=== PATIENT | male | born 1955 | race Two or more races ===

== ENCOUNTER → 2024-03-03 | Outpatient (CLI) | payer MEDICAID ==
[2024-03-03 08:37] LABS: Urine Bacteria None Seen /hpf (None Seen)
[2024-03-03 08:54] LABS: Basophils # (auto) 0.1 10 ^3/uL (0-0.2); Basophils % (auto) 0.7 % (0.0-2.0); Eosinophils # (auto) 0.1 10 ^3/uL (0-0.8); Eosinophils % (auto) 1.2 % (0.0-7.0); Lymphocytes # (auto) 1.8 10 ^3/uL (0.4-5.4); Lymphocytes % (auto) 22.3 % (10.0-50.0); Mean Corpuscular Hemoglobin 30.6 pg (28.0-32.0); Mean Corpuscular Hgb Conc. 33.9 g/dL (32.0-36.0); Mean Corpuscular Volume 90.3 fL (80.0-100.0); Monocytes # (auto) 0.8 10 ^3/uL (0-1.3); Monocytes % (auto) 10.3 % (0.0-12.0); Neutrophils # (auto) 5.1 10 ^3/uL (1.6-8.6); Neutrophils % (auto) 65.5 % (37.0-80.0); Nucleated Red Blood Cells % 0.1 %; Red Blood Cells 5.53 10^6/uL (4.5-5.90); Red Cell Distribution Width 13.8 % (11.8-14.3); White Blood Cell 7.8 10^3/uL (4.4-10.8)
[2024-03-03 08:59] LABS: Urine Blood Negative /uL (Negative); Urine Clarity Clear (Clear); Urine Color Yellow (Yellow); Urine Mucus FEW (None Seen); Urine Protein, UAD TRACE (Negative); Urine Specific Gravity 1.026 (1.001-1.035); Urine Urobilinogen 2 mg/dL (Negative); Urine WBC 2 /hpf (0 - 3)
[2024-03-03 09:14] LABS: Alanine Aminotransferase 17 U/L (7-40); Albumin 4.5 g/dL (3.2-4.8); Alkaline Phosphatase 63 U/L (46-116); Anion Gap 7 (5-15); Aspartate Aminotransferase 21 U/L (13-40); BUN/Creatinine Ratio 16.1 (10.0-20.0); Blood Urea Nitrogen 18 mg/dL (9-23); Calcium 10.1 mg/dL (8.5-10.1); Carbon Dioxide 28 mmol/L (20-30); Chloride 108 mmol/L (98-107); Glucose 102 mg/dL (74-106); LDL Cholesterol 76 mg/dL (< 100); Potassium 4.1 mmol/L (3.5-5.1); Sodium 143 mmol/L (136-145); Triglycerides 47 mg/dL (< 150)
[2024-03-03 09:15] LABS: Bilirubin, Total 0.7 mg/dL (0.2-1.0); Cholesterol 133 mg/dL (< 200); HDL Cholesterol 46 mg/dL (40-59); Total Protein 7.4 g/dL (5.7-8.2)
== END | disposition home or self-care (01) ==
LOC: LAB 08:25
PROVIDERS: ATTEND Nurse Practitioner
DX: I10 Essential (primary) hypertension (principal); E78.5 Hyperlipidemia, unspecified; R73.9 Hyperglycemia, unspecified
CPT/HCPCS: 36415; 80053; 80061; 81001; 83036; 84443; 85025

== ENCOUNTER → 2024-12-06 | Outpatient (CLI) | payer MEDICAID ==
[2024-12-06 08:49] LABS: Basophils # (auto) 0.1 10 ^3/uL (0-0.2); Basophils % (auto) 0.9 % (0.0-2.0); Eosinophils # (auto) 0.1 10 ^3/uL (0-0.8); Eosinophils % (auto) 1.8 % (0.0-7.0); Hematocrit 48.5 % (41.0-53.0); Hemoglobin 16.1 g/dL (13.5-17.5); Lymphocytes # (auto) 1.5 10 ^3/uL (0.4-5.4); Mean Corpuscular Hemoglobin 29.8 pg (28.0-32.0); Mean Corpuscular Hgb Conc. 33.1 g/dL (32.0-36.0); Mean Corpuscular Volume 90.2 fL (80.0-100.0); Monocytes # (auto) 0.6 10 ^3/uL (0-1.3); Monocytes % (auto) 9.6 % (0.0-12.0); Neutrophils # (auto) 4.3 10 ^3/uL (1.6-8.6); Neutrophils % (auto) 64.7 % (37.0-80.0); Nucleated Red Blood Cells % 0.1 %; Platelet Count (auto) 250 10^3/uL (140-450); Red Blood Cells 5.38 10^6/uL (4.5-5.90); Red Cell Distribution Width 13.5 % (11.8-14.3); White Blood Cell 6.6 10^3/uL (4.4-10.8)
[2024-12-06 08:58] LABS: Urine Bacteria None Seen /hpf (None Seen)
[2024-12-06 09:11] LABS: Urine Blood TRACE /uL (Negative); Urine Clarity Clear (Clear); Urine Color Yellow (Yellow); Urine Mucus FEW (None Seen); Urine Protein, UAD TRACE (Negative); Urine Specific Gravity 1.025 (1.001-1.035); Urine Squamous Epithelial Cell FEW /hpf (<5); Urine Urobilinogen Normal (Negative); Urine WBC 4 /HPF (0-3)
[2024-12-06 13:07] LABS: Triglycerides 58 mg/dL (< 150)
[2024-12-06 13:08] LABS: Cholesterol 134 mg/dL (< 200); HDL Cholesterol 48 mg/dL (40-59); LDL Cholesterol 76 mg/dL (< 100)
[2024-12-07 08:06] LABS: PSA Free 0.68 ng/mL; Prostate Specific Antigen 4.9 ng/mL (0.0-4.0)
== END | disposition home or self-care (01) ==
LOC: LAB 08:22
PROVIDERS: ATTEND Nurse Practitioner
DX: I10 Essential (primary) hypertension (principal); E78.5 Hyperlipidemia, unspecified; R73.9 Hyperglycemia, unspecified
CPT/HCPCS: 36415; 80061; 81001; 83036; 84153; 84154; 84443; 85025

== ENCOUNTER 2024-12-20 03:35 | Emergency (ER) | payer MEDICAID ==
[~2024-12-20] VITALS: Ht 190.5 cm; Wt 85.0 kg
--- NOTE | 2024-12-20 04:26 | ED.PDOC ---
History of Present Illness HPI Comments 69-year-old male complains dull achy bilateral lower quadrant abdominal pain for the last 3 days with bloating and nausea. Chief Complaint: Abdominal Pain Time Seen by MD: 03:46 Allergies: Coded Allergies: NO KNOWN ALLERGIES (Unverified , 12/20/24) Home Meds Active Scripts Hydrocodone-Acetaminophen (Hydrocodone Bitartrate/AC 5-325 mg) 1 Tab Tab, 1 TAB PO Q6HP PRN for 7 Days, #28 TAB Prov:IAN RAMIREZ MD 12/20/24 Metronidazole (Flagyl) 500 Mg Tab, 500 MG PO BID for 10 Days, #20 TAB Prov:IAN RAMIREZ MD 12/20/24 Ciprofloxacin Hydrochloride (Ciprofloxacin HCl) 250 Mg Tab, 250 MG GT BID for 10 Days, #20 TAB Prov:IAN RAMIREZ MD 12/20/24 Information Source: Patient Mode of Arrival: Ambulatory Severity: Moderate Timing: Days Past Medical History PAST MEDICAL HISTORY: HTN Gastrointestinal: reports: abdominal pain, nausea Physical Exam General Appearance: Moderate Distress HEENT: Normal ENT Inspection, Pharynx Normal, TMs Normal Neck: Full Range of Motion, Non-Tender, Normal, Normal Inspection Respiratory: Chest Non-Tender, Lungs Clear, No Accessory Muscle Use, No Respiratory Distress, Normal Breath Sounds Cardiovascular: No Edema, No JVD, No Murmur, No Gallop, Normal Peripheral Pulses, Regular Rate/Rhythm Breast Exam: Deferred Gastrointestinal: LLQ, Tenderness Genitalia: Deferred Pelvic: Deferred Rectal: Deferred Extremities: No calf tenderness, Normal capillary refill, Normal inspection, Normal range of motion, Non-tender, No pedal edema Musculoskeletal : Apperance: Normal Neurologic: Alert, 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 Was a procedure done?: No Differential Dx Considerations may include: Differential diagnosis includes but is not limited to: appendicitis, diverticulitis, colitis, urinary tract infection, ureteral colic / stone, bowel obstruction, and others X-Ray, Labs, Meds, VS Vital Signs Date Time Temp Pulse Resp B/P (MAP) Pulse Ox O2 Delivery O2 Flow Rate FiO2 12/20/24 06:50 81 18 157/94 12/20/24 05:41 87 20 157/93 12/20/24 05:28 87 20 157/93 (114) 98 12/20/24 05:28 87 20 98 Room Air* 0 21 12/20/24 03:48 98.2 92 20 127/80 (96) 96 Lab Test 12/20/24 03:55 12/20/24 03:51 Range/Units Urine Color Light-orange Yellow Urine Clarity Clear Clear Urine pH 6.0 5.0-9.0 Urine Specific [place] 1.032 1.001-1.035 Urine Protein 2+ H Negative Urine Ketones 1+ H Negative Urine Blood 1+ H Negative /uL Urine Nitrite Negative Negative Urine Bilirubin Negative Negative Urine Urobilinogen Normal Negative mg/dL Urine Leukocyte Esterase Negative Negative /uL Urine RBC 4 0 - 3 /hpf Urine Microscopic WBC 2 0-3 /HPF Urine Squamous Epithelial Cells None seen <5 /hpf Urine Amorphous Crystals Few None Seen /hpf Urine Bacteria Few H None Seen /hpf Urine Mucus Few None Seen Urine Glucose 1+ H Normal mg/dL White Blood Count 14.3 H 4.4-10.8 10^3/uL Red Blood Count 5.37 4.5-5.90 10^6/uL Hemoglobin 16.1 13.5-17.5 g/dL Hematocrit 48.1 41.0-53.0 % Mean Corpuscular Volume 89.5 80.0-100.0 fL Mean Corpuscular Hemoglobin 29.9 28.0-32.0 pg Mean Corpuscular Hemoglobin Concent 33.4 32.0-36.0 g/dL Red Cell Distribution Width 13.5 11.8-14.3 % Platelet Count 228 140-450 10^3/uL Mean Platelet Volume 9.1 6.9-10.8 fL Neutrophils (%) (Auto) 79.2 37.0-80.0 % Lymphocytes (%) (Auto) 7.7 L 10.0-50.0 % Monocytes (%) (Auto) 12.5 H 0.0-12.0 % Eosinophils (%) (Auto) 0.0 0.0-7.0 % Basophils (%) (Auto) 0.6 0.0-2.0 % Neutrophils # (Auto) 11.3 H 1.6-8.6 10 ^3/uL Lymphocytes # (Auto) 1.1 0.4-5.4 10 ^3/uL Monocytes # (Auto) 1.8 H 0-1.3 10 ^3/uL Eosinophils # (Auto) 0 0-0.8 10 ^3/uL Basophils # (Auto) 0.1 0-0.2 10 ^3/uL Nucleated Red Blood Cells 0.1 % Sodium Level 138 136-145 mmol/L Potassium Level 3.7 3.5-5.1 mmol/L Chloride Level 107 98-107 mmol/L Carbon Dioxide Level 20 20-31 mmol/L Anion Gap 11 5-15 Blood Urea Nitrogen 23 9-23 mg/dL Creatinine 0.96 0.700-1.30 mg/dL Glomerular Filtration Rate Calc 86 >90 mL/min BUN/Creatinine Ratio 24.0 H 10.0-20.0 Serum Glucose 143 H 74-106 mg/dL Calcium Level 10.1 8.7-10.4 mg/dL Total Bilirubin 1.2 H 0.2-1.0 mg/dL Aspartate Amino Transferase (AST) 54 H 13-40 U/L Alanine Aminotransferase (ALT) 98 H 7-40 U/L Alkaline Phosphatase 72 46-116 U/L Total Protein 7.4 5.7-8.2 g/dL Albumin 4.6 3.2-4.8 g/dL Lipase 37 12-53 U/L Current Medications Medications (Trade) Dose Ordered Sig/Radames Route Start Time Stop Time Status Last Admin Sodium Chloride 1,000 ml @ 1,000 mls/hr Q1H ONCE IVB 12/20/24 04:00 12/20/24 04:59 DC 12/20/24 05:41 Morphine Sulfate 4 mg ONCE ONCE IV 12/20/24 04:45 12/20/24 04:46 DC 12/20/24 05:41 Ondansetron HCl (Zofran) 4 mg ONCE ONCE IV 12/20/24 04:45 12/20/24 04:46 DC 12/20/24 05:40 Time of 1ST Reevaluation: 04:25 Reevaluation 1ST: Unchanged Patient Education/Counseling: Diagnosis, Treatment Family Education/Counseling: No Family Present Departure 1 Departure Time of Disposition: 04:25 Impression: Primary Impression: LLQ abdominal pain Additional Impression: Diverticulitis Disposition: 01 HOME / SELF CARE / HOMELESS Condition: Stable e-Prescriptions Hydrocodone-Acetaminophen (Hydrocodone Bitartrate/AC 5-325 mg) 1 Tab Tab 1 TAB PO Q6HP PRN for 7 Days, #28 TAB Prov: IAN RAMIREZ MD 12/20/24 Metronidazole (Flagyl) 500 Mg Tab 500 MG PO BID for 10 Days, #20 TAB Prov: IAN RAMIREZ MD 12/20/24 Ciprofloxacin Hydrochloride (Ciprofloxacin HCl) 250 Mg Tab 250 MG GT BID for 10 Days, #20 TAB Prov: IAN RAMIREZ MD 12/20/24 Discharged With: Self Critical Care Note Critical Care Time?: No Stability Stability form required: No IAN RAMIREZ MD Dec 20, 2024 04:26
[2024-12-20 04:32] LABS: Urine Amorphous Crystal FEW /hpf (None Seen); Urine Bacteria FEW /hpf (None Seen); Urine Blood 1+ /uL (Negative); Urine Clarity Clear (Clear); Urine Color Light-Orange (Yellow); Urine Mucus FEW (None Seen); Urine Protein, UAD 2+ (Negative); Urine Specific Gravity 1.032 (1.001-1.035); Urine Squamous Epithelial Cell None Seen /hpf (<5); Urine Urobilinogen Normal (Negative); Urine WBC 2 /HPF (0-3)
[2024-12-20 04:35] LABS: Basophils # (auto) 0.1 10 ^3/uL (0-0.2); Basophils % (auto) 0.6 % (0.0-2.0); Eosinophils # (auto) 0 10 ^3/uL (0-0.8); Hematocrit 48.1 % (41.0-53.0); Hemoglobin 16.1 g/dL (13.5-17.5); Lymphocytes # (auto) 1.1 10 ^3/uL (0.4-5.4); Lymphocytes % (auto) 7.7 % (10.0-50.0); Mean Corpuscular Hemoglobin 29.9 pg (28.0-32.0); Mean Corpuscular Hgb Conc. 33.4 g/dL (32.0-36.0); Mean Corpuscular Volume 89.5 fL (80.0-100.0); Monocytes # (auto) 1.8 10 ^3/uL (0-1.3); Monocytes % (auto) 12.5 % (0.0-12.0); Neutrophils # (auto) 11.3 10 ^3/uL (1.6-8.6); Neutrophils % (auto) 79.2 % (37.0-80.0); Nucleated Red Blood Cells % 0.1 %; Platelet Count (auto) 228 10^3/uL (140-450); Red Blood Cells 5.37 10^6/uL (4.5-5.90); Red Cell Distribution Width 13.5 % (11.8-14.3); White Blood Cell 14.3 10^3/uL (4.4-10.8)
[2024-12-20 04:39] LABS: Albumin 4.6 g/dL (3.2-4.8); Alkaline Phosphatase 72 U/L (46-116); Anion Gap 11 (5-15); Calcium 10.1 mg/dL (8.7-10.4); Chloride 107 mmol/L (98-107); Lipase 37 U/L (12-53); Potassium 3.7 mmol/L (3.5-5.1); Sodium 138 mmol/L (136-145); Total Protein 7.4 g/dL (5.7-8.2)
[2024-12-20 04:56] LABS: Alanine Aminotransferase 98 U/L (7-40); Aspartate Aminotransferase 54 U/L (13-40); Bilirubin, Total 1.2 mg/dL (0.2-1.0); Blood Urea Nitrogen 23 mg/dL (9-23); Carbon Dioxide 20 mmol/L (20-31); Glucose 143 mg/dL (74-106)
[2024-12-20 05:28] VITALS: PULSE 87; RESP 20; O2SAT 98
[2024-12-20] MEDS: IOHEXOL 300 MG/ML 100ML BOTTLE IJ ONE (05:35)
[2024-12-20] MEDS: ONDANSETRON HCL 4 MG/2 ML VIAL IV ONE (05:40)
[2024-12-20] MEDS: MORPHINE SULFATE 4 MG/ML SYR/VIAL IV ONE (05:41)
[2024-12-20] MEDS: SODIUM CHLORIDE 0.9% 1,000 ML IVB ONE (05:41)
--- NOTE | 2024-12-20 06:01 | DVH ---
EXAM: CT Abdomen and Pelvis With Intravenous Contrast CLINICAL INDICATION: LLQ pain TECHNIQUE: Axial computed tomography images of the abdomen and pelvis with intravenous contrast. is CT exam was performed using one or more of the following dose reduction techniques: automated exp osure control, adjustment of the mA and/or kV according to patient size, and/or use of iterative cee nstruction technique. CONTRAST: RADIATION DOSE: CTDIvol = 12.09 mGy, DLP = 687.41 mGy-cm COMPARISON: None FINDINGS: LUNG BASES: Unremarkable. No mass. No consolidation. MEDIASTINUM: Small esophageal hiatal hernia. ABDOMEN: LIVER: Hepatomegaly with fatty infiltration. GALLBLADDER AND BILE DUCTS: Unremarkable. No calcified stones. No ductal dilation. PANCREAS: Unremarkable. No mass. No ductal dilation. SPLEEN: Unremarkable. No splenomegaly. ADRENALS: Unremarkable. No mass. KIDNEYS AND URETERS: 5 mm nonobstructing calculus left renal pelvis. Bilateral renal cysts. STOMACH AND BOWEL: Scattered diverticula in the colon. There is mucosal thickening in the sigmoid colon and descending colon with surrounding inflammation consistent with acute diverticulitis. No ab scess. No obstruction. PELVIS: APPENDIX: No findings to suggest acute appendicitis. BLADDER: Unremarkable. No mass. REPRODUCTIVE: Unremarkable as visualized. ABDOMEN and PELVIS: INTRAPERITONEAL SPACE: Unremarkable. No free air. No significant fluid collection. BONES/JOINTS: No acute fracture. No dislocation. Multilevel endplate degenerative changes and disc disease, predominantly in the lower lumbar spine. SOFT TISSUES: Bilateral inguinal hernias.. VASCULATURE: Scattered calcified atherosclerotic disease of aorta. No abdominal aortic aneurysm. LYMPH NODES: Unremarkable. No enlarged lymph nodes. OTHER FINDINGS: . None. IMPRESSION: 1. Scattered diverticula in the colon. There is mild mucosal thickening in the sigmoid colon and de scending colon with surrounding inflammation consistent with acute mild diverticulitis. No abscess. 2. Small esophageal hiatal hernia. 3. Hepatomegaly with fatty infiltration. 4. 5 mm nonobstructing calculus left renal pelvis. Small hiatal Large fatty liver Bilateral renal cysts. Aortic disease 5 mm nonobstructing calculus left renal pelvis. Impression. Diverticulitis sigmoid colon and descending colon Bilateral inguinal hernias.
[2024-12-20] MEDS ORDERED: CIPR250T26 GT (06:05)
[2024-12-20] MEDS ORDERED: METR-344 PO (06:05)
[2024-12-20] MEDS ORDERED: HYDR-4902 PO (06:14)
[2024-12-20 06:50] VITALS: BP 157/94; PULSE 81; RESP 18
== END 2024-12-20 07:03 | disposition home or self-care (01) ==
LOC: ER 03:35
DX: K57.32 Diverticulitis of large intestine without perforation or abscess without bleeding (principal); I10 Essential (primary) hypertension; Z79.899 Other long term (current) drug therapy
CPT/HCPCS: 36415; 74177; 80053; 81001; 83690; 85025; 96361; 96374; 96375; 99285; J2270; J2405; J7030; Q9967

== ENCOUNTER 2025-01-24 14:07 | Inpatient (IN) | payer MEDICAID ==
[~2025-01-24] VITALS: Ht 190.5 cm; Wt 82.2 kg
[~2025-01-24 14:07] MED LIST: CIPR250T26 GT; HYDR-4902 PO; METR-344 PO
[2025-01-24 14:34] LABS: Basophils # (auto) 0.1 10 ^3/uL (0-0.2); Basophils % (auto) 0.5 % (0.0-2.0); Eosinophils # (auto) 0 10 ^3/uL (0-0.8); Eosinophils % (auto) 0.1 % (0.0-7.0); Hematocrit 41.2 % (41.0-53.0); Hemoglobin 14.6 g/dL (13.5-17.5); Lymphocytes # (auto) 1.2 10 ^3/uL (0.4-5.4); Lymphocytes % (auto) 8.8 % (10.0-50.0); Mean Corpuscular Hemoglobin 31.4 pg (28.0-32.0); Mean Corpuscular Hgb Conc. 35.5 g/dL (32.0-36.0); Mean Corpuscular Volume 88.5 fL (80.0-100.0); Monocytes # (auto) 1.4 10 ^3/uL (0-1.3); Neutrophils # (auto) 10.9 10 ^3/uL (1.6-8.6); Neutrophils % (auto) 80.6 % (37.0-80.0); Nucleated Red Blood Cells % 0.1 %; Platelet Count (auto) 353 10^3/uL (140-450); Red Blood Cells 4.66 10^6/uL (4.5-5.90); Red Cell Distribution Width 13.6 % (11.8-14.3); White Blood Cell 13.6 10^3/uL (4.4-10.8)
[2025-01-24 14:54] LABS: Alanine Aminotransferase 11 U/L (7-40); Albumin 4.7 g/dL (3.2-4.8); Alkaline Phosphatase 60 U/L (46-116); Anion Gap 9 (5-15); BUN/Creatinine Ratio 19.6 (10.0-20.0); Bilirubin, Total 0.7 mg/dL (0.2-1.0); Blood Urea Nitrogen 19 mg/dL (9-23); Calcium 10.1 mg/dL (8.7-10.4); Carbon Dioxide 25 mmol/L (20-31); Chloride 103 mmol/L (98-107); Glucose 105 mg/dL (74-106); Potassium 3.7 mmol/L (3.5-5.1); Sodium 137 mmol/L (136-145)
[2025-01-24 14:55] LABS: Aspartate Aminotransferase 11 U/L (13-40)
--- NOTE | 2025-01-24 15:05 | ED.PDOC ---
General HPI Comments HPI: 69 y/o M, with PMHX of HTN presents to the ED for CC of urinary retention. Patient states, that he has been experiencing urinary retention with associated symptoms of bilateral flank pain, back pain, and suprapubic abdominal pain x3days. Patient relays, that he has had scant urine production with associated sensations of a full bladder. Patient denies hematuria, foul order urine, penile discharge, or testicular swelling. No other symptoms or modifying factors present at this time. VITALS: Temp: 97.2 BP:145/85 HR:92 RR:20 SPO2:96% Past medical history:HTN Past surgical history: DENIES ANY NOREEN: HPI: Poor Historian. REVIEW OF SYSTEMS: CONSTITUTIONAL: Denies acute: fever, diaphoresis, chills, HEAD: Denies acute: headache, photophobia Eyes: Denies acute: Double vision, vision loss, eye pain, eye discharge. EARS: Denies acute: tinnitus, hearing loss, ear discharge, ear pain, THROAT: Denies acute: sore throat, swelling, difficulty swallowing , pain with swallowing, change in voice. NECK: Denies acute: neck pain, neck swelling, stiff neck. HEART: Denies acute : chest pain, palpitations, LUNGS: Denies acute: SOB, wheezing, cough, hemoptysis ABDOMEN: Denies acute: , Nausea, Vomiting, diarrhea, melena , hematemesis, hematochezia SKIN: Denies acute: rash, redness, lesions, itchiness. EXTREMITIES: Denies acute: calf pain, numbness, tingling, weakness, denies pain in extremity. Denies acute: Low back pain. Neuro: Denies acute: focal neurological deficit, motor or sensory focal neurological deficit, tremors, seizure like activity, confusion, dizziness, change in mental status, loss of bowel or bladder function, cauda equina like symptoms. : Denies acute: dysuria, hematuria, flank pain, increase in urinary frequency. PSYCH: Denies acute: hallucination, suicidal ideation, homicidal ideation. PHYSICAL EXAM: General: ---[id number]-----acute distress, awake and alert. Head: normocephalic, atraumatic. Neck: supple, trachea is midline, no swelling. Throat: Normal phonation. Eyes:, no erythema, no purulent discharge, no proptosis, no icterus. Heart: regular rate, regular rhythm, no significant murmur appreciated. Lungs: no apparent respiratory distress, Able to speak in full sentences. No wheezing, no rhonchi, no crackles. No stridors Clear to auscultation bilaterally. Abdomen: Generalized lower tender to palpation, non distended, soft, no guarding, no rebound, + bowel sounds. Neuro: Awake, Alert, oriented to name, self, situation, follows commands GCS=15. Speech is normal. Skin: no petechia, no purpura, no cyanosis, non-pale, not jaundice. Lower extremities: --no - Pitting edema no deformity, no focal swelling, no calf TTP. Makes eye contact. moves all four extremities. Face: no apparent facial droop. Ambulating in the ED independently. ED COURSE: Chief Complaint: Urinary Time Seen by MD: 14:50 Reviewed notes: Nurses Notes, Medications, Allergies Allergies: Coded Allergies: NO KNOWN ALLERGIES (Unverified , 12/20/24) Home Meds Active Scripts Hydrocodone-Acetaminophen (Hydrocodone Bitartrate/AC 5-325 mg) 1 Tab Tab, 1 TAB PO Q6HP PRN for 7 Days, #28 TAB Prov:IAN RAMIREZ MD 12/20/24 Metronidazole (Flagyl) 500 Mg Tab, 500 MG PO BID for 10 Days, #20 TAB Prov:IAN RAMIREZ MD 12/20/24 Ciprofloxacin Hydrochloride (Ciprofloxacin HCl) 250 Mg Tab, 250 MG GT BID for 10 Days, #20 TAB Prov:IAN RAMIREZ MD 12/20/24 Information Source: Patient Mode of Arrival: Ambulatory Severity: Moderate Inability to void: Moderate Timing: Days Duration: Since onset Prehospital treatment: None Onset: Spontaneous Symptoms: Inability to void History of: None Location: Suprapubic, Abdomen, (R) Flank, (L)Flank Penile discharge: None Modifying factors: None associated signs and symptoms: Inability to Void Was a procedure done? Was a procedure done?: No Differential Diagnosis Kidney stone (Female): N/A Urinary Problem (Male): Bladder Outlet, Bladder Obstruction, Epididymitis, Prostatitis, Plelonephritis, Post op Complications, Renal Failure, Urethritis, Urinary Retention, Urolithiasis, UTI, Other (DDX include but not limited to diverticulitis, colitis, gastroenteritis, acute abdomen, SBO, enteritis, constipation, volvulus, appendicitis, Gallbladder disease, choledocolithiasis, ascending cholangitis, pancreatitis, intraAbdominal mass/neoplasm, hepatitis, UTI, pylonephritis, kidney stone, aneurysm, dissection, Inflammatory bowel disease, gastroparesis, ischemic bowel.) X-Ray, Labs, Meds, VS Vital Signs Date Time Temp Pulse Resp B/P (MAP) Pulse Ox O2 Delivery O2 Flow Rate FiO2 01/24/25 16:38 136/94 01/24/25 15:49 89 22 95 Room Air* 0 21 01/24/25 15:48 98.4 89 22 135/84 (101) 95 98.4 01/24/25 14:09 97.2 92 20 145/85 (105) 96 97.2 Lab Test 01/24/25 15:05 01/24/25 14:30 01/24/25 14:20 Range/Units Urine Color Yellow Yellow Urine Clarity Turbid H Clear Urine pH 6.0 5.0-9.0 Urine Specific [place] 1.031 1.001-1.035 Urine Protein 1+ H Negative Urine Ketones 3+ H Negative Urine Blood 3+ H Negative /uL Urine Nitrite Negative Negative Urine Bilirubin Negative Negative Urine Urobilinogen 2 H Negative mg/dL Urine Leukocyte Esterase Trace Negative /uL Urine RBC 850 0 - 3 /hpf Urine Microscopic WBC 16 H 0-3 /HPF Urine Squamous Epithelial Cells Few <5 /hpf Urine Bacteria None seen None Seen /hpf Urine Mucus Few None Seen Urine Glucose Normal Normal mg/dL Lactic Acid Level 1.7 0.4-2.0 mmol/L White Blood Count 13.6 H 4.4-10.8 10^3/uL Red Blood Count 4.66 4.5-5.90 10^6/uL Hemoglobin 14.6 13.5-17.5 g/dL Hematocrit 41.2 41.0-53.0 % Mean Corpuscular Volume 88.5 80.0-100.0 fL Mean Corpuscular Hemoglobin 31.4 28.0-32.0 pg Mean Corpuscular Hemoglobin Concent 35.5 32.0-36.0 g/dL Red Cell Distribution Width 13.6 11.8-14.3 % Platelet Count 353 140-450 10^3/uL Mean Platelet Volume 7.6 6.9-10.8 fL Neutrophils (%) (Auto) 80.6 H 37.0-80.0 % Lymphocytes (%) (Auto) 8.8 L 10.0-50.0 % Monocytes (%) (Auto) 10.0 0.0-12.0 % Eosinophils (%) (Auto) 0.1 0.0-7.0 % Basophils (%) (Auto) 0.5 0.0-2.0 % Neutrophils # (Auto) 10.9 H 1.6-8.6 10 ^3/uL Lymphocytes # (Auto) 1.2 0.4-5.4 10 ^3/uL Monocytes # (Auto) 1.4 H 0-1.3 10 ^3/uL Eosinophils # (Auto) 0 0-0.8 10 ^3/uL Basophils # (Auto) 0.1 0-0.2 10 ^3/uL Nucleated Red Blood Cells 0.1 % Sodium Level 137 136-145 mmol/L Potassium Level 3.7 3.5-5.1 mmol/L Chloride Level 103 98-107 mmol/L Carbon Dioxide Level 25 20-31 mmol/L Anion Gap 9 5-15 Blood Urea Nitrogen 19 9-23 mg/dL Creatinine 0.97 0.700-1.30 mg/dL Glomerular Filtration Rate Calc 85 >90 mL/min BUN/Creatinine Ratio 19.6 10.0-20.0 Serum Glucose 105 74-106 mg/dL Calcium Level 10.1 8.7-10.4 mg/dL Total Bilirubin 0.7 0.2-1.0 mg/dL Aspartate Amino Transferase (AST) 11 L 13-40 U/L Alanine Aminotransferase (ALT) 11 7-40 U/L Alkaline Phosphatase 60 46-116 U/L Total Protein 8.0 5.7-8.2 g/dL Albumin 4.7 3.2-4.8 g/dL Current Medications Medications (Trade) Dose Ordered Sig/Radames Route Start Time Stop Time Status Last Admin Ceftriaxone Sodium 50 ml @ 100 mls/hr ONCE ONCE IV 01/24/25 16:00 01/24/25 16:29 DC 01/24/25 16:43 Fentanyl Citrate 100 mcg ONCE ONCE IV 01/24/25 16:15 01/24/25 16:16 DC 01/24/25 16:38 Ciprofloxacin 200 ml @ 200 mls/hr ONCE ONCE IV 01/24/25 17:00 01/24/25 17:59 DC 01/24/25 17:[address] [address] Ph: [phone] DIAGNOSTIC IMAGING Diagnostic Imaging Report : [id number] Signed PATIENT: VENECIA SORTO ACCT: [id number] UNIT: [id number] : 1955 LOC: ER ROOM / BED: / AGE / SEX: 69 / M ADM STATUS: REG ER SERVICE 1440 ORDERING PHYSICIAN: ANNA CROW DO PROCEDURE(s): ABPL - CT AB PEL WO CON-NO ORAL OR IV REASON: urinary symptoms ORDER NUMBER(s): [id number], ACCESSION NUMBER(s): [id number] Procedure: CT CT AB PEL WO CON-NO ORAL OR IV 01/24/2025 03:07 PM Indication: urinary symptoms Comparison Study: None Technique: Axial images were obtained and reformatted in coronal and sagittal planes. All CT scans at this medical facility are performed using dose modulation techniques as appropriate to a performed exam including the following: Automated exposure control was utilized; adjustment of the MA and/or KV according to patient size; and use of iterative reconstruction technique. CT Dose: CTDI volume is 8.05 mGy. Dose-length product is 460.13 mGy*cm FINDINGS: Lower Chest: Unremarkable. Hepatobiliary: Unremarkable. Spleen: Unremarkable. Pancreas: Unremarkable. Adrenal Glands: Unremarkable. tract: The kidneys are normal in size bilaterally without hydronephrosis or nephrolithiasis. Bilateral renal cysts are seen measuring up to 3.5 cm. Several subcentimeter nonobstructing bilateral renal calculi noted. The urinary bladder is unremarkable. GI tract: A small sliding hiatal hernia noted. No evidence of small bowel obstruction. Moderate fecal retention. Descending and sigmoid colon diverticulosis with moderate mesenteric inflammatory changes adjacent to the proximal sigmoid colon with no single inflamed diverticulum identified. There is interval development of an inflammatory mesenteric mass in the left lower quadrant measuring 6.3 cm in craniocaudal 3 cm in transverse The appendix is normal. Lymphatics: No mesenteric, retroperitoneal or periportal lymphadenopathy. Vasculature: The abdominal aorta is normal in caliber. Pelvic Organs: Unremarkable Bones/soft tissues: No acute abnormality. Other: None. IMPRESSION: 1. Interval development of a 6.3 x 3 cm inflammatory mesenteric mass in the left lower quadrant that is of indeterminate etiology. Evaluation is very limited without IV contrast. The left gonadal vein is thickened and dense which may reflect thrombosis. Further evaluation CT scan with IV contrast is recommended. 2. Descending and sigmoid colon diverticulosis with moderate mesenteric inflammatory changes adjacent to the proximal sigmoid colon with no single inflamed diverticulum identified. The findings may reflect residual diverticulitis. 3. No hydronephrosis or hydroureter. Several subcentimeter nonobstructing bilateral renal calculi are seen. Benign-appearing bilateral renal cysts noted. 4. Hepatomegaly and hepatic steatosis. 5. Suggestion of cholelithiasis with no evidence of cholecystitis. ATED BY: KYLAH CHAPMAN MD DICTATED DATE/TIME: 01/24/25 155 SIGNED BY: KYLAH CHAPMAN MD SIGNED DATE/TIME: 01/24/25 155 CC: Time of 1ST Reevaluation: 15:20 Reevaluation 1ST: Unchanged Patient Education/Counseling: Diagnosis, Treatment Family Education/Counseling: Other Comments Patient presented with the above HPI.--lower abdominal pain and urinary s ymptoms----workup was initiated. patient was found with the above mentioned diagnosis. the following medications were ordered: please refer to order lists of meds and tests obtained by myself Dr. Crow. Patient ED course and VS have been stabilized. Patient has been reassessed in the ED and remained in a stable condition. Pertinent incidental findings were discussed with the patient and/or family. Patient/family voices understanding and is agreeable with plan. Patient has been observed in the ED adequate length of time to insure improvement/stability. Escalation of care considered: Consideration of escalation to observation or admission Patient was ADMITTED to the medicine team for further evaluation and treatment of their presentation. All the reports of any imaging studies that were ordered by myself were reviewed by myself. Departure 1 Departure Time of Disposition: 16:46 Impression: Primary Impression: Diverticulitis Additional Impressions: UTI (urinary tract infection) Pelvic mass Abnormal finding on CT scan Leukocytosis Disposition: ADMITTED INPATIENT Admit to: Tele Condition: Guarded Additional Instructions: [address] [address] Ph: [phone] DIAGNOSTIC IMAGING Diagnostic Imaging Report : [id number] Signed PATIENT: VENECIA SORTO ACCT: [id number] UNIT: [id number] : 1955 LOC: ER ROOM / BED: / AGE / SEX: 69 / M ADM STATUS: REG ER SERVICE 1440 ORDERING PHYSICIAN: ANNA CROW DO PROCEDURE(s): ABPL - CT AB PEL WO CON-NO ORAL OR IV REASON: urinary symptoms ORDER NUMBER(s): [id number], ACCESSION NUMBER(s): [id number] Procedure: CT CT AB PEL WO CON-NO ORAL OR IV 01/24/2025 03:07 PM Indication: urinary symptoms Comparison Study: None Technique: Axial images were obtained and reformatted in coronal and sagittal planes. All CT scans at this medical facility are performed using dose modulation techniques as appropriate to a performed exam including the following: Automated exposure control was utilized; adjustment of the MA and/or KV according to patient size; and use of iterative reconstruction technique. CT Dose: CTDI volume is 8.05 mGy. Dose-length product is 460.13 mGy*cm FINDINGS: Lower Chest: Unremarkable. Hepatobiliary: Unremarkable. Spleen: Unremarkable. Pancreas: Unremarkable. Adrenal Glands: Unremarkable. tract: The kidneys are normal in size bilaterally without hydronephrosis or n ephrolithiasis. Bilateral renal cysts are seen measuring up to 3.5 cm. Several subcentimeter nonobstructing bilateral renal calculi noted. The urinary bladder is unremarkable. GI tract: A small sliding hiatal hernia noted. No evidence of small bowel obs truction. Moderate fecal retention. Descending and sigmoid colon diverticulosis with moderate mesenteric inflammatory changes adjacent to the proximal sigmoid colon with no single inflamed diverticulum identified. There is interval development of an inflammatory mesenteric mass in the left lower quadrant measuring 6.3 cm in craniocaudal 3 cm in transverse The appendix is normal. Lymphatics: No mesenteric, retroperitoneal or periportal lymphadenopathy. Vasculature: The abdominal aorta is normal in caliber. Pelvic Organs: Unremarkable Bones/soft tissues: No acute abnormality. Other: None. IMPRESSION: 1. Interval development of a 6.3 x 3 cm inflammatory mesenteric mass in the left lower quadrant that is of indeterminate etiology. Evaluation is very limited without IV contrast. The left gonadal vein is thickened and dense which may reflect thrombosis. Further evaluation CT scan with IV contrast is recommended. 2. Descending and sigmoid colon diverticulosis with moderate mesenteric inflammatory changes adjacent to the proximal sigmoid colon with no single inflamed diverticulum identified. The findings may reflect residual diverticulitis. 3. No hydronephrosis or hydroureter. Several subcentimeter nonobstructing bilateral renal calculi are seen. Benign-appearing bilateral renal cysts noted. 4. Hepatomegaly and hepatic steatosis. 5. Suggestion of cholelithiasis with no evidence of cholecystitis. ATED BY: KYLAH CHAPMAN MD DICTATED DATE/TIME: 01/24/25 155 SIGNED BY: KYLAH CHAPMAN MD SIGNED DATE/TIME: 01/24/25 155 CC: Discharged With: Self Critical Care Note Critical Care Time?: No Heart Score Heart Score: Heart Score Response (Comments) Value History N/A 0 EKG N/A 0 Age N/A 0 Risk Factors N/A 0 Troponin N/A 0 Total 0 I personally scribed for ANNA CROW DO ([email or web address]) on 01/24/25 at 15:05. Electronically submitted by Padmini Guevara ([email or web address]). I personally scribed for ANNA CROW DO ([email or web address]) on 01/24/25 at 16:37. Electronically submitted by Padmini Guevara ([email or web address]). ANNA CROW DO Jan 24, 2025 15:05
[2025-01-24 15:07] LABS: Urine Bacteria None Seen /hpf (None Seen)
[2025-01-24 15:11] LABS: Urine Blood 3+ /uL (Negative); Urine Clarity Turbid (Clear); Urine Color Yellow (Yellow); Urine Mucus FEW (None Seen); Urine Protein, UAD 1+ (Negative); Urine Specific Gravity 1.031 (1.001-1.035); Urine Squamous Epithelial Cell FEW /hpf (<5); Urine Urobilinogen 2 mg/dL (Negative); Urine WBC 16 /HPF (0-3)
[2025-01-24 15:49] VITALS: PULSE 89; RESP 22; O2SAT 95
--- NOTE | 2025-01-24 15:55 | DVH ---
Procedure: CT CT AB PEL WO CON-NO ORAL OR IV 01/24/2025 03:07 PM Indication: urinary symptoms Comparison Study: None Technique: Axial images were obtained and reformatted in coronal and sagittal planes. All CT scans at this medical facility are performed using dose modulation techniques as appropriate to a performed e xam including the following: Automated exposure control was utilized; adjustment of the MA and/or KV according to patient size; and use of iterative reconstruction technique. CT Dose: CTDI volume is 8.0 5 mGy. Dose-length product is 460.13 mGy*cm FINDINGS: Lower Chest: Unremarkable. Hepatobiliary: Unremarkable. Spleen: Unremarkable. Pancreas: Unremarkable. Adrenal Glands: Unremarkable. tract: The kidneys are normal in size bilaterally without hydronephrosis or nephrolithiasis. Bilat eral renal cysts are seen measuring up to 3.5 cm. Several subcentimeter nonobstructing bilateral sharonda al calculi noted. The urinary bladder is unremarkable. GI tract: A small sliding hiatal hernia noted. No evidence of small bowel obstruction. Moderate fecal retention. Descending and sigmoid colon diverticulosis with moderate mesenteric inflammatory change s adjacent to the proximal sigmoid colon with no single inflamed diverticulum identified. There is in terval development of an inflammatory mesenteric mass in the left lower quadrant measuring 6.3 cm in craniocaudal 3 cm in transverse The appendix is normal. Lymphatics: No mesenteric, retroperitoneal or periportal lymphadenopathy. Vasculature: The abdominal aorta is normal in caliber. Pelvic Organs: Unremarkable Bones/soft tissues: No acute abnormality. Other: None. IMPRESSION: 1. Interval development of a 6.3 x 3 cm inflammatory mesenteric mass in the left lower quadrant that is of indeterminate etiology. Evaluation is very limited without IV contrast. The left gonadal vein i s thickened and dense which may reflect thrombosis. Further evaluation CT scan with IV contrast is r ecommended. 2. Descending and sigmoid colon diverticulosis with moderate mesenteric inflammatory changes adjacent to the proximal sigmoid colon with no single inflamed diverticulum identified. The findings may refl ect residual diverticulitis. 3. No hydronephrosis or hydroureter. Several subcentimeter nonobstructing bilateral renal calculi are seen. Benign-appearing bilateral renal cysts noted. 4. Hepatomegaly and hepatic steatosis. 5. Suggestion of cholelithiasis with no evidence of cholecystitis.
[2025-01-24] MEDS: fentaNYL CITRATE 100 MCG/2 ML VL IV ONE (16:38)
[2025-01-24] MEDS: cefTRIAXone 1GM/50ML D5W 50 ML IV ONE (16:43)
[2025-01-24] MEDS: metroNIDAZOLE 500MG/100ML 100 ML IV ONE (17:00)
[2025-01-24] MEDS: CIPROFLOXACIN 400MG/200ML 200 ML IV ONE (17:46)
[2025-01-24] MEDS: SODIUM CHLORIDE 0.9% 1,000 ML IV ONE (22:06)
[2025-01-24] MEDS: HYDROcodone-ACET 5/325MG TAB PO ONE (22:57)
[2025-01-24] MEDS ORDERED: ACETAMINOPHEN 325 MG TAB PO PRN (23:00)
[2025-01-24] MEDS ORDERED: ONDANSETRON HCL 4 MG/2 ML VIAL IV PRN (23:00)
--- NOTE | 2025-01-24 23:06 | DVHHPRES ---
History of Present Illness Resident Creating Document: KATHIE JIN RESDISIMA History of Present Illness This is a 69-year-old male with past medical history of hypertension came to the hospital due to abdominal pain. Per patient, 6 weeks back he was treated for orchitis, and was feeling good for 2 weeks, but later he developed abdominal pain which progressively worsened. Pain is localized at lower abdomen, radiating to the back, constant, pressure-like in nature and 10/10 in intensity. He also reports dribbling, urgency, frequency, constipation and sleep disturb ance due to pain. He denies fever, chest pain, shortness of breath, or any recent sick contact. PMHx: Hypertension PSHx: Shoulder surgery due to a traumatic injury Family history: Noncontributory Social history: Denies smoking or any other drug use Home medication: Lisinopril 20 mg Allergic history: No known allergy Review of Systems Review of Systems General: Reports sleep disturbance due to abdominal pain HEENT: No headaches, visiual changes, hearing loss, tinnitus, nasal congestion and discharge, and sore throat. Cardiovascular: Denies chest pain, palpitations, dyspnea on exertion, orthopnea, or claudication. Respiratory: No cough, and wheezing. Gastrointestinal: Reports lower abdominal pain Genitourinary: Reports dribbling, urgency and frequency Endocrine: No heat or cold intolerance, polydipsia, polyuria, and polyphagia. Neurological: No dizziness, extremity weakness and numbness, tremors, gait disturbance, seizures, and memory impairment. Psychiatric: Denies depression, anxiety,or insomnia. Musculoskeletal: Denies neck pain, stiffness and swelling, back pain, muscle weakness, joint pain, stiffness, swelling, or limited range of motion. Skin: No rashes, itching, skin lesion, changes in hair, nail, skin texture and breast. Hematologic/Lymphatic: Denies easy bruising, bleeding tendencies, or lymph node enlargement. Allergies: Coded Allergies: NO KNOWN ALLERGIES (Unverified , 12/20/24) Exam Vital Signs Vital Signs Date Time Temp Pulse Resp B/P (MAP) Pulse Ox O2 Delivery O2 Flow Rate FiO2 01/24/25 16:38 136/94 01/24/25 15:49 89 22 95 Room Air* 0 21 01/24/25 15:48 98.4 98.4 Exam General Appearance: Alert, Oriented X3, Cooperative, No acute distress HEENT: Atraumatic, PERRLA, EOMI, Mucous membrane moist/pink Respiratory: Clear to auscultation, Normal air movement Cardiovascular: Regular rate, Normal S1, Normal S2, No murmurs, no chest wall tenderness Abdominal: Lower abdominal tenderness Extremities: No clubbing, No cyanosis, No edema, Normal pulses, No tenderness/swelling Skin: No rashes, No breakdown, No significant lesion Neuro: Normal gait, Normal speech, Strength at 5/5 X4 ext, Normal tone, Sensation intact, Cranial nerves 3-12 NL, Reflexes 2+ Psych/Mental Status: Mental status NL, Mood NL Labs/Xrays Labs Test 01/24/25 15:05 01/24/25 14:30 01/24/25 14:20 Range/Units Urine Color Yellow Yellow Urine Clarity Turbid H Clear Urine pH 6.0 5.0-9.0 Urine Specific [place] 1.031 1.001-1.035 Urine Protein 1+ H Negative Urine Ketones 3+ H Negative Urine Blood 3+ H Negative /uL Urine Nitrite Negative Negative Urine Bilirubin Negative Negative Urine Urobilinogen 2 H Negative mg/dL Urine Leukocyte Esterase Trace Negative /uL Urine RBC 850 0 - 3 /hpf Urine Microscopic WBC 16 H 0-3 /HPF Urine Squamous Epithelial Cells Few <5 /hpf Urine Bacteria None seen None Seen /hpf Urine Mucus Few None Seen Urine Glucose Normal Normal mg/dL Lactic Acid Level 1.7 0.4-2.0 mmol/L White Blood Count 13.6 H 4.4-10.8 10^3/uL Red Blood Count 4.66 4.5-5.90 10^6/uL Hemoglobin 14.6 13.5-17.5 g/dL Hematocrit 41.2 41.0-53.0 % Mean Corpuscular Volume 88.5 80.0-100.0 fL Mean Corpuscular Hemoglobin 31.4 28.0-32.0 pg Mean Corpuscular Hemoglobin Concent 35.5 32.0-36.0 g/dL Red Cell Distribution Width 13.6 11.8-14.3 % Platelet Count 353 140-450 10^3/uL Mean Platelet Volume 7.6 6.9-10.8 fL Neutrophils (%) (Auto) 80.6 H 37.0-80.0 % Lymphocytes (%) (Auto) 8.8 L 10.0-50.0 % Monocytes (%) (Auto) 10.0 0.0-12.0 % Eosinophils (%) (Auto) 0.1 0.0-7.0 % Basophils (%) (Auto) 0.5 0.0-2.0 % Neutrophils # (Auto) 10.9 H 1.6-8.6 10 ^3/uL Lymphocytes # (Auto) 1.2 0.4-5.4 10 ^3/uL Monocytes # (Auto) 1.4 H 0-1.3 10 ^3/uL Eosinophils # (Auto) 0 0-0.8 10 ^3/uL Basophils # (Auto) 0.1 0-0.2 10 ^3/uL Nucleated Red Blood Cells 0.1 % Sodium Level 137 136-145 mmol/L Potassium Level 3.7 3.5-5.1 mmol/L Chloride Level 103 98-107 mmol/L Carbon Dioxide Level 25 20-31 mmol/L Anion Gap 9 5-15 Blood Urea Nitrogen 19 9-23 mg/dL Creatinine 0.97 0.700-1.30 mg/dL Glomerular Filtration Rate Calc 85 >90 mL/min BUN/Creatinine Ratio 19.6 10.0-20.0 Serum Glucose 105 74-106 mg/dL Calcium Level 10.1 8.7-10.4 mg/dL Total Bilirubin 0.7 0.2-1.0 mg/dL Aspartate Amino Transferase (AST) 11 L 13-40 U/L Alanine Aminotransferase (ALT) 11 7-40 U/L Alkaline Phosphatase 60 46-116 U/L Total Protein 8.0 5.7-8.2 g/dL Albumin 4.7 3.2-4.8 g/dL Assessment/Plan Assessment/Plan Complicated UTI Diverticulosis UA shows UTI picture CT scan shows inflammatory or reactive lymph nodes along the left periaortic chain anterior to the left psoas muscle. There is also extensive diverticulosis UA urine culture Empiric antibiotic, Rocephin IV fluid Pain control Hypertension Continue lisinopril Hepatomegaly and hepatic steatosis Cholelithiasis CT scan finding DIET: Cardiac diet DVT PROPHYLAXIS: Lovenox GI PROPHYLAXIS:: Protonix CODE STATUS: Goal of care discussed for more than 18 minutes, full code DISPOSITION: Med/surge Patient's status and plan discussed with the patient. Case discussed with Dr. Garrett. Plan discussed with: Patient, Other (RN) My Orders Orders - JORGERIYAJORGEARACELIS RESDIENT Procedure Category Date Status Time Admit ADMIT 01/24/25 Verified 22:55 Code Status CODE 01/24/25 Verified 22:55 Vital Signs KRYSTLE 01/24/25 Verified 22:55 Review Orders With [facility] 01/24/25 Verified Adm. 22:55 Consistent DIET 01/25/25 Verified Carb(Ccho)Diabetes Breakfast Acetaminophen Tablet PHA 01/24/25 Verified (Tylenol Tablet) 23:00 Notify Md Of Changes [facility] 01/24/25 Verified From Base 22:55 Advance Directive KRYSTLE 01/24/25 Verified 22:55 Lipid Panel LAB 01/24/25 Verified 22:55 Patient Condition ORDERS 01/24/25 Verified 22:55 Allergies KRYSTLE 01/24/25 Verified 22:55 Ondansetron Hcl PHA 01/24/25 Verified (Zofran) 23:00 Drug Screen LAB 01/24/25 Verified 22:55 Lovenox 40mg PHA 01/25/25 Verified 10:00 Stat Ekg For Chest [facility] 01/24/25 Verified Pain 22:55 Notify Md Of Changes [facility] 01/24/25 Verified From Base 22:55 Ketorolac Injection PHA 01/24/25 Verified (Toradol Injection) 23:00 Ketorolac Injection PHA 01/24/25 Verified (Toradol Injection) 23:00 Pantoprazole PHA 01/24/25 Verified (Protonix) 23:00 Pantoprazole PHA 01/25/25 Verified (Protonix) 10:00 Lisinopril Tablet PHA 01/25/25 Verified (Zestril Tablet) 10:00 Lisinopril Tablet PHA 01/24/25 Verified (Zestril Tablet) 23:00 Ceftriaxone Ivpb PHA 01/25/25 Verified Rocephin 09:00 Ceftriaxone Ivpb PHA 01/24/25 Verified Rocephin 23:00 Tamsulosin PHA 01/24/25 Verified Hydrochloride (Flomax) 23:00 Tamsulosin PHA 01/25/25 Verified Hydrochloride (Flomax) 18:00 Complete Blood Count LAB 01/25/25 Verified 04:00 Basic Metabolic Panel LAB 01/25/25 Verified 04:00 PTPTT LAB 01/25/25 Verified 04:00 Ct Ab Pel With Iv Con CT 01/24/25 Verified Only 22:55 Bladder Scan ED NURSING 01/24/25 Verified Date of Service: Jan 24, 2025 Billing Provider: TORIE GARRETT MD Common Visit Codes: 01855-[id number] INP/OBS CARE (HIGH) Secondary Visit Codes: 23609-[id number] CARE PLAN 30 MINUTES KATHIE JIN RESDIENT Jan 24, 2025 23:06 TORIE GARRETT MD Jan 30, 2025 12:15
[2025-01-24] MEDS ORDERED: IOHEXOL 300 MG/ML 100ML BOTTLE IJ ONE (23:11)
[2025-01-24 23:30] VITALS: BP 150/84; PULSE 87; RESP 19; TEMP 98.1; O2SAT 98
[2025-01-24 23:33] LABS: Triglycerides 46 mg/dL (< 150)
[2025-01-24 23:34] LABS: LDL Cholesterol 68 mg/dL (< 100)
[2025-01-24 23:35] LABS: Cholesterol 119 mg/dL (< 200); HDL Cholesterol 41 mg/dL (40-59)
[2025-01-24 23:35] LABS: Amphetamine Screen, Urine Neg (NEGATIVE); Barbiturate Scree,Urine Neg (NEGATIVE); Benzodiazephine Screen, Urine Neg (NEGATIVE); Cannabinoid Screen, Urine Pos (NEGATIVE); Cocaine Screen, Urine Neg (NEGATIVE); Opiate Scree,Urine Pos (NEGATIVE); Phencyclidine Screen, Urine Neg (NEGATIVE)
--- NOTE | 2025-01-24 23:57 | DVH ---
Exam: CT CT AB PEL WITH IV CON ONLY History: A 6.3 x 3 cm inflammatory mesenteric mass in LLQ Comparison Study: CT CT AB PEL WITH IV CON ONLY on DOS: 12/20/24 Contrast: Type of contrast: 100 mL of Omnipaque 300 Contrast wasted: 0 TECHNIQUE: Multidetector CT of abdomen and pelvis with IV contrast. Radiation Dose Information: CT Dose: CTDI volume is 1278 mGy. Dose-length product is 777.27 mGy*cm FINDINGS: Lung bases demonstrate very early interstitial changes. Heart size is normal there is an hiatal hernia. There are simple cysts involving both kidneys. there is also calcifications associated with 2 of the cysts in the left kidney. There is no evidence hydron ephrosis or hydroureter. Gallbladder is engorged fluid. There is a large stool burden patient has mu ltiple diverticuli in the sigmoid appear to be inflamed lymph nodes anterior to the left psoas muscle I do not think they are related to the diverticuli. patient has calcifications in the enlarged prost ate. Bladder is unremarkable.. IMPRESSION: 1. There appears to be inflammatory or reactive lymph nodes along the left periaortic chain anterior to the left psoas muscle. There is also extensive diverticulosis
[2025-01-25] MEDS: KETOROLAC TROMETH 30 MG/ML 1ML VIAL IV ONE (00:03)
[2025-01-25] MEDS: TAMSULOSIN HYDROCHLORIDE 0.4 MG CAP PO ONE ×2 (00:04→18:17)
[2025-01-25] MEDS: PANTOPRAZOLE 40 MG/10 ML VIAL INJ IV ONE (00:04)
[2025-01-25] MEDS: cefTRIAXone 1GM/50ML D5W 50 ML IV ONE (00:05)
[2025-01-25] MEDS: LISINOPRIL 20 MG TAB PO ONE (00:05)
[2025-01-25] MEDS ORDERED: LISI20TA56 PO ×2 (00:19)
[2025-01-25 02:34] VITALS: PULSE 67; RESP 18; O2SAT 97
[2025-01-25] MEDS: metroNIDAZOLE 500MG/100ML 100 ML IV ONE (03:13)
[2025-01-25 05:00] VITALS: BP 128/79; PULSE 73; RESP 18; TEMP 98.4; O2SAT 97
[2025-01-25 06:54] LABS: Chloride 107 mmol/L (98-107); Potassium 4.2 mmol/L (3.5-5.1); Sodium 139 mmol/L (136-145)
[2025-01-25 06:55] LABS: Anion Gap 7 (5-15); Calcium 9.3 mg/dL (8.7-10.4); Carbon Dioxide 25 mmol/L (20-31)
[2025-01-25 06:59] LABS: INR 1.14 (0.9-1.15); Partial Thromboplastin Time 31.5 SEC (24.5-34.5); Prothrombin Time 11.9 sec (9.3-11.8)
[2025-01-25 07:00] LABS: BUN/Creatinine Ratio 24.2 (10.0-20.0); Glucose 97 mg/dL (74-106)
[2025-01-25 07:01] LABS: Basophils # (auto) 0.1 10 ^3/uL (0-0.2); Basophils % (auto) 0.6 % (0.0-2.0); Eosinophils # (auto) 0 10 ^3/uL (0-0.8); Eosinophils % (auto) 0.4 % (0.0-7.0); Hematocrit 35.2 % (41.0-53.0); Hemoglobin 12.2 g/dL (13.5-17.5); Lymphocytes # (auto) 1.3 10 ^3/uL (0.4-5.4); Lymphocytes % (auto) 11.4 % (10.0-50.0); Mean Corpuscular Hemoglobin 30.7 pg (28.0-32.0); Mean Corpuscular Hgb Conc. 34.6 g/dL (32.0-36.0); Mean Corpuscular Volume 88.9 fL (80.0-100.0); Monocytes # (auto) 1.4 10 ^3/uL (0-1.3); Neutrophils # (auto) 8.3 10 ^3/uL (1.6-8.6); Neutrophils % (auto) 74.6 % (37.0-80.0); Nucleated Red Blood Cells % 0.1 %; Platelet Count (auto) 272 10^3/uL (140-450); Red Blood Cells 3.96 10^6/uL (4.5-5.90); Red Cell Distribution Width 13.6 % (11.8-14.3); White Blood Cell 11.1 10^3/uL (4.4-10.8)
[2025-01-25 07:05] LABS: Blood Urea Nitrogen 24 mg/dL (9-23)
[2025-01-25] MEDS: cefTRIAXone 1GM/50ML D5W 50 ML IV SCH (10:08)
[2025-01-25] MEDS: LISINOPRIL 20 MG TAB PO SCH (10:11)
[2025-01-25] MEDS: ENOXAPARIN SOD 40 MG/0.4 ML SYRINGE SC SCH (10:11)
[2025-01-25] MEDS: PANTOPRAZOLE 40 MG/10 ML VIAL INJ IV SCH (10:21)
[2025-01-25] MEDS: KETOROLAC TROMETH 30 MG/ML 1ML VIAL IV PRN (10:23)
[2025-01-25 11:15] LABS: Hepatitis B Surface Antigen Negative (Negative)
[2025-01-25 11:17] LABS: Hepatitis C Antibody Positive (Negative)
[2025-01-25] MEDS: metroNIDAZOLE 500MG/100ML 100 ML IV SCH (11:40)
[2025-01-25] MEDS: POLYETHYLENE GLYCOL 17 GM PWDR PO ONE (12:56)
[2025-01-25] MEDS: SENNA 8.6 MG TAB PO ONE (12:56)
[2025-01-25 13:00] VITALS: BP 137/75; PULSE 77; RESP 18; TEMP 98.2; O2SAT 97
[2025-01-25 17:00] VITALS: BP 132/78; PULSE 76; RESP 18; TEMP 98.3; O2SAT 96
[2025-01-25] MEDS ORDERED: TAMSULOSIN HYDROCHLORIDE 0.4 MG CAP PO SCH ×2 (18:00)
--- NOTE | 2025-01-25 18:03 | DVHPNRES ---
Progress Note Date Seen: Jan 25, 2025 Resident Creating Document: ERIKA INGRAMDREW RESIDENT Medical Necessity Reason Pt with a Central, PICC or Fol: No Subjective Review of Systems Patient is a 69-year-old male with a past medical history of hypertension presented to the ER with a chief complaint of abdominal pain for the past 1 week. Patient reported that his illness started around 7-8 weeks ago when he had lower abdominal pain following which she presented to the hospital where he was reportedly diagnosed with diverticulitis and sent home on oral antibiotics following which he had relief for about 10 days and again started to have lower abdominal pain. Patient describes the pain to be in the groin, suprapubic area which radiates along the right and the left lower quadrants, pain is intense at times and other times he feels better. Patient also reports not passing stools since the last 4 days and since his in his started about 7-8 weeks ago he has been having symptoms of urinary frequency, hesitancy, dribbling but denies burning micturition. Patient denied fever, chills, diarrhea, nausea or vomiting. Past medical history: Hypertension Past surgical history: Shoulder surgery Family history: Noncontributory Social history: denies smoking, alcohol, any other drug use Home medication: lisinopril Review of systems Patient seen and examined at the bedside. Reports [id number] left lower quadrant pain which radiates along the suprapubic region to the right lower quadrant. Patient did not have a bowel movement since last 4 days Denies fever, chills, headache, back pain. Objective vital signs Vital Sign Date Time Temp Pulse Resp B/P (MAP) Pulse Ox O2 Delivery O2 Flow Rate FiO2 01/25/25 17:00 98.3 76 18 132/78 (96) 96 98.3 01/25/25 07:45 Room Air* 0 21 Total Intake and Output 01/24/25 01/24/25 01/25/25 15:00 23:00 07:00 Intake Total 300 ml 150 ml Balance 300 ml 150 ml medications Current Medications Medications Dose Ordered Sig/Radames Route Start Time Stop Time Status Last Admin Dose Admin Acetaminophen 650 mg Q6HP PRN PO 01/24/25 23:00 Ondansetron HCl 4 mg Q4HP PRN IV 01/24/25 23:00 Enoxaparin Sodium 40 mg DAILY SC 01/25/25 10:00 01/25/25 10:11 40 MG Ketorolac Tromethamine 15 mg Q6HPRN PRN IV 01/24/25 23:00 01/29/25 22:59 01/25/25 17:25 15 MG Pantoprazole Sodium 40 mg DAILY IV 01/25/25 10:00 01/25/25 10:21 40 MG Lisinopril 20 mg DAILY PO 01/25/25 10:00 01/25/25 10:11 20 MG Ceftriaxone Sodium 50 ml @ 100 mls/hr DAILY@09 IV 01/25/25 09:00 01/25/25 10:08 100 MLS/HR Metronidazole 100 ml @ 100 mls/hr Q8H IV 01/25/25 11:00 01/25/25 17:25 100 MLS/HR Tamsulosin HCl 0.8 mg QPM PO 01/26/25 18:00 Examination Constitutional: Patient was alert and oriented to time, place and person and does not appear to be in any acute distress Gen - no pallor, no icterus, no cyanosis, no clubbing, no LAD, no edema . Skin - Patients skin is warm and dry.. HEENT - normocephalic, atraumatic, moist mucous membranes. Neck - full ROM, no LAD, no JVD Pulmonary - B/L equal breath sounds, no added sounds, no crackles , no wheezing cardiovascular - normal S1,S2 heard. no murmurs heard. GI - soft abdomen with tenderness to palpation in the lower abdominal quadrants. no hepatospleenomegaly. Bowel sounds Normoactive Neurological - Bilateral upper extremity strength 5/5, bilateral lower extremity strength 5/5, no facial droop, normal speech, no tremor, no sensory deficiets. Digital rectal examination: Firm swelling felt in the anterior wall of the rectum laboratory and microbiology Laboratory Tests 01/25/25 06:24 Test 01/25/25 06:24 Range/Units Serum Glucose 97 74-106 mg/dL Problem List/Assessment/Plan Problem List/Assessment/Plan Assessment Acute intractable abdominal pain Possible Diverticulitis Constipation Prostatomegaly likely BPH Hepatic steatosis Polysubstance use Hepatitis-C antibody positive CT abdomen pelvis without contrast IMPRESSION: 1. Interval development of a 6.3 x 3 cm inflammatory mesenteric mass in the left lower quadrant that is of indeterminate etiology. Evaluation is very limited without IV contrast. The left gonadal vein is thickened and dense which may reflect thrombosis. Further evaluation CT scan with IV contrast is recommended. 2. Descending and sigmoid colon diverticulosis with moderate mesenteric inflammatory changes adjacent to the proximal sigmoid colon with no single inflamed diverticulum identified. The findings may reflect residual diverticulitis. 3. No hydronephrosis or hydroureter. Several subcentimeter nonobstructing bilateral renal calculi are seen. Benign-appearing bilateral renal cysts noted. 4. Hepatomegaly and hepatic steatosis. 5. Suggestion of cholelithiasis with no evidence of cholecystitis. CT abdomen pelvis with IV contrast IMPRESSION: There appears to be inflammatory or reactive lymph nodes along the left periaortic chain anterior to the left psoas muscle. There is also extensive diverticulosis Plan - patient likely had abdominal pain due to constipation for which laxatives were given - postvoid residual volume in the bladder showed less than 300 mL, held off on the Rm's, patient on Flomax 0.8 mg - empiric antibiotics with IV ceftriaxone and metronidazole - urology outpatient follow up for prostatomegaly advised to patient - hepatitis-C antibody likely chronic with no acute hepatitis, to be followed up in the outpatient clinic - full liquid diet Goals of care discussed with the patient for over 25 minutes. Full code Plan discussed with Dr. Vanessa Plan discussed with: Patient My Orders My Orders Orders - STEPHANY INGRAM Procedure Category Date Status Time Tamsulosin PHA 01/26/25 In Process Hydrochloride (Flomax) 18:00 Bladder Scan ORDERS 01/25/25 Transmitted 12:43 STEPHANY INGRAM RESIDENT Jan 25, 2025 18:03
[2025-01-25 20:54] VITALS: BP 122/77; PULSE 69; RESP 16; TEMP 98.1; O2SAT 95
[2025-01-26] VITALS (7 sets, daily range): BP systolic 120–144; BP diastolic 76–87; PULSE 63–139; RESP 15–80; TEMP 36.8; O2SAT 92–98
[2025-01-26] MEDS: LORazepam 2MG/ML-1ML VIAL IM ONE (15:30)
[2025-01-26] MEDS: TAMSULOSIN HYDROCHLORIDE 0.4 MG CAP PO SCH (15:58)
[2025-01-26] MEDS: CYCLOBENZAPRINE HCL 10 MG TAB PO ONE (15:58)
[2025-01-26] MEDS ORDERED: TAMS-35 PO ×2 (17:42)
[2025-01-26] MEDS ORDERED: METH-1181 PO ×2 (17:42)
[2025-01-26] MEDS ORDERED: POLY335015 PO ×2 (17:42)
[2025-01-26] MEDS ORDERED: IBU600T PO ×2 (17:42)
[2025-01-26] MEDS ORDERED: TAMSULOSIN HYDROCHLORIDE 0.4 MG CAP PO SCH (18:00)
== END 2025-01-26 19:06 | disposition home or self-care (01) | DRG 392 ==
LOC: ER 14:07 → OVERFLOW 22:55 → CENTRAL 01-25 02:14
PROVIDERS: ADMIT Student in an Organized Health Care Education/Training Program; ATTEND Student in an Organized Health Care Education/Training Program
DX: K57.32 Diverticulitis of large intestine without perforation or abscess without bleeding (principal); N39.0 Urinary tract infection, site not specified; R65.10 Systemic inflammatory response syndrome (SIRS) of non-infectious origin without acute organ dysfunction; I10 Essential (primary) hypertension; K76.0 Fatty (change of) liver, not elsewhere classified; N40.0 Benign prostatic hyperplasia without lower urinary tract symptoms; B19.20 Unspecified viral hepatitis C without hepatic coma; K80.20 Calculus of gallbladder without cholecystitis without obstruction; R16.0 Hepatomegaly, not elsewhere classified; Z79.899 Other long term (current) drug therapy
CPT/HCPCS: 36415; 74176; 74177; 80048; 80053; 80061; 80307; 81001; 83605; 85025; 85610; 85730; 86803; 87340; 96365; G0378; J1885; J2470; J3490

== ENCOUNTER → 2025-01-30 | Outpatient (CLI) | payer MEDICAID ==
[~2025-01-30] MED LIST changes: +IBU600T PO; +LISI20TA56 PO; +METH-1181 PO; +POLY335015 PO; +TAMS-35 PO
[2025-01-30 12:35] LABS: Basophils # (auto) 0.1 10 ^3/uL (0-0.2); Basophils % (auto) 0.6 % (0.0-2.0); Eosinophils # (auto) 0 10 ^3/uL (0-0.8); Eosinophils % (auto) 0.4 % (0.0-7.0); Hematocrit 40.6 % (41.0-53.0); Hemoglobin 14.2 g/dL (13.5-17.5); Lymphocytes # (auto) 1.2 10 ^3/uL (0.4-5.4); Mean Corpuscular Hemoglobin 30.8 pg (28.0-32.0); Mean Corpuscular Hgb Conc. 34.9 g/dL (32.0-36.0); Mean Corpuscular Volume 88.4 fL (80.0-100.0); Monocytes % (auto) 9.9 % (0.0-12.0); Neutrophils # (auto) 7.6 10 ^3/uL (1.6-8.6); Neutrophils % (auto) 77.1 % (37.0-80.0); Nucleated Red Blood Cells % 0.2 %; Platelet Count (auto) 407 10^3/uL (140-450); Red Cell Distribution Width 13.5 % (11.8-14.3); White Blood Cell 9.8 10^3/uL (4.4-10.8)
[2025-01-30 13:40] LABS: Erythrocyte Sedimentation Rate 71 mm/hr (0-20)
== END | disposition home or self-care (01) ==
LOC: LAB 12:21
PROVIDERS: ATTEND Internal Medicine
DX: R19.01 Right upper quadrant abdominal swelling, mass and lump (principal)
CPT/HCPCS: 36415; 82378; 85025; 85652; 86141

== ENCOUNTER → 2025-05-22 | Day surgery (SDC) | payer MEDICAID ==
[2025-05-18 11:58] LABS: Hematocrit 43.3 % (41.0-53.0); Hemoglobin 14.6 g/dL (13.5-17.5); Mean Corpuscular Hemoglobin 29.3 pg (28.0-32.0); Mean Corpuscular Volume 86.6 fL (80.0-100.0); Nucleated Red Blood Cells % 0.1 %
[2025-05-18 12:14] LABS: INR 1.02 (0.9-1.15); Partial Thromboplastin Time 27.8 SEC (24.5-34.5); Prothrombin Time 10.8 sec (9.3-11.8)
[2025-05-18 12:17] LABS: Alanine Aminotransferase 10 U/L (7-40); Albumin 4.2 g/dL (3.2-4.8); Alkaline Phosphatase 59 U/L (46-116); Anion Gap 7 (5-15); BUN/Creatinine Ratio 18.5 (10.0-20.0); Bilirubin, Total 0.4 mg/dL (0.2-1.0); Blood Urea Nitrogen 22 mg/dL (9-23); Calcium 10.0 mg/dL (8.7-10.4); Carbon Dioxide 30 mmol/L (20-31); Chloride 106 mmol/L (98-107); Glucose 99 mg/dL (74-106); Potassium 3.9 mmol/L (3.5-5.1); Sodium 143 mmol/L (136-145); Total Protein 7.1 g/dL (5.7-8.2)
[2025-05-18 12:22] LABS: Urine Protein, UAD Negative (Negative)
[~2025-05-22] VITALS: Ht 190.5 cm; Wt 88.5 kg
[~2025-05-22] MED LIST changes: +ACETAMINOPHEN IV 1000 MG/100ML (10MG/ML) IV ONE; -CIPR250T26 GT; +GLYCOPYRROLATE 0.2 MG/ML 1ML VIAL ONE; -HYDR-4902 PO; +HYDROmorphone HCL 2 MG/ML VL/or syr IV PRN; +HYDROmorphone HCL 2 MG/ML VL/or syr ONE; +KETOROLAC TROMETH 30 MG/ML 1ML VIAL ONE; +LIDOCAINE 2% (LOCAL ANESTH.) PF 5ml SDV ONE; -METH-1181 PO; -METR-344 PO; +MIDAZOLAM HCL 2MG/2ML 2ml VIAL (1mg/ml) ONE; +OMEG1400 PO; +ONDANSETRON HCL 4 MG/2 ML VIAL IV ONE; +ONDANSETRON HCL 4 MG/2 ML VIAL ONE; -POLY335015 PO; +PROPOFOL 10 MG/ML 20 ML IV ONE; +ROCURONIUM 10MG/ML 10ML VIAL IV ONE; +SUGAMMADEX 200mg/2ml Vial (100MG/ML) IV ONE; -TAMS-35 PO; +fentaNYL CITRATE 100 MCG/2 ML VL ONE
[2025-05-22] MEDS: CIPROFLOXACIN 400MG/200ML 200 ML IV ONE (11:30)
[2025-05-22 12:09] VITALS: TEMP 97.5; O2SAT 100
--- NOTE | 2025-05-22 12:10 | DVHNC2 ---
Procedure - OPERATIVE REPORT Pre-op. Diagnosis: BPH with Obstruction Post-op. 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 Treatment options were discussed including ongoing therapy with pharmaceutical such as alpha blocking agents (Flomax/UroXatral/Rapaflow), or Prostate shrinking agents (proscar/Avodart); In-office prostate therapies (TUMT/Indigo Laser/TUNA); or Outpatient procedures such as Green light laser photovaporization/Enucleation/TURP) as well urolift. Corresponding advantages and disadvantages were also discussed. Questions were addressed. Details of Procedure: Patient was brought to the operating room. After administration of anesthesia, he was placed in the lithotomy position. The area of genitalia was prepped and draped in standard surgical and sterile fashion. The 20 F access sheath was introduced into the bladder under direct vision. Bladder was emptied and the Urolift device was introduced. Four implants were permanently placed at the 10 a& 2 O'clock positions near the bladder neck and apical tissue to lift the kissing lateral lobes out of the way and to create a channel in the prostatic urethra and the urethral bladder neck opening. The implants were delivered through a needle that comes out of the Urolift delivery device and into the prostate. Incidental small papillary tumor lesion, small, was noted on right side of jacinto ne medial to right ureteral orifice. 21F rigid cystoscope was utilized to inspect the bladder. Biopsy of the lesion in question was taken and area fulgurated for hemostasis. Patient tolerated the procedure well. Specimens: None Complications: None None Findings: DISPOSITION: Await for the pathology report. Notes: Incidental bladder lesion removed and fulgurated. Diagnosis: Visit Code: Procedure Codes: 52058 CYSTO FULG LASER MINOR LES. 57578 CYSTOURETHRO W/IMPLANT. 21168 CYSTOURETHRO W/ADDL IMPLANT. Units: 3.00. ALINA RYDER MD May 22, 2025 12:10
--- NOTE | 2025-05-22 12:15 | DVHDS2 ---
New Physician D'charge PN Admitting Diagnosis Admitting Diagnosis BPH Discharge Diagnosis BPH Incidental bladder lesion Operations or Procedures Urolift Cystoscopy with biopsy and fulguration Reason(s) For Hospitalization Surgery Treatment Plan Discharge Condition of Discharge Good Disposition Home Discharge Instructions Diet: Regular Activity: Light activity Activity comment: as tolerated Medications: given Follow Up Care Follow Up/Referral: 2 weeks follow up Discharge Statement: "Patient was advised to return to the ER or call 911 if any headaches, dizziness, shortness of breath, chest pain, abdominal pain, bleeding, fevers, or worsening of medical condition. Patient was counseled about treatment plan, medications, possible side effects, patientverbalized understanding. All questions were answered to the best of my ability. This discharge took greater then 30 minutes in planning, reviewing documentation, counseling the patient, and discussing with other team members." ALINA RYDER MD May 22, 2025 12:15
[2025-05-22 13:10] VITALS: BP 155/88; PULSE 68; RESP 13; O2SAT 96
== END | disposition home or self-care (01) ==
LOC: SUR 06:53
PROVIDERS: ATTEND Urology
DX: N40.1 Benign prostatic hyperplasia with lower urinary tract symptoms (principal); N13.8 Other obstructive and reflux uropathy; N30.30 Trigonitis without hematuria; I10 Essential (primary) hypertension; N32.89 Other specified disorders of bladder; Z98.890 Other specified postprocedural states; Z79.899 Other long term (current) drug therapy
CPT/HCPCS: 36415; 52204; 80053; 81001; 85025; 85610; 85730; 87086; 88305; 88342; C1769; C9740; J0744; J1100; J1171; J1885; J2003; J2250; J2405; J2704; J3010; J7030; L8699

== ENCOUNTER 2025-08-14 11:22 | Outpatient (CLI) | payer MEDICAID ==
[~2025-08-14 11:22] MED LIST changes: -ACETAMINOPHEN IV 1000 MG/100ML (10MG/ML) IV ONE; -GLYCOPYRROLATE 0.2 MG/ML 1ML VIAL ONE; -HYDROmorphone HCL 2 MG/ML VL/or syr IV PRN; -HYDROmorphone HCL 2 MG/ML VL/or syr ONE; -KETOROLAC TROMETH 30 MG/ML 1ML VIAL ONE; -LIDOCAINE 2% (LOCAL ANESTH.) PF 5ml SDV ONE; -MIDAZOLAM HCL 2MG/2ML 2ml VIAL (1mg/ml) ONE; -ONDANSETRON HCL 4 MG/2 ML VIAL IV ONE; -ONDANSETRON HCL 4 MG/2 ML VIAL ONE; -PROPOFOL 10 MG/ML 20 ML IV ONE; -ROCURONIUM 10MG/ML 10ML VIAL IV ONE; -SUGAMMADEX 200mg/2ml Vial (100MG/ML) IV ONE; -fentaNYL CITRATE 100 MCG/2 ML VL ONE
[2025-08-14 12:04] LABS: Hematocrit 42.4 % (41.0-53.0); Hemoglobin 14.3 g/dL (13.5-17.5); Mean Corpuscular Hemoglobin 29.6 pg (28.0-32.0); Mean Corpuscular Volume 87.8 fL (80.0-100.0); Nucleated Red Blood Cells % 0.0 %
[2025-08-14 12:17] LABS: INR 1.04 (0.9-1.15); Prothrombin Time 11.0 sec (9.3-11.8)
[2025-08-14 12:39] LABS: Albumin 4.4 g/dL (3.2-4.8); Alkaline Phosphatase 55 U/L (46-116); Anion Gap 10 (5-15); BUN/Creatinine Ratio 19.3 (10.0-20.0); Bilirubin, Total 0.4 mg/dL (0.2-1.0); Blood Urea Nitrogen 22 mg/dL (9-23); Calcium 9.0 mg/dL (8.7-10.4); Carbon Dioxide 28 mmol/L (20-31); Chloride 106 mmol/L (98-107); Glucose 91 mg/dL (74-106); Potassium 4.5 mmol/L (3.5-5.1); Sodium 144 mmol/L (136-145); Total Protein 7.6 g/dL (5.7-8.2)
[2025-08-14 12:49] LABS: Alanine Aminotransferase < 9 U/L (7-40)
== END 2025-08-14 17:00 | disposition home or self-care (01) ==
LOC: LAB 11:22
PROVIDERS: ATTEND Internal Medicine Gastroenterology
DX: K59.02 Outlet dysfunction constipation (principal); B18.2 Chronic viral hepatitis C
CPT/HCPCS: 36415; 80053; 82105; 84443; 85025; 85610; 87902

== ENCOUNTER 2025-08-24 06:53 | Inpatient (IN) | payer MEDICAID ==
[~2025-08-24] VITALS: Ht 190.5 cm; Wt 83.0 kg
[2025-08-24] VITALS (12 sets, daily range): BP systolic 99–145; BP diastolic 55–88; PULSE 72–95; RESP 18–24; TEMP 98.1–100.7; O2SAT 92–98
[~2025-08-24 06:53] MED LIST changes: -LIDOCAINE 2%HCL (LOCAL ANESTH.) INJ 20ML MDV ONE
[2025-08-24 07:48] LABS: Hematocrit 40.8 % (41.0-53.0); Hemoglobin 14.2 g/dL (13.5-17.5); Mean Corpuscular Hemoglobin 29.5 pg (28.0-32.0); Mean Corpuscular Volume 84.9 fL (80.0-100.0)
[2025-08-24] MEDS: SODIUM CHLORIDE 0.9% 1,000 ML IV ONE (07:52)
[2025-08-24 08:00] LABS: Chloride 105 mmol/L (98-107); Potassium 4.0 mmol/L (3.5-5.1); Sodium 139 mmol/L (136-145)
[2025-08-24 08:01] LABS: Anion Gap 13 (5-15); Calcium 9.4 mg/dL (8.7-10.4); Carbon Dioxide 21 mmol/L (20-31)
[2025-08-24 08:03] LABS: INR 1.22 (0.9-1.15); Prothrombin Time 12.7 sec (9.3-11.8)
[2025-08-24 08:06] LABS: BUN/Creatinine Ratio 18.4 (10.0-20.0)
[2025-08-24 08:07] LABS: Smudge Cells 1 /100 WBC; Total Cells Counted 100.0 (100)
[2025-08-24 08:08] LABS: Blood Urea Nitrogen 25 mg/dL (9-23); Glucose 156 mg/dL (74-106)
[2025-08-24] MEDS: ONDANSETRON HCL 4 MG/2 ML VIAL IV ONE (08:27)
[2025-08-24] MEDS: HYDROmorphone HCL 2 MG/ML VL/or syr IV ONE (08:28)
[2025-08-24 09:15] LABS: Lactic Acid w/Reflex 2.3 mmol/L (0.4-2.0)
[2025-08-24] MEDS ORDERED: MORPHINE SULFATE INJ 2 MG/ml SYRG IV PRN (11:15)
[2025-08-24] MEDS ORDERED: NITROGLYCERIN 0.4 MG SL TAB SL PRN (11:15)
[2025-08-24] MEDS ORDERED: ONDANSETRON HCL 4 MG/2 ML VIAL IV PRN (11:15)
[2025-08-24] MEDS ORDERED: DOCUSATE SOD 100 MG CAP PO PRN (11:15)
--- NOTE | 2025-08-24 11:40 | ED.PDOC ---
General HPI Comments A 69 YEAR OLD MALE PRESENTS TO THE ED WITH COMPLAINT OF HEMATURIA AND SUPRAPUBIC PAIN. PATIENT STATES HE HAS A HISTORY OF KIDNEY STONES AND WAS RECENTLY DIAGNOSED WITH A 12 MM RENAL STONE AND WAS SCHEDULED TO HAVE SURGERY TODAY TO REMOVE IT, BUT STATES IT WAS CANCELED ONCE AGAIN. PATIENT REPORTS HE IS CURRENTLY EXPERIENCING HEMATURIA, SUPRAPUBIC PAIN, AND LOWER BACK PAIN FOR THE PAST 2.5 WEEKS. THE PAIN LEVEL IS 10/10 AT THIS TIME. PATIENT DENIES FEVER, CHILLS, SHORTNESS OF BREATH, CHEST PAIN, ABDOMINAL PAIN, NAUSEA, VOMITING, HEADACHE, OR OTHER COMPLAINTS. NO OTHER SYMPTOMS OR MODIFYING FACTORS AT THIS TIME. PATIENT IS ALERT, ORIENTED X 4, AND HAS STEADY GAIT. Chief Complaint: Urinary Time Seen by MD: 07:16 Reviewed notes: Nurses Notes, Medications, Allergies Allergies: Coded Allergies: NO KNOWN ALLERGIES (Unverified , 12/20/24) Home Meds Reported Medications Methocarbamol (Methocarbamol) 500 Mg Tab, PO, TAB 08/20/25 Lisinopril (Lisinopril) 20 Mg Tab, 20 MG PO DAILY for 30 Days, MG 01/25/25 Information Source: Friend Mode of Arrival: Ambulatory Severity: Moderate Inability to void: None Timing: Weeks Duration: Since onset, Days Prehospital treatment: None Onset: Spontaneous Symptoms: Hematuria, Other (LOWER BACK PAIN, SUPRAPUBIC PAIN) History of: Kidney stone Location: Suprapubic, Abdomen, (L)Flank Penile discharge: None Modifying factors: None associated signs and symptoms: Abdominal Pain, Hematuria Past Medical History PAST MEDICAL HISTORY: HTN, Kidney Stones Past Medical History (Other): HEPATITIS Surgical History: Denies all surgeries Family History Family History: Reviewed,noncontributory to illness Social History Smoker: Non-Smoker Alcohol: Denies ETOH Use Drugs: Denies Drug Use Lives In: Home Constitutional: reports: fatigue, weakness; denies: chills, diaphoresis, fever, malaise, sweats, others EENTM: denies: blurred vision, double vision, ear bleeding, ear discharge, ear drainage, ear pain, ear ringing, eye pain, eye redness, hearing loss, mouth pain, mouth swelling, nasal discharge, nose bleeding, nose congestion, nose pain, photophobia, tearing, throat pain, throat swelling, voice changes, others Respiratory: denies: cough, hemoptysis, orthopnea, SOB at rest, shortness of breath, SOB with excertion, stridor, wheezing, others Cardiovascular: denies: chest pain, dizzy spells, diaphoresis, Dyspnea on exertion, edema, irregular heart beat, left arm pain, lightheadedness, palpitations, PND, syncope, others Gastrointestinal: reports: abdominal pain; denies: abdomen distended, blood streaked bowels, constipated, diarrhea, dysphagia, difficulty swallowing, hematemesis, melena, nausea, poor appetite, poor fluid intake, rectal bleeding, rectal pain, vomiting, others Genitourinary: reports: flank pain, hematuria, pain (SUPRAPUBIC PAIN); denies: burning, dysuria, frequency, incontinence, penile discharge, penile sore, testicle pain, testicle swelling, urgency, others Neurological: denies: dizziness, fainting, headache, left sided numbness, left sided weakness, numbness, paresthesia, pre-existing deficit, right sided numbness, right sided weakness, seizure, speech problems, tingling, tremors, weakness, others Musculoskeletal: reports: back pain; denies: gout, joint pain, joint swelling, muscle pain, muscle stiffness, neck pain, others Integumetry: denies: bruises, change in color, change in hair/nails, dryness, laceration, lesions, lumps, rash, wounds, others Allergic/Immunocompromised: denies: Difficulty Healing, Frequent Infections, Hives, Itching, others Hematologic/Lymphatic: denies: anemia, blood clots, easy bleeding, easy bruising, swollen glands, others Endocrine: denies: excessive hunger, excessive sweating, excessive thirst, excessive urination, flushing, intolerance to cold, intolerance to heat, unexplained weight gain, unexplained weight loss, others Psychiatric: denies: anxiety, bipolar disorder, depression, hopeless, panic disorder, schizophrenia, sleepless, suicidal, others All Other Systems: Reviewed and Negative Physical Exam General Appearance: Moderate Distress, Normal HEENT: Normal ENT Inspection, PERRL/EOMI, Pharynx Normal, TMs Normal Neck: Full Range of Motion, Non-Tender, Normal, Normal Inspection Respiratory: Chest Non-Tender, Lungs Clear, No Accessory Muscle Use, No Respiratory Distress, Normal Breath Sounds Cardiovascular: No Edema, No JVD, No Murmur, No Gallop, Normal Peripheral Pulses, Regular Rate/Rhythm Breast Exam: Deferred Gastrointestinal: LLQ, No Organomegaly, No Pulsatile Mass, Normal Bowel Sounds, Soft, Tenderness (LEFT LOWER ABD WITH GUARDING, NO REBOUND TENDERNESS. ) Genitalia: Deferred Pelvic: Normal External Exam Rectal: Deferred Extremities: No calf tenderness, Normal capillary refill, Normal inspection, Normal range of motion, Non-tender, No pedal edema Musculoskeletal : Location: Left Extremity Location: Back Apperance: Tenderness: Moderate (LEFT LOWER BACK WITH CVA TENDERNESS. ) Neurologic: Alert, wallpaper scraper II-XII nml as Tested, No Motor Deficits, Normal Affect, Normal Mood, No Sensory Deficits Cerebellar Function: Normal Reflexes: Normal Skin: Dry, Normal Color, Warm Peripheral Pulses: 2+ carotid (R), 2+ carotid (L) Lymphatic: No Adenopathy Was a procedure done? Was a procedure done?: No Differential Diagnosis Kidney stone (Female): Bowel obstruction, N/A Kidney stone (Male): DJD, Pyelonephritis, Renal failure, Strain, Urolithiasis, Urinary tract infection Penile/Scrotal: Urolithiasis, N/A Urinary Problem (Male): N/A Urinary Problem (Female): N/A X-Ray, Labs, Meds, VS Vital Signs Date Time Temp Pulse Resp B/P (MAP) Pulse Ox O2 Delivery O2 Flow Rate FiO2 08/24/25 10:00 97.8 84 21 118/71 (87) 98 97.8 08/24/25 08:58 81 22 118/71 08/24/25 08:33 90 19 98 Room Air* 0 21 08/24/25 08:33 87 18 128/80 (96) 99 08/24/25 08:28 83 21 121/71 08/24/25 06:55 98.9 107 18 111/76 95 98.9 Lab Test 08/24/25 08:14 08/24/25 07:27 Range/Units Lactic Acid Level 2.3 *H 0.4-2.0 mmol/L White Blood Count 26.2 #H 4.4-10.8 10^3/uL Red Blood Count 4.80 4.5-5.90 10^6/uL Hemoglobin 14.2 13.5-17.5 g/dL Hematocrit 40.8 L 41.0-53.0 % Mean Corpuscular Volume 84.9 80.0-100.0 fL Mean Corpuscular Hemoglobin 29.5 28.0-32.0 pg Mean Corpuscular Hemoglobin Concent 34.8 32.0-36.0 g/dL Red Cell Distribution Width 13.7 11.8-14.3 % Platelet Count 386 140-450 10^3/uL Mean Platelet Volume 7.8 6.9-10.8 fL Neutrophils (%) (Auto) 37.0-80.0 % Lymphocytes (%) (Auto) 10.0-50.0 % Monocytes (%) (Auto) 0.0-12.0 % Basophils (%) (Auto) 0.0-2.0 % Neutrophils # (Auto) 1.6-8.6 10 ^3/uL Lymphocytes # (Auto) 0.4-5.4 10 ^3/uL Monocytes # (Auto) 0-1.3 10 ^3/uL Differential Total Cells Counted 100.0 100 Neutrophils % (Manual) 87 H 37.0-80.0 Band Neutrophils % (Manual) 1 Lymphocytes % (Manual) 2 L 10.0-50.0 Monocytes % (Manual) 10 0-12 Eosinophils % (Manual) 0 0-7 Basophils % (Manual) 0 0.0-2.0 Metamyelocytes % (manual) 0 Myelocytes % (Manual) 0 Promyelocytes % (Manual) 0 Blast Cells % (Manual) 0 Reactive Lymphocytes 0 Smudge Cells 1 /100 WBC Platelet Estimate Adequate Prothrombin Time 12.7 H 9.3-11.8 sec Prothrombin Time INR 1.22 H 0.9-1.15 Sodium Level 139 136-145 mmol/L Potassium Level 4.0 3.5-5.1 mmol/L Chloride Level 105 98-107 mmol/L Carbon Dioxide Level 21 20-31 mmol/L Anion Gap 13 5-15 Blood Urea Nitrogen 25 H 9-23 mg/dL Creatinine 1.36 H 0.700-1.30 mg/dL Glomerular Filtration Rate Calc 56 >90 mL/min BUN/Creatinine Ratio 18.4 10.0-20.0 Serum Glucose 156 H 74-106 mg/dL Calcium Level 9.4 8.7-10.4 mg/dL Current Medications Medications (Trade) Dose Ordered Sig/Radames Route Start Time Stop Time Status Last Admin Sodium Chloride 1,000 ml @ 1,000 mls/hr Q1H ONCE IV 08/24/25 07:30 08/24/25 08:29 DC 08/24/25 07:52 Ondansetron HCl (Zofran) 4 mg ONCE ONCE IV 08/24/25 08:00 08/24/25 08:01 DC 08/24/25 08:27 Hydromorphone HCl (Dilaudid Injection) 0.5 mg ONCE ONCE IV 08/24/25 08:00 08/24/25 08:01 DC 08/24/25 08:28 Ceftriaxone Sodium 50 ml @ 100 mls/hr ONCE ONCE IV 08/24/25 08:30 08/24/25 08:59 DC 08/24/25 09:22 Levofloxacin/ Dextrose 100 ml @ 100 mls/hr ONCE ONCE IV 08/24/25 08:45 08/24/25 09:44 DC 08/24/25 09:22 Metronidazole 100 ml @ 100 mls/hr ONCE ONCE IV 08/24/25 10:00 08/24/25 10:59 DC 08/24/25 10:44 ADDENDUM # 1 Critical result: Left obstructive uropathy and colovesical fistula. Findings discussed with Dr. Dhaliwal on 08/24/2025 at 12:[address] Addison, with acknowledged receipt and understanding of the findings. ORIGINAL REPORT Exam: CT CT AB PEL WO CON-NO ORAL OR IV History: Left flank pain. Comparison Study: Images from a prior CT scan of the abdomen pelvis dated 01/24/2025 are available for comparison. Technique: Multidetector spiral CT of the abdomen and pelvis was performed from lung bases to pubic symphysis. Imaging was performed without intravenous contrast. Coronal and sagittal multiplanar reformats were obtained from the axial data set by the technologist. Radiation Dose : 1. Abdomen/Pelvis: CTDIvol 12.65 mGy, DLP 668.8 mGy*cm. Findings: Evaluation of vasculature and solid organs is limited due to lack of intravenous contrast use. Lung Bases: Lung bases are clear. Visualized portions of the heart and pericardium are unremarkable. Liver: The liver is normal in size. No focal lesions. Diffusely hypoattenuating liver parenchyma consistent with hepatic steatosis. Gallbladder and Biliary Tree: The gallbladder is unremarkable. No intrahepatic or extrahepatic biliary ductal dilatation. Spleen: The spleen is enlarged measuring 13.6 cm. Pancreas: The pancreas is grossly unremarkable. Adrenal Glands: Unremarkable. Kidneys: There is moderate left hydroureteronephrosis due to a 7 mm obstructive proximal left ureteral calculus. Additional bilateral nonobstructive renal calculi measuring up to 3 mm in the right kidney and 5 mm in the left kidney. There are bilateral renal cysts. GI tract: There is a small hiatal hernia. No evidence of small bowel wall thickening or abnormal dilatation to suggest bowel obstruction. There is colonic diverticulosis. There is mucosal thickening in the sigmoid colon with fat stranding. The thickened sigmoid colon is inseparable from the urinary bladder wall and there appears to be stool in the thickened urinary bladder mucosa. Normal caliber appendix. Peritoneum/mesentery/retroperitoneum. No evidence of free intraperitoneal air. No ascites. No evidence of suspicious lymphadenopathy. Abdominal Wall: Unremarkable. Vasculature: The visualized abdominal aorta is normal in size and caliber. Evaluation of abdominal and pelvic vessels is limited due to lack of intravenous contrast. Urinary Bladder: Urinary bladder wall thickening and extensive fat stranding is noted. There is gas in the urinary bladder and possible stool, highly suspicious for colovesicular fistula. Pelvic Organs: Post procedural changes in the prostate. Prostate enlarged measuring 5.0 cm. Musculoskeletal: No aggressive focal bony lesions, acute fractures or dislocation. IMPRESSION: 1. Moderate left hydroureteronephrosis due to a 7 mm obstructive proximal left ureteral calculus. 2. Additional bilateral nonobstructive renal calculi measuring up to 3 mm in the right kidney and 5 mm in the left kidney. 3. Sigmoid colon diverticulitis with high suspicion for colovesical fistula and cystitis. CT with rectal contrast may be obtained for confirmation. 4. Prostatomegaly. 5. Splenomegaly. ATED BY: TIMBO ADDISON MD DICTATED DATE/TIME: 08/24/25940 SIGNED BY: TIMBO ADDISON MD SIGNED DATE/TIME: 08/24/25940 CC: Exam: CT CT AB PEL WO CON-NO ORAL OR IV History: Left flank pain. Comparison Study: Images from a prior CT scan of the abdomen pelvis dated 01/24/2025 are available for comparison. Technique: Multidetector spiral CT of the abdomen and pelvis was performed from lung bases to pubic symphysis. Imaging was performed without intravenous contrast. Coronal and sagittal multiplanar reformats were obtained from the axial data set by the technologist. Radiation Dose : 1. Abdomen/Pelvis: CTDIvol 12.65 mGy, DLP 668.8 mGy*cm. Findings: Evaluation of vasculature and solid organs is limited due to lack of intravenous contrast use. Lung Bases: Lung bases are clear. Visualized portions of the heart and pericardium are unremarkable. Liver: The liver is normal in size. No focal lesions. Diffusely hypoattenuating liver parenchyma consistent with hepatic steatosis. Gallbladder and Biliary Tree: The gallbladder is unremarkable. No intrahepatic or extrahepatic biliary ductal dilatation. Spleen: The spleen is enlarged measuring 13.6 cm. Pancreas: The pancreas is grossly unremarkable. Adrenal Glands: Unremarkable. Kidneys: There is moderate left hydroureteronephrosis due to a 7 mm obstructive proximal left ureteral calculus. Additional bilateral nonobstructive renal calcu li measuring up to 3 mm in the right kidney and 5 mm in the left kidney. There are bilateral renal cysts. GI tract: There is a small hiatal hernia. No evidence of small bowel wall thickening or abnormal dilatation to suggest bowel obstruction. There is colonic diverticulosis. There is mucosal thickening in the sigmoid colon with fat stranding. The thickened sigmoid colon is inseparable from the urinary bladder wall and there appears to be stool in the thickened urinary bladder mucosa. Normal caliber appendix. Peritoneum/mesentery/retroperitoneum. No evidence of free intraperitoneal air. No ascites. No evidence of suspicious lymphadenopathy. Abdominal Wall: Unremarkable. Vasculature: The visualized abdominal aorta is normal in size and caliber. Evaluation of abdominal and pelvic vessels is limited due to lack of intravenous contrast. Urinary Bladder: Urinary bladder wall thickening and extensive fat stranding is noted. There is gas in the urinary bladder and possible stool, highly suspicious for colovesicular fistula. Pelvic Organs: Post procedural changes in the prostate. Prostate enlarged measuring 5.0 cm. Musculoskeletal: No aggressive focal bony lesions, acute fractures or dislocation. IMPRESSION: 1. Moderate left hydroureteronephrosis due to a 7 mm obstructive proximal left ureteral calculus. 2. Additional bilateral nonobstructive renal calculi measuring up to 3 mm in the right kidney and 5 mm in the left kidney. 3. Sigmoid colon diverticulitis with high suspicion for colovesical fistula and cystitis. CT with rectal contrast may be obtained for confirmation. 4. Prostatomegaly. 5. Splenomegaly. ATED BY: TIMBO ADDISON MD DICTATED DATE/TIME: 08/24/25937 SIGNED BY: TIMBO ADDISON MD SIGNED DATE/TIME: 08/24/25937 CC: X-Ray, Labs, Meds, VS Comment EXTERNAL MEDICAL RECORDS REVIEWED: [NONE] INDEPENDENT HISTORIANS: [NONE] SOCIAL DETERMINANTS OF HEALTH: [NONE] LABS ORDERED: CBC, BMP, UA, PT INR, TYPE AND SCREEN, LACTIC ACID W/REFLEX, BLOOD CULTURE REVIEWED AND INTERPRETED RESULTS: WBC 26.2, BUN 25, CREA2 1.36, LA 2.3 IMAGING ORDERED: NONE TREATMENTS ORDERED: NS 1L IV, ZOFRAN 4 MG IV, DILAUDID 0.5 MG IV, LEVAQUIN 500 MG IV, ROCEPHIN 1 G IV, FLAGYL 500 MGIVP PROCEDURES PERFORMED: NONE CRITICAL CARE TIME: NONE UPON MY PHYSICAL EXAMINATION, THE PATIENT WAS ILL IN APPEARANCE, PALE, AND HAD CVA TENDERNESS NOTED UPON PALPATION. DUE TO THE PATIENT'S ELEVATED WHITE BLOOD COUNT, HISTORY OF A 12 MM RENAL STONE, AND PERSISTENT PAIN DESPITE TREATMENT, I HAVE DETERMINED THE PATIENT NEEDS TO BE ADMITTED FOR FURTHER TREATMENT AND UROLOGY CONSULT. THE ON-CALL HOSPITALIST WILL BE CONTACTED FOR ADMISSION IN HIS PATIENT AND THE ON-CALL UROLOGIST WE WILL BE CONTACTED FOR CONSULT. 0840: I HAVE SPOKEN TO THE PATIENT'S UROLOGIST, DR. RYDER AND HE HAS SAID HE AGREES THAT THE PATIENT SHOULD BE ADMITTED FOR FURTHER TREATMENT AND HE WILL CONSULT ON THE PATIENT'S CASE. 0945: I HAVE CONSULTED DR. DHALIWAL REGARDING THIS PATIENT'S CASE AND CT SCAN RESULTS AND HE HAS SAID THAT I DO NOT NEED TO CALL THE ON-CALL GENERAL SURGEON, BUT TO PUT A SURGICAL CONSULT IN. 1030: I HAVE DISCUSSED THE PATIENT'S CASE WITH ON-CALL GENERAL SURGEON, DR. CHUNG AND HE HAS AGREED TO CONSULT ON THIS PATIENT'S CASE. 1144: PATIENT WAS SENT TO OR FOR SURGERY. Images Reviewed?: Images reviewed and evaluated by me Time of 1ST Reevaluation: 09:00 Reevaluation 1ST: Unchanged Patient Education/Counseling: Diagnosis, Treatment Family Education/Counseling: Diagnosis, Treatment SEPSIS Sepsis Screen Date sepsis recognized/suspect: Aug 24, 2025 Time Sepsis recognized/suspect: 0700 Recent Procedure: No On Antibiotic Therapy: No Respiratory Rate >20: No Heart Rate >90: No Temp<36 C (96.8 F) or >38.3 C: No SBP <90 or MAP <65 mmHG: No New Acute Mental Status Change: No Is the patient on CPAP, BIPAP,: No Physician Orders Urinalysis (08/24/25 07:18) Heplock Iv (08/24/25 ) Blood Culture (08/24/25 07:58) * Urology Consult (08/24/25 08:21) * Surgical Consult (08/24/25 ) Vital Signs Date Time Temp Pulse Resp B/P (MAP) Pulse Ox O2 Delivery O2 Flow Rate FiO2 08/24/25 10:00 97.8 84 21 118/71 (87) 98 97.8 08/24/25 08:58 81 22 118/71 08/24/25 08:33 90 19 98 Room Air* 0 21 08/24/25 08:33 87 18 128/80 (96) 99 08/24/25 08:28 83 21 121/71 08/24/25 06:55 98.9 107 18 111/76 95 98.9 Laboratory Tests Test 08/24/25 07:27 08/24/25 08:14 White Blood Count 26.2 10^3/uL (4.4-10.8) #H Lactic Acid Level 2.3 mmol/L (0.4-2.0) *H Medications Medications Dose Ordered Sig/Radames Route Start Time Stop Time Status Last Admin Dose Admin Ceftriaxone Sodium 50 ml @ 100 mls/hr ONCE ONCE IV 08/24/25 08:30 08/24/25 08:59 DC 08/24/25 09:22 Hydromorphone HCl 0.5 mg ONCE ONCE IV 08/24/25 08:00 08/24/25 08:01 DC 08/24/25 08:28 Levofloxacin/ Dextrose 100 ml @ 100 mls/hr ONCE ONCE IV 08/24/25 08:45 08/24/25 09:44 DC 08/24/25 09:22 Metronidazole 100 ml @ 100 mls/hr ONCE ONCE IV 08/24/25 10:00 08/24/25 10:59 DC 08/24/25 10:44 Ondansetron HCl 4 mg ONCE ONCE IV 08/24/25 08:00 08/24/25 08:01 DC 08/24/25 08:27 Sodium Chloride 1,000 ml @ 1,000 mls/hr Q1H ONCE IV 08/24/25 07:30 08/24/25 08:29 DC 08/24/25 07:52 Departure 1 Departure Time of Disposition: 09:00 Impression: Primary Impression: Acute diverticulitis Additional Impressions: Colovesical fistula Hydronephrosis concurrent with and due to calculi of kidney and ureter Disposition: ADMITTED INPATIENT Condition: Serious Critical Care Note Critical Care Time?: Yes (45 min-critical care time only) Critical care comment: CRITICAL CARE WAS TIME SPENT PERSONALLY BY ME ON THE FOLLOWING ACTIVITIES: OBTAINING HISTORY OF THE PATIENT. DEVELOPMENT OF TREATMENT PLAN WITH PATIENT. EVALUATION OF PATIENT'S RESPONSE TO TREATMENT. EXAMINATION OF THE PATIENT X 3. INTERPRETATION OF CARDIAC OUTPUT MEASUREMENTS. ORDERING INTERVENTIONS. ORDERING AND REVIEW OF LABORATORY AND RADIOLOGY STUDIES. RE-EVALUATION OF PATIENT'S CONDITIONS 3 TIMES. REVIEW OF OLD CHARTS. DOCUMENTATION OF THE PATIENT HAD A HIGH PROBABILITY OF IMMINENT, LIFE- THREATENING DETERIORATION. CRITICAL CARE TIME EXCLUDES TIME SPENT PERFORMING BILLABLE PROCEDURES. Stability Stability form required: Yes Unstable for transfer: Requires medication, ED Physician Assesment, Possible rapid decline I personally scribed for EDITA YUSUF ([email or web address]) on 08/24/25 at 07:36. Electronically submitted by Devin Godfrey ([email or web address]). I personally scribed for EDITA YUSUF ([email or web address]) on 08/24/25 at 07:59. Electronically submitted by Devin Godfrey ([facility] [employer] I personally scribed for EDITA YUSUF ([email or web address]) on 08/24/25 at 08:18. Electronically submitted by Devin Godfrey ([facility] I personally scribed for EDITA YUSUF ([email or web address]) on 08/24/25 at 08:51. Electronically submitted by Devin Godfrey ([email or web address]). I personally scribed for EDITA YUSUF ([email or web address]) on 08/24/25 at 09:52. Electronically submitted by Devin Godfrey ([email or web address]). I personally scribed for EDITA YUSUF ([email or web address]) on 08/24/25 at 10:35. Electronically submitted by Devin Godfrey ([email or web address]). I personally scribed for EDITA YUSUF ([email or web address]) on 08/24/25 at 14:39. Electronically submitted by Devin Godfrey ([email or web address]). EDITA YUSUF Aug 24, 2025 07:36
--- NOTE | 2025-08-24 11:42 | DVH ---
EXAM: XY CHEST PORTABLE HISTORY: Pre-Op COMPARISON: None TECHNIQUE: Portable upright AP view of the chest was performed. FINDINGS: No pneumothorax or pulmonary edema. There is mild left lung base scarring or atelectasis. The heart i s not enlarged. IMPRESSION: Mild left basilar scarring or atelectasis. The lungs are otherwise clear.
--- NOTE | 2025-08-24 11:45 | DVHHP2 ---
History of Present Illness Reason for Visit: Urinary difficulty History of Present Illness Sloan Ibarra is a 69-year-old male with past medical history of kidney stones, hypertension, and hepatitis, who came to the hospital due to left flank pain, brown urine, frequent urination, and painful urination. Patient states he has a history of kidney stones, that he has been passing them at home, but the pain became too much so he came to the hospital. He states his urine has become brown, he can see sediment or stone in the toilet when he urinates, he has the urge to urinate but only a little comes out. Cardiovascular: HTN Hepatobiliary: Hep A/B/C (C) Renal/: Other (kidney stones) Past Surgical History: Other (Clavicle) Smoke: No ALCOHOL: none Drugs: None Lives: with Family Domestic Violence: Neg Review of Systems Constitutional: No: Fever, Chills, Sweats, Weakness, Malaise, Other Eyes: No: Pain, Vision change, Conjunctivae inflammation, Eyelid inflammation, Other, Redness ENT: No: Ear pain, Ear discharge, Nose pain, Nose discharge, Nose congestion, Mouth pain, Mouth swelling, Throat pain, Throat swelling, Other Respiratory: No: Cough, Dry, Shortness of breath, SOB with excertion, Wheezing, Hemoptysis, Pleuritic Pain, Sputum, Wheezing, Other Cardiovascular: No: Chest Pain, Palpitations, Orthopnea, Paroxysmal Noc. Dyspnea, Edema, Lt Headedness, Other Gastrointestinal: No: Nausea, Vomiting, Abdominal Pain, Diarrhea, Constipation, Melena, Hematochezia, Other Genitourinary: Dysuria, Frequency; No Incontinence; Hematuria; No Retention, No Other Musculoskeletal: back pain (left flank); No: other, neck pain, shoulder pain, arm pain, hand pain, leg pain, foot pain Skin: No: Rash, Lesions, Jaundice, Bruising, Other Neurological: No: Weakness, Numbness, Incoordination, Change in speech, Confusion, Seizures, Other Allergies: Coded Allergies: NO KNOWN ALLERGIES (Unverified , 12/20/24) Exam Vital Signs Vital Signs Date Time Temp Pulse Resp B/P (MAP) Pulse Ox O2 Delivery O2 Flow Rate FiO2 08/24/25 08:58 81 22 118/71 08/24/25 08:33 98 Room Air* 0 21 08/24/25 06:55 98.9 98.9 General Appearance: Alert, Oriented X3, Cooperative, mild distress HEENT: Atraumatic, PERRLA Respiratory: Clear to auscultation, Normal air movement Cardiovascular: Regular rate, Normal S1, Normal S2, No murmurs Abdominal: Normal bowel sounds, Soft, No hepatospenomegaly, Other (abdominal tendernes) Extremities: No clubbing, No cyanosis, No edema, Normal pulses Skin: No rashes, No breakdown, No significant lesion Neuro: Normal gait, Normal speech, Strength at 5/5 X4 ext Psych/Mental Status: Mental status NL, Mood NL Labs/Xrays Labs Test 08/24/25 08:14 08/24/25 07:27 Range/Units Lactic Acid Level 2.3 *H 0.4-2.0 mmol/L White Blood Count 26.2 #H 4.4-10.8 10^3/uL Red Blood Count 4.80 4.5-5.90 10^6/uL Hemoglobin 14.2 13.5-17.5 g/dL Hematocrit 40.8 L 41.0-53.0 % Mean Corpuscular Volume 84.9 80.0-100.0 fL Mean Corpuscular Hemoglobin 29.5 28.0-32.0 pg Mean Corpuscular Hemoglobin Concent 34.8 32.0-36.0 g/dL Red Cell Distribution Width 13.7 11.8-14.3 % Platelet Count 386 140-450 10^3/uL Mean Platelet Volume 7.8 6.9-10.8 fL Neutrophils (%) (Auto) 37.0-80.0 % Lymphocytes (%) (Auto) 10.0-50.0 % Monocytes (%) (Auto) 0.0-12.0 % Basophils (%) (Auto) 0.0-2.0 % Neutrophils # (Auto) 1.6-8.6 10 ^3/uL Lymphocytes # (Auto) 0.4-5.4 10 ^3/uL Monocytes # (Auto) 0-1.3 10 ^3/uL Differential Total Cells Counted 100.0 100 Neutrophils % (Manual) 87 H 37.0-80.0 Band Neutrophils % (Manual) 1 Lymphocytes % (Manual) 2 L 10.0-50.0 Monocytes % (Manual) 10 0-12 Eosinophils % (Manual) 0 0-7 Basophils % (Manual) 0 0.0-2.0 Metamyelocytes % (manual) 0 Myelocytes % (Manual) 0 Promyelocytes % (Manual) 0 Blast Cells % (Manual) 0 Reactive Lymphocytes 0 Smudge Cells 1 /100 WBC Platelet Estimate Adequate Prothrombin Time 12.7 H 9.3-11.8 sec Prothrombin Time INR 1.22 H 0.9-1.15 Sodium Level 139 136-145 mmol/L Potassium Level 4.0 3.5-5.1 mmol/L Chloride Level 105 98-107 mmol/L Carbon Dioxide Level 21 20-31 mmol/L Anion Gap 13 5-15 Blood Urea Nitrogen 25 H 9-23 mg/dL Creatinine 1.36 H 0.700-1.30 mg/dL Glomerular Filtration Rate Calc 56 >90 mL/min BUN/Creatinine Ratio 18.4 10.0-20.0 Serum Glucose 156 H 74-106 mg/dL Calcium Level 9.4 8.7-10.4 mg/dL ADDENDUM # 1 Critical result: Left obstructive uropathy and colovesical fistula. Findings discussed with Dr. Patterson on 08/24/2025 at 12:[address] Allison, with acknowledged receipt and understanding of the findings. ORIGINAL REPORT Exam: CT CT AB PEL WO CON-NO ORAL OR IV History: Left flank pain. Comparison Study: Images from a prior CT scan of the abdomen pelvis dated 01/24/2025 are available for comparison. Findings: Evaluation of vasculature and solid organs is limited due to lack of intravenous contrast use. Lung Bases: Lung bases are clear. Visualized portions of the heart and pericardi um are unremarkable. Liver: The liver is normal in size. No focal lesions. Diffusely hypoattenuating liver parenchyma consistent with hepatic steatosis. Gallbladder and Biliary Tree: The gallbladder is unremarkable. No intrahepatic or extrahepatic biliary ductal dilatation. Spleen: The spleen is enlarged measuring 13.6 cm. Pancreas: The pancreas is grossly unremarkable. Adrenal Glands: Unremarkable. Kidneys: There is moderate left hydroureteronephrosis due to a 7 mm obstructive proximal left ureteral calculus. Additional bilateral nonobstructive renal calculi measuring up to 3 mm in the right kidney and 5 mm in the left kidney. There are bilateral renal cysts. GI tract: There is a small hiatal hernia. No evidence of small bowel wall thickening or abnormal dilatation to suggest bowel obstruction. There is colonic diverticulosis. There is mucosal thickening in the sigmoid colon with fat stranding. The thickened sigmoid colon is inseparable from the urinary bladder wall and there appears to be stool in the thickened urinary bladder mucosa. Normal caliber appendix. Peritoneum/mesentery/retroperitoneum. No evidence of free intraperitoneal air. No ascites. No evidence of suspicious lymphadenopathy. Abdominal Wall: Unremarkable. Vasculature: The visualized abdominal aorta is normal in size and caliber. Evaluation of abdominal and pelvic vessels is limited due to lack of intravenous contrast. Urinary Bladder: Urinary bladder wall thickening and extensive fat stranding is noted. There is gas in the urinary bladder and possible stool, highly suspicious for colovesicular fistula. Pelvic Organs: Post procedural changes in the prostate. Prostate enlarged measuring 5.0 cm. Musculoskeletal: No aggressive focal bony lesions, acute fractures or dislocation. IMPRESSION: 1. Moderate left hydroureteronephrosis due to a 7 mm obstructive proximal left ureteral calculus. 2. Additional bilateral nonobstructive renal calculi measuring up to 3 mm in the right kidney and 5 mm in the left kidney. 3. Sigmoid colon diverticulitis with high suspicion for colovesical fistula and cystitis. CT with rectal contrast may be obtained for confirmation. 4. Prostatomegaly. 5. Splenomegaly. SEPSIS Sepsis Screen Date sepsis recognized/suspect: Aug 24, 2025 Time Sepsis recognized/suspect: 07 Recent Procedure: No On Antibiotic Therapy: No Respiratory Rate >20: No Heart Rate >90: No Temp<36 C (96.8 F) or >38.3 C: No SBP <90 or MAP <65 mmHG: No New Acute Mental Status Change: No Is the patient on CPAP, BIPAP,: No Physician Orders Urinalysis (08/24/25 07:18) Heplock Iv (08/24/25 ) Blood Culture (08/24/25 07:58) * Urology Consult (08/24/25 08:21) * Surgical Consult (08/24/25 ) Admit (08/24/25 11:01) Code Status (08/24/25 11:01) 0.9% Ns 1000 Ml (08/24/25 11:15) Hydrocodone-Acet 5/325mg Tab ([place] (08/24/25 11:15) Ondansetron Hcl (Zofran) (08/24/25 11:15) Docusate Sodium Capsule (Colace Capsule) (08/24/25 11:15) Complete Blood Count (08/25/25 04:00) Comprehensive Metabolic Panel (08/25/25 04:00) Npo (Nothing By Mouth) Diet (08/24/25 Lunch) Condition: Serious (08/24/25 11:01) Acetaminophen Tablet (Tylenol Tablet) (08/24/25 11:15) Nitroglycerin Sublingual (Ntrostat Subli (08/24/25 11:15) Morphine Sulfate Injection (08/24/25 11:15) Stat Ekg For Chest Pain (08/24/25 11:01) Notify Md Of Changes From Base (08/24/25 11:01) Sales Development Coordinator For 24 Hours (08/24/25 11:01) Emergency Dysrhythmia Protocol (08/24/25 11:01) Rhythm Strips Once Every Shift (08/24/25 11:01) Oxygen By Nasal Cannula (08/24/25 11:01) Metronidazole Ivpb Flagyl (08/24/25 14:00) Ceftriaxone Ivpb Rocephin (08/25/25 09:00) NS (08/24/25 11:15) NS (08/24/25 11:15) Vital Signs Date Time Temp Pulse Resp B/P (MAP) Pulse Ox O2 Delivery O2 Flow Rate FiO2 08/24/25 08:58 81 22 118/71 08/24/25 08:33 90 19 98 Room Air* 0 21 08/24/25 08:33 87 18 128/80 (96) 99 08/24/25 08:28 83 21 121/71 08/24/25 06:55 98.9 107 18 111/76 95 98.9 Laboratory Tests Test 08/24/25 07:27 08/24/25 08:14 White Blood Count 26.2 10^3/uL (4.4-10.8) #H Lactic Acid Level 2.3 mmol/L (0.4-2.0) *H Medications Medications Dose Ordered Sig/Radames Route Start Time Stop Time Status Last Admin Dose Admin Ceftriaxone Sodium 50 ml @ 100 mls/hr ONCE ONCE IV 08/24/25 08:30 08/24/25 08:59 DC 08/24/25 09:22 100 MLS/HR Hydromorphone HCl 0.5 mg ONCE ONCE IV 08/24/25 08:00 08/24/25 08:01 DC 08/24/25 08:28 0.5 MG Levofloxacin/ Dextrose 100 ml @ 100 mls/hr ONCE ONCE IV 08/24/25 08:45 08/24/25 09:44 DC 08/24/25 09:22 100 MLS/HR Metronidazole 100 ml @ 100 mls/hr ONCE ONCE IV 08/24/25 10:00 08/24/25 10:59 DC 08/24/25 10:44 100 MLS/HR Ondansetron HCl 4 mg ONCE ONCE IV 08/24/25 08:00 08/24/25 08:01 DC 08/24/25 08:27 4 MG Sodium Chloride 1,000 ml @ 1,000 mls/hr Q1H ONCE IV 08/24/25 07:30 08/24/25 08:29 DC 08/24/25 07:52 1,000 MLS/HR Assessment/Plan Assessment/Plan Assessment: Colovesical fistula, Acute kidney injury, Hydronephrosis, Obstructing kidney stone, Splenomegaly, Diverticulitis, Prostatomegaly, Hypertension, Plan: Admit to Tele, Surgical consult, Urology consult, Radiology consult, NPO, IV hydration, IV antibiotics, Chest X-ray, PT/PTT, Home medications held due to NPO, Plan discussed with: Patient My Orders Orders - TERESA CONKLIN Procedure Category Date Status Time Admit ADMIT 08/24/25 Transmitted 11:01 Code Status CODE 08/24/25 Transmitted 11:01 0.9% Ns 1000 Ml PHA 08/24/25 Transmitted 11:15 Hydrocodone-Acet PHA 08/24/25 Transmitted 5/325mg Tab ([place] 11:15 Ondansetron Hcl PHA 08/24/25 Transmitted (Zofran) 11:15 Docusate Sodium PHA 08/24/25 Transmitted Capsule (Colace 11:15 Complete Blood Count LAB 08/25/25 Verified 04:00 Comprehensive LAB 08/25/25 Verified Metabolic Panel 04:00 Npo (Nothing By DIET 08/24/25 Transmitted Mouth) Diet Lunch Condition: Serious [place] 08/24/25 Transmitted 11:01 Acetaminophen Tablet [facility] 08/24/25 Transmitted (Tylenol Tablet) 11:15 Nitroglycerin [facility] 08/24/25 Transmitted Sublingual (Ntrostat 11:15 Morphine Sulfate PHA 08/24/25 Transmitted Injection 11:15 Stat Ekg For Chest [facility] 08/24/25 Transmitted Pain 11:01 Notify Md Of Changes [facility] 08/24/25 Transmitted From Base 11:01 Sales Development Coordinator For [facility] 08/24/25 Transmitted 24 Hours 11:01 Emergency Dysrhythmia [facility] 08/24/25 Transmitted Protocol 11:01 Rhythm Strips Once [facility] 08/24/25 Transmitted Every Shift 11:01 Oxygen By Nasal RT 08/24/25 Transmitted Cannula 11:01 Metronidazole Ivpb PHA 08/24/25 Transmitted Flagyl 14:00 Ceftriaxone Ivpb PHA 08/25/25 Transmitted Rocephin 09:00 NS PHA 08/24/25 Transmitted 11:15 NS PHA 08/24/25 Transmitted 11:15 Date of Service: Aug 24, 2025 Billing Provider: TERESA CONKLIN Common Visit Codes: [id number] INP/OBS CARE (HIGH) TERESA CONKLIN Aug 24, 2025 11:23
[2025-08-24] MEDS: MIDAZOLAM HCL 2MG/2ML 2ml VIAL (1mg/ml) ONE (11:56)
[2025-08-24] MEDS: fentaNYL CITRATE 100 MCG/2 ML VL ONE (11:56)
[2025-08-24] MEDS: LIDOCAINE 2%HCL (LOCAL ANESTH.) INJ 20ML MDV ONE (11:57)
--- NOTE | 2025-08-24 15:06 | DVH ---
XY PERCUTANEOUS NEPHROSTOMY, US US GUIDANCE FOR NEEDLE PLACEME, HISTORY: Left nephrostomy tube placement for septic stone with obstruction. PROCEDURE: Informed consent was obtained. The patient was placed on the fluoroscopic table in a prone position and IV sedation administered. The left flank was prepped with chlorhexidine which was allow ed to dry and draped in the usual sterile fashion. Time out was performed. and the soft tissues infil trated with 1% lidocaine local anesthetic. Utilizing ultrasound guidance, a 21 gauge Accu Stick needl e was advanced from a posterolateral approach into an lower pole calyx, and a small amount of contras t was injected under fluoroscopy to confirm positioning. Over a mandril wire, exchange was made to a non-vascular access set, through which was advanced an 0.035 wire. Following serial dilation, an 8.5 tanzanian multipurpose nephrostomy catheter was placed with tip pigtailed within the renal pelvis. Posit ion was confirmed with antegrade nephrostogram. The catheter was secured in place and connected to gr avity drainage. A sterile dressing was applied. No immediate complication was identified. DAP 9 mGy FLUOROSCOPY TIME: 2.0 minutes. CONTRAST USED: 10 mL. SEDATION: Dr. Penny Kitchen was personally responsible for the administration of moderate sedation during the procedure performed, including the use of an independent trained observer who had no other duties during the procedure. The drugs utilized were IV fentanyl and versed (see nursing log for details). The total time of supervision by the attending physician was approximately 30 minutes. FINDINGS: Moderately dilated left renal collecting system involving the calyces/renal pelvis/ureter t o the level of the mid ureter. New 8.5 tanzanian nephrostomy tube via a posterior lower pole calyc eal access, with loop coiled within the renal pelvis. IMPRESSION: Left hydronephrosis due to obstructive kidney stone, status post placement of 8.5 tanzanian left perc utaneous nephrostomy catheter. PLAN: Routine catheter care.
--- NOTE | 2025-08-24 15:06 | DVH ---
XY PERCUTANEOUS NEPHROSTOMY, US US GUIDANCE FOR NEEDLE PLACEME, HISTORY: Left nephrostomy tube placement for septic stone with obstruction. PROCEDURE: Informed consent was obtained. The patient was placed on the fluoroscopic table in a prone position and IV sedation administered. The left flank was prepped with chlorhexidine which was allow ed to dry and draped in the usual sterile fashion. Time out was performed. and the soft tissues infil trated with 1% lidocaine local anesthetic. Utilizing ultrasound guidance, a 21 gauge Accu Stick needl e was advanced from a posterolateral approach into an lower pole calyx, and a small amount of contras t was injected under fluoroscopy to confirm positioning. Over a mandril wire, exchange was made to a non-vascular access set, through which was advanced an 0.035 wire. Following serial dilation, an 8.5 cymro multipurpose nephrostomy catheter was placed with tip pigtailed within the renal pelvis. Posit ion was confirmed with antegrade nephrostogram. The catheter was secured in place and connected to gr avity drainage. A sterile dressing was applied. No immediate complication was identified. DAP 9 mGy FLUOROSCOPY TIME: 2.0 minutes. CONTRAST USED: 10 mL. SEDATION: Dr. Penny Kitchen was personally responsible for the administration of moderate sedation during the procedure performed, including the use of an independent trained observer who had no other duties during the procedure. The drugs utilized were IV fentanyl and versed (see nursing log for details). The total time of supervision by the attending physician was approximately 30 minutes. FINDINGS: Moderately dilated left renal collecting system involving the calyces/renal pelvis/ureter t o the level of the mid ureter. New 8.5 cymro nephrostomy tube via a posterior lower pole calyc eal access, with loop coiled within the renal pelvis. IMPRESSION: Left hydronephrosis due to obstructive kidney stone, status post placement of 8.5 cymro left perc utaneous nephrostomy catheter. PLAN: Routine catheter care.
[2025-08-24 15:17] LABS: Urine Protein, UAD 1+ (Negative)
[2025-08-24 15:29] LABS: Amphetamine Screen, Urine Neg (NEGATIVE); Barbiturate Scree,Urine Neg (NEGATIVE); Benzodiazephine Screen, Urine Neg (NEGATIVE); Cannabinoid Screen, Urine Pos (NEGATIVE); Cocaine Screen, Urine Neg (NEGATIVE); Opiate Scree,Urine Neg (NEGATIVE); Phencyclidine Screen, Urine Neg (NEGATIVE)
[2025-08-24] MEDS ORDERED: TPN PER PHARMACY 0 ML IV SCH (16:15)
[2025-08-24] MEDS: HYDROcodone-ACET 5/325MG TAB PO PRN (16:20)
[2025-08-24] MEDS: SODIUM CHLORIDE 0.9% 1,000 ML IV SCH (18:11)
[2025-08-24] MEDS ORDERED: DEXTROSE (50%) 50ML SYRG IV SCH (22:00)
[2025-08-24] MEDS: AMINO ACID INFUSION IN D10W 1,000 ML IV SCH (22:40)
[2025-08-24 23:13] LABS: Urine Protein, UAD 2+ (Negative)
[2025-08-25] VITALS (7 sets, daily range): BP systolic 104–125; BP diastolic 68–79; PULSE 47–94; RESP 17–20; TEMP 98–100.5; O2SAT 94–100
[2025-08-25] MEDS: ACCU-CHEK COMFORT CURVE STRIP VI SCH
[2025-08-25] MEDS: InsuLIN REG 1unit/0.01ml Soln (100units/ml) SC SCH (00:40)
[2025-08-25] MEDS: KETOROLAC TROMETH 30 MG/ML 1ML VIAL IV ONE (00:45)
[2025-08-25 06:16] LABS: Hematocrit 36.6 % (41.0-53.0); Hemoglobin 12.4 g/dL (13.5-17.5); Mean Corpuscular Hemoglobin 29.7 pg (28.0-32.0); Mean Corpuscular Volume 87.8 fL (80.0-100.0); Nucleated Red Blood Cells % 0.0 %
[2025-08-25 06:35] LABS: Alanine Aminotransferase 26 U/L (7-40); Albumin 3.5 g/dL (3.2-4.8); Alkaline Phosphatase 61 U/L (46-116); Anion Gap 8 (5-15); BUN/Creatinine Ratio 28.4 (10.0-20.0); Bilirubin, Total 0.5 mg/dL (0.2-1.0); Blood Urea Nitrogen 31 mg/dL (9-23); Calcium 9.1 mg/dL (8.7-10.4); Carbon Dioxide 25 mmol/L (20-31); Chloride 110 mmol/L (98-107); Glucose 104 mg/dL (74-106); Magnesium 2.1 mg/dL (1.6-2.6); Potassium 4.8 mmol/L (3.5-5.1); Sodium 143 mmol/L (136-145); Total Protein 6.4 g/dL (5.7-8.2)
--- NOTE | 2025-08-25 14:18 | DVHPN2 ---
Progress Note Date Seen: Aug 25, 2025 Has the PT tested + for MRSA If YES, has PT been informed?: No (Getting PICC line for TPN) Medical Necessity Reason Pt with a Central, PICC or Fol: Yes The following are medically ne: PICC Line Subjective Patient reports: No new complaints (Patient states he overall feeling not well due to pain. Currently NPO and planning diet through TPN pink) Review of Systems: HEENT:Normal, CVS:Normal, RESPIRATORY:Normal, GI:Normal, :Normal, MSK:Normal, NEURO:Normal Objective vital signs Vital Sign Date Time Temp Pulse Resp B/P (MAP) Pulse Ox O2 Delivery O2 Flow Rate FiO2 08/25/25 13:00 98.3 77 20 109/68 (82) 100 98.3 08/25/25 08:00 Room Air* 0 21 Total Intake and Output 08/24/25 08/24/25 08/25/25 15:00 23:00 07:00 Intake Total 100 ml 500 ml Output Total 150 ml 275 ml Balance -50 ml 225 ml medications Current Medications Medications Dose Ordered Sig/Radames Route Start Time Stop Time Status Last Admin Dose Admin Sodium Chloride 1,000 ml @ 100 mls/hr Q10H IV 08/24/25 11:15 08/25/25 07:54 100 MLS/HR Acetaminophen/ Hydrocodone Bitart 1 tab Q4HP PRN PO 08/24/25 11:15 08/24/25 16:20 1 TAB Ondansetron HCl 4 mg Q4HP PRN IV 08/24/25 11:15 Docusate Sodium 100 mg BIDPRN PRN PO 08/24/25 11:15 Acetaminophen 650 mg Q6HP PRN PO 08/24/25 11:15 Nitroglycerin 0.4 mg Q5MINP PRN SL 08/24/25 11:15 Morphine Sulfate 2 mg Q30M PRN IV 08/24/25 11:15 Metronidazole 100 ml @ 100 mls/hr Q8HR IV 08/24/25 18:00 08/25/25 05:32 100 MLS/HR Ceftriaxone Sodium 50 ml @ 100 mls/hr DAILY@09 IV 08/25/25 09:00 08/25/25 09:37 100 MLS/HR Amino Acids 0 ml @ 0 mls/hr PER PHARMACY IV 08/24/25 16:15 Amino Acids/ Electrolytes/ Dextrose 1,000 ml @ 41 mls/hr DAILY@2200 IV 08/24/25 22:00 08/24/25 22:40 41 MLS/HR Diagnostic Test (Pha) 1 strip Q6HR 08/25/25 00:00 08/25/25 11:42 1 STRIP Insulin Human Regular FOLLOW SLIDING SCALE Q6HR SC 08/25/25 00:00 08/25/25 00:40 2 UNITS Dextrose 50 ml UD IV 08/24/25 22:00 Fat Emulsion Intravenous 50 ml/ Sodium Phosphate 20 meq/Magnesium Sulfate 8 meq/ Multivitamins 10 ml/Chromium/ Copper/Manganese/ Zinc 1 ml/Amino Acids/Dextrose/ Purified Water 1,468 ml @ 61 mls/hr Q24H4M IV 08/25/25 22:00 08/26/25 21:59 Examination Generally 69 years old male, well nourished well developed. Mild distress HEENT-atraumatic normocephalic Heart-regular rate and rhythm lungs clear to auscultate bilaterally Abdomen soft nontender nondistended Musculoskeletal-no edema cyanosis Neuro-AO x3, no focal deficits laboratory and microbiology Laboratory Tests 08/25/25 05:40 Test 08/25/25 05:40 Range/Units Serum Glucose 104 74-106 mg/dL Microbiology Date/Time Source Procedure Growth Status 08/24/25 09:03 Voided Urine Urine Culture - Preliminary Resulted 08/24/25 08:21 Blood Blood Culture - Preliminary NO GROWTH AFTER 24 HOURS OF INCUBATION. Resulted Labs and/or images reviewed: Labs reviewed by me Problem List/Assessment/Plan Problem List/Assessment/Plan Colovesical fistula, Acute kidney injury, Hydronephrosis, Obstructing kidney stone, Splenomegaly, Diverticulitis, Prostatomegaly, Hypertension, UTI Plan: Admit to Tele, Surgery appreciated. Maintain evaluate for cardiovascular-fistula IR placed nephrostomy tube. Draining well Urology, appreciated NPO, IV hydration, IV ceftriaxone Flagyl for broad-spectrum antibiotics TPN for diet PICC line for TPN Trend WBC Plan discussed with: Patient Dietary Evaluation Review Comments: 1) Increase TPN rate to meet at least 75% estimated daily needs 2) Advance to cardiac diet when medically feasible 3) Follow-up with urology and gastroenterology 4) Continue to monitor I&O, labs, and skin integrity Expected Outcomes/Goals: 1) nutrition support to meet at least 75% estimated daily needs 2) labs to improve 3) diet to advance 4) f/u in 3-5 days Date of Service: Aug 25, 2025 Billing Provider: GUSTAVO RYDER MD Common Visit Codes: [id number] SAME DATE (HIGH) GUSTAVO RYDER MD Aug 25, 2025 14:18
[2025-08-25 14:40] LABS: Triglycerides 42 mg/dL (< 150)
[2025-08-25] MEDS: ACETAMINOPHEN 325 MG TAB PO PRN (16:06)
[2025-08-25] MEDS: SODIUM PHOSPHATES 20 MEQ in SODIUM CHL 0.9% 100 ML IV ONE (16:07)
[2025-08-25] MEDS: PPN PER PHARMACY IV NR (22:00)
[2025-08-26] VITALS (8 sets, daily range): BP systolic 121–146; BP diastolic 67–92; PULSE 50–76; RESP 16–19; TEMP 97.1–99; O2SAT 95–99
[2025-08-26 06:03] LABS: Hematocrit 34.5 % (41.0-53.0); Hemoglobin 11.9 g/dL (13.5-17.5); Mean Corpuscular Hemoglobin 29.7 pg (28.0-32.0); Mean Corpuscular Volume 86.4 fL (80.0-100.0); Nucleated Red Blood Cells % 0.0 %
[2025-08-26 06:12] LABS: Alanine Aminotransferase 19 U/L (7-40); Albumin 3.2 g/dL (3.2-4.8); Alkaline Phosphatase 61 U/L (46-116); Anion Gap 11 (5-15); BUN/Creatinine Ratio 26.4 (10.0-20.0); Blood Urea Nitrogen 23 mg/dL (9-23); Carbon Dioxide 20 mmol/L (20-31); Potassium 3.9 mmol/L (3.5-5.1); Sodium 142 mmol/L (136-145); Total Protein 6.0 g/dL (5.7-8.2)
[2025-08-26 06:14] LABS: Calcium 8.1 mg/dL (8.7-10.4); Chloride 111 mmol/L (98-107); Glucose 111 mg/dL (74-106)
[2025-08-26 06:35] LABS: Bilirubin, Total 0.3 mg/dL (0.2-1.0)
[2025-08-26] MEDS: LIDOCAINE 1% (LOCAL ANESTH.) PF 5ml SDV ID ONE (09:30)
[2025-08-26] MEDS: SODIUM CHLOR 0.9% PF (SALINE LOCK) 10ML VIAL/SYR IV SCH (11:03)
[2025-08-26 13:33] LABS: Magnesium 2.1 mg/dL (1.6-2.6)
--- NOTE | 2025-08-26 13:37 | DVHPN2 ---
Progress Note Date Seen: Aug 26, 2025 Has the PT tested + for MRSA If YES, has PT been informed?: No (Getting PICC line for TPN) Medical Necessity Reason Pt with a Central, PICC or Fol: Yes The following are medically ne: PICC Line Objective vital signs Vital Sign Date Time Temp Pulse Resp B/P (MAP) Pulse Ox O2 Delivery O2 Flow Rate FiO2 08/26/25 12:39 99.0 53 18 121/67 (85) 99 99.0 08/26/25 08:00 Room Air* 0 21 Total Intake and Output 08/25/25 08/25/25 08/26/25 15:00 23:00 07:00 Intake Total 1150 ml 1100 ml 550 ml Output Total 375 ml 1150 ml Balance 1150 ml 725 ml -600 ml medications Current Medications Medications Dose Ordered Sig/Radames Route Start Time Stop Time Status Last Admin Dose Admin Sodium Chloride 1,000 ml @ 100 mls/hr Q10H IV 08/24/25 11:15 08/26/25 11:46 100 MLS/HR Acetaminophen/ Hydrocodone Bitart 1 tab Q4HP PRN PO 08/24/25 11:15 08/24/25 16:20 1 TAB Ondansetron HCl 4 mg Q4HP PRN IV 08/24/25 11:15 Docusate Sodium 100 mg BIDPRN PRN PO 08/24/25 11:15 Acetaminophen 650 mg Q6HP PRN PO 08/24/25 11:15 08/25/25 16:06 650 MG Nitroglycerin 0.4 mg Q5MINP PRN SL 08/24/25 11:15 Morphine Sulfate 2 mg Q30M PRN IV 08/24/25 11:15 Metronidazole 100 ml @ 100 mls/hr Q8HR IV 08/24/25 18:00 08/26/25 05:56 100 MLS/HR Ceftriaxone Sodium 50 ml @ 100 mls/hr DAILY@09 IV 08/25/25 09:00 08/26/25 09:25 100 MLS/HR Amino Acids 0 ml @ 0 mls/hr PER PHARMACY IV 08/24/25 16:15 Diagnostic Test (Pha) 1 strip Q6HR 08/25/25 00:00 08/26/25 11:45 1 STRIP Insulin Human Regular FOLLOW SLIDING SCALE Q6HR SC 08/25/25 00:00 08/25/25 00:40 2 UNITS Dextrose 50 ml UD IV 08/24/25 22:00 Fat Emulsion Intravenous 50 ml/ Sodium Phosphate 20 meq/Magnesium Sulfate 8 meq/ Multivitamins 10 ml/Chromium/ Copper/Manganese/ Zinc 1 ml/Amino Acids/Dextrose/ Purified Water 1,468 ml @ 61 mls/hr Q24H4M IV 08/25/25 22:00 08/26/25 21:59 08/25/25 22:00 61 MLS/HR Sodium Chloride 10 ml QSHIFT@ IV 08/26/25 10:00 08/26/25 11:03 10 ML laboratory and microbiology Laboratory Tests 08/26/25 04:48 Test 08/26/25 04:48 Range/Units Serum Glucose 111 H 74-106 mg/dL Problem List/Assessment/Plan Problem List/Assessment/Plan 08/26/25PATIENT HAS A SUGGESTION OF COLOVESICAL FISTULA ON IMAGING,HAS BEEN PQASSING WHAT APPEARS TO BE STOOL IN HIS URINE, AWAITING CYSTOGRAM, EXPLAINED TO PATIENT IN GREAT DETAIL' Plan discussed with: Patient Dietary Evaluation Review Comments: 1) Increase TPN rate to meet at least 75% estimated daily needs 2) Advance to cardiac diet when medically feasible 3) Follow-up with urology and gastroenterology 4) Continue to monitor I&O, labs, and skin integrity Expected Outcomes/Goals: 1) nutrition support to meet at least 75% estimated daily needs 2) labs to improve 3) diet to advance 4) f/u in 3-5 days TRISTON BARNES MD Aug 26, 2025 13:37
--- NOTE | 2025-08-26 13:41 | DVHPN2 ---
Progress Note Date Seen: Aug 26, 2025 Has the PT tested + for MRSA If YES, has PT been informed?: No (Getting PICC line for TPN) Medical Necessity Reason Pt with a Central, PICC or Fol: Yes The following are medically ne: PICC Line Subjective Patient reports: Feels better (Patient says after recent DVT and patient is feeling better and stronger. Patient remain NPO pending surgery evaluation) Changes from previous H/P or p: No Changes Objective vital signs Vital Sign Date Time Temp Pulse Resp B/P (MAP) Pulse Ox O2 Delivery O2 Flow Rate FiO2 08/26/25 12:39 99.0 53 18 121/67 (85) 99 99.0 08/26/25 08:00 Room Air* 0 21 Total Intake and Output 08/25/25 08/25/25 08/26/25 15:00 23:00 07:00 Intake Total 1150 ml 1100 ml 550 ml Output Total 375 ml 1150 ml Balance 1150 ml 725 ml -600 ml medications Current Medications Medications Dose Ordered Sig/Radames Route Start Time Stop Time Status Last Admin Dose Admin Sodium Chloride 1,000 ml @ 100 mls/hr Q10H IV 08/24/25 11:15 08/26/25 11:46 100 MLS/HR Acetaminophen/ Hydrocodone Bitart 1 tab Q4HP PRN PO 08/24/25 11:15 08/24/25 16:20 1 TAB Ondansetron HCl 4 mg Q4HP PRN IV 08/24/25 11:15 Docusate Sodium 100 mg BIDPRN PRN PO 08/24/25 11:15 Acetaminophen 650 mg Q6HP PRN PO 08/24/25 11:15 08/25/25 16:06 650 MG Nitroglycerin 0.4 mg Q5MINP PRN SL 08/24/25 11:15 Morphine Sulfate 2 mg Q30M PRN IV 08/24/25 11:15 Metronidazole 100 ml @ 100 mls/hr Q8HR IV 08/24/25 18:00 08/26/25 05:56 100 MLS/HR Ceftriaxone Sodium 50 ml @ 100 mls/hr DAILY@09 IV 08/25/25 09:00 08/26/25 09:25 100 MLS/HR Amino Acids 0 ml @ 0 mls/hr PER PHARMACY IV 08/24/25 16:15 Diagnostic Test (Pha) 1 strip Q6HR 08/25/25 00:00 08/26/25 11:45 1 STRIP Insulin Human Regular FOLLOW SLIDING SCALE Q6HR SC 08/25/25 00:00 08/25/25 00:40 2 UNITS Dextrose 50 ml UD IV 08/24/25 22:00 Fat Emulsion Intravenous 50 ml/ Sodium Phosphate 20 meq/Magnesium Sulfate 8 meq/ Multivitamins 10 ml/Chromium/ Copper/Manganese/ Zinc 1 ml/Amino Acids/Dextrose/ Purified Water 1,468 ml @ 61 mls/hr Q24H4M IV 08/25/25 22:00 08/26/25 21:59 08/25/25 22:00 61 MLS/HR Sodium Chloride 10 ml QSHIFT@10,22 IV 08/26/25 10:00 08/26/25 11:03 10 ML Examination Generally-69 years old male, well nourished well developed. No apparent distress HEENT-atraumatic normocephalic Heart-regular rate and rhythm lungs clear to auscultate Abdomen Soft, mild suprapubic tender, nondistended Muscular-no edema cyanosis. Positive PICC line Neuro-AO x3, no focal deficits laboratory and microbiology Laboratory Tests 08/26/25 04:48 Test 08/26/25 04:48 Range/Units Serum Glucose 111 H 74-106 mg/dL Microbiology Date/Time Source Procedure Growth Status 08/24/25 09:03 Voided Urine Urine Culture - Final Pseudomonas aeruginosa Staphylococcus lugdunensis Enterococcus faecalis Complete 08/24/25 08:21 Blood Blood Culture - Preliminary NO GROWTH AFTER 48 HOURS OF INCUBATION. Resulted Problem List/Assessment/Plan Problem List/Assessment/Plan Colovesical fistula, Acute kidney injury, Hydronephrosis, Obstructing kidney stone, Splenomegaly, Diverticulitis, Prostatomegaly, Hypertension, UTI due to Pseudomonas, staph lugdunesis,enterococcus faecalis Plan: Admit to Tele, Pending surgery recommendation regarding the vascular fistula line urology pending IR placed nephrostomy tube. Draining well urine Remain NPO IV hydration, Urine culture grew Enterococcus faecalis, Pseudomonas, Staph lugdunesis, enterococcus faecalis Discontinue ceftriaxone Flagyl. Start vanc and Zosyn for broad-spectrum antibiotics TPN for diet Trend WBC Plan discussed with: Patient My Orders My Orders Orders - GUSTAVO RYDER MD Procedure Category Date Status Time Comprehensive LAB 08/27/25 Verified Metabolic Panel 05:00 Comprehensive LAB 08/28/25 Verified Metabolic Panel 05:00 Comprehensive LAB 08/29/25 Verified Metabolic Panel 05:00 Comprehensive LAB 08/30/25 Verified Metabolic Panel 05:00 Complete Blood Count LAB 08/27/25 Verified 05:00 Complete Blood Count LAB 08/28/25 Verified 05:00 Complete Blood Count LAB 08/29/25 Verified 05:00 Complete Blood Count LAB 08/30/25 Verified 05:00 Dietary Evaluation Review Comments: 1) Increase TPN rate to meet at least 75% estimated daily needs 2) Advance to cardiac diet when medically feasible 3) Follow-up with urology and gastroenterology 4) Continue to monitor I&O, labs, and skin integrity Expected Outcomes/Goals: 1) nutrition support to meet at least 75% estimated daily needs 2) labs to improve 3) diet to advance 4) f/u in 3-5 days Date of Service: Aug 26, 2025 Billing Provider: GUSTAVO RYDER MD Common Visit Codes: [id number] SAME DATE (HIGH) GUSTAVO RYDER MD Aug 26, 2025 13:41
[2025-08-26] MEDS ORDERED: VANCOMYCIN PER PHARMACY 0 MG IV SCH (13:45)
[2025-08-26] MEDS: PIPERACILLIN-TAZOB 3.375GM 100 ML IV SCH (15:13)
[2025-08-26] MEDS: VANCOMYCIN 1.5GM/250ML 250 ML IV ONE (15:13)
[2025-08-26] MEDS: TPN PER PHARMACY IV NR (21:56)
[2025-08-27] VITALS (8 sets, daily range): BP systolic 134–158; BP diastolic 73–98; PULSE 53–66; RESP 16–20; TEMP 97.7–98.5; O2SAT 96–99
[2025-08-27] MEDS: VANCOMYCIN 1.25GM/250ML 250 ML IV SCH (04:10)
[2025-08-27 06:38] LABS: Hematocrit 34.3 % (41.0-53.0); Hemoglobin 11.9 g/dL (13.5-17.5); Mean Corpuscular Hemoglobin 30.3 pg (28.0-32.0); Mean Corpuscular Volume 87.1 fL (80.0-100.0); Nucleated Red Blood Cells % 0.1 %
[2025-08-27 06:59] LABS: Alanine Aminotransferase 15 U/L (7-40); Alkaline Phosphatase 56 U/L (46-116); Anion Gap 8 (5-15); BUN/Creatinine Ratio 22.8 (10.0-20.0); Blood Urea Nitrogen 18 mg/dL (9-23); Carbon Dioxide 23 mmol/L (20-31); Magnesium 1.9 mg/dL (1.6-2.6); Sodium 140 mmol/L (136-145); Total Protein 5.9 g/dL (5.7-8.2)
[2025-08-27 07:00] LABS: Albumin 3.1 g/dL (3.2-4.8); Bilirubin, Total 0.3 mg/dL (0.2-1.0); Calcium 8.0 mg/dL (8.7-10.4); Chloride 109 mmol/L (98-107); Glucose 112 mg/dL (74-106); Potassium 3.5 mmol/L (3.5-5.1)
--- NOTE | 2025-08-27 10:47 | DVHPN2 ---
Reviewed: Care Plan, H&P, Labs, Medications, Previous Orders, Radiology Changes from previous H/P or p: No Changes Eyes: No Pain, No Vision change, No Conjunctivae inflammation, No Eyelid inflammation, No Other, No Redness ENT: No Ear pain, No Ear discharge, No Nose pain, No Nose discharge, No Nose congestion, No Mouth pain, No Mouth swelling, No Throat pain, No Throat swelling, No Other Cardiovascular: No Chest Pain, No Palpitations, No Orthopnea, No Paroxysmal Noc. Dyspnea, No Edema, No Lt Headedness, No Other Respiratory: No Cough, No Dry, No Shortness of breath, No SOB with excertion, No Wheezing, No Hemoptysis, No Pleuritic Pain, No Sputum, No Other Gastrointestinal: No Nausea, No Vomiting, No Abdominal Pain, No Diarrhea, No Constipation, No Melena, No Hematochezia, No Other Genitourinary: Dysuria, Frequency; No Incontinence; Hematuria; No Retention, No Other Musculoskeletal: No other, No neck pain, No shoulder pain, No arm pain; back pain (left flank); No hand pain, No leg pain, No foot pain Skin: No Rash, No Lesions, No Jaundice, No Bruising, No Other Objective Vitals Vital Signs Date Time Temp Pulse Resp B/P (MAP) Pulse Ox O2 Delivery O2 Flow Rate FiO2 08/27/25 09:03 98.0 60 20 145/89 (107) 98 98.0 08/26/25 20:00 Room Air* 0 21 Intake/Output Intake and Output 08/27/25 07:00 Intake Total 2225 ml Output Total 1825 ml Balance 400 ml Intake Oral 0 ml IV Total 2225 ml Output Urine Total 1825 ml # Bowel Movements 1 Medications Current Medications Medications Dose Ordered Sig/Radames Route Start Time Stop Time Status Last Admin Dose Admin Sodium Chloride 1,000 ml @ 100 mls/hr Q10H IV 08/24/25 11:15 08/26/25 11:46 100 MLS/HR Acetaminophen/ Hydrocodone Bitart 1 tab Q4HP PRN PO 08/24/25 11:15 08/26/25 15:59 1 TAB Ondansetron HCl 4 mg Q4HP PRN IV 08/24/25 11:15 Docusate Sodium 100 mg BIDPRN PRN PO 08/24/25 11:15 Acetaminophen 650 mg Q6HP PRN PO 08/24/25 11:15 08/25/25 16:06 650 MG Nitroglycerin 0.4 mg Q5MINP PRN SL 08/24/25 11:15 Morphine Sulfate 2 mg Q30M PRN IV 08/24/25 11:15 Amino Acids 0 ml @ 0 mls/hr PER PHARMACY IV 08/24/25 16:15 Diagnostic Test (Pha) 1 strip Q6HR 08/25/25 00:00 08/27/25 06:15 1 STRIP Insulin Human Regular FOLLOW SLIDING SCALE Q6HR SC 08/25/25 00:00 08/27/25 06:15 2 UNITS Dextrose 50 ml UD IV 08/24/25 22:00 Sodium Chloride 10 ml QSHIFT@10,22 IV 08/26/25 10:00 08/26/25 21:57 10 ML Vancomycin HCl 0 ml @ 0 mls/hr PER PHARMACY IV 08/26/25 13:45 Cancel Fat Emulsion Intravenous 100 ml/Potassium Phosphate 30.8 meq/Calcium Gluconate 2.325 meq/Magnesium Sulfate 10 meq/ Multivitamins 10 ml/Chromium/ Copper/Manganese/ Zinc 1 ml/Amino Acids/Dextrose 1,125.5 ml @ 46 mls/hr [id number] IV 08/26/25 22:00 08/27/25 21:59 08/26/25 21:56 46 MLS/HR Fat Emulsion Intravenous 100 ml/Sodium Phosphate 20 meq/ Potassium Phosphate 44 meq/ Magnesium Sulfate 12 meq/ Multivitamins 10 ml/Chromium/ Copper/Manganese/ Zinc 1 ml/Amino Acids/Dextrose 1,329 ml @ 56 mls/hr [id number] IV 08/27/25 22:00 08/28/25 21:59 Laboratory Results Laboratory Tests 08/27/25 06:09 Chemistry Test 08/27/25 06:09 Albumin 3.1 g/dL (3.2-4.8) L Calcium Level 8.0 mg/dL (8.7-10.4) L Magnesium Level 1.9 mg/dL (1.6-2.6) Phosphorus Level 2.6 mg/dL (2.4-5.1) Total Protein 5.9 g/dL (5.7-8.2) LFT Test 08/27/25 06:09 Alanine Aminotransferase (ALT) 15 U/L (7-40) Alkaline Phosphatase 56 U/L (46-116) Aspartate Amino Transferase (AST) 13 U/L (13-40) Total Bilirubin 0.3 mg/dL (0.2-1.0) Urinalysis Test 08/24/25 21:20 Urine Color Dark-orange (Yellow) Urine Clarity Ex.turbid (Clear) Urine pH 6.5 (5.0-9.0) Urine Specific [place] 1.029 (1.001-1.035) Urine Protein 2+ (Negative) H Urine Ketones Trace (Negative) Urine Blood 3+ /uL (Negative) H Urine Nitrite Negative (Negative) Urine Bilirubin 1+ (Negative) Urine Urobilinogen 4 mg/dL (Negative) H Urine Leukocyte Esterase 3+ /uL (Negative) Urine RBC 68 /hpf (0 - 3) Urine Microscopic WBC 149 /HPF (0-3) H Urine Squamous Epithelial Cells None seen /hpf (<5) Urine Bacteria Many /hpf (None Seen) H Urine Mucus Many (None Seen) Urine Glucose Normal mg/dL (Normal) Microbiology Microbiology Date/Time Source Procedure Growth Status 08/24/25 09:03 Voided Urine Urine Culture - Final Pseudomonas aeruginosa Staphylococcus lugdunensis Enterococcus faecalis Complete 08/24/25 08:21 Blood Blood Culture - Preliminary NO GROWTH AFTER 72 HOURS OF INCUBATION. Resulted Labs and/or images reviewed: Labs reviewed by me, Image(s) reviewed by me Assessment/Plan Assessment/Plan Sepsis secondary to urinary tract infection Colovesical fistula surgical consult by Dr. Patterson appreciated Acute kidney injury, Left hydronephrosis status post nephrostomy tube placement by radiologist, urology consult by Dr. Hanna appreciate Obstructing kidney stone, History of uro lift procedure by Urology Dr. Hanna two months back Splenomegaly, Diverticulitis, Prostatomegaly, Hypertension, UTI due to Pseudomonas, staph lugdunesis,enterococcus faecalis: DC previous antibiotics, start Levaquin and Zyvox IV Time spent 70 minutes Advanced care planning time 20 minutes DAVID Hoyt at bedside Plan discussed with: Patient My Orders Orders - MRAYAM SANCHEZ MD Procedure Category Date Status Time Levofloxacin Levaquin PHA 08/28/25 Verified 10:00 Levofloxacin Levaquin PHA 08/27/25 Verified 10:45 Linzeolid 600 Mg Ivpb PHA 08/27/25 Verified 11:00 Date of Service: Aug 27, 2025 Billing Provider: MARYAM SANCHEZ MD Common Visit Codes: [id number] CARE 30-74 MIN MARYAM SANCHEZ MD Aug 27, 2025 10:47
[2025-08-27] MEDS: OMNIPAQUE 12mg/ml 500ml ORAL SOLUTION PO ONE ×2 (11:03→13:55)
[2025-08-27] MEDS: LIDOCAINE 2% JELLY 11ml (GLYDO) UR ONE (11:45)
--- NOTE | 2025-08-27 14:08 | DVH ---
XY CYSTOGRAM HISTORY: R/O Colovesical fistula COMPARISON: XY PERCUTANEOUS NEPHROSTOMY on DOS: 08/24/25, CT CT AB PEL WO CON-NO ORAL OR IV on DOS: 1 , CT CT AB PEL WO CON-NO ORAL OR IV on DOS: 04/11/25 PROCEDURE: Unable to opacify the bladder with contrast material through the [place] due to resistance a s the contrast was not able to flow through the catheter. FINDINGS: IMPRESSION: Technically unsuccessful cystogram due to resistance in the appiah catheter with contrast not able to reach the bladder. Recommend CT urogram for further evaluation.
--- NOTE | 2025-08-27 14:36 | DVH ---
Exam: US US GUIDED VASCULAR ACCESS Date: 08/26/2025 07:52 AM Clinical History: PICC Comparison: US US GUIDANCE FOR NEEDLE PLACEME on DOS: 08/24/25, US ABDOMEN LIMITED on DOS: 08/21/25, US BILAT LOWER DVT on DOS: 03/16/24 Findings: Targeted sonographic evaluation of basilic vein was obtained utilizing grayscale and color Doppler im aging. IMPRESSION: Sonographic assistance for central line placement. Please refer to procedural report for detailed fin dings.
[2025-08-27] MEDS: IOHEXOL 300 MG/ML 100ML BOTTLE IJ ONE (14:48)
[2025-08-27] MEDS: LINEZOLID 600MG/300ML 300 ML IV SCH (15:20)
--- NOTE | 2025-08-27 16:43 | DVH ---
CLINICAL HISTORY: UROGRAM TECHNIQUE: CT of the abdomen and pelvis was performed without and with intravenous contrast. Precontr ast, portal venous phase, and delayed urogram images obtained. 100 mL Omnipaque 350 injected intraven ously. This exam was performed according to our departmental dose optimization program. Up-to-date CT equipment and radiation dose reduction techniques are utilized as appropriate. CTDIVol: 16.05 mGy DLP: 2454.02 mGy-cm WID: COMPARISON: CT CT AB PEL WO CON-NO ORAL OR IV on DOS: 08/24/25 FINDINGS: Lower Thorax: Normal-sized heart with trace pericardial fluid. There is a small hiatal hernia. Trace bilateral pleural effusions, greater on the left. Linear bibasilar scarring or atelectasis. Liver and Biliary system: Normal-sized liver. There is a well-defined hypodensity in segment 6 of th e liver likely a cyst. Major portal veins are patent. Mild dilatation of the gallbladder measuring 4. 4 cm transverse. No definite gallbladder wall thickening. No biliary ductal dilatation. Very mild nod ular contour of the liver. Small portosystemic collateral vessels in the abdomen. Spleen: Splenomegaly. Adrenal Glands and Kidneys: Normal adrenal glands. There are well-defined hypodensities in both kidne ys likely cysts. There is mild layering calcification in a cystic lesion in the interpolar right kid ty which could reflect a milk of calcium cyst. There is a percutaneous left nephrostomy tube in plac e. There is improvement to the Persistent mild left hydroureteronephrosis leading up to a 5.9 mm calc ulus in the lower left ureter on series 2, image 54. Pancreas and Retroperitoneum: Unremarkable pancreas. Mildly prominent retroperitoneal lymph nodes. Aorta and Major Vessels: Aortoiliac vessels are patent and normal caliber with [id number] mixed atherosclerotic plaque. Bowel, Mesentery and Peritoneal space: Normal appendix. Normal caliber small and large bowel. There i s trace ascites. No mesenteric lymphadenopathy, free intraperitoneal air, or well-formed fluid collec tion. There is a segment of mild wall thickening of the mid sigmoid colon with a colovesical fistula from the inferior aspect of the mid sigmoid colon to the left bladder dome best demonstrated on serie s 601 image 43. There is moderate predominantly sigmoid diverticulosis. Pelvis: Circumferential bladder wall thickening containing a Rm catheter and locules of gas. There is perivesical stranding. There is no pelvic lymphadenopathy. Dystrophic calcifications in the prost ate gland. Abdominal wall and Osseous Structures: Multilevel lower thoracic and lumbar spondylosis. Moderate di sc space narrowing at L5-S1. Grade 1 retrolisthesis at L5-S1. no destructive osseous lesion. IMPRESSION: 1. Circumferential wall thickening of the mid sigmoid colon with a colovesical fistula from the infer ior aspect of the mid sigmoid colon to the superior left bladder wall. This is likely complication of prior diverticulitis. 2. Moderate sigmoid diverticulosis. 3. Circumferential bladder wall thickening and perivesical stranding which could reflect cystitis. C orrelate with urinalysis and urine culture. 4. Placement of a left percutaneous nephrostomy tube with improvement in mild left hydroureteronephro sis leading up to an obstructing 5.9 mm calculus in the lower left ureter. 5. Small hiatal hernia. 6. Mild nodular contour of the liver which could be fibrosis or cirrhosis. There are small portosyste ju collateral vessels in the abdomen as well as mild splenomegaly which could be stigmata of portal hypertension. Correlate with liver function tests and clinical history.
[2025-08-27] MEDS: PANTOPRAZOLE 40 MG/10 ML VIAL INJ IV ONE (18:16)
--- NOTE | 2025-08-27 18:53 | DVHINCON2 ---
Date of service: Aug 27, 2025 Referring Physician Hospitalist Reason for Consultation colovesical fistula ureteral stone left PCN in situ History of Present Illness History Source: Patient, RN Notes, MD Notes, Old Records Exam Limitations: No limitations HPI 69-year-old male with past medical history of kidney stones, hypertension, and hepatitis, who came to the hospital due to left flank pain, brown urine, frequent urination, and painful urination. Patient states he has a history of kidney stones, that he has been passing them at home, but the pain became too much so he came to the hospital. He states his urine has become brown, he can see sediment or stone in the toilet when he urinates, he has the urge to urinate but only a little comes out. Had Urolift a 05/14/25. Cardiovascular: HTN Hepatobiliary: Hep A/B/C (C) Renal/: Other (kidney stones) Past Surgical History: Other (Clavicle) Smoke: No ALCOHOL: none Drugs: None Lives: with Family Domestic Violence: Neg Home Meds Reported Medications Methocarbamol (Methocarbamol) 500 Mg Tab, PO, TAB 08/20/25 Lisinopril (Lisinopril) 20 Mg Tab, 20 MG PO DAILY for 30 Days, MG 01/25/25 Past Medical History Renal/: UTI, Benign prostatic enlarg. Patient Family History: FH: heart attack G8 MOTHER, Onset:72 (passed at 72 ) Review of Systems Gastrointestinal: Abdominal Pain Genitourinary: Frequency, Pain H&P Exam Vital Signs Vital Signs Date Time Temp Pulse Resp B/P (MAP) Pulse Ox O2 Delivery O2 Flow Rate FiO2 08/27/25 17:00 98.5 66 20 157/98 (117) 97 98.5 08/27/25 08:00 Room Air* 0 21 General Appeara: Well developed, Well nourished, Normal Appearance, Mild distress Rectal Exam: Deferred Male Genital Exam: Normal genitalia Neuro/Mental St: Alert, Oriented Appearance: Appropriate appearance, Appropriate insight Eye contact/ Speech: Cooperative, Good eye contact, Normal speech Skin Exam: Normal inspection, Normal color, Warm/dry Labs/Xrays [address] [address] Ph: [phone] DIAGNOSTIC IMAGING Diagnostic Imaging Report : [id number] Signed PATIENT: VENECIA SORTO ACCT: [id number] UNIT: [id number] : 1955 LOC: TELE-CENTR ROOM / BED: [facility]T / B AGE / SEX: 69 / M ADM STATUS: ADM IN SERVICE 1343 ORDERING PHYSICIAN: MAX HERNANDEZ MD PROCEDURE(s): ABPLIV - CT AB PEL WITH IV CON ONLY REASON: UROGRAM ORDER NUMBER(s): [id number], ACCESSION NUMBER(s): [id number] CLINICAL HISTORY: UROGRAM TECHNIQUE: CT of the abdomen and pelvis was performed without and with intravenous contrast. Precontrast, portal venous phase, and delayed urogram images obtained. 100 mL Omnipaque 350 injected intravenously. This exam was performed according to our departmental dose optimization program. Up-to-date CT equipment and radiation dose reduction techniques are utilized as appropriate. CTDIVol: 16.05 mGy DLP: 2454.02 mGy-cm WID: COMPARISON: CT CT AB PEL WO CON-NO ORAL OR IV on DOS: 08/24/25 FINDINGS: Lower Thorax: Normal-sized heart with trace pericardial fluid. There is a small hiatal hernia. Trace bilateral pleural effusions, greater on the left. Linear bibasilar scarring or atelectasis. Liver and Biliary system: Normal-sized liver. There is a well-defined hypodensity in segment 6 of the liver likely a cyst. Major portal veins are patent. Mild dilatation of the gallbladder measuring 4.4 cm transverse. No definite gallbladder wall thickening. No biliary ductal dilatation. Very mild nodular contour of the liver. Small portosystemic collateral vessels in the abdomen. Spleen: Splenomegaly. Adrenal Glands and Kidneys: Normal adrenal glands. There are well-defined hypodensities in both kidneys likely cysts. There is mild layering calcification in a cystic lesion in the interpolar right kidney which could reflect a milk of calcium cyst. There is a percutaneous left nephrostomy tube in place. There is improvement to the Persistent mild left hydroureteronephrosis leading up to a 5.9 mm calculus in the lower left ureter on series 2, image 54. Pancreas and Retroperitoneum: Unremarkable pancreas. Mildly prominent retroperitoneal lymph nodes. Aorta and Major Vessels: Aortoiliac vessels are patent and normal caliber with [id number] mixed atherosclerotic plaque. Bowel, Mesentery and Peritoneal space: Normal appendix. Normal caliber small and large bowel. There is trace ascites. No mesenteric lymphadenopathy, free intraperitoneal air, or well-formed fluid collection. There is a segment of mild wall thickening of the mid sigmoid colon with a colovesical fistula from the inferior aspect of the mid sigmoid colon to the left bladder dome best demonstrated on series 601 image 43. There is moderate predominantly sigmoid diverticulosis. Pelvis: Circumferential bladder wall thickening containing a Appiah catheter and locules of gas. There is perivesical stranding. There is no pelvic lymphadenopathy. Dystrophic calcifications in the prostate gland. Abdominal wall and Osseous Structures: Multilevel lower thoracic and lumbar spondylosis. Moderate disc space narrowing at L5-S1. Grade 1 retrolisthesis at L5-S1. no destructive osseous lesion. IMPRESSION: 1. Circumferential wall thickening of the mid sigmoid colon with a colovesical fistula from the inferior aspect of the mid sigmoid colon to the superior left bladder wall. This is likely complication of prior diverticulitis. 2. Moderate sigmoid diverticulosis. 3. Circumferential bladder wall thickening and perivesical stranding which could reflect cystitis. Correlate with urinalysis and urine culture. 4. Placement of a left percutaneous nephrostomy tube with improvement in mild left hydroureteronephrosis leading up to an obstructing 5.9 mm calculus in the lower left ureter. 5. Small hiatal hernia. 6. Mild nodular contour of the liver which could be fibrosis or cirrhosis. There are small portosystemic collateral vessels in the abdomen as well as mild splenomegaly which could be stigmata of portal hypertension. Correlate with liver function tests and clinical history. ATED BY: GLENNA LOWE MD DICTATED DATE/TIME: 08/27/25 1640 SIGNED BY: GLENNA LOWE MD SIGNED DATE/TIME: 08/27/25 1640 CC: Labs Test 08/27/25 17:42 08/27/25 06:09 08/25/25 05:40 08/24/25 21:20 Range/Units POC Glucose 163 H 70-106 mg/dl White Blood Count 9.5 4.4-10.8 10^3/uL Red Blood Count 3.93 L 4.5-5.90 10^6/uL Hemoglobin 11.9 L 13.5-17.5 g/dL Hematocrit 34.3 L 41.0-53.0 % Mean Corpuscular Volume 87.1 80.0-100.0 fL Mean Corpuscular Hemoglobin 30.3 28.0-32.0 pg Mean Corpuscular Hemoglobin Concent 34.8 32.0-36.0 g/dL Red Cell Distribution Width 13.8 11.8-14.3 % Platelet Count 282 140-450 10^3/uL Mean Platelet Volume 7.7 6.9-10.8 fL Neutrophils (%) (Auto) 76.3 37.0-80.0 % Lymphocytes (%) (Auto) 11.5 10.0-50.0 % Monocytes (%) (Auto) 10.0 0.0-12.0 % Eosinophils (%) (Auto) 1.7 0.0-7.0 % Basophils (%) (Auto) 0.5 0.0-2.0 % Neutrophils # (Auto) 7.3 1.6-8.6 10 ^3/uL Lymphocytes # (Auto) 1.1 0.4-5.4 10 ^3/uL Monocytes # (Auto) 1.0 0-1.3 10 ^3/uL Eosinophils # (Auto) 0.2 0-0.8 10 ^3/uL Basophils # (Auto) 0 0-0.2 10 ^3/uL Nucleated Red Blood Cells 0.1 % Sodium Level 140 136-145 mmol/L Potassium Level 3.5 3.5-5.1 mmol/L Chloride Level 109 H 98-107 mmol/L Carbon Dioxide Level 23 20-31 mmol/L Anion Gap 8 5-15 Blood Urea Nitrogen 18 9-23 mg/dL Creatinine 0.79 0.700-1.30 mg/dL Glomerular Filtration Rate Calc 96 >90 mL/min BUN/Creatinine Ratio 22.8 H 10.0-20.0 Serum Glucose 112 H 74-106 mg/dL Calcium Level 8.0 L 8.7-10.4 mg/dL Phosphorus Level 2.6 2.4-5.1 mg/dL Magnesium Level 1.9 1.6-2.6 mg/dL Total Bilirubin 0.3 0.2-1.0 mg/dL Aspartate Amino Transferase (AST) 13 13-40 U/L Alanine Aminotransferase (ALT) 15 7-40 U/L Alkaline Phosphatase 56 46-116 U/L Total Protein 5.9 5.7-8.2 g/dL Albumin 3.1 L 3.2-4.8 g/dL Triglycerides Level 42 < 150 mg/dL Urine Color Dark-orange Yellow Urine Clarity Ex.turbid Clear Urine pH 6.5 5.0-9.0 Urine Specific [place] 1.029 1.001-1.035 Urine Protein 2+ H Negative Urine Ketones Trace Negative Urine Blood 3+ H Negative /uL Urine Nitrite Negative Negative Urine Bilirubin 1+ Negative Urine Urobilinogen 4 H Negative mg/dL Urine Leukocyte Esterase 3+ Negative /uL Urine RBC 68 0 - 3 /hpf Urine Microscopic WBC 149 H 0-3 /HPF Urine Squamous Epithelial Cells None seen <5 /hpf Urine Bacteria Many H None Seen /hpf Urine Mucus Many None Seen Urine Glucose Normal Normal mg/dL Test 08/24/25 11:03 08/24/25 09:03 08/24/25 07:27 Range/Units Lactic Acid Level 1.4 0.4-2.0 mmol/L Urine Opiates Screen Neg NEGATIVE Urine Fentanyl Screen Neg NEGATIVE Urine Barbiturates Screen Neg NEGATIVE Urine Phencyclidine Screen Neg NEGATIVE Urine Amphetamines Screen Neg NEGATIVE Urine Benzodiazepines Screen Neg NEGATIVE Urine Cocaine Screen Neg NEGATIVE Urine Cannabinoids Screen Pos NEGATIVE Differential Total Cells Counted 100.0 100 Neutrophils % (Manual) 87 H 37.0-80.0 Band Neutrophils % (Manual) 1 Lymphocytes % (Manual) 2 L 10.0-50.0 Monocytes % (Manual) 10 0-12 Eosinophils % (Manual) 0 0-7 Basophils % (Manual) 0 0.0-2.0 Metamyelocytes % (manual) 0 Myelocytes % (Manual) 0 Promyelocytes % (Manual) 0 Blast Cells % (Manual) 0 Reactive Lymphocytes 0 Smudge Cells 1 /100 WBC Platelet Estimate Adequate Prothrombin Time 12.7 H 9.3-11.8 sec Prothrombin Time INR 1.22 H 0.9-1.15 Microbiology Date/Time Source Procedure Growth Status 08/24/25 09:03 Voided Urine Urine Culture - Final Pseudomonas aeruginosa Staphylococcus lugdunensis Enterococcus faecalis Complete 08/24/25 08:21 Blood Blood Culture - Preliminary NO GROWTH AFTER 72 HOURS OF INCUBATION. 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
[2025-08-27] MEDS: TPN PER PHARMACY IV NR (21:50)
[2025-08-28] VITALS (10 sets, daily range): BP systolic 145–168; BP diastolic 85–99; PULSE 52–70; RESP 17–18; TEMP 97.6–98.4; O2SAT 96–98
[2025-08-28 07:32] LABS: Hematocrit 34.9 % (41.0-53.0); Hemoglobin 12.1 g/dL (13.5-17.5); Mean Corpuscular Hemoglobin 29.9 pg (28.0-32.0); Mean Corpuscular Volume 86.0 fL (80.0-100.0); Nucleated Red Blood Cells % 0.0 %
[2025-08-28 07:44] LABS: Alanine Aminotransferase 13 U/L (7-40); Alkaline Phosphatase 52 U/L (46-116); Anion Gap 10 (5-15); BUN/Creatinine Ratio 19.7 (10.0-20.0); Blood Urea Nitrogen 14 mg/dL (9-23); Carbon Dioxide 23 mmol/L (20-31); Magnesium 2.0 mg/dL (1.6-2.6); Sodium 140 mmol/L (136-145); Total Protein 5.8 g/dL (5.7-8.2)
[2025-08-28 07:45] LABS: Albumin 3.1 g/dL (3.2-4.8); Bilirubin, Total 0.3 mg/dL (0.2-1.0); Calcium 7.9 mg/dL (8.7-10.4); Chloride 107 mmol/L (98-107); Glucose 119 mg/dL (74-106); Potassium 3.4 mmol/L (3.5-5.1)
--- NOTE | 2025-08-28 08:49 | DVHPN2 ---
Reviewed: Care Plan, H&P, Labs, Medications, Previous Orders, Radiology Changes from previous H/P or p: No Changes Eyes: No Pain, No Vision change, No Conjunctivae inflammation, No Eyelid inflammation, No Other, No Redness ENT: No Ear pain, No Ear discharge, No Nose pain, No Nose discharge, No Nose congestion, No Mouth pain, No Mouth swelling, No Throat pain, No Throat swelling, No Other Cardiovascular: No Chest Pain, No Palpitations, No Orthopnea, No Paroxysmal Noc. Dyspnea, No Edema, No Lt Headedness, No Other Respiratory: No Cough, No Dry, No Shortness of breath, No SOB with excertion, No Wheezing, No Hemoptysis, No Pleuritic Pain, No Sputum, No Other Gastrointestinal: No Nausea, No Vomiting, No Abdominal Pain, No Diarrhea, No Constipation, No Melena, No Hematochezia, No Other Genitourinary: Dysuria, Frequency; No Incontinence; Hematuria; No Retention, No Other Musculoskeletal: No other, No neck pain, No shoulder pain, No arm pain; back pain (left flank); No hand pain, No leg pain, No foot pain Skin: No Rash, No Lesions, No Jaundice, No Bruising, No Other Objective Vitals Vital Signs Date Time Temp Pulse Resp B/P (MAP) Pulse Ox O2 Delivery O2 Flow Rate FiO2 08/28/25 07:40 58 Room Air* 0 21 08/28/25 05:00 98.2 17 146/85 (105) 97 98.2 Intake/Output Intake and Output 08/28/25 07:00 Intake Total 800 ml Output Total 1750 ml Balance -950 ml Intake Oral 0 ml IV Total 800 ml Output Urine Total 1750 ml Medications Current Medications Medications Dose Ordered Sig/Radames Route Start Time Stop Time Status Last Admin Dose Admin Sodium Chloride 1,000 ml @ 100 mls/hr Q10H IV 08/24/25 11:15 08/28/25 06:17 100 MLS/HR Acetaminophen/ Hydrocodone Bitart 1 tab Q4HP PRN PO 08/24/25 11:15 08/27/25 21:30 1 TAB Ondansetron HCl 4 mg Q4HP PRN IV 08/24/25 11:15 Docusate Sodium 100 mg BIDPRN PRN PO 08/24/25 11:15 Acetaminophen 650 mg Q6HP PRN PO 08/24/25 11:15 08/25/25 16:06 650 MG Nitroglycerin 0.4 mg Q5MINP PRN SL 08/24/25 11:15 Morphine Sulfate 2 mg Q30M PRN IV 08/24/25 11:15 Amino Acids 0 ml @ 0 mls/hr PER PHARMACY IV 08/24/25 16:15 Diagnostic Test (Pha) 1 strip Q6HR 08/25/25 00:00 08/28/25 06:05 1 STRIP Insulin Human Regular FOLLOW SLIDING SCALE Q6HR SC 08/25/25 00:00 08/27/25 23:25 2 UNITS Dextrose 50 ml UD IV 08/24/25 22:00 Sodium Chloride 10 ml QSHIFT@10,22 IV 08/26/25 10:00 08/27/25 21:29 10 ML Vancomycin HCl 0 ml @ 0 mls/hr PER PHARMACY IV 08/26/25 13:45 Cancel Fat Emulsion Intravenous 100 ml/Sodium Phosphate 20 meq/ Potassium Phosphate 44 meq/ Magnesium Sulfate 12 meq/ Multivitamins 10 ml/Chromium/ Copper/Manganese/ Zinc 1 ml/Amino Acids/Dextrose 1,329 ml @ 56 mls/hr [id number] IV 08/27/25 22:00 08/28/25 21:59 08/27/25 21:50 56 MLS/HR Levofloxacin/ Dextrose 100 ml @ 100 mls/hr DAILY IV 08/28/25 10:00 Linezolid 300 ml @ 150 mls/hr Q12HR IV 08/27/25 11:00 08/27/25 21:29 150 MLS/HR Pantoprazole Sodium 40 mg DAILY IV 08/28/25 10:00 Laboratory Results Laboratory Tests 08/28/25 04:14 Chemistry Test 08/28/25 04:14 Albumin 3.1 g/dL (3.2-4.8) L Calcium Level 7.9 mg/dL (8.7-10.4) L Magnesium Level 2.0 mg/dL (1.6-2.6) Phosphorus Level 3.1 mg/dL (2.4-5.1) Total Protein 5.8 g/dL (5.7-8.2) LFT Test 08/28/25 04:14 Alanine Aminotransferase (ALT) 13 U/L (7-40) Alkaline Phosphatase 52 U/L (46-116) Aspartate Amino Transferase (AST) 12 U/L (13-40) L Total Bilirubin 0.3 mg/dL (0.2-1.0) Urinalysis Test 08/24/25 21:20 Urine Color Dark-orange (Yellow) Urine Clarity Ex.turbid (Clear) Urine pH 6.5 (5.0-9.0) Urine Specific [place] 1.029 (1.001-1.035) Urine Protein 2+ (Negative) H Urine Ketones Trace (Negative) Urine Blood 3+ /uL (Negative) H Urine Nitrite Negative (Negative) Urine Bilirubin 1+ (Negative) Urine Urobilinogen 4 mg/dL (Negative) H Urine Leukocyte Esterase 3+ /uL (Negative) Urine RBC 68 /hpf (0 - 3) Urine Microscopic WBC 149 /HPF (0-3) H Urine Squamous Epithelial Cells None seen /hpf (<5) Urine Bacteria Many /hpf (None Seen) H Urine Mucus Many (None Seen) Urine Glucose Normal mg/dL (Normal) Microbiology Microbiology Date/Time Source Procedure Growth Status 08/24/25 09:03 Voided Urine Urine Culture - Final Pseudomonas aeruginosa Staphylococcus lugdunensis Enterococcus faecalis Complete 08/24/25 08:21 Blood Blood Culture - Preliminary NO GROWTH AFTER 72 HOURS OF INCUBATION. Resulted Labs and/or images reviewed: Labs reviewed by me, Image(s) reviewed by me Assessment/Plan Assessment/Plan Sepsis secondary to urinary tract infection Colovesical fistula surgical consult by Dr. Patterson appreciated Acute kidney injury, Left hydronephrosis status post nephrostomy tube placement by radiologist, urology consult by Dr. Hanna appreciated, planning for ESWL after stabilization Obstructing kidney stone, History of uro lift procedure by Urology Dr. Hanna two months back Splenomegaly, Acute diverticulitis: Continue Levaquin add Flagyl: GI consult Dr Kasia lauren Prostatomegaly, Hypertension, UTI due to Pseudomonas, staph lugdunesis,enterococcus faecalis: DC previous antibiotics, start Levaquin and Zyvox IV Time spent 70 minutes Advanced care planning time 20 minutes RN at bedside Plan discussed with: Patient My Orders Orders - MARYAM SANCHEZ MD Procedure Category Date Status Time Levofloxacin 500mg PHA 08/28/25 In Process (Levaquin 500mg/ 100m 10:00 Linezolid 600mg/300ml PHA 08/27/25 In Process (Zyvox) 11:00 Date of Service: Aug 28, 2025 Billing Provider: MARYAM SANCHEZ MD Common Visit Codes: [id number] CARE 30-74 MIN MARYAM SANCHEZ MD Aug 28, 2025 08:49
[2025-08-28] MEDS: PANTOPRAZOLE 40 MG/10 ML VIAL INJ IV SCH (09:00)
[2025-08-28] MEDS: POTASSIUM CHL 20MEQ/100ML 100 ML IV SCH (10:10)
[2025-08-28] MEDS: GOLYTELY 4L KIT PO ONE (10:45)
[2025-08-28] MEDS: SODIUM CHLORIDE 0.9% 1,000 ML IV ONE ×2 (10:58)
[2025-08-28] MEDS: LISINOPRIL 20 MG TAB PO ONE (13:53)
--- NOTE | 2025-08-28 16:27 | DVHCONRES ---
Date Seen: Aug 28, 2025 Resident Creating Document: JHAJJ,SARPUNEET RESIDENT Referring Physician Dr. Christian Reason for Consultation Acute diverticulitis History of Present Illness Patient is a 69-year-old male with medical history of kidney stones, hypertension, hepatitis-C presented to the hospital with a chief complaint of left flank pain with a brown urine, increased frequency of urination. Patient states he has a history of kidney stones, that he has been passing them at home, but the pain became too much so he came to the hospital. He states his urine has become brown, he can see sediment or stone in the toilet when he urinates, he has the urge to urinate but only a little comes out. Patient underwent left nephrostomy tube placement. With the patient was having brownish sediment in the urine CT abdomen pelvis with IV contrast was done which showed circumferential wall thickening of the mid sigmoid colon with a colovesical fistula from the inferior aspect of the mid sigmoid colon to the superior left bladder wall. Surgery were consulted and the patient is scheduled for surgery later this week. GI were consulted for acute diverticulitis Past Medical History As per HPI Past Surgical History Denies Family History: FH: heart attack G8 MOTHER, Onset:72 (passed at 72 ) Family History Non contributory Allergies: Coded Allergies: NO KNOWN ALLERGIES (Unverified , 12/20/24) Home Meds Reported Medications Methocarbamol (Methocarbamol) 500 Mg Tab, PO, TAB 08/20/25 Lisinopril (Lisinopril) 20 Mg Tab, 20 MG PO DAILY for 30 Days, MG 01/25/25 Current Medications Current Medications Medications (Trade) Dose Ordered Sig/Radames Route PRN Reason Start Time Stop Time Status Last Admin Fat Emulsion Intravenous 100 ml/Sodium Phosphate 20 meq/ Potassium Phosphate 44 meq/ Magnesium Sulfate 12 meq/ Multivitamins 10 ml/Chromium/ Copper/Manganese/ Zinc 1 ml/Amino Acids/Dextrose 1,329 ml @ 56 mls/hr [id number] IV 08/27/25 22:00 08/28/25 21:59 08/27/25 21:50 Levofloxacin/ Dextrose 100 ml @ 100 mls/hr DAILY IV 08/28/25 10:00 08/28/25 09:00 Pantoprazole Sodium (Protonix) 40 mg DAILY IV 08/28/25 10:00 08/28/25 09:00 Metronidazole 100 ml @ 100 mls/hr Q8HR IV 08/28/25 14:00 08/28/25 12:13 Potassium Chloride 100 ml @ 50 mls/hr Q2H IV 08/28/25 09:00 08/28/25 12:59 DC 08/28/25 12:12 Fat Emulsion Intravenous 200 ml/Sodium Phosphate 20 meq/ Potassium Chloride 20 meq/ Potassium Phosphate 22 meq/ Calcium Gluconate 2.325 meq/ Magnesium Sulfate 10 meq/ Multivitamins 10 ml/Chromium/ Copper/Manganese/ Zinc 1 ml/Amino Acids/Dextrose 1,588.5 ml @ 67 mls/hr [id number] IV 08/28/25 22:00 08/29/25 21:59 Lisinopril (Zestril Tablet) 20 mg DAILY PO 08/29/25 10:00 Review of Systems Seen and examined at the bedside Reports of mild abdominal pain in the lower abdomen Reported to have bowel movement 1 yesterday No blood seen in the Rm's catheter or in the nephrostomy tube Small brown sediment seen in the Rm's bag H&H stable Vital Signs Vital Signs Date Time Temp Pulse Resp B/P (MAP) Pulse Ox O2 Delivery O2 Flow Rate FiO2 08/28/25 13:53 168/99 08/28/25 09:00 98.4 68 18 97 98.4 08/28/25 07:40 Room Air* 0 21 Physical Exam Gen - no pallor, no scleral icterus Skin - Patients skin is warm and dry. HEENT - normocephalic, atraumatic, dry mucous membranes. Neck - supple, no lymphadenopathy Pulmonary - B/L clear breath sounds cardiovascular - regular S1,S2 heard GI - soft abdomen with minimal tenderness to palpation in the lower abdomen. Bowel sounds normoactive. Neurological - Patient is alert and oriented x4 and is following commands, no motor or sensory weakness Labs/Diagnostic Data Labs Test 08/28/25 11:39 08/28/25 04:14 08/25/25 05:40 08/24/25 21:20 Range/Units POC Glucose 128 H 70-106 mg/dl White Blood Count 8.9 4.4-10.8 10^3/uL Red Blood Count 4.06 L 4.5-5.90 10^6/uL Hemoglobin 12.1 L 13.5-17.5 g/dL Hematocrit 34.9 L 41.0-53.0 % Mean Corpuscular Volume 86.0 80.0-100.0 fL Mean Corpuscular Hemoglobin 29.9 28.0-32.0 pg Mean Corpuscular Hemoglobin Concent 34.8 32.0-36.0 g/dL Red Cell Distribution Width 13.6 11.8-14.3 % Platelet Count 299 140-450 10^3/uL Mean Platelet Volume 7.8 6.9-10.8 fL Neutrophils (%) (Auto) 79.6 37.0-80.0 % Lymphocytes (%) (Auto) 9.1 L 10.0-50.0 % Monocytes (%) (Auto) 9.5 0.0-12.0 % Eosinophils (%) (Auto) 1.5 0.0-7.0 % Basophils (%) (Auto) 0.3 0.0-2.0 % Neutrophils # (Auto) 7.1 1.6-8.6 10 ^3/uL Lymphocytes # (Auto) 0.8 0.4-5.4 10 ^3/uL Monocytes # (Auto) 0.9 0-1.3 10 ^3/uL Eosinophils # (Auto) 0.1 0-0.8 10 ^3/uL Basophils # (Auto) 0 0-0.2 10 ^3/uL Nucleated Red Blood Cells 0.0 % Sodium Level 140 136-145 mmol/L Potassium Level 3.4 L 3.5-5.1 mmol/L Chloride Level 107 98-107 mmol/L Carbon Dioxide Level 23 20-31 mmol/L Anion Gap 10 5-15 Blood Urea Nitrogen 14 9-23 mg/dL Creatinine 0.71 0.700-1.30 mg/dL Glomerular Filtration Rate Calc 99 >90 mL/min BUN/Creatinine Ratio 19.7 10.0-20.0 Serum Glucose 119 H 74-106 mg/dL Calcium Level 7.9 L 8.7-10.4 mg/dL Phosphorus Level 3.1 2.4-5.1 mg/dL Magnesium Level 2.0 1.6-2.6 mg/dL Total Bilirubin 0.3 0.2-1.0 mg/dL Aspartate Amino Transferase (AST) 12 L 13-40 U/L Alanine Aminotransferase (ALT) 13 7-40 U/L Alkaline Phosphatase 52 46-116 U/L Total Protein 5.8 5.7-8.2 g/dL Albumin 3.1 L 3.2-4.8 g/dL Triglycerides Level 42 < 150 mg/dL Urine Color Dark-orange Yellow Urine Clarity Ex.turbid Clear Urine pH 6.5 5.0-9.0 Urine Specific [place] 1.029 1.001-1.035 Urine Protein 2+ H Negative Urine Ketones Trace Negative Urine Blood 3+ H Negative /uL Urine Nitrite Negative Negative Urine Bilirubin 1+ Negative Urine Urobilinogen 4 H Negative mg/dL Urine Leukocyte Esterase 3+ Negative /uL Urine RBC 68 0 - 3 /hpf Urine Microscopic WBC 149 H 0-3 /HPF Urine Squamous Epithelial Cells None seen <5 /hpf Urine Bacteria Many H None Seen /hpf Urine Mucus Many None Seen Urine Glucose Normal Normal mg/dL Test 08/24/25 11:03 08/24/25 09:03 08/24/25 07:27 Range/Units Lactic Acid Level 1.4 0.4-2.0 mmol/L Urine Opiates Screen Neg NEGATIVE Urine Fentanyl Screen Neg NEGATIVE Urine Barbiturates Screen Neg NEGATIVE Urine Phencyclidine Screen Neg NEGATIVE Urine Amphetamines Screen Neg NEGATIVE Urine Benzodiazepines Screen Neg NEGATIVE Urine Cocaine Screen Neg NEGATIVE Urine Cannabinoids Screen Pos NEGATIVE Differential Total Cells Counted 100.0 100 Neutrophils % (Manual) 87 H 37.0-80.0 Band Neutrophils % (Manual) 1 Lymphocytes % (Manual) 2 L 10.0-50.0 Monocytes % (Manual) 10 0-12 Eosinophils % (Manual) 0 0-7 Basophils % (Manual) 0 0.0-2.0 Metamyelocytes % (manual) 0 Myelocytes % (Manual) 0 Promyelocytes % (Manual) 0 Blast Cells % (Manual) 0 Reactive Lymphocytes 0 Smudge Cells 1 /100 WBC Platelet Estimate Adequate Prothrombin Time 12.7 H 9.3-11.8 sec Prothrombin Time INR 1.22 H 0.9-1.15 Microbiology Date/Time Source Procedure Growth Status 08/24/25 09:03 Voided Urine Urine Culture - Final Pseudomonas aeruginosa Staphylococcus lugdunensis Enterococcus faecalis Complete 08/24/25 08:21 Blood Blood Culture - Preliminary NO GROWTH AFTER 72 HOURS OF INCUBATION. Resulted Assessment Colovesicular fistula Sigmoid diverticulosis UTI with Pseudomonas, Staph lugdunensis and Enterococcus faecalis Left hydronephrosis due to obstructive stone status post PCN Plan - surgical consult appreciated and we will follow recommendations - IV antibiotics - clear liquid diet and on TPN as of now - PUD prophylaxis with Protonix Plan discussed with Dr. 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
[2025-08-28] MEDS: TPN PER PHARMACY IV NR (21:07)
[2025-08-29] VITALS (8 sets, daily range): BP systolic 142–163; BP diastolic 92–110; PULSE 50–94; RESP 14–18; TEMP 96.9–97.9; O2SAT 93–98
[2025-08-29 06:28] LABS: Hematocrit 37.2 % (41.0-53.0); Hemoglobin 13.2 g/dL (13.5-17.5); Mean Corpuscular Hemoglobin 30.1 pg (28.0-32.0); Mean Corpuscular Volume 85.1 fL (80.0-100.0); Nucleated Red Blood Cells % 0.0 %
[2025-08-29 06:43] LABS: Alanine Aminotransferase 11 U/L (7-40); Albumin 3.3 g/dL (3.2-4.8); Alkaline Phosphatase 52 U/L (46-116); Anion Gap 9 (5-15); BUN/Creatinine Ratio 13.9 (10.0-20.0); Blood Urea Nitrogen 11 mg/dL (9-23); Carbon Dioxide 22 mmol/L (20-31); Glucose 104 mg/dL (74-106); Magnesium 2.1 mg/dL (1.6-2.6); Potassium 3.8 mmol/L (3.5-5.1); Sodium 141 mmol/L (136-145); Total Protein 6.3 g/dL (5.7-8.2)
[2025-08-29 06:49] LABS: Bilirubin, Total 0.3 mg/dL (0.2-1.0); Calcium 8.5 mg/dL (8.7-10.4); Chloride 110 mmol/L (98-107)
--- NOTE | 2025-08-29 09:46 | DVHPN2 ---
Reviewed: Care Plan, H&P, Labs, Medications, Previous Orders, Radiology Changes from previous H/P or p: No Changes Eyes: No Pain, No Vision change, No Conjunctivae inflammation, No Eyelid inflammation, No Other, No Redness ENT: No Ear pain, No Ear discharge, No Nose pain, No Nose discharge, No Nose congestion, No Mouth pain, No Mouth swelling, No Throat pain, No Throat swelling, No Other Cardiovascular: No Chest Pain, No Palpitations, No Orthopnea, No Paroxysmal Noc. Dyspnea, No Edema, No Lt Headedness, No Other Respiratory: No Cough, No Dry, No Shortness of breath, No SOB with excertion, No Wheezing, No Hemoptysis, No Pleuritic Pain, No Sputum, No Other Gastrointestinal: No Nausea, No Vomiting, No Abdominal Pain, No Diarrhea, No Constipation, No Melena, No Hematochezia, No Other Genitourinary: Dysuria, Frequency; No Incontinence; Hematuria; No Retention, No Other Musculoskeletal: No other, No neck pain, No shoulder pain, No arm pain; back pain (left flank); No hand pain, No leg pain, No foot pain Skin: No Rash, No Lesions, No Jaundice, No Bruising, No Other Objective Vitals Vital Signs Date Time Temp Pulse Resp B/P (MAP) Pulse Ox O2 Delivery O2 Flow Rate FiO2 08/29/25 08:55 96.9 60 14 163/97 (119) 97 96.9 08/28/25 19:54 Room Air* 0 21 Intake/Output Intake and Output 08/29/25 07:00 Intake Total 1850 ml Output Total 1850 ml Balance 0 ml Intake Oral 450 ml IV Total 1400 ml Output Urine Total 1850 ml # Bowel Movements 1 Medications Current Medications Medications Dose Ordered Sig/Radames Route Start Time Stop Time Status Last Admin Dose Admin Sodium Chloride 1,000 ml @ 100 mls/hr Q10H IV 08/24/25 11:15 08/29/25 02:40 100 MLS/HR Acetaminophen/ Hydrocodone Bitart 1 tab Q4HP PRN PO 08/24/25 11:15 08/29/25 09:37 1 TAB Ondansetron HCl 4 mg Q4HP PRN IV 08/24/25 11:15 Docusate Sodium 100 mg BIDPRN PRN PO 08/24/25 11:15 Acetaminophen 650 mg Q6HP PRN PO 08/24/25 11:15 08/25/25 16:06 650 MG Nitroglycerin 0.4 mg Q5MINP PRN SL 08/24/25 11:15 Morphine Sulfate 2 mg Q30M PRN IV 08/24/25 11:15 Amino Acids 0 ml @ 0 mls/hr PER PHARMACY IV 08/24/25 16:15 Diagnostic Test (Pha) 1 strip Q6HR 08/25/25 00:00 08/29/25 05:51 1 STRIP Insulin Human Regular FOLLOW SLIDING SCALE Q6HR SC 08/25/25 00:00 08/27/25 23:25 2 UNITS Dextrose 50 ml UD IV 08/24/25 22:00 Sodium Chloride 10 ml QSHIFT@10,22 IV 08/26/25 10:00 08/28/25 21:07 10 ML Vancomycin HCl 0 ml @ 0 mls/hr PER PHARMACY IV 08/26/25 13:45 Cancel Levofloxacin/ Dextrose 100 ml @ 100 mls/hr DAILY IV 08/28/25 10:00 08/28/25 09:00 100 MLS/HR Linezolid 300 ml @ 150 mls/hr Q12HR IV 08/27/25 11:00 08/28/25 21:07 150 MLS/HR Pantoprazole Sodium 40 mg DAILY IV 08/28/25 10:00 08/28/25 09:00 40 MG Metronidazole 100 ml @ 100 mls/hr Q8HR IV 08/28/25 14:00 08/29/25 05:51 100 MLS/HR Fat Emulsion Intravenous 200 ml/Sodium Phosphate 20 meq/ Potassium Chloride 20 meq/ Potassium Phosphate 22 meq/ Calcium Gluconate 2.325 meq/ Magnesium Sulfate 10 meq/ Multivitamins 10 ml/Chromium/ Copper/Manganese/ Zinc 1 ml/Amino Acids/Dextrose 1,588.5 ml @ 67 mls/hr [id number] IV 08/28/25 22:00 08/29/25 21:59 08/28/25 21:07 67 MLS/HR Lisinopril 20 mg DAILY PO 08/29/25 10:00 Fat Emulsion Intravenous 250 ml/Potassium Acetate 20 meq/ Potassium Phosphate 22 meq/ Magnesium Sulfate 4 meq/ Multivitamins 10 ml/Chromium/ Copper/Manganese/ Zinc 1 ml/Amino Acids/Dextrose 1,727 ml @ 72 mls/hr Q24H IV 08/29/25 22:00 08/30/25 21:59 Laboratory Results Laboratory Tests 08/29/25 06:01 Chemistry Test 08/29/25 06:01 Albumin 3.3 g/dL (3.2-4.8) Calcium Level 8.5 mg/dL (8.7-10.4) L Magnesium Level 2.1 mg/dL (1.6-2.6) Phosphorus Level 3.0 mg/dL (2.4-5.1) Total Protein 6.3 g/dL (5.7-8.2) LFT Test 08/29/25 06:01 Alanine Aminotransferase (ALT) 11 U/L (7-40) Alkaline Phosphatase 52 U/L (46-116) Aspartate Amino Transferase (AST) 14 U/L (13-40) Total Bilirubin 0.3 mg/dL (0.2-1.0) Urinalysis Test 08/24/25 21:20 Urine Color Dark-orange (Yellow) Urine Clarity Ex.turbid (Clear) Urine pH 6.5 (5.0-9.0) Urine Specific [place] 1.029 (1.001-1.035) Urine Protein 2+ (Negative) H Urine Ketones Trace (Negative) Urine Blood 3+ /uL (Negative) H Urine Nitrite Negative (Negative) Urine Bilirubin 1+ (Negative) Urine Urobilinogen 4 mg/dL (Negative) H Urine Leukocyte Esterase 3+ /uL (Negative) Urine RBC 68 /hpf (0 - 3) Urine Microscopic WBC 149 /HPF (0-3) H Urine Squamous Epithelial Cells None seen /hpf (<5) Urine Bacteria Many /hpf (None Seen) H Urine Mucus Many (None Seen) Urine Glucose Normal mg/dL (Normal) Microbiology Microbiology Date/Time Source Procedure Growth Status 08/24/25 09:03 Voided Urine Urine Culture - Final Pseudomonas aeruginosa Staphylococcus lugdunensis Enterococcus faecalis Complete 08/24/25 08:21 Blood Blood Culture - Final NO GROWTH AFTER 5 DAYS OF INCUBATION. Complete Labs and/or images reviewed: Labs reviewed by me, Image(s) reviewed by me Assessment/Plan Assessment/Plan Sepsis secondary to urinary tract infection Colovesical fistula surgical consult by Dr. Patterson appreciated, planning for surgery on 09/01/2025Wednesday Acute kidney injury, Left hydronephrosis status post nephrostomy tube placement by radiologist, urology consult by Dr. Hanna appreciated, planning for ESWL after stabilization Obstructing kidney stone, History of uro lift procedure by Urology Dr. Hanna two months back Splenomegaly, Acute diverticulitis: Continue Levaquin add Flagyl: GI consult Dr Kasia lauren appreciated Nutrition TPN Prostatomegaly, Hypertension, UTI due to Pseudomonas, staph lugdunesis,enterococcus faecalis: Continue Levaquin and Zyvox IV Time spent 60 minutes Advanced care planning time 20 minutes RN at bedside Plan discussed with: Patient My Orders Orders - MARYAM SANCHEZ MD Procedure Category Date Status Time Lisinopril Tablet PHA 08/29/25 In Process (Zestril Tablet) 10:00 Date of Service: Aug 29, 2025 Billing Provider: MARYAM SANCHEZ MD Common Visit Codes: [id number] CARE 30-74 MIN MARYAM SANCHEZ MD Aug 29, 2025 09:46
[2025-08-29] MEDS: LISINOPRIL 20 MG TAB PO SCH (10:58)
--- NOTE | 2025-08-29 12:08 | DVHINCON2 ---
Date of service: Aug 29, 2025 Family History: FH: heart attack G8 MOTHER, Onset:72 (passed at 72 ) Allergies: Coded Allergies: NO KNOWN ALLERGIES (Unverified , 12/20/24) Home Meds Reported Medications Methocarbamol (Methocarbamol) 500 Mg Tab, PO, TAB 08/20/25 Lisinopril (Lisinopril) 20 Mg Tab, 20 MG PO DAILY for 30 Days, MG 01/25/25 Current Medications Current Medications Medications (Trade) Dose Ordered Sig/Radames Route PRN Reason Start Time Stop Time Status Last Admin Metronidazole 100 ml @ 100 mls/hr Q8HR IV 08/28/25 14:00 08/29/25 05:51 Fat Emulsion Intravenous 200 ml/Sodium Phosphate 20 meq/ Potassium Chloride 20 meq/ Potassium Phosphate 22 meq/ Calcium Gluconate 2.325 meq/ Magnesium Sulfate 10 meq/ Multivitamins 10 ml/Chromium/ Copper/Manganese/ Zinc 1 ml/Amino Acids/Dextrose 1,588.5 ml @ 67 mls/hr [id number] IV 08/28/25 22:00 08/29/25 21:59 08/28/25 21:07 Lisinopril (Zestril Tablet) 20 mg DAILY PO 08/29/25 10:00 08/29/25 10:58 Fat Emulsion Intravenous 250 ml/Potassium Acetate 20 meq/ Potassium Phosphate 22 meq/ Magnesium Sulfate 4 meq/ Multivitamins 10 ml/Chromium/ Copper/Manganese/ Zinc 1 ml/Amino Acids/Dextrose 1,727 ml @ 72 mls/hr Q24H IV 08/29/25 22:00 08/30/25 21:59 Vital Signs Vital Signs Date Time Temp Pulse Resp B/P (MAP) Pulse Ox O2 Delivery O2 Flow Rate FiO2 08/29/25 10:58 163/97 08/29/25 08:55 96.9 60 14 97 96.9 08/28/25 19:54 Room Air* 0 21 Labs/Diagnostic Data Labs Test 08/29/25 11:37 08/29/25 06:01 08/25/25 05:40 08/24/25 21:20 Range/Units POC Glucose 121 H 70-106 mg/dl White Blood Count 10.9 H 4.4-10.8 10^3/uL Red Blood Count 4.37 L 4.5-5.90 10^6/uL Hemoglobin 13.2 L 13.5-17.5 g/dL Hematocrit 37.2 L 41.0-53.0 % Mean Corpuscular Volume 85.1 80.0-100.0 fL Mean Corpuscular Hemoglobin 30.1 28.0-32.0 pg Mean Corpuscular Hemoglobin Concent 35.4 32.0-36.0 g/dL Red Cell Distribution Width 13.3 11.8-14.3 % Platelet Count 349 140-450 10^3/uL Mean Platelet Volume 7.1 6.9-10.8 fL Neutrophils (%) (Auto) 80.1 H 37.0-80.0 % Lymphocytes (%) (Auto) 9.1 L 10.0-50.0 % Monocytes (%) (Auto) 8.9 0.0-12.0 % Eosinophils (%) (Auto) 1.3 0.0-7.0 % Basophils (%) (Auto) 0.6 0.0-2.0 % Neutrophils # (Auto) 8.8 H 1.6-8.6 10 ^3/uL Lymphocytes # (Auto) 1.0 0.4-5.4 10 ^3/uL Monocytes # (Auto) 1.0 0-1.3 10 ^3/uL Eosinophils # (Auto) 0.1 0-0.8 10 ^3/uL Basophils # (Auto) 0.1 0-0.2 10 ^3/uL Nucleated Red Blood Cells 0.0 % Sodium Level 141 136-145 mmol/L Potassium Level 3.8 3.5-5.1 mmol/L Chloride Level 110 H 98-107 mmol/L Carbon Dioxide Level 22 20-31 mmol/L Anion Gap 9 5-15 Blood Urea Nitrogen 11 9-23 mg/dL Creatinine 0.79 0.700-1.30 mg/dL Glomerular Filtration Rate Calc 96 >90 mL/min BUN/Creatinine Ratio 13.9 10.0-20.0 Serum Glucose 104 74-106 mg/dL Calcium Level 8.5 L 8.7-10.4 mg/dL Phosphorus Level 3.0 2.4-5.1 mg/dL Magnesium Level 2.1 1.6-2.6 mg/dL Total Bilirubin 0.3 0.2-1.0 mg/dL Aspartate Amino Transferase (AST) 14 13-40 U/L Alanine Aminotransferase (ALT) 11 7-40 U/L Alkaline Phosphatase 52 46-116 U/L Total Protein 6.3 5.7-8.2 g/dL Albumin 3.3 3.2-4.8 g/dL Triglycerides Level 42 < 150 mg/dL Urine Color Dark-orange Yellow Urine Clarity Ex.turbid Clear Urine pH 6.5 5.0-9.0 Urine Specific [place] 1.029 1.001-1.035 Urine Protein 2+ H Negative Urine Ketones Trace Negative Urine Blood 3+ H Negative /uL Urine Nitrite Negative Negative Urine Bilirubin 1+ Negative Urine Urobilinogen 4 H Negative mg/dL Urine Leukocyte Esterase 3+ Negative /uL Urine RBC 68 0 - 3 /hpf Urine Microscopic WBC 149 H 0-3 /HPF Urine Squamous Epithelial Cells None seen <5 /hpf Urine Bacteria Many H None Seen /hpf Urine Mucus Many None Seen Urine Glucose Normal Normal mg/dL Test 08/24/25 11:03 08/24/25 09:03 08/24/25 07:27 Range/Units Lactic Acid Level 1.4 0.4-2.0 mmol/L Urine Opiates Screen Neg NEGATIVE Urine Fentanyl Screen Neg NEGATIVE Urine Barbiturates Screen Neg NEGATIVE Urine Phencyclidine Screen Neg NEGATIVE Urine Amphetamines Screen Neg NEGATIVE Urine Benzodiazepines Screen Neg NEGATIVE Urine Cocaine Screen Neg NEGATIVE Urine Cannabinoids Screen Pos NEGATIVE Differential Total Cells Counted 100.0 100 Neutrophils % (Manual) 87 H 37.0-80.0 Band Neutrophils % (Manual) 1 Lymphocytes % (Manual) 2 L 10.0-50.0 Monocytes % (Manual) 10 0-12 Eosinophils % (Manual) 0 0-7 Basophils % (Manual) 0 0.0-2.0 Metamyelocytes % (manual) 0 Myelocytes % (Manual) 0 Promyelocytes % (Manual) 0 Blast Cells % (Manual) 0 Reactive Lymphocytes 0 Smudge Cells 1 /100 WBC Platelet Estimate Adequate Prothrombin Time 12.7 H 9.3-11.8 sec Prothrombin Time INR 1.22 H 0.9-1.15 Microbiology Date/Time Source Procedure Growth Status 08/24/25 09:03 Voided Urine Urine Culture - Final Pseudomonas aeruginosa Staphylococcus lugdunensis Enterococcus faecalis Complete 08/24/25 08:21 Blood Blood Culture - Final NO GROWTH AFTER 5 DAYS OF INCUBATION. Complete Assessment 69 year old male with what appears to be a post diverticulitis colovesical fistula, patient undergoing bowel prep in preparation of operation to resect segment of diverticulosis containing sigmoid colon and resection/re;pair of colovesical fistula. operation risks and complications explained in detail.operation scheduled for 01 of September AM. Plan discussed with: Patient TRISTON BARNES MD Aug 29, 2025 12:08
--- NOTE | 2025-08-29 14:58 | DVHPN2 ---
Progress Note Date Seen: Aug 29, 2025 Resident Creating Document: STEPHANY INGRAM RESIDENT Has the PT tested + for MRSA If YES, has PT been informed?: No (Getting PICC line for TPN) Medical Necessity Reason Pt with a Central, PICC or Fol: Yes The following are medically ne: PICC Line Subjective Review of Systems No abdominal pain, nausea vomiting Tolerating clear liquid diet well On GoLYTELY Planned for surgery on Wednesday Objective vital signs Vital Sign Date Time Temp Pulse Resp B/P (MAP) Pulse Ox O2 Delivery O2 Flow Rate FiO2 08/29/25 12:35 97.7 59 15 157/96 (116) 96 97.7 08/28/25 19:54 Room Air* 0 21 Total Intake and Output 08/28/25 08/28/25 08/29/25 15:00 23:00 07:00 Intake Total 600 ml 350 ml 900 ml Output Total 950 ml 900 ml Balance 600 ml -600 ml 0 ml medications Current Medications Medications Dose Ordered Sig/Radames Route Start Time Stop Time Status Last Admin Dose Admin Sodium Chloride 1,000 ml @ 100 mls/hr Q10H IV 08/24/25 11:15 08/29/25 11:18 100 MLS/HR Acetaminophen/ Hydrocodone Bitart 1 tab Q4HP PRN PO 08/24/25 11:15 08/29/25 14:17 1 TAB Ondansetron HCl 4 mg Q4HP PRN IV 08/24/25 11:15 Docusate Sodium 100 mg BIDPRN PRN PO 08/24/25 11:15 Acetaminophen 650 mg Q6HP PRN PO 08/24/25 11:15 08/25/25 16:06 650 MG Nitroglycerin 0.4 mg Q5MINP PRN SL 08/24/25 11:15 Morphine Sulfate 2 mg Q30M PRN IV 08/24/25 11:15 Amino Acids 0 ml @ 0 mls/hr PER PHARMACY IV 08/24/25 16:15 Diagnostic Test (Pha) 1 strip Q6HR 08/25/25 00:00 08/29/25 11:38 1 STRIP Insulin Human Regular FOLLOW SLIDING SCALE Q6HR SC 08/25/25 00:00 08/27/25 23:25 2 UNITS Dextrose 50 ml UD IV 08/24/25 22:00 Sodium Chloride 10 ml QSHIFT@10,22 IV 11/2/25 10:00 08/29/25 10:00 10 ML Vancomycin HCl 0 ml @ 0 mls/hr PER PHARMACY IV 08/26/25 13:45 Cancel Levofloxacin/ Dextrose 100 ml @ 100 mls/hr DAILY IV 08/28/25 10:00 08/29/25 11:06 100 MLS/HR Linezolid 300 ml @ 150 mls/hr Q12HR IV 08/27/25 11:00 08/29/25 11:11 150 MLS/HR Pantoprazole Sodium 40 mg DAILY IV 08/28/25 10:00 08/29/25 10:59 40 MG Metronidazole 100 ml @ 100 mls/hr Q8HR IV 08/28/25 14:00 08/29/25 14:20 100 MLS/HR Fat Emulsion Intravenous 200 ml/Sodium Phosphate 20 meq/ Potassium Chloride 20 meq/ Potassium Phosphate 22 meq/ Calcium Gluconate 2.325 meq/ Magnesium Sulfate 10 meq/ Multivitamins 10 ml/Chromium/ Copper/Manganese/ Zinc 1 ml/Amino Acids/Dextrose 1,588.5 ml @ 67 mls/hr [id number] IV 08/28/25 22:00 08/29/25 21:59 08/28/25 21:07 67 MLS/HR Lisinopril 20 mg DAILY PO 08/29/25 10:00 08/29/25 10:58 20 MG Fat Emulsion Intravenous 250 ml/Potassium Acetate 20 meq/ Potassium Phosphate 22 meq/ Magnesium Sulfate 4 meq/ Multivitamins 10 ml/Chromium/ Copper/Manganese/ Zinc 1 ml/Amino Acids/Dextrose 1,727 ml @ 72 mls/hr Q24H IV 08/29/25 22:00 08/30/25 21:59 Examination Gen - no pallor, no scleral icterus Skin - Patients skin is warm and dry. HEENT - normocephalic, atraumatic, dry mucous membranes. Neck - supple, no lymphadenopathy Pulmonary - B/L clear breath sounds cardiovascular - regular S1,S2 heard GI - soft abdomen no tenderness. Bowel sounds normoactive. Neurological - Patient is alert and oriented x4 and is following commands, no motor or sensory weakness laboratory and microbiology Laboratory Tests 08/29/25 06:01 Test 08/29/25 06:01 Range/Units Serum Glucose 104 74-106 mg/dL Microbiology Date/Time Source Procedure Growth Status 08/24/25 09:03 Voided Urine Urine Culture - Final Pseudomonas aeruginosa Staphylococcus lugdunensis Enterococcus faecalis Complete 08/24/25 08:21 Blood Blood Culture - Final NO GROWTH AFTER 5 DAYS OF INCUBATION. Complete Problem List/Assessment/Plan Problem List/Assessment/Plan Colovesicular fistula Sigmoid diverticulosis UTI with Pseudomonas, Staph lugdunensis and Enterococcus faecalis Left hydronephrosis due to obstructive stone status post PCN Plan - surgical consult appreciated and patient is scheduled for surgery on Wednesday - IV antibiotics - clear liquid diet and on TPN as of now - PUD prophylaxis with Protonix Plan discussed with Dr. Crabtree Plan discussed with: Patient, Other (RN [place]) Dietary Evaluation Review Comments: 1) Increase TPN rate to meet at least 75% estimated daily needs 2) Advance to cardiac diet when medically feasible 3) Follow-up with urology and gastroenterology 4) Continue to monitor I&O, labs, and skin integrity Expected Outcomes/Goals: 1) nutrition support to meet at least 75% estimated daily needs 2) labs to improve 3) diet to advance 4) f/u in 3-5 days STEPHANY INGRAM RESIDENT Aug 29, 2025 14:58
[2025-08-29] MEDS: TPN PER PHARMACY IV NR (21:44)
[2025-08-30] VITALS (8 sets, daily range): BP systolic 131–156; BP diastolic 84–95; PULSE 60–79; RESP 17–18; TEMP 97.8–99; O2SAT 96–98
[2025-08-30 05:56] LABS: Hematocrit 38.3 % (41.0-53.0); Hemoglobin 13.1 g/dL (13.5-17.5); Mean Corpuscular Hemoglobin 29.2 pg (28.0-32.0); Mean Corpuscular Volume 85.7 fL (80.0-100.0); Nucleated Red Blood Cells % 0.0 %
[2025-08-30 06:24] LABS: Alanine Aminotransferase 11 U/L (7-40); Alkaline Phosphatase 53 U/L (46-116); Anion Gap 11 (5-15); BUN/Creatinine Ratio 15.2 (10.0-20.0); Blood Urea Nitrogen 12 mg/dL (9-23); Carbon Dioxide 22 mmol/L (20-31); Glucose 94 mg/dL (74-106); Potassium 3.5 mmol/L (3.5-5.1); Sodium 141 mmol/L (136-145); Total Protein 6.4 g/dL (5.7-8.2)
[2025-08-30 06:25] LABS: Albumin 3.3 g/dL (3.2-4.8); Magnesium 2.0 mg/dL (1.6-2.6)
[2025-08-30 06:26] LABS: Bilirubin, Total 0.4 mg/dL (0.2-1.0)
[2025-08-30 06:28] LABS: Calcium 8.5 mg/dL (8.7-10.4); Chloride 108 mmol/L (98-107)
--- NOTE | 2025-08-30 08:43 | DVHPN2 ---
Reviewed: Care Plan, H&P, Labs, Medications, Previous Orders, Radiology Changes from previous H/P or p: No Changes Eyes: No Pain, No Vision change, No Conjunctivae inflammation, No Eyelid inflammation, No Other, No Redness ENT: No Ear pain, No Ear discharge, No Nose pain, No Nose discharge, No Nose congestion, No Mouth pain, No Mouth swelling, No Throat pain, No Throat swelling, No Other Cardiovascular: No Chest Pain, No Palpitations, No Orthopnea, No Paroxysmal Noc. Dyspnea, No Edema, No Lt Headedness, No Other Respiratory: No Cough, No Dry, No Shortness of breath, No SOB with excertion, No Wheezing, No Hemoptysis, No Pleuritic Pain, No Sputum, No Other Gastrointestinal: No Nausea, No Vomiting, No Abdominal Pain, No Diarrhea, No Constipation, No Melena, No Hematochezia, No Other Genitourinary: Dysuria, Frequency; No Incontinence; Hematuria; No Retention, No Other Musculoskeletal: No other, No neck pain, No shoulder pain, No arm pain; back pain (left flank); No hand pain, No leg pain, No foot pain Skin: No Rash, No Lesions, No Jaundice, No Bruising, No Other Objective Vitals Vital Signs Date Time Temp Pulse Resp B/P (MAP) Pulse Ox O2 Delivery O2 Flow Rate FiO2 08/30/25 05:00 97.9 68 18 140/92 (108) 97 97.9 08/29/25 20:00 Room Air* 0 21 Intake/Output Intake and Output 08/30/25 07:00 Intake Total 3420 ml Output Total 1800 ml Balance 1620 ml Intake Oral 150 ml IV Total 3270 ml Output Urine Total 1800 ml # Bowel Movements 3 Medications Current Medications Medications Dose Ordered Sig/Radames Route Start Time Stop Time Status Last Admin Dose Admin Sodium Chloride 1,000 ml @ 100 mls/hr Q10H IV 08/24/25 11:15 08/29/25 21:34 100 MLS/HR Acetaminophen/ Hydrocodone Bitart 1 tab Q4HP PRN PO 08/24/25 11:15 08/29/25 22:37 1 TAB Ondansetron HCl 4 mg Q4HP PRN IV 08/24/25 11:15 Docusate Sodium 100 mg BIDPRN PRN PO 08/24/25 11:15 Acetaminophen 650 mg Q6HP PRN PO 08/24/25 11:15 08/25/25 16:06 650 MG Nitroglycerin 0.4 mg Q5MINP PRN SL 08/24/25 11:15 Morphine Sulfate 2 mg Q30M PRN IV 08/24/25 11:15 Amino Acids 0 ml @ 0 mls/hr PER PHARMACY IV 08/24/25 16:15 Diagnostic Test (Pha) 1 strip Q6HR 08/25/25 00:00 08/30/25 05:35 1 STRIP Insulin Human Regular FOLLOW SLIDING SCALE Q6HR SC 08/25/25 00:00 08/30/25 00:07 2 UNITS Dextrose 50 ml UD IV 08/24/25 22:00 Sodium Chloride 10 ml QSHIFT@10,22 IV 08/26/25 10:00 08/29/25 21:34 10 ML Vancomycin HCl 0 ml @ 0 mls/hr PER PHARMACY IV 08/26/25 13:45 Cancel Levofloxacin/ Dextrose 100 ml @ 100 mls/hr DAILY IV 08/28/25 10:00 08/29/25 11:06 100 MLS/HR Linezolid 300 ml @ 150 mls/hr Q12HR IV 08/27/25 11:00 08/29/25 21:33 150 MLS/HR Pantoprazole Sodium 40 mg DAILY IV 08/28/25 10:00 08/29/25 10:59 40 MG Metronidazole 100 ml @ 100 mls/hr Q8HR IV 08/28/25 14:00 08/30/25 05:34 100 MLS/HR Lisinopril 20 mg DAILY PO 08/29/25 10:00 08/29/25 10:58 20 MG Fat Emulsion Intravenous 250 ml/Potassium Acetate 20 meq/ Potassium Phosphate 22 meq/ Magnesium Sulfate 4 meq/ Multivitamins 10 ml/Chromium/ Copper/Manganese/ Zinc 1 ml/Amino Acids/Dextrose 1,727 ml @ 72 mls/hr Q24H IV 08/29/25 22:00 08/30/25 21:59 08/29/25 21:44 72 MLS/HR Laboratory Results Laboratory Tests 08/30/25 04:38 Chemistry Test 08/30/25 04:38 Albumin 3.3 g/dL (3.2-4.8) Calcium Level 8.5 mg/dL (8.7-10.4) L Magnesium Level 2.0 mg/dL (1.6-2.6) Phosphorus Level 2.5 mg/dL (2.4-5.1) Total Protein 6.4 g/dL (5.7-8.2) LFT Test 08/30/25 04:38 Alanine Aminotransferase (ALT) 11 U/L (7-40) Alkaline Phosphatase 53 U/L (46-116) Aspartate Amino Transferase (AST) 16 U/L (13-40) Total Bilirubin 0.4 mg/dL (0.2-1.0) Urinalysis Test 08/24/25 21:20 Urine Color Dark-orange (Yellow) Urine Clarity Ex.turbid (Clear) Urine pH 6.5 (5.0-9.0) Urine Specific [place] 1.029 (1.001-1.035) Urine Protein 2+ (Negative) H Urine Ketones Trace (Negative) Urine Blood 3+ /uL (Negative) H Urine Nitrite Negative (Negative) Urine Bilirubin 1+ (Negative) Urine Urobilinogen 4 mg/dL (Negative) H Urine Leukocyte Esterase 3+ /uL (Negative) Urine RBC 68 /hpf (0 - 3) Urine Microscopic WBC 149 /HPF (0-3) H Urine Squamous Epithelial Cells None seen /hpf (<5) Urine Bacteria Many /hpf (None Seen) H Urine Mucus Many (None Seen) Urine Glucose Normal mg/dL (Normal) Microbiology Microbiology Date/Time Source Procedure Growth Status 08/24/25 09:03 Voided Urine Urine Culture - Final Pseudomonas aeruginosa Staphylococcus lugdunensis Enterococcus faecalis Complete 08/24/25 08:21 Blood Blood Culture - Final NO GROWTH AFTER 5 DAYS OF INCUBATION. Complete Labs and/or images reviewed: Labs reviewed by me, Image(s) reviewed by me Assessment/Plan Assessment/Plan Sepsis secondary to urinary tract infection Colovesical fistula surgical consult by Dr. Patterson appreciated, planning for surgery on 09/01/2025Wednesday Acute kidney injury, Left hydronephrosis status post nephrostomy tube placement by radiologist, urology consult by Dr. Hanna appreciated, planning for ESWL after stabilization Obstructing kidney stone, History of uro lift procedure by Urology Dr. Hanna two months back Splenomegaly, Acute diverticulitis: Continue Levaquin add Flagyl: GI consult Dr Kasia lauren appreciated Nutrition TPN Prostatomegaly, Hypertension, UTI due to Pseudomonas, staph lugdunesis,enterococcus faecalis: Continue Levaquin and Zyvox IV Time spent 50 minutes Plan discussed with: Patient, Other (RN) Date of Service: Aug 30, 2025 Billing Provider: MARYAM SANCHEZ MD Common Visit Codes: [id number] INP/OBS CARE(HIGH) MARYAM SANCHEZ MD Aug 30, 2025 08:43
--- NOTE | 2025-08-30 13:19 | DVHPN2 ---
Progress Note Date Seen: Aug 30, 2025 Resident Creating Document: STEPHANY INGRAM RESIDENT Has the PT tested + for MRSA If YES, has PT been informed?: No (Getting PICC line for TPN) Medical Necessity Reason Pt with a Central, PICC or Fol: Yes The following are medically ne: PICC Line Subjective Review of Systems No abdominal pain, nausea vomiting Tolerating clear liquid diet well On GoLYTELY for bowel clearance Planned for surgery on Wednesday Objective vital signs Vital Sign Date Time Temp Pulse Resp B/P (MAP) Pulse Ox O2 Delivery O2 Flow Rate FiO2 08/30/25 09:23 155/86 08/30/25 08:48 98.9 67 17 97 98.9 08/29/25 20:00 Room Air* 0 21 Total Intake and Output 08/29/25 08/29/25 08/30/25 15:00 23:00 07:00 Intake Total 1300 ml 100 ml 2020 ml Output Total 600 ml 200 ml 1000 ml Balance 700 ml -100 ml 1020 ml medications Current Medications Medications Dose Ordered Sig/Radames Route Start Time Stop Time Status Last Admin Dose Admin Sodium Chloride 1,000 ml @ 100 mls/hr Q10H IV 08/24/25 11:15 08/29/25 21:34 100 MLS/HR Acetaminophen/ Hydrocodone Bitart 1 tab Q4HP PRN PO 08/24/25 11:15 08/29/25 22:37 1 TAB Ondansetron HCl 4 mg Q4HP PRN IV 08/24/25 11:15 Docusate Sodium 100 mg BIDPRN PRN PO 08/24/25 11:15 Acetaminophen 650 mg Q6HP PRN PO 08/24/25 11:15 08/25/25 16:06 650 MG Nitroglycerin 0.4 mg Q5MINP PRN SL 08/24/25 11:15 Morphine Sulfate 2 mg Q30M PRN IV 08/24/25 11:15 Amino Acids 0 ml @ 0 mls/hr PER PHARMACY IV 08/24/25 16:15 Diagnostic Test (Pha) 1 strip Q6HR 08/25/25 00:00 08/30/25 05:35 1 STRIP Insulin Human Regular FOLLOW SLIDING SCALE Q6HR SC 08/25/25 00:00 08/30/25 00:07 2 UNITS Dextrose 50 ml UD IV 08/24/25 22:00 Sodium Chloride 10 ml QSHIFT@10,22 IV 08/26/25 10:00 08/30/25 09:23 10 ML Vancomycin HCl 0 ml @ 0 mls/hr PER PHARMACY IV 08/26/25 13:45 Cancel Levofloxacin/ Dextrose 100 ml @ 100 mls/hr DAILY IV 08/28/25 10:00 08/30/25 09:22 100 MLS/HR Linezolid 300 ml @ 150 mls/hr Q12HR IV 08/27/25 11:00 08/30/25 09:21 150 MLS/HR Pantoprazole Sodium 40 mg DAILY IV 08/28/25 10:00 08/30/25 09:22 40 MG Metronidazole 100 ml @ 100 mls/hr Q8HR IV 08/28/25 14:00 08/30/25 05:34 100 MLS/HR Lisinopril 20 mg DAILY PO 08/29/25 10:00 08/30/25 09:23 20 MG Fat Emulsion Intravenous 250 ml/Potassium Acetate 20 meq/ Potassium Phosphate 22 meq/ Magnesium Sulfate 4 meq/ Multivitamins 10 ml/Chromium/ Copper/Manganese/ Zinc 1 ml/Amino Acids/Dextrose 1,727 ml @ 72 mls/hr Q24H IV 08/29/25 22:00 08/30/25 21:59 08/29/25 21:44 72 MLS/HR Fat Emulsion Intravenous 250 ml/Potassium Acetate 30 meq/ Potassium Phosphate 44 meq/ Magnesium Sulfate 6 meq/ Multivitamins 10 ml/Chromium/ Copper/Manganese/ Zinc 1 ml/Amino Acids/Dextrose 1,737.5 ml @ 72 mls/hr Q24H8M IV 08/30/25 22:00 08/31/25 21:59 Examination Gen - no pallor, no scleral icterus Skin - Patients skin is warm and dry. HEENT - normocephalic, atraumatic, dry mucous membranes. Neck - supple, no lymphadenopathy Pulmonary - B/L clear breath sounds cardiovascular - regular S1,S2 heard GI - soft abdomen no tenderness. Bowel sounds normoactive. Neurological - Patient is alert and oriented x4 and is following commands, no motor or sensory weakness laboratory and microbiology Laboratory Tests 08/30/25 04:38 Test 08/30/25 04:38 Range/Units Serum Glucose 94 74-106 mg/dL Microbiology Date/Time Source Procedure Growth Status 08/24/25 09:03 Voided Urine Urine Culture - Final Pseudomonas aeruginosa Staphylococcus lugdunensis Enterococcus faecalis Complete 08/24/25 08:21 Blood Blood Culture - Final NO GROWTH AFTER 5 DAYS OF INCUBATION. Complete Problem List/Assessment/Plan Problem List/Assessment/Plan Colovesicular fistula Sigmoid diverticulosis UTI with Pseudomonas, Staph lugdunensis and Enterococcus faecalis Left hydronephrosis due to obstructive stone status post PCN Plan - surgical consult appreciated and patient is scheduled for surgery on Wednesday - IV antibiotics - clear liquid diet and on TPN as of now - PUD prophylaxis with Protonix Plan discussed with Dr. Crabtree Plan discussed with: Patient Dietary Evaluation Review Comments: 1) Increase TPN rate to meet at least 75% estimated daily needs 2) Advance to cardiac diet when medically feasible 3) Follow-up with urology and gastroenterology 4) Continue to monitor I&O, labs, and skin integrity Expected Outcomes/Goals: 1) nutrition support to meet at least 75% estimated daily needs 2) labs to improve 3) diet to advance 4) f/u in 3-5 days STEPHANY INGRAM RESIDENT Aug 30, 2025 13:19
[2025-08-30] MEDS: TPN PER PHARMACY IV NR (21:23)
[2025-08-31] VITALS (9 sets, daily range): BP systolic 148–165; BP diastolic 50–96; PULSE 67–96; RESP 16–18; TEMP 97.6–98.6; O2SAT 97–98
[2025-08-31 07:11] LABS: Hematocrit 37.2 % (41.0-53.0); Hemoglobin 13.2 g/dL (13.5-17.5); Mean Corpuscular Hemoglobin 29.9 pg (28.0-32.0); Mean Corpuscular Volume 84.4 fL (80.0-100.0); Nucleated Red Blood Cells % 0.2 %
[2025-08-31 07:33] LABS: Alanine Aminotransferase 14 U/L (7-40); Alkaline Phosphatase 56 U/L (46-116)
[2025-08-31 07:34] LABS: Albumin 3.3 g/dL (3.2-4.8); Anion Gap 11 (5-15); BUN/Creatinine Ratio 12.9 (10.0-20.0); Bilirubin, Total 0.4 mg/dL (0.2-1.0); Blood Urea Nitrogen 11 mg/dL (9-23); Carbon Dioxide 22 mmol/L (20-31); Glucose 80 mg/dL (74-106); Magnesium 2.1 mg/dL (1.6-2.6); Potassium 3.6 mmol/L (3.5-5.1); Sodium 141 mmol/L (136-145); Total Protein 6.5 g/dL (5.7-8.2)
[2025-08-31 07:37] LABS: Calcium 8.6 mg/dL (8.7-10.4); Chloride 108 mmol/L (98-107)
--- NOTE | 2025-08-31 08:26 | DVHPN2 ---
Reviewed: Care Plan, H&P, Labs, Medications, Previous Orders, Radiology Changes from previous H/P or p: No Changes Eyes: No Pain, No Vision change, No Conjunctivae inflammation, No Eyelid inflammation, No Other, No Redness ENT: No Ear pain, No Ear discharge, No Nose pain, No Nose discharge, No Nose congestion, No Mouth pain, No Mouth swelling, No Throat pain, No Throat swelling, No Other Cardiovascular: No Chest Pain, No Palpitations, No Orthopnea, No Paroxysmal Noc. Dyspnea, No Edema, No Lt Headedness, No Other Respiratory: No Cough, No Dry, No Shortness of breath, No SOB with excertion, No Wheezing, No Hemoptysis, No Pleuritic Pain, No Sputum, No Other Gastrointestinal: No Nausea, No Vomiting, No Abdominal Pain, No Diarrhea, No Constipation, No Melena, No Hematochezia, No Other Genitourinary: Dysuria, Frequency; No Incontinence; Hematuria; No Retention, No Other Musculoskeletal: No other, No neck pain, No shoulder pain, No arm pain; back pain (left flank); No hand pain, No leg pain, No foot pain Skin: No Rash, No Lesions, No Jaundice, No Bruising, No Other Objective Vitals Vital Signs Date Time Temp Pulse Resp B/P (MAP) Pulse Ox O2 Delivery O2 Flow Rate FiO2 08/31/25 05:00 98.0 69 18 151/94 (113) 98 98.0 08/30/25 20:00 Room Air* 0 21 Intake/Output Intake and Output 08/31/25 07:00 Intake Total 2625 ml Output Total 2775 ml Balance -150 ml Intake Oral 1725 ml IV Total 900 ml Output Urine Total 2325 ml Other 450 ml # Bowel Movements 9 Medications Current Medications Medications Dose Ordered Sig/Radames Route Start Time Stop Time Status Last Admin Dose Admin Sodium Chloride 1,000 ml @ 100 mls/hr Q10H IV 08/24/25 11:15 08/31/25 03:15 100 MLS/HR Acetaminophen/ Hydrocodone Bitart 1 tab Q4HP PRN PO 08/24/25 11:15 08/29/25 22:37 1 TAB Ondansetron HCl 4 mg Q4HP PRN IV 08/24/25 11:15 Docusate Sodium 100 mg BIDPRN PRN PO 08/24/25 11:15 Acetaminophen 650 mg Q6HP PRN PO 08/24/25 11:15 08/25/25 16:06 650 MG Nitroglycerin 0.4 mg Q5MINP PRN SL 08/24/25 11:15 Morphine Sulfate 2 mg Q30M PRN IV 08/24/25 11:15 Amino Acids 0 ml @ 0 mls/hr PER PHARMACY IV 08/24/25 16:15 Diagnostic Test (Pha) 1 strip Q6HR 08/25/25 00:00 08/31/25 06:00 1 STRIP Insulin Human Regular FOLLOW SLIDING SCALE Q6HR SC 08/25/25 00:00 08/30/25 00:07 2 UNITS Dextrose 50 ml UD IV 08/24/25 22:00 Sodium Chloride 10 ml QSHIFT@10,22 IV 08/26/25 10:00 08/30/25 21:26 10 ML Vancomycin HCl 0 ml @ 0 mls/hr PER PHARMACY IV 08/26/25 13:45 Cancel Levofloxacin/ Dextrose 100 ml @ 100 mls/hr DAILY IV 08/28/25 10:00 08/30/25 09:22 100 MLS/HR Linezolid 300 ml @ 150 mls/hr Q12HR IV 08/27/25 11:00 08/30/25 21:29 150 MLS/HR Pantoprazole Sodium 40 mg DAILY IV 08/28/25 10:00 08/30/25 09:22 40 MG Metronidazole 100 ml @ 100 mls/hr Q8HR IV 08/28/25 14:00 08/31/25 06:22 100 MLS/HR Lisinopril 20 mg DAILY PO 08/29/25 10:00 08/30/25 09:23 20 MG Fat Emulsion Intravenous 250 ml/Potassium Acetate 30 meq/ Potassium Phosphate 44 meq/ Magnesium Sulfate 6 meq/ Multivitamins 10 ml/Chromium/ Copper/Manganese/ Zinc 1 ml/Amino Acids/Dextrose 1,737.5 ml @ 72 mls/hr Q24H8M IV 08/30/25 22:00 08/31/25 21:59 08/30/25 21:23 72 MLS/HR Laboratory Results Laboratory Tests 08/31/25 06:18 Chemistry Test 08/31/25 06:18 Albumin 3.3 g/dL (3.2-4.8) Calcium Level 8.6 mg/dL (8.7-10.4) L Magnesium Level 2.1 mg/dL (1.6-2.6) Phosphorus Level 2.8 mg/dL (2.4-5.1) Total Protein 6.5 g/dL (5.7-8.2) LFT Test 08/31/25 06:18 Alanine Aminotransferase (ALT) 14 U/L (7-40) Alkaline Phosphatase 56 U/L (46-116) Aspartate Amino Transferase (AST) 20 U/L (13-40) Total Bilirubin 0.4 mg/dL (0.2-1.0) Urinalysis Test 08/24/25 21:20 Urine Color Dark-orange (Yellow) Urine Clarity Ex.turbid (Clear) Urine pH 6.5 (5.0-9.0) Urine Specific [place] 1.029 (1.001-1.035) Urine Protein 2+ (Negative) H Urine Ketones Trace (Negative) Urine Blood 3+ /uL (Negative) H Urine Nitrite Negative (Negative) Urine Bilirubin 1+ (Negative) Urine Urobilinogen 4 mg/dL (Negative) H Urine Leukocyte Esterase 3+ /uL (Negative) Urine RBC 68 /hpf (0 - 3) Urine Microscopic WBC 149 /HPF (0-3) H Urine Squamous Epithelial Cells None seen /hpf (<5) Urine Bacteria Many /hpf (None Seen) H Urine Mucus Many (None Seen) Urine Glucose Normal mg/dL (Normal) Microbiology Microbiology Date/Time Source Procedure Growth Status 08/24/25 09:03 Voided Urine Urine Culture - Final Pseudomonas aeruginosa Staphylococcus lugdunensis Enterococcus faecalis Complete 08/24/25 08:21 Blood Blood Culture - Final NO GROWTH AFTER 5 DAYS OF INCUBATION. Complete Labs and/or images reviewed: Labs reviewed by me, Image(s) reviewed by me Assessment/Plan Assessment/Plan Sepsis secondary to urinary tract infection Colovesical fistula surgical consult by Dr. Patterson appreciated, planning for surgery on 09/01/2025Wednesday Acute kidney injury, Left hydronephrosis status post nephrostomy tube placement by radiologist, urology consult by Dr. Hanna appreciated, planning for ESWL after stabilization Obstructing kidney stone, History of uro lift procedure by Urology Dr. 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
--- NOTE | 2025-08-31 17:18 | DVHPN2 ---
Progress Note Date Seen: Aug 31, 2025 Resident Creating Document: STEPHANY INGRAM RESIDENT Has the PT tested + for MRSA If YES, has PT been informed?: No (Getting PICC line for TPN) Medical Necessity Reason Pt with a Central, PICC or Fol: Yes The following are medically ne: PICC Line Subjective Review of Systems Patient denies any abdominal pain, nausea or vomiting Tolerating clear liquid diet well Objective vital signs Vital Sign Date Time Temp Pulse Resp B/P (MAP) Pulse Ox O2 Delivery O2 Flow Rate FiO2 08/31/25 13:00 97.8 68 17 155/91 (112) 98 97.8 08/31/25 07:45 Room Air* 0 21 Total Intake and Output 08/30/25 08/30/25 08/31/25 15:00 23:00 07:00 Intake Total 400 ml 1575 ml 650 ml Output Total 675 ml 2100 ml Balance 400 ml 900 ml -1450 ml medications Current Medications Medications Dose Ordered Sig/Radames Route Start Time Stop Time Status Last Admin Dose Admin Sodium Chloride 1,000 ml @ 100 mls/hr Q10H IV 08/24/25 11:15 08/31/25 03:15 100 MLS/HR Acetaminophen/ Hydrocodone Bitart 1 tab Q4HP PRN PO 08/24/25 11:15 08/29/25 22:37 1 TAB Ondansetron HCl 4 mg Q4HP PRN IV 08/24/25 11:15 Docusate Sodium 100 mg BIDPRN PRN PO 08/24/25 11:15 Acetaminophen 650 mg Q6HP PRN PO 08/24/25 11:15 08/25/25 16:06 650 MG Nitroglycerin 0.4 mg Q5MINP PRN SL 08/24/25 11:15 Morphine Sulfate 2 mg Q30M PRN IV 08/24/25 11:15 Amino Acids 0 ml @ 0 mls/hr PER PHARMACY IV 08/24/25 16:15 Diagnostic Test (Pha) 1 strip Q6HR 08/25/25 00:00 08/31/25 12:00 1 STRIP Insulin Human Regular FOLLOW SLIDING SCALE Q6HR SC 08/25/25 00:00 08/30/25 00:07 2 UNITS Dextrose 50 ml UD IV 08/24/25 22:00 Sodium Chloride 10 ml QSHIFT@10,22 IV 08/26/25 10:00 08/31/25 10:05 10 ML Vancomycin HCl 0 ml @ 0 mls/hr PER PHARMACY IV 08/26/25 13:45 Cancel Levofloxacin/ Dextrose 100 ml @ 100 mls/hr DAILY IV 08/28/25 10:00 08/31/25 10:03 100 MLS/HR Linezolid 300 ml @ 150 mls/hr Q12HR IV 08/27/25 11:00 08/31/25 09:52 150 MLS/HR Pantoprazole Sodium 40 mg DAILY IV 08/28/25 10:00 08/31/25 10:05 40 MG Metronidazole 100 ml @ 100 mls/hr Q8HR IV 08/28/25 14:00 08/31/25 14:56 100 MLS/HR Lisinopril 20 mg DAILY PO 08/29/25 10:00 08/31/25 10:05 20 MG Fat Emulsion Intravenous 250 ml/Potassium Acetate 30 meq/ Potassium Phosphate 44 meq/ Magnesium Sulfate 6 meq/ Multivitamins 10 ml/Chromium/ Copper/Manganese/ Zinc 1 ml/Amino Acids/Dextrose 1,737.5 ml @ 72 mls/hr Q24H8M IV 08/30/25 22:00 08/31/25 21:59 08/30/25 21:23 72 MLS/HR Fat Emulsion Intravenous 250 ml/Potassium Acetate 40 meq/ Potassium Phosphate 44 meq/ Magnesium Sulfate 4 meq/ Multivitamins 10 ml/Chromium/ Copper/Manganese/ Zinc 1 ml/Amino Acids/Dextrose 1,742 ml @ 72 mls/hr [id number] IV 08/31/25 22:00 09/01/25 21:59 Examination Gen - no pallor, no scleral icterus Skin - Patients skin is warm and dry. HEENT - normocephalic, atraumatic, dry mucous membranes. Neck - supple, no lymphadenopathy Pulmonary - B/L clear breath sounds cardiovascular - regular S1,S2 heard GI - soft abdomen no tenderness. Bowel sounds normoactive. Neurological - Patient is alert and oriented x4 and is following commands, no motor or sensory weakness laboratory and microbiology Laboratory Tests 08/31/25 06:18 Test 08/31/25 06:18 Range/Units Serum Glucose 80 74-106 mg/dL Microbiology Date/Time Source Procedure Growth Status 08/24/25 09:03 Voided Urine Urine Culture - Final Pseudomonas aeruginosa Staphylococcus lugdunensis Enterococcus faecalis Complete 08/24/25 08:21 Blood Blood Culture - Final NO GROWTH AFTER 5 DAYS OF INCUBATION. Complete Problem List/Assessment/Plan Problem List/Assessment/Plan Colovesicular fistula Sigmoid diverticulosis UTI with Pseudomonas, Staph lugdunensis and Enterococcus faecalis Left hydronephrosis due to obstructive stone status post PCN Plan - surgical consult appreciated and patient is scheduled for surgery on Wednesday - IV antibiotics - clear liquid diet and on TPN as of now - PUD prophylaxis with Protonix Plan discussed with Dr. Crabtree Plan discussed with: Patient Dietary Evaluation Review Comments: 1) Increase TPN rate to meet at least 75% estimated daily needs 2) Advance to cardiac diet when medically feasible 3) Follow-up with urology and gastroenterology 4) Continue to monitor I&O, labs, and skin integrity Expected Outcomes/Goals: 1) nutrition support to meet at least 75% estimated daily needs 2) labs to improve 3) diet to advance 4) f/u in 3-5 days STEPHANY INGRAM RESIDENT Aug 31, 2025 17:18
[2025-08-31] MEDS: TPN PER PHARMACY IV NR (21:19)
[2025-09-01] VITALS (13 sets, daily range): BP systolic 114–150; BP diastolic 61–95; PULSE 62–90; RESP 12–25; TEMP 97.9–98.1; O2SAT 97–99
[2025-09-01 05:51] LABS: Hematocrit 42.4 % (41.0-53.0); Hemoglobin 13.0 g/dL (13.5-17.5); Mean Corpuscular Hemoglobin 35.9 pg (28.0-32.0); Mean Corpuscular Volume 117.6 fL (80.0-100.0)
[2025-09-01 06:46] LABS: Macrocytosis Moderate; Total Cells Counted 100.0 (100)
[2025-09-01 07:07] LABS: INR 1.43 (0.9-1.15); Partial Thromboplastin Time 35.6 SEC (24.5-34.5); Prothrombin Time 14.6 sec (9.3-11.8)
[2025-09-01] MEDS ORDERED: MIDAZOLAM HCL 2MG/2ML 2ml VIAL (1mg/ml) ONE (08:12)
[2025-09-01] MEDS ORDERED: fentaNYL CITRATE 100 MCG/2 ML VL ONE (08:12)
--- NOTE | 2025-09-01 08:19 | DVHPN2 ---
Reviewed: Care Plan, H&P, Labs, Medications, Previous Orders, Radiology Changes from previous H/P or p: No Changes Eyes: No Pain, No Vision change, No Conjunctivae inflammation, No Eyelid inflammation, No Other, No Redness ENT: No Ear pain, No Ear discharge, No Nose pain, No Nose discharge, No Nose congestion, No Mouth pain, No Mouth swelling, No Throat pain, No Throat swelling, No Other Cardiovascular: No Chest Pain, No Palpitations, No Orthopnea, No Paroxysmal Noc. Dyspnea, No Edema, No Lt Headedness, No Other Respiratory: No Cough, No Dry, No Shortness of breath, No SOB with excertion, No Wheezing, No Hemoptysis, No Pleuritic Pain, No Sputum, No Other Gastrointestinal: No Nausea, No Vomiting, No Abdominal Pain, No Diarrhea, No Constipation, No Melena, No Hematochezia, No Other Genitourinary: Dysuria, Frequency; No Incontinence; Hematuria; No Retention, No Other Musculoskeletal: No other, No neck pain, No shoulder pain, No arm pain; back pain (left flank); No hand pain, No leg pain, No foot pain Skin: No Rash, No Lesions, No Jaundice, No Bruising, No Other Objective Vitals Vital Signs Date Time Temp Pulse Resp B/P (MAP) Pulse Ox O2 Delivery O2 Flow Rate FiO2 09/01/25 05:00 98.1 76 18 148/87 (107) 97 98.1 08/31/25 20:00 Room Air* 0 21 Intake/Output Intake and Output 09/01/25 07:00 Intake Total 1000 ml Output Total 3550 ml Balance -2550 ml Intake Oral 0 ml IV Total 1000 ml Output Urine Total 3550 ml # Bowel Movements 5 Medications Current Medications Medications Dose Ordered Sig/Radames Route Start Time Stop Time Status Last Admin Dose Admin Sodium Chloride 1,000 ml @ 100 mls/hr Q10H IV 08/24/25 11:15 08/31/25 03:15 100 MLS/HR Acetaminophen/ Hydrocodone Bitart 1 tab Q4HP PRN PO 08/24/25 11:15 08/31/25 21:11 1 TAB Ondansetron HCl 4 mg Q4HP PRN IV 08/24/25 11:15 Docusate Sodium 100 mg BIDPRN PRN PO 08/24/25 11:15 Acetaminophen 650 mg Q6HP PRN PO 08/24/25 11:15 08/25/25 16:06 650 MG Nitroglycerin 0.4 mg Q5MINP PRN SL 08/24/25 11:15 Morphine Sulfate 2 mg Q30M PRN IV 08/24/25 11:15 Amino Acids 0 ml @ 0 mls/hr PER PHARMACY IV 08/24/25 16:15 Diagnostic Test (Pha) 1 strip Q6HR 08/25/25 00:00 09/01/25 06:09 1 STRIP Insulin Human Regular FOLLOW SLIDING SCALE Q6HR SC 08/25/25 00:00 08/31/25 23:50 2 UNITS Dextrose 50 ml UD IV 08/24/25 22:00 Sodium Chloride 10 ml QSHIFT@10,22 IV 08/26/25 10:00 08/31/25 21:19 10 ML Vancomycin HCl 0 ml @ 0 mls/hr PER PHARMACY IV 08/26/25 13:45 Cancel Levofloxacin/ Dextrose 100 ml @ 100 mls/hr DAILY IV 08/28/25 10:00 08/31/25 10:03 100 MLS/HR Linezolid 300 ml @ 150 mls/hr Q12HR IV 08/27/25 11:00 08/31/25 22:47 150 MLS/HR Pantoprazole Sodium 40 mg DAILY IV 08/28/25 10:00 08/31/25 10:05 40 MG Metronidazole 100 ml @ 100 mls/hr Q8HR IV 08/28/25 14:00 09/01/25 05:05 100 MLS/HR Lisinopril 20 mg DAILY PO 08/29/25 10:00 08/31/25 10:05 20 MG Fat Emulsion Intravenous 250 ml/Potassium Acetate 40 meq/ Potassium Phosphate 44 meq/ Magnesium Sulfate 4 meq/ Multivitamins 10 ml/Chromium/ Copper/Manganese/ Zinc 1 ml/Amino Acids/Dextrose 1,742 ml @ 72 mls/hr [id number] IV 08/31/25 22:00 09/01/25 21:59 08/31/25 21:19 72 MLS/HR Laboratory Results Laboratory Tests 09/01/25 04:37 Chemistry Test 09/01/25 04:37 Albumin Pending Calcium Level Pending Magnesium Level Pending Phosphorus Level Pending Total Protein Pending Coagulation Test 09/01/25 04:37 Prothrombin Time 14.6 sec (9.3-11.8) H Prothrombin Time INR 1.43 (0.9-1.15) H Activated Partial Thromboplast Time 35.6 SEC (24.5-34.5) H Lipid panel Test 09/01/25 04:37 Triglycerides Level Pending LFT Test 09/01/25 04:37 Alanine Aminotransferase (ALT) Pending Alkaline Phosphatase Pending Aspartate Amino Transferase (AST) Pending Total Bilirubin Pending Urinalysis Test 08/24/25 21:20 Urine Color Dark-orange (Yellow) Urine Clarity Ex.turbid (Clear) Urine pH 6.5 (5.0-9.0) Urine Specific [place] 1.029 (1.001-1.035) Urine Protein 2+ (Negative) H Urine Ketones Trace (Negative) Urine Blood 3+ /uL (Negative) H Urine Nitrite Negative (Negative) Urine Bilirubin 1+ (Negative) Urine Urobilinogen 4 mg/dL (Negative) H Urine Leukocyte Esterase 3+ /uL (Negative) Urine RBC 68 /hpf (0 - 3) Urine Microscopic WBC 149 /HPF (0-3) H Urine Squamous Epithelial Cells None seen /hpf (<5) Urine Bacteria Many /hpf (None Seen) H Urine Mucus Many (None Seen) Urine Glucose Normal mg/dL (Normal) Microbiology Microbiology Date/Time Source Procedure Growth Status 08/24/25 09:03 Voided Urine Urine Culture - Final Pseudomonas aeruginosa Staphylococcus lugdunensis Enterococcus faecalis Complete 08/24/25 08:21 Blood Blood Culture - Final NO GROWTH AFTER 5 DAYS OF INCUBATION. Complete Labs and/or images reviewed: Labs reviewed by me, Image(s) reviewed by me Assessment/Plan Assessment/Plan Sepsis secondary to urinary tract infection Colovesical fistula surgical consult by Dr. Patterson appreciated, planning for surgery on 09/01/2025Wednesday Acute kidney injury, Left hydronephrosis status post nephrostomy tube placement by radiologist, urology consult by Dr. Hanna appreciated, planning for ESWL after stabilization Obstructing kidney stone, History of uro lift procedure by Urology Dr. 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
[2025-09-01] MEDS ORDERED: KETAMINE 50mg/ML 1ml syringe ONE (08:45)
[2025-09-01] MEDS: ceFAZolin 2 GM/D5W50ml 50 ML IV ONE (08:50)
[2025-09-01] MEDS: BUPIVACAINE 0.25% INJ 50ML VIAL ONE (09:23)
[2025-09-01] MEDS: LIDOCAINE W/ EPINEPHRINE 1% 20ML VIAL ONE (09:23)
[2025-09-01] MEDS ORDERED: HYDROmorphone HCL 2 MG/ML VL/or syr ONE (09:28)
--- NOTE | 2025-09-01 10:35 | CONS ---
Pharmacy Clinical Information: INCREASE HEPARIN RATE TO 18 ML/HR DUE TO APTT OF 49.3 PER RX PROTOCOL. NEXT APTT ON 09/01 AT 1630. DAVID PHELPS CONFIRMED AND READ BACK CHRYSTAL BOWLING PHARMACIST Sep 01, 2025 10:35
[2025-09-01] MEDS ORDERED: HYDROmorphone HCL 2 MG/ML VL/or syr IV PRN ×2 (11:15)
[2025-09-01] MEDS ORDERED: ONDANSETRON HCL 4 MG/2 ML VIAL IV PRN (11:15)
[2025-09-01] MEDS: POVIDONE IODINE 10 % TOPICAL OINT 30GM TOP ONE (11:37)
[2025-09-01] MEDS: D5W/SOD CHL 0.45%/KCL 20MEQ 1,000 ML IV SCH (11:44)
[2025-09-01] MEDS: HYDROmorphone HCL 2 MG/ML VL/or syr IV PRN (12:04)
[2025-09-01 12:44] LABS: Alanine Aminotransferase 16 U/L (7-40); Albumin 3.2 g/dL (3.2-4.8); Alkaline Phosphatase 56 U/L (46-116); Anion Gap 4 (5-15); BUN/Creatinine Ratio 12.5 (10.0-20.0); Bilirubin, Total 0.4 mg/dL (0.2-1.0); Blood Urea Nitrogen 10 mg/dL (9-23); Calcium 8.3 mg/dL (8.7-10.4); Carbon Dioxide 23 mmol/L (20-31); Chloride 112 mmol/L (98-107); Glucose 124 mg/dL (74-106); Magnesium 1.8 mg/dL (1.6-2.6); Potassium 4.1 mmol/L (3.5-5.1); Sodium 139 mmol/L (136-145); Total Protein 6.5 g/dL (5.7-8.2); Triglycerides 44 mg/dL (< 150)
--- NOTE | 2025-09-01 13:34 | DVHPN2 ---
Progress Note Date Seen: Sep 01, 2025 Resident Creating Document: STEPHANY INGRAM RESIDENT Has the PT tested + for MRSA If YES, has PT been informed?: No (Getting PICC line for TPN) Medical Necessity Reason Pt with a Central, PICC or Fol: Yes The following are medically ne: PICC Line Subjective Review of Systems Patient gone for surgery Objective vital signs Vital Sign Date Time Temp Pulse Resp B/P (MAP) Pulse Ox O2 Delivery O2 Flow Rate FiO2 09/01/25 13:00 73 12 09/01/25 12:50 95/59 09/01/25 12:42 98 09/01/25 12:00 Nasal Cannula 2.5 96 09/01/25 10:57 98.1 98.1 Total Intake and Output 08/31/25 08/31/25 09/01/25 15:00 23:00 07:00 Intake Total 500 ml 200 ml 300 ml Output Total 1675 ml 1875 ml Balance 500 ml -1475 ml -1575 ml medications Current Medications Medications Dose Ordered Sig/Radames Route Start Time Stop Time Status Last Admin Dose Admin Sodium Chloride 1,000 ml @ 100 mls/hr Q10H IV 08/24/25 11:15 08/31/25 03:15 100 MLS/HR Acetaminophen/ Hydrocodone Bitart 1 tab Q4HP PRN PO 08/24/25 11:15 08/31/25 21:11 1 TAB Ondansetron HCl 4 mg Q4HP PRN IV 08/24/25 11:15 Docusate Sodium 100 mg BIDPRN PRN PO 08/24/25 11:15 Acetaminophen 650 mg Q6HP PRN PO 08/24/25 11:15 08/25/25 16:06 650 MG Nitroglycerin 0.4 mg Q5MINP PRN SL 08/24/25 11:15 Morphine Sulfate 2 mg Q30M PRN IV 08/24/25 11:15 Amino Acids 0 ml @ 0 mls/hr PER PHARMACY IV 08/24/25 16:15 Diagnostic Test (Pha) 1 strip Q6HR 08/25/25 00:00 09/01/25 12:15 1 STRIP Insulin Human Regular FOLLOW SLIDING SCALE Q6HR SC 08/25/25 00:00 08/31/25 23:50 2 UNITS Dextrose 50 ml UD IV 08/24/25 22:00 Sodium Chloride 10 ml QSHIFT@10,22 IV 08/26/25 10:00 09/01/25 10:09 10 ML Vancomycin HCl 0 ml @ 0 mls/hr PER PHARMACY IV 08/26/25 13:45 Cancel Levofloxacin/ Dextrose 100 ml @ 100 mls/hr DAILY IV 08/28/25 10:00 09/01/25 11:43 100 MLS/HR Linezolid 300 ml @ 150 mls/hr Q12HR IV 08/27/25 11:00 08/31/25 22:47 150 MLS/HR Pantoprazole Sodium 40 mg DAILY IV 08/28/25 10:00 09/01/25 11:43 40 MG Metronidazole 100 ml @ 100 mls/hr Q8HR IV 08/28/25 14:00 09/01/25 05:05 100 MLS/HR Lisinopril 20 mg DAILY PO 08/29/25 10:00 08/31/25 10:05 20 MG Fat Emulsion Intravenous 250 ml/Potassium Acetate 40 meq/ Potassium Phosphate 44 meq/ Magnesium Sulfate 4 meq/ Multivitamins 10 ml/Chromium/ Copper/Manganese/ Zinc 1 ml/Amino Acids/Dextrose 1,742 ml @ 72 mls/hr [id number] IV 08/31/25 22:00 09/01/25 21:59 08/31/25 21:19 72 MLS/HR Potassium Chloride/Dextrose/ Sod Cl 1,000 ml @ 75 mls/hr [id number] IV 09/01/25 11:00 09/01/25 11:44 75 MLS/HR Ondansetron HCl 4 mg Q4HPRN PRN IV 09/01/25 11:00 Pantoprazole Sodium 40 mg DAILY IV 09/02/25 10:00 Fat Emulsion Intravenous 250 ml/Sodium Phosphate 20 meq/ Potassium Acetate 40 meq/Potassium Phosphate 44 meq/ Magnesium Sulfate 6 meq/ Multivitamins 10 ml/Chromium/ Copper/Manganese/ Zinc 1 ml/Amino Acids/Dextrose/ Purified Water 1,747.5 ml @ 72 mls/hr [id number] IV 09/01/25 22:00 09/02/25 21:59 Examination Gen - no pallor, no scleral icterus Skin - Patients skin is warm and dry. HEENT - normocephalic, atraumatic, dry mucous membranes. Neck - supple, no lymphadenopathy Pulmonary - B/L clear breath sounds cardiovascular - regular S1,S2 heard GI - soft abdomen no tenderness. Bowel sounds normoactive. Neurological - Patient is alert and oriented x4 and is following commands, no motor or sensory weakness laboratory and microbiology Laboratory Tests 09/01/25 11:39 09/01/25 04:37 Test 09/01/25 11:39 Range/Units Serum Glucose 124 H 74-106 mg/dL Microbiology Date/Time Source Procedure Growth Status 08/24/25 09:03 Voided Urine Urine Culture - Final Pseudomonas aeruginosa Staphylococcus lugdunensis Enterococcus faecalis Complete 08/24/25 08:21 Blood Blood Culture - Final NO GROWTH AFTER 5 DAYS OF INCUBATION. Complete Problem List/Assessment/Plan Problem List/Assessment/Plan Colovesicular fistula Sigmoid diverticulosis UTI with Pseudomonas, Staph lugdunensis and Enterococcus faecalis Left hydronephrosis due to obstructive stone status post PCN Plan - scheduled for surgery today - IV antibiotics - post surgery day to be decided with the primary surgeon - PUD prophylaxis with Protonix Plan discussed with Dr. Crabtree Plan discussed with: Other (RN) Dietary Evaluation Review Comments: 1) Increase TPN rate to meet at least 75% estimated daily needs 2) Advance to cardiac diet when medically feasible 3) Follow-up with urology and gastroenterology 4) Continue to monitor I&O, labs, and skin integrity Expected Outcomes/Goals: 1) nutrition support to meet at least 75% estimated daily needs 2) labs to improve 3) diet to advance 4) f/u in 3-5 days STEPHANY INGRAM RESIDENT Sep 01, 2025 13:34
[2025-09-01] MEDS: TPN PER PHARMACY IV NR (22:01)
[2025-09-02] VITALS (22 sets, daily range): BP systolic 121–171; BP diastolic 73–100; PULSE 66–97; RESP 15–30; TEMP 98–100; O2SAT 96–100
[2025-09-02 04:01] LABS: Hematocrit 36.4 % (41.0-53.0); Hemoglobin 12.8 g/dL (13.5-17.5); Mean Corpuscular Hemoglobin 29.8 pg (28.0-32.0); Mean Corpuscular Volume 85.0 fL (80.0-100.0); Nucleated Red Blood Cells % 0.0 %
[2025-09-02 04:18] LABS: Alanine Aminotransferase 15 U/L (7-40); Alkaline Phosphatase 53 U/L (46-116); Anion Gap 8 (5-15); BUN/Creatinine Ratio 17.9 (10.0-20.0); Blood Urea Nitrogen 14 mg/dL (9-23); Carbon Dioxide 24 mmol/L (20-31); Chloride 105 mmol/L (98-107); Magnesium 1.7 mg/dL (1.6-2.6); Potassium 4.0 mmol/L (3.5-5.1); Sodium 137 mmol/L (136-145); Total Protein 6.1 g/dL (5.7-8.2)
[2025-09-02 04:19] LABS: Bilirubin, Total 0.6 mg/dL (0.2-1.0)
[2025-09-02 04:36] LABS: Albumin 3.2 g/dL (3.2-4.8); Calcium 8.7 mg/dL (8.7-10.4); Glucose 124 mg/dL (74-106)
--- NOTE | 2025-09-02 08:41 | DVHOP ---
DATE OF SURGERY: 09/01/2025 PREOPERATIVE DIAGNOSES: * Diverticulosis. * Diverticulitis. * Colovesical fistula. POSTOPERATIVE DIAGNOSES: * Diverticulosis. * Diverticulitis. * Colovesical fistula. SURGEON: Guilherme Patterson MD PLASTERER APPRENTICE: Magdaleno Reilly NP ANESTHESIA: General endotracheal. DESCRIPTION OF PROCEDURE: Under general endotracheal anesthesia with the patient's skin prepped and draped, a midline incision was made in the lower abdomen and extended with electrocautery into the peritoneal cavity. Once the peritoneal cavity was opened, the abdomen was visually and manually explored. It contained much induration and inflammatory changes surrounding the sigmoid colon, descending colon, rectosigmoid segment. The pelvis was essentially obliterated by inflammatory changes and scarring. The bladder was densely adherent to the descending sigmoid colon; however, there was no evidence of any contamination of the peritoneal cavity. The colon was mobilized by incision along the white line of Toldt. The descending colon was mobilized. The pelvis was entered digitally and explored with careful protection and partial visualization of the ureters. The dissection was carried down very cautiously so as not to impinge on the normal course of the ureters. The inflammatory changes were extensive and the ureters were not visualized in the entire length. Following dissection along the sacral promontory and elevation of the rectosigmoid colon, the mesentery was divided between clamps and ligated. The rectosigmoid stump was cross-clamped with a bowel clamp, as was the descending colon and the resected portion of the chronically inflamed scarred rectosigmoid segment were excised over Pop clamps. There was no spillage of intestinal contents into the peritoneal cavity during this part of the operation. Once the specimen was removed from the field and submitted for histopathologic examination, the remaining colon was brought into opposition and a handsewn anastomosis established between the descending colon and the rectum utilizing 3-0 Prolene sutures for the outer layer and 3-0 Monocryl sutures for the inner layer. Following completion of the anastomosis, the pelvis and abdomen were profusely irrigated. The irrigant was aspirated. An opening into the dome of the bladder became evident upon removal of the segment of the colon. The bladder was probed and the opening into the bladder was then closed utilizing 2-0 chromic sutures. A Danish Vásquez drain was inserted into the pelvis and exteriorized through a separate incision, placed to the proximity, but not abutting against the anastomosis and as well close to the repair of the bladder repair. Following assurance of complete hemostasis and report of accurate needle and sponge counts, the abdomen was closed using #1 double-stranded PDS suture for the fascia. The skin and subcutaneous tissue were approximated using Monocryl sutures, Dermabond glue, and Steri-Strips. The drain was secured with a 2-0 nylon suture. The patient remained stable throughout the procedure and left the operating room following accurate needle and sponge count as mentioned above. His brother, Harry, was thoroughly informed at [phone]. Guilherme Patterson MD PF/URSZULA TID: [id number] RECEIPT: [id number]
[2025-09-02] MEDS: MAGNESIUM SULFATE 1GM/100ML 100 ML IV ONE (08:49)
[2025-09-02] MEDS: ONDANSETRON HCL 4 MG/2 ML VIAL IV PRN (09:04)
[2025-09-02] MEDS: PANTOPRAZOLE 40 MG/10 ML VIAL INJ IV SCH (09:05)
--- NOTE | 2025-09-02 11:54 | DVHPN2 ---
Reviewed: Care Plan, H&P, Labs, Medications, Previous Orders, Radiology Changes from previous H/P or p: No Changes General: Per HPI Eyes: No Pain, No Vision change, No Conjunctivae inflammation, No Eyelid inflammation, No Other, No Redness ENT: No Ear pain, No Ear discharge, No Nose pain, No Nose discharge, No Nose congestion, No Mouth pain, No Mouth swelling, No Throat pain, No Throat swelling, No Other Cardiovascular: No Chest Pain, No Palpitations, No Orthopnea, No Paroxysmal Noc. Dyspnea, No Edema, No Lt Headedness, No Other Respiratory: No Cough, No Dry, No Shortness of breath, No SOB with excertion, No Wheezing, No Hemoptysis, No Pleuritic Pain, No Sputum, No Other Gastrointestinal: No Nausea, No Vomiting, No Abdominal Pain, No Diarrhea, No Constipation, No Melena, No Hematochezia, No Other Genitourinary: Dysuria, Frequency; No Incontinence; Hematuria; No Retention, No Other Musculoskeletal: No other, No neck pain, No shoulder pain, No arm pain; back pain (left flank); No hand pain, No leg pain, No foot pain Skin: No Rash, No Lesions, No Jaundice, No Bruising, No Other Objective Vitals Vital Signs Date Time Temp Pulse Resp B/P (MAP) Pulse Ox O2 Delivery O2 Flow Rate FiO2 09/02/25 09:07 121/100 09/02/25 08:00 66 09/02/25 08:00 30 99 Nasal Cannula* 2 28 09/01/25 16:00 97.9 97.9 Intake/Output Intake and Output 09/02/25 07:00 Intake Total 2404 ml Output Total 1465 ml Balance 939 ml Intake Oral 0 ml IV Total 2404 ml Output Urine Total 650 ml Gastric Drainage Total 20 ml Drainage Total 145 ml Other 650 ml Exam GEN: Healthy appearing, well-developed, NAD. HEENT: NC/AT; MMM. NG tube inserted CV: RRR, no m/r/g. LUNGS: CTAB, no w/r/c. ABD: Soft, NT/ND, NBS, no masses or organomegaly. Large surgical incision with jose sutures EXT: skin Warm, well perfused. no rashes. No clubbing, cyanosis, or edema. NEURO: Ambulating with no limitations. No focal deficits. Medications Current Medications Medications Dose Ordered Sig/Radames Route Start Time Stop Time Status Last Admin Dose Admin Sodium Chloride 1,000 ml @ 100 mls/hr Q10H IV 08/24/25 11:15 09/02/25 05:32 100 MLS/HR Docusate Sodium 100 mg BIDPRN PRN PO 08/24/25 11:15 Acetaminophen 650 mg Q6HP PRN PO 08/24/25 11:15 08/25/25 16:06 650 MG Nitroglycerin 0.4 mg Q5MINP PRN SL 08/24/25 11:15 Morphine Sulfate 2 mg Q30M PRN IV 08/24/25 11:15 Amino Acids 0 ml @ 0 mls/hr PER PHARMACY IV 08/24/25 16:15 Diagnostic Test (Pha) 1 strip Q6HR 08/25/25 00:00 09/02/25 05:04 1 STRIP Insulin Human Regular FOLLOW SLIDING SCALE Q6HR SC 08/25/25 00:00 09/02/25 05:05 4 UNITS Dextrose 50 ml UD IV 08/24/25 22:00 Sodium Chloride 10 ml QSHIFT@10,22 IV 08/26/25 10:00 09/02/25 09:06 10 ML Vancomycin HCl 0 ml @ 0 mls/hr PER PHARMACY IV 08/26/25 13:45 Cancel Levofloxacin/ Dextrose 100 ml @ 100 mls/hr DAILY IV 08/28/25 10:00 09/02/25 10:57 100 MLS/HR Linezolid 300 ml @ 150 mls/hr Q12HR IV 08/27/25 11:00 09/01/25 21:49 150 MLS/HR Metronidazole 100 ml @ 100 mls/hr Q8HR IV 08/28/25 14:00 09/02/25 05:04 100 MLS/HR Lisinopril 20 mg DAILY PO 08/29/25 10:00 08/31/25 10:05 20 MG Potassium Chloride/Dextrose/ Sod Cl 1,000 ml @ 75 mls/hr [id number] IV 09/01/25 11:00 09/02/25 01:32 75 MLS/HR Ondansetron HCl 4 mg Q4HPRN PRN IV 09/01/25 11:00 09/02/25 09:04 4 MG Pantoprazole Sodium 40 mg DAILY IV 09/02/25 10:00 Fat Emulsion Intravenous 250 ml/Sodium Phosphate 20 meq/ Potassium Acetate 40 meq/Potassium Phosphate 44 meq/ Magnesium Sulfate 6 meq/ Multivitamins 10 ml/Chromium/ Copper/Manganese/ Zinc 1 ml/Amino Acids/Dextrose/ Purified Water 1,747.5 ml @ 72 mls/hr [id number] IV 09/01/25 22:00 09/02/25 21:59 09/01/25 22:01 72 MLS/HR Hydromorphone HCl 0.25 mg Q3HPRN PRN IV 09/02/25 11:15 Laboratory Results Laboratory Tests 09/02/25 03:17 Chemistry Test 09/02/25 03:17 Albumin 3.2 g/dL (3.2-4.8) Calcium Level 8.7 mg/dL (8.7-10.4) Magnesium Level 1.7 mg/dL (1.6-2.6) Phosphorus Level 3.0 mg/dL (2.4-5.1) Total Protein 6.1 g/dL (5.7-8.2) LFT Test 09/02/25 03:17 Alanine Aminotransferase (ALT) 15 U/L (7-40) Alkaline Phosphatase 53 U/L (46-116) Aspartate Amino Transferase (AST) 19 U/L (13-40) Total Bilirubin 0.6 mg/dL (0.2-1.0) Urinalysis Test 08/24/25 21:20 Urine Color Dark-orange (Yellow) Urine Clarity Ex.turbid (Clear) Urine pH 6.5 (5.0-9.0) Urine Specific [place] 1.029 (1.001-1.035) Urine Protein 2+ (Negative) H Urine Ketones Trace (Negative) Urine Blood 3+ /uL (Negative) H Urine Nitrite Negative (Negative) Urine Bilirubin 1+ (Negative) Urine Urobilinogen 4 mg/dL (Negative) H Urine Leukocyte Esterase 3+ /uL (Negative) Urine RBC 68 /hpf (0 - 3) Urine Microscopic WBC 149 /HPF (0-3) H Urine Squamous Epithelial Cells None seen /hpf (<5) Urine Bacteria Many /hpf (None Seen) H Urine Mucus Many (None Seen) Urine Glucose Normal mg/dL (Normal) Microbiology Microbiology Date/Time Source Procedure Growth Status 08/24/25 09:03 Voided Urine Urine Culture - Final Pseudomonas aeruginosa Staphylococcus lugdunensis Enterococcus faecalis Complete 08/24/25 08:21 Blood Blood Culture - Final NO GROWTH AFTER 5 DAYS OF INCUBATION. Complete Labs and/or images reviewed: Labs reviewed by me, Image(s) reviewed by me Assessment/Plan Assessment/Plan 09/02: Patient here with left kidney stone with hydronephrosis status post ESWL Urology; also have diverticulosis with colovesicular fistula, had surgery yesterday now in ICU upgraded after surgery. White count going up but mild stable we will change antibiotics from Levaquin/Zyvox to cefepime/Zyvox. Continue close monitoring for platelets and neurological mental status. Making good urine, on LIS suctioned for surgery. Surgical scar healing well no exudates. We will continue management as prior surgical recommendations otherwise. Remains NPO on TPN. Fluids changed from D5 half-normal to normal saline only. Patient on low-level oxygen 2 L. no vasopressors. Diagnosis: Sepsis secondary to urinary tract infection Colovesical fistula surgical consult by Dr. Patterson appreciated, Chest post surgery 09/01/2025 Acute kidney injury, Left hydronephrosis status post nephrostomy tube placement by radiologist, Obstructing kidney stone, History of uro lift procedure by Urology Dr. Hanna two months ago Splenomegaly, Acute diverticulitis: Nutrition TPN Prostatomegaly, Hypertension, UTI due to Pseudomonas, staph lugdunesis,enterococcus faecalis: Plan: GI consult Dr Kasia lauren appreciated IV antibiotics cefepime/ S suction were for surgery NPO TPN 2-3L nasal cannula maintain SpO2 more than 90% urology consult by Dr. Hanna appreciated, planning for ESWL after stabilization ICU Full code Plan discussed with: Patient Date of Service: Sep 02, 2025 Billing Provider: ANDRES LE MD Common Visit Codes: 69945-TAVOMHIC CARE 30-74 MIN ANDRES LE MD Sep 02, 2025 11:54
[2025-09-02] MEDS: HYDROmorphone HCL 2 MG/ML VL/or syr IV PRN (11:57)
--- NOTE | 2025-09-02 12:07 | DVHPN2 ---
Progress Note - Dictate Date Seen: Sep 02, 2025 Has the PT tested + for MRSA If YES, has PT been informed?: No (Getting PICC line for TPN) Medical Necessity Reason Pt with a Central, PICC or Fol: Yes The following are medically ne: PICC Line Subjective Patient underwent sigmoid colectomy with primary anastomosis underlying chronic diverticulitis with colovesicular fistula that was resected Patient is extubated on 2 L nasal cannula vital signs Vital Sign Date Time Temp Pulse Resp B/P (MAP) Pulse Ox O2 Delivery O2 Flow Rate FiO2 09/02/25 09:07 121/100 09/02/25 08:00 66 09/02/25 08:00 30 99 Nasal Cannula* 2 28 09/01/25 16:00 97.9 97.9 Total Intake and Output 09/01/25 09/01/25 09/02/25 15:00 23:00 07:00 Intake Total 325 ml 397 ml 1682 ml Output Total 145 ml 350 ml 970 ml Balance 180 ml 47 ml 712 ml medications Current Medications Medications Dose Ordered Sig/Radames Route Start Time Stop Time Status Last Admin Dose Admin Sodium Chloride 1,000 ml @ 100 mls/hr Q10H IV 08/24/25 11:15 09/02/25 05:32 100 MLS/HR Docusate Sodium 100 mg BIDPRN PRN PO 08/24/25 11:15 Acetaminophen 650 mg Q6HP PRN PO 08/24/25 11:15 08/25/25 16:06 650 MG Nitroglycerin 0.4 mg Q5MINP PRN SL 08/24/25 11:15 Morphine Sulfate 2 mg Q30M PRN IV 08/24/25 11:15 Amino Acids 0 ml @ 0 mls/hr PER PHARMACY IV 08/24/25 16:15 Diagnostic Test (Pha) 1 strip Q6HR 08/25/25 00:00 09/02/25 05:04 1 STRIP Insulin Human Regular FOLLOW SLIDING SCALE Q6HR SC 08/25/25 00:00 09/02/25 05:05 4 UNITS Dextrose 50 ml UD IV 08/24/25 22:00 Sodium Chloride 10 ml QSHIFT@10,22 IV 08/26/25 10:00 09/02/25 09:06 10 ML Vancomycin HCl 0 ml @ 0 mls/hr PER PHARMACY IV 08/26/25 13:45 Cancel Levofloxacin/ Dextrose 100 ml @ 100 mls/hr DAILY IV 08/28/25 10:00 09/02/25 10:57 100 MLS/HR Linezolid 300 ml @ 150 mls/hr Q12HR IV 08/27/25 11:00 09/01/25 21:49 150 MLS/HR Metronidazole 100 ml @ 100 mls/hr Q8HR IV 08/28/25 14:00 09/02/25 05:04 100 MLS/HR Lisinopril 20 mg DAILY PO 08/29/25 10:00 08/31/25 10:05 20 MG Potassium Chloride/Dextrose/ Sod Cl 1,000 ml @ 75 mls/hr [id number] IV 09/01/25 11:00 09/02/25 01:32 75 MLS/HR Ondansetron HCl 4 mg Q4HPRN PRN IV 09/01/25 11:00 09/02/25 09:04 4 MG Pantoprazole Sodium 40 mg DAILY IV 09/02/25 10:00 Fat Emulsion Intravenous 250 ml/Sodium Phosphate 20 meq/ Potassium Acetate 40 meq/Potassium Phosphate 44 meq/ Magnesium Sulfate 6 meq/ Multivitamins 10 ml/Chromium/ Copper/Manganese/ Zinc 1 ml/Amino Acids/Dextrose/ Purified Water 1,747.5 ml @ 72 mls/hr [id number] IV 09/01/25 22:00 09/02/25 21:59 09/01/25 22:01 72 MLS/HR Hydromorphone HCl 0.25 mg Q3HPRN PRN IV 09/02/25 11:15 laboratory and microbiology Laboratory Tests 09/02/25 03:17 Test 09/02/25 03:17 Range/Units Serum Glucose 124 H 74-106 mg/dL Problems(with codes): (1) Hydronephrosis concurrent with and due to calculi of kidney and ureter (2) Acute diverticulitis (3) Colovesical fistula (4) UTI (urinary tract infection) (5) Abnormal finding on CT scan Prognosis Plan Keep NPO; NG tube to low intermittent suction IV TPN IV antibiotics Monitor labs Pain control Surgical follow up Nutritional support with IV Clinimix or TPN Dietary Evaluation Review Comments: 1) Increase TPN rate to meet at least 75% estimated daily needs 2) Advance to cardiac diet when medically feasible 3) Follow-up with urology and gastroenterology 4) Continue to monitor I&O, labs, and skin integrity Expected Outcomes/Goals: 1) nutrition support to meet at least 75% estimated daily needs 2) labs to improve 3) diet to advance 4) f/u in 3-5 days Plan discussed with: Other (ICU Nurse) DEBBIE LINDER MD Sep 02, 2025 12:07
--- NOTE | 2025-09-02 12:26 | DVHPN2 ---
Progress Note Date Seen: Sep 02, 2025 Has the PT tested + for MRSA If YES, has PT been informed?: No (Getting PICC line for TPN) Medical Necessity Reason Pt with a Central, PICC or Fol: Yes The following are medically ne: PICC Line Objective vital signs Vital Sign Date Time Temp Pulse Resp B/P (MAP) Pulse Ox O2 Delivery O2 Flow Rate FiO2 09/02/25 11:57 87 26 146/84 09/02/25 08:00 99 Nasal Cannula* 2 28 09/01/25 16:00 97.9 97.9 Total Intake and Output 09/01/25 09/01/25 09/02/25 15:00 23:00 07:00 Intake Total 325 ml 397 ml 1682 ml Output Total 145 ml 350 ml 970 ml Balance 180 ml 47 ml 712 ml medications Current Medications Medications Dose Ordered Sig/Radames Route Start Time Stop Time Status Last Admin Dose Admin Sodium Chloride 1,000 ml @ 100 mls/hr Q10H IV 08/24/25 11:15 09/02/25 05:32 100 MLS/HR Docusate Sodium 100 mg BIDPRN PRN PO 08/24/25 11:15 Acetaminophen 650 mg Q6HP PRN PO 08/24/25 11:15 08/25/25 16:06 650 MG Nitroglycerin 0.4 mg Q5MINP PRN SL 08/24/25 11:15 Morphine Sulfate 2 mg Q30M PRN IV 08/24/25 11:15 Amino Acids 0 ml @ 0 mls/hr PER PHARMACY IV 08/24/25 16:15 Diagnostic Test (Pha) 1 strip Q6HR 08/25/25 00:00 09/02/25 12:05 1 STRIP Insulin Human Regular FOLLOW SLIDING SCALE Q6HR SC 08/25/25 00:00 09/02/25 11:58 2 UNITS Dextrose 50 ml UD IV 08/24/25 22:00 Sodium Chloride 10 ml QSHIFT@10,22 IV 08/26/25 10:00 09/02/25 09:06 10 ML Vancomycin HCl 0 ml @ 0 mls/hr PER PHARMACY IV 08/26/25 13:45 Cancel Levofloxacin/ Dextrose 100 ml @ 100 mls/hr DAILY IV 08/28/25 10:00 09/02/25 10:57 100 MLS/HR Linezolid 300 ml @ 150 mls/hr Q12HR IV 08/27/25 11:00 09/02/25 12:06 150 MLS/HR Metronidazole 100 ml @ 100 mls/hr Q8HR IV 08/28/25 14:00 09/02/25 05:04 100 MLS/HR Lisinopril 20 mg DAILY PO 08/29/25 10:00 08/31/25 10:05 20 MG Potassium Chloride/Dextrose/ Sod Cl 1,000 ml @ 75 mls/hr [id number] IV 09/01/25 11:00 09/02/25 01:32 75 MLS/HR Ondansetron HCl 4 mg Q4HPRN PRN IV 09/01/25 11:00 09/02/25 09:04 4 MG Pantoprazole Sodium 40 mg DAILY IV 09/02/25 10:00 Fat Emulsion Intravenous 250 ml/Sodium Phosphate 20 meq/ Potassium Acetate 40 meq/Potassium Phosphate 44 meq/ Magnesium Sulfate 6 meq/ Multivitamins 10 ml/Chromium/ Copper/Manganese/ Zinc 1 ml/Amino Acids/Dextrose/ Purified Water 1,747.5 ml @ 72 mls/hr [id number] IV 09/01/25 22:00 09/02/25 21:59 09/01/25 22:01 72 MLS/HR Hydromorphone HCl 0.25 mg Q3HPRN PRN IV 09/02/25 11:15 09/02/25 11:57 0.25 MG laboratory and microbiology Laboratory Tests 09/02/25 03:17 Test 09/02/25 03:17 Range/Units Serum Glucose 124 H 74-106 mg/dL Problem List/Assessment/Plan Problem List/Assessment/Plan 08/26/25PATIENT HAS A SUGGESTION OF COLOVESICAL FISTULA ON IMAGING,HAS BEEN PASSING WHAT APPEARS TO BE STOOL IN HIS URINE, AWAITING CYSTOGRAM, EXPLAINED TO PATIENT IN GREAT DETAIL' 09/02/25 doing well wound clean and well approximated, abdomen appropriately tender, JORDAN drainage cleart and small in volume, operative findings explained, keep NPO,NGT, ok to leave ICU. Plan discussed with: Patient Dietary Evaluation Review Comments: 1) Increase TPN rate to meet at least 75% estimated daily needs 2) Advance to cardiac diet when medically feasible 3) Follow-up with urology and gastroenterology 4) Continue to monitor I&O, labs, and skin integrity Expected Outcomes/Goals: 1) nutrition support to meet at least 75% estimated daily needs 2) labs to improve 3) diet to advance 4) f/u in 3-5 days TRISTON BARNES MD Sep 02, 2025 12:26
[2025-09-02] MEDS: SODIUM CHLORIDE 0.9% 1,000 ML IV SCH (14:30)
[2025-09-02] MEDS ORDERED: hydrALAZINE HCL 20 MG/ML VL IV PRN (14:30)
[2025-09-02] MEDS: CEFEPIME 2GM/50ML NS 50 ML IV SCH (22:00)
[2025-09-03] VITALS (30 sets, daily range): BP systolic 118–148; BP diastolic 69–99; PULSE 68–104; RESP 12–25; TEMP 98–99.8; O2SAT 93–99
[2025-09-03 03:36] LABS: Hematocrit 35.5 % (41.0-53.0); Hemoglobin 12.3 g/dL (13.5-17.5); Mean Corpuscular Hemoglobin 29.9 pg (28.0-32.0); Mean Corpuscular Volume 86.2 fL (80.0-100.0); Nucleated Red Blood Cells % 0.1 %
[2025-09-03 03:50] LABS: Alanine Aminotransferase 11 U/L (7-40); Alkaline Phosphatase 47 U/L (46-116); Anion Gap 7 (5-15); BUN/Creatinine Ratio 17.8 (10.0-20.0); Bilirubin, Total 0.4 mg/dL (0.2-1.0); Blood Urea Nitrogen 13 mg/dL (9-23); Carbon Dioxide 27 mmol/L (20-31); Chloride 103 mmol/L (98-107); Magnesium 2.1 mg/dL (1.6-2.6); Potassium 4.1 mmol/L (3.5-5.1); Sodium 137 mmol/L (136-145); Total Protein 6.0 g/dL (5.7-8.2)
[2025-09-03 03:58] LABS: Albumin 3.1 g/dL (3.2-4.8); Calcium 8.4 mg/dL (8.7-10.4); Glucose 143 mg/dL (74-106)
--- NOTE | 2025-09-03 10:55 | DVHPN2 ---
Subjective Date Seen: Sep 03, 2025 Post op day Post op day: 3 Patient reports: Feels better (Patient says after recent DVT and patient is feeling better and stronger. Patient remain NPO pending surgery evaluation) Objective Vitals Vital Sign Date Time Temp Pulse Resp B/P (MAP) Pulse Ox O2 Delivery O2 Flow Rate FiO2 09/03/25 06:30 76 16 128/79 (95) 97 09/03/25 05:43 Nasal Cannula* 2 28 09/03/25 00:00 99.8 99.8 Total Intake and Output 09/02/25 09/02/25 09/03/25 15:00 23:00 07:00 Intake Total 876 ml 1286.5 ml 1268.5 ml Output Total 2655 ml 1815 ml Balance 876 ml -1368.5 ml -546.5 ml Medications Current Medications Medications Dose Ordered Sig/Radames Route Start Time Stop Time Status Last Admin Dose Admin Docusate Sodium 100 mg BIDPRN PRN PO 08/24/25 11:15 Acetaminophen 650 mg Q6HP PRN PO 08/24/25 11:15 08/25/25 16:06 650 MG Nitroglycerin 0.4 mg Q5MINP PRN SL 08/24/25 11:15 Amino Acids 0 ml @ 0 mls/hr PER PHARMACY IV 08/24/25 16:15 Diagnostic Test (Pha) 1 strip Q6HR 08/25/25 00:00 09/03/25 05:25 1 STRIP Insulin Human Regular FOLLOW SLIDING SCALE Q6HR SC 08/25/25 00:00 09/02/25 11:58 2 UNITS Dextrose 50 ml UD IV 08/24/25 22:00 Sodium Chloride 10 ml QSHIFT@10,22 IV 08/26/25 10:00 09/02/25 22:00 10 ML Vancomycin HCl 0 ml @ 0 mls/hr PER PHARMACY IV 08/26/25 13:45 Cancel Linezolid 300 ml @ 150 mls/hr Q12HR IV 08/27/25 11:00 09/02/25 22:00 150 MLS/HR Metronidazole 100 ml @ 100 mls/hr Q8HR IV 08/28/25 14:00 09/03/25 05:31 100 MLS/HR Lisinopril 20 mg DAILY PO 08/29/25 10:00 08/31/25 10:05 20 MG Ondansetron HCl 4 mg Q4HPRN PRN IV 09/01/25 11:00 09/03/25 01:27 4 MG Pantoprazole Sodium 40 mg DAILY IV 09/02/25 10:00 Hydromorphone HCl 0.25 mg Q3HPRN PRN IV 09/02/25 11:15 09/03/25 05:32 0.25 MG Fat Emulsion Intravenous 300 ml/Potassium Acetate 40 meq/ Potassium Phosphate 44 meq/ Magnesium Sulfate 12 meq/ Multivitamins 10 ml/Chromium/ Copper/Manganese/ Zinc 1 ml/Sodium Acetate 20 meq/ Amino Acids/ Dextrose 1,754 ml @ 73 mls/hr Q24H2M IV 09/02/25 22:00 09/03/25 21:59 09/02/25 23:06 73 MLS/HR Hydralazine HCl 10 mg Q6HP PRN IV 09/02/25 14:30 Cefepime HCl 50 ml @ 12.5 mls/hr Q8HR IV 09/02/25 22:00 09/03/25 05:31 12.5 MLS/HR Sodium Chloride 1,000 ml @ 60 mls/hr [id number] IV 09/02/25 14:30 09/02/25 14:30 60 MLS/HR Fat Emulsion Intravenous 300 ml/Sodium Acetate 30 meq/Potassium Acetate 20 meq/ Potassium Phosphate 66 meq/ Magnesium Sulfate 10 meq/ Multivitamins 10 ml/Chromium/ Copper/Manganese/ Zinc 1 ml/Amino Acids/Dextrose 1,803.5 ml @ 75 mls/hr Q24H3M IV 09/03/25 22:00 09/04/25 21:59 Labs and Microbiology Laboratory Tests 09/03/25 03:04 Test 09/03/25 03:04 Range/Units Serum Glucose 143 H 74-106 mg/dL Ass/Plan Labs and/or images reviewed: Labs reviewed by me, Image(s) reviewed by me Problem List 08/26/25PATIENT HAS A SUGGESTION OF COLOVESICAL FISTULA ON IMAGING,HAS BEEN PASSING WHAT APPEARS TO BE STOOL IN HIS URINE, AWAITING CYSTOGRAM, EXPLAINED TO PATIENT IN GREAT DETAIL' 09/02/25 doing well wound clean and well approximated, abdomen appropriately tender, SLADE drainage cleart and small in volume, operative findings explained, keep NPO,NGT, ok to leave ICU. Assessment/Plan - Reports feeling "pretty good" post-operatively. Reports experiencing hiccups, which were also present prior to the procedure. The surgical wound is clean dry and jose are intact . Denies nausea. Reports no bowel activity yet but is able to use the toilet if needed. Reports feeling pretty good when ambulating. Abdomen is soft on examination. Surgical wound appears to be healing well, Slade drain serous fluid Plan: - The nasogastric tube setting was changed to low continuous suction from intermittent. patient to ambulate with physical therapy NPO Prognosis: Excellent Plan discussed with Dr. Patterson Visit Coding Surgery Date of Service if different f: Sep 03, 2025 Billing Provider: TRISTON PATTERSON MD Surgery Visit Codes: [id number] INP/OBS CARE(HIGH) BRITTANEY ENRIQUEZ NP Sep 03, 2025 10:55
--- NOTE | 2025-09-03 14:07 | DVHPN2 ---
Reviewed: Care Plan, H&P, Labs, Medications, Previous Orders, Radiology Changes from previous H/P or p: No Changes General: Per HPI Eyes: No Pain, No Vision change, No Conjunctivae inflammation, No Eyelid inflammation, No Other, No Redness ENT: No Ear pain, No Ear discharge, No Nose pain, No Nose discharge, No Nose congestion, No Mouth pain, No Mouth swelling, No Throat pain, No Throat swelling, No Other Cardiovascular: No Chest Pain, No Palpitations, No Orthopnea, No Paroxysmal Noc. Dyspnea, No Edema, No Lt Headedness, No Other Respiratory: No Cough, No Dry, No Shortness of breath, No SOB with excertion, No Wheezing, No Hemoptysis, No Pleuritic Pain, No Sputum, No Other Gastrointestinal: No Nausea, No Vomiting, No Abdominal Pain, No Diarrhea, No Constipation, No Melena, No Hematochezia, No Other Genitourinary: Dysuria, Frequency; No Incontinence; Hematuria; No Retention, No Other Musculoskeletal: No other, No neck pain, No shoulder pain, No arm pain; back pain (left flank); No hand pain, No leg pain, No foot pain Skin: No Rash, No Lesions, No Jaundice, No Bruising, No Other Objective Vitals Vital Signs Date Time Temp Pulse Resp B/P (MAP) Pulse Ox O2 Delivery O2 Flow Rate FiO2 09/03/25 11:11 82 14 120/99 09/03/25 06:30 97 09/03/25 05:43 Nasal Cannula* 2 28 09/03/25 00:00 99.8 99.8 Intake/Output Intake and Output 09/03/25 07:00 Intake Total 3431.0 ml Output Total 4470 ml Balance -1039.0 ml Intake Oral 0 ml IV Total 3431.0 ml Output Urine Total 2400 ml Gastric Drainage Total 120 ml Other 1950 ml Exam GEN: Healthy appearing, well-developed, NAD. HEENT: NC/AT; MMM. NG tube inserted CV: RRR, no m/r/g. LUNGS: CTAB, no w/r/c. ABD: Soft, NT/ND, NBS, no masses or organomegaly. Large surgical incision with jose sutures EXT: skin Warm, well perfused. no rashes. No clubbing, cyanosis, or edema. NEURO: Ambulating with no limitations. No focal deficits. Medications Current Medications Medications Dose Ordered Sig/Radames Route Start Time Stop Time Status Last Admin Dose Admin Docusate Sodium 100 mg BIDPRN PRN PO 08/24/25 11:15 Acetaminophen 650 mg Q6HP PRN PO 08/24/25 11:15 08/25/25 16:06 650 MG Nitroglycerin 0.4 mg Q5MINP PRN SL 08/24/25 11:15 Amino Acids 0 ml @ 0 mls/hr PER PHARMACY IV 08/24/25 16:15 Diagnostic Test (Pha) 1 strip Q6HR 08/25/25 00:00 09/03/25 11:12 1 STRIP Insulin Human Regular FOLLOW SLIDING SCALE Q6HR SC 08/25/25 00:00 09/02/25 11:58 2 UNITS Dextrose 50 ml UD IV 08/24/25 22:00 Sodium Chloride 10 ml QSHIFT@10,22 IV 08/26/25 10:00 09/03/25 11:12 10 ML Vancomycin HCl 0 ml @ 0 mls/hr PER PHARMACY IV 08/26/25 13:45 Cancel Linezolid 300 ml @ 150 mls/hr Q12HR IV 08/27/25 11:00 09/03/25 11:12 150 MLS/HR Metronidazole 100 ml @ 100 mls/hr Q8HR IV 08/28/25 14:00 09/03/25 05:31 100 MLS/HR Lisinopril 20 mg DAILY PO 08/29/25 10:00 08/31/25 10:05 20 MG Ondansetron HCl 4 mg Q4HPRN PRN IV 09/01/25 11:00 09/03/25 01:27 4 MG Pantoprazole Sodium 40 mg DAILY IV 09/02/25 10:00 09/03/25 11:10 40 MG Hydromorphone HCl 0.25 mg Q3HPRN PRN IV 09/02/25 11:15 09/03/25 11:11 0.25 MG Fat Emulsion Intravenous 300 ml/Potassium Acetate 40 meq/ Potassium Phosphate 44 meq/ Magnesium Sulfate 12 meq/ Multivitamins 10 ml/Chromium/ Copper/Manganese/ Zinc 1 ml/Sodium Acetate 20 meq/ Amino Acids/ Dextrose 1,754 ml @ 73 mls/hr Q24H2M IV 09/02/25 22:00 09/03/25 21:59 09/02/25 23:06 73 MLS/HR Hydralazine HCl 10 mg Q6HP PRN IV 09/02/25 14:30 Cefepime HCl 50 ml @ 12.5 mls/hr Q8HR IV 09/02/25 22:00 09/03/25 05:31 12.5 MLS/HR Sodium Chloride 1,000 ml @ 60 mls/hr [id number] IV 09/02/25 14:30 09/03/25 11:11 60 MLS/HR Fat Emulsion Intravenous 300 ml/Sodium Acetate 30 meq/Potassium Acetate 20 meq/ Potassium Phosphate 66 meq/ Magnesium Sulfate 10 meq/ Multivitamins 10 ml/Chromium/ Copper/Manganese/ Zinc 1 ml/Amino Acids/Dextrose 1,803.5 ml @ 75 mls/hr Q24H3M IV 09/03/25 22:00 09/04/25 21:59 Laboratory Results Laboratory Tests 09/03/25 03:04 Chemistry Test 09/03/25 03:04 Albumin 3.1 g/dL (3.2-4.8) L Calcium Level 8.4 mg/dL (8.7-10.4) L Magnesium Level 2.1 mg/dL (1.6-2.6) Phosphorus Level 2.8 mg/dL (2.4-5.1) Total Protein 6.0 g/dL (5.7-8.2) LFT Test 09/03/25 03:04 Alanine Aminotransferase (ALT) 11 U/L (7-40) Alkaline Phosphatase 47 U/L (46-116) Aspartate Amino Transferase (AST) 15 U/L (13-40) Total Bilirubin 0.4 mg/dL (0.2-1.0) Urinalysis Test 08/24/25 21:20 Urine Color Dark-orange (Yellow) Urine Clarity Ex.turbid (Clear) Urine pH 6.5 (5.0-9.0) Urine Specific Whitman 1.029 (1.001-1.035) Urine Protein 2+ (Negative) H Urine Ketones Trace (Negative) Urine Blood 3+ /uL (Negative) H Urine Nitrite Negative (Negative) Urine Bilirubin 1+ (Negative) Urine Urobilinogen 4 mg/dL (Negative) H Urine Leukocyte Esterase 3+ /uL (Negative) Urine RBC 68 /hpf (0 - 3) Urine Microscopic WBC 149 /HPF (0-3) H Urine Squamous Epithelial Cells None seen /hpf (<5) Urine Bacteria Many /hpf (None Seen) H Urine Mucus Many (None Seen) Urine Glucose Normal mg/dL (Normal) Microbiology Microbiology Date/Time Source Procedure Growth Status 08/24/25 09:03 Voided Urine Urine Culture - Final Pseudomonas aeruginosa Staphylococcus lugdunensis Enterococcus faecalis Complete 08/24/25 08:21 Blood Blood Culture - Final NO GROWTH AFTER 5 DAYS OF INCUBATION. Complete Labs and/or images reviewed: Labs reviewed by me, Image(s) reviewed by me Assessment/Plan Assessment/Plan 09/02: Patient here with left kidney stone with hydronephrosis status post ESWL Urology; also have diverticulosis with colovesicular fistula, had surgery yesterday now in ICU upgraded after surgery. White count going up but mild stable we will change antibiotics from Levaquin/Zyvox to cefepime/Zyvox. Continue close monitoring for platelets and neurological mental status. Making good urine, on LIS suctioned for surgery. Surgical scar healing well no exudates. We will continue management as prior surgical recommendations otherwise. Remains NPO on TPN. Fluids changed from D5 half-normal to normal saline only. Patient on low-level oxygen 2 L. no vasopressors. 09/03: Patient continues to remain off of any vasopressors, blood pressure stable no hypotension. Today is postop day 2 from ex lap. Patient has JORDAN drain with serosanguineous output, and has left nephrostomy straw-colored urine, urine Rm also with good output in straw-colored urine. We will deescalate care to tele as cleared by surgery. Continue broad-spectrum antibiotics. Surgical scar looking clean staple sutures no drainage from stable, abdomen stable nontender nondistended.. Continue present management, NG tube to continuous suction per surgery, okay to continue deescalation care to tele. Diagnosis: Sepsis secondary to urinary tract infection Colovesical fistula surgical consult by Dr. Patterson appreciated, Chest post surgery 09/01/2025 Acute kidney injury, Left hydronephrosis status post nephrostomy tube placement by radiologist, Obstructing kidney stone, History of uro lift procedure by Urology Dr. Hanna two months ago Splenomegaly, Acute diverticulitis: Nutrition TPN Prostatomegaly, Hypertension, UTI due to Pseudomonas, staph lugdunesis,enterococcus faecalis: Plan: GI consult Dr Kasia lauren appreciated IV antibiotics cefepime/ S suction were for surgery NPO TPN 2-3L nasal cannula maintain SpO2 more than 90% urology consult by Dr. Hanna appreciated, planning for ESWL after stabilization ICU Full code Plan discussed with: Patient My Orders Orders - ANDRES LE MD Procedure Category Date Status Time Hydralazine Injection PHA 09/02/25 In Process (Apresoline Inject 14:30 Cefepime 2gm/50ml Ns PHA 09/02/25 In Process (Maxipime 2gm/50ml) 22:00 Sodium Chloride 0.9% PHA 09/02/25 In Process 14:30 Date of Service: Sep 03, 2025 Billing Provider: ANDRES LE MD Common Visit Codes: [id number] CARE 30-74 MIN ANDRES LE MD Sep 03, 2025 14:07
--- NOTE | 2025-09-03 18:42 | DVHPN2 ---
Progress Note Date Seen: Sep 03, 2025 Resident Creating Document: STEPHANY INGRAM RESIDENT Has the PT tested + for MRSA If YES, has PT been informed?: No (Getting PICC line for TPN) Medical Necessity Reason Pt with a Central, PICC or Fol: Yes The following are medically ne: PICC Line Subjective Review of Systems Patient seen and examined at bedside NG to suction about 100 mL during the day shift and about 100 mL overnight No bowel movements reported with the patient reports to be passing flatus Status post explant up with the colocolonic anastomosis Objective vital signs Vital Sign Date Time Temp Pulse Resp B/P (MAP) Pulse Ox O2 Delivery O2 Flow Rate FiO2 09/03/25 17:39 20 95 Nasal Cannula* 2 28 09/03/25 17:39 91 09/03/25 17:00 125/70 (88) 09/03/25 16:00 98.2 98.2 Total Intake and Output 09/02/25 09/02/25 09/03/25 15:00 23:00 07:00 Intake Total 876 ml 1286.5 ml 1268.5 ml Output Total 2655 ml 1815 ml Balance 876 ml -1368.5 ml -546.5 ml medications Current Medications Medications Dose Ordered Sig/Radames Route Start Time Stop Time Status Last Admin Dose Admin Docusate Sodium 100 mg BIDPRN PRN PO 08/24/25 11:15 Acetaminophen 650 mg Q6HP PRN PO 08/24/25 11:15 08/25/25 16:06 650 MG Nitroglycerin 0.4 mg Q5MINP PRN SL 08/24/25 11:15 Amino Acids 0 ml @ 0 mls/hr PER PHARMACY IV 08/24/25 16:15 Diagnostic Test (Pha) 1 strip Q6HR 08/25/25 00:00 09/03/25 18:28 1 STRIP Insulin Human Regular FOLLOW SLIDING SCALE Q6HR SC 08/25/25 00:00 09/02/25 11:58 2 UNITS Dextrose 50 ml UD IV 08/24/25 22:00 Sodium Chloride 10 ml QSHIFT@10,22 IV 08/26/25 10:00 09/03/25 11:12 10 ML Vancomycin HCl 0 ml @ 0 mls/hr PER PHARMACY IV 08/26/25 13:45 Cancel Linezolid 300 ml @ 150 mls/hr Q12HR IV 08/27/25 11:00 09/03/25 11:12 150 MLS/HR Metronidazole 100 ml @ 100 mls/hr Q8HR IV 08/28/25 14:00 09/03/25 05:31 100 MLS/HR Lisinopril 20 mg DAILY PO 08/29/25 10:00 08/31/25 10:05 20 MG Ondansetron HCl 4 mg Q4HPRN PRN IV 09/01/25 11:00 09/03/25 01:27 4 MG Pantoprazole Sodium 40 mg DAILY IV 09/02/25 10:00 09/03/25 11:10 40 MG Hydromorphone HCl 0.25 mg Q3HPRN PRN IV 09/02/25 11:15 09/03/25 15:51 0.25 MG Fat Emulsion Intravenous 300 ml/Potassium Acetate 40 meq/ Potassium Phosphate 44 meq/ Magnesium Sulfate 12 meq/ Multivitamins 10 ml/Chromium/ Copper/Manganese/ Zinc 1 ml/Sodium Acetate 20 meq/ Amino Acids/ Dextrose 1,754 ml @ 73 mls/hr Q24H2M IV 09/02/25 22:00 09/03/25 21:59 09/02/25 23:06 73 MLS/HR Hydralazine HCl 10 mg Q6HP PRN IV 09/02/25 14:30 Cefepime HCl 50 ml @ 12.5 mls/hr Q8HR IV 09/02/25 22:00 09/03/25 05:31 12.5 MLS/HR Sodium Chloride 1,000 ml @ 60 mls/hr [id number] IV 09/02/25 14:30 09/03/25 11:11 60 MLS/HR Fat Emulsion Intravenous 300 ml/Sodium Acetate 30 meq/Potassium Acetate 20 meq/ Potassium Phosphate 66 meq/ Magnesium Sulfate 10 meq/ Multivitamins 10 ml/Chromium/ Copper/Manganese/ Zinc 1 ml/Amino Acids/Dextrose 1,803.5 ml @ 75 mls/hr Q24H3M IV 09/03/25 22:00 09/04/25 21:59 Examination Gen - no pallor, no scleral icterus Skin - Patients skin is warm and dry. HEENT - normocephalic, atraumatic, dry mucous membranes. Neck - supple, no lymphadenopathy Pulmonary - B/L clear breath sounds cardiovascular - regular S1,S2 heard GI - soft abdomen with a adequate tenderness status post surgery. Bowel sounds very hypoactive Neurological - Patient is alert and oriented x4 and is following commands, no motor or sensory weakness laboratory and microbiology Laboratory Tests 09/03/25 03:04 Test 09/03/25 03:04 Range/Units Serum Glucose 143 H 74-106 mg/dL Microbiology Date/Time Source Procedure Growth Status 08/24/25 09:03 Voided Urine Urine Culture - Final Pseudomonas aeruginosa Staphylococcus lugdunensis Enterococcus faecalis Complete 08/24/25 08:21 Blood Blood Culture - Final NO GROWTH AFTER 5 DAYS OF INCUBATION. Complete Problem List/Assessment/Plan Problem List/Assessment/Plan Colovesicular fistula status post exploratory laparotomy Sigmoid diverticulosis UTI with Pseudomonas, Staph lugdunensis and Enterococcus faecalis Left hydronephrosis due to obstructive stone status post PCN Plan - status post surgery POD 2 - IV antibiotics - NPO with the NG to LIS - PUD prophylaxis with Protonix - diet to be advanced as per primary surgeon Plan discussed with Dr. Crabtree Plan discussed with: Patient, Other (DAVID Marino) Dietary Evaluation Review Comments: 1) Increase TPN rate to meet at least 75% estimated daily needs 2) Advance to cardiac diet when medically feasible 3) Follow-up with urology and gastroenterology 4) Continue to monitor I&O, labs, and skin integrity Expected Outcomes/Goals: 1) nutrition support to meet at least 75% estimated daily needs 2) labs to improve 3) diet to advance 4) f/u in 3-5 days STEPHANY INGRAM RESIDENT Sep 03, 2025 18:42
[2025-09-03] MEDS: TPN PER PHARMACY IV NR (21:46)
[2025-09-04] VITALS (12 sets, daily range): BP systolic 116–133; BP diastolic 54–85; PULSE 87–94; RESP 16–18; TEMP 97.3–98.3; O2SAT 95–97
[2025-09-04 05:20] LABS: Hematocrit 35.7 % (41.0-53.0); Hemoglobin 12.4 g/dL (13.5-17.5); Mean Corpuscular Hemoglobin 29.7 pg (28.0-32.0); Mean Corpuscular Volume 85.6 fL (80.0-100.0); Nucleated Red Blood Cells % 0.0 %
[2025-09-04 05:44] LABS: Alanine Aminotransferase 11 U/L (7-40); Albumin 3.2 g/dL (3.2-4.8); Alkaline Phosphatase 55 U/L (46-116); Anion Gap 10 (5-15); BUN/Creatinine Ratio 16.7 (10.0-20.0); Bilirubin, Total 0.4 mg/dL (0.2-1.0); Blood Urea Nitrogen 14 mg/dL (9-23); Carbon Dioxide 28 mmol/L (20-31); Chloride 100 mmol/L (98-107); Magnesium 2.3 mg/dL (1.6-2.6); Potassium 4.1 mmol/L (3.5-5.1); Sodium 138 mmol/L (136-145); Total Protein 6.3 g/dL (5.7-8.2)
[2025-09-04 05:45] LABS: Calcium 8.7 mg/dL (8.7-10.4); Glucose 110 mg/dL (74-106)
--- NOTE | 2025-09-04 11:18 | DVHPN2 ---
Progress Note Date Seen: Sep 04, 2025 Has the PT tested + for MRSA If YES, has PT been informed?: No (Getting PICC line for TPN) Medical Necessity Reason Pt with a Central, PICC or Fol: Yes The following are medically ne: PICC Line Objective vital signs Vital Sign Date Time Temp Pulse Resp B/P (MAP) Pulse Ox O2 Delivery O2 Flow Rate FiO2 09/04/25 09:02 132/54 09/04/25 09:00 97.6 89 17 95 97.6 09/04/25 07:59 Room Air* 0 21 Total Intake and Output 09/03/25 09/03/25 09/04/25 15:00 23:00 07:00 Intake Total 657 ml 1361 ml 150 ml Output Total 2005 ml 2880 ml Balance 657 ml -644 ml -2730 ml medications Current Medications Medications Dose Ordered Sig/Radames Route Start Time Stop Time Status Last Admin Dose Admin Docusate Sodium 100 mg BIDPRN PRN PO 08/24/25 11:15 Acetaminophen 650 mg Q6HP PRN PO 08/24/25 11:15 08/25/25 16:06 650 MG Nitroglycerin 0.4 mg Q5MINP PRN SL 08/24/25 11:15 Amino Acids 0 ml @ 0 mls/hr PER PHARMACY IV 08/24/25 16:15 Diagnostic Test (Pha) 1 strip Q6HR 08/25/25 00:00 09/04/25 05:38 1 STRIP Insulin Human Regular FOLLOW SLIDING SCALE Q6HR SC 08/25/25 00:00 09/03/25 23:57 2 UNITS Dextrose 50 ml UD IV 08/24/25 22:00 Sodium Chloride 10 ml QSHIFT@10,22 IV 08/26/25 10:00 09/04/25 08:57 10 ML Vancomycin HCl 0 ml @ 0 mls/hr PER PHARMACY IV 08/26/25 13:45 Cancel Linezolid 300 ml @ 150 mls/hr Q12HR IV 08/27/25 11:00 09/03/25 22:00 150 MLS/HR Metronidazole 100 ml @ 100 mls/hr Q8HR IV 08/28/25 14:00 09/04/25 05:47 100 MLS/HR Lisinopril 20 mg DAILY PO 08/29/25 10:00 08/31/25 10:05 20 MG Ondansetron HCl 4 mg Q4HPRN PRN IV 09/01/25 11:00 09/03/25 21:05 4 MG Pantoprazole Sodium 40 mg DAILY IV 09/02/25 10:00 09/04/25 08:57 40 MG Hydromorphone HCl 0.25 mg Q3HPRN PRN IV 09/02/25 11:15 09/04/25 03:25 0.25 MG Hydralazine HCl 10 mg Q6HP PRN IV 09/02/25 14:30 Cefepime HCl 50 ml @ 12.5 mls/hr Q8HR IV 09/02/25 22:00 09/04/25 08:17 12.5 MLS/HR Sodium Chloride 1,000 ml @ 60 mls/hr [id number] IV 09/02/25 14:30 09/03/25 23:50 60 MLS/HR Fat Emulsion Intravenous 300 ml/Sodium Acetate 30 meq/Potassium Acetate 20 meq/ Potassium Phosphate 66 meq/ Magnesium Sulfate 10 meq/ Multivitamins 10 ml/Chromium/ Copper/Manganese/ Zinc 1 ml/Amino Acids/Dextrose 1,803.5 ml @ 75 mls/hr Q24H3M IV 09/03/25 22:00 09/04/25 21:59 09/03/25 21:46 75 MLS/HR Fat Emulsion Intravenous 300 ml/Sodium Acetate 30 meq/Potassium Acetate 20 meq/ Potassium Phosphate 44 meq/ Magnesium Sulfate 8 meq/ Multivitamins 10 ml/Chromium/ Copper/Manganese/ Zinc 1 ml/Amino Acids/Dextrose 1,798 ml @ 75 mls/hr [id number] IV 09/04/25 22:00 09/05/25 21:59 laboratory and microbiology Laboratory Tests 09/04/25 04:29 Test 09/04/25 04:29 Range/Units Serum Glucose 110 H 74-106 mg/dL Problem List/Assessment/Plan Problem List/Assessment/Plan 08/26/25PATIENT HAS A SUGGESTION OF COLOVESICAL FISTULA ON IMAGING,HAS BEEN PASSING WHAT APPEARS TO BE STOOL IN HIS URINE, AWAITING CYSTOGRAM, EXPLAINED TO PATIENT IN GREAT DETAIL' 09/02/25 doing well wound clean and well approximated, abdomen appropriately tender, ROB drainage cleart and small in volume, operative findings explained, keep NPO,NGT, ok to leave ICU. 09/04/25 no flatus, no BM, wound clean and well approximated, abdomen soft, non tender and appropriately tender, rob drain serosanguineous. labs ok, ambulate frequently Plan discussed with: Patient Dietary Evaluation Review Comments: 1) Increase TPN rate to meet at least 75% estimated daily needs 2) Advance to cardiac diet when medically feasible 3) Follow-up with urology and gastroenterology 4) Continue to monitor I&O, labs, and skin integrity Expected Outcomes/Goals: 1) nutrition support to meet at least 75% estimated daily needs 2) labs to improve 3) diet to advance 4) f/u in 3-5 days TRISTON BARNES MD Sep 04, 2025 11:18
--- NOTE | 2025-09-04 15:52 | DVHPN2 ---
Reviewed: Care Plan, H&P, Labs, Medications, Previous Orders, Radiology Changes from previous H/P or p: No Changes General: Per HPI Eyes: No Pain, No Vision change, No Conjunctivae inflammation, No Eyelid inflammation, No Other, No Redness ENT: No Ear pain, No Ear discharge, No Nose pain, No Nose discharge, No Nose congestion, No Mouth pain, No Mouth swelling, No Throat pain, No Throat swelling, No Other Cardiovascular: No Chest Pain, No Palpitations, No Orthopnea, No Paroxysmal Noc. Dyspnea, No Edema, No Lt Headedness, No Other Respiratory: No Cough, No Dry, No Shortness of breath, No SOB with excertion, No Wheezing, No Hemoptysis, No Pleuritic Pain, No Sputum, No Other Gastrointestinal: No Nausea, No Vomiting, No Abdominal Pain, No Diarrhea, No Constipation, No Melena, No Hematochezia, No Other Genitourinary: Dysuria, Frequency; No Incontinence; Hematuria; No Retention, No Other Musculoskeletal: No other, No neck pain, No shoulder pain, No arm pain; back pain (left flank); No hand pain, No leg pain, No foot pain Skin: No Rash, No Lesions, No Jaundice, No Bruising, No Other Objective Vitals Vital Signs Date Time Temp Pulse Resp B/P (MAP) Pulse Ox O2 Delivery O2 Flow Rate FiO2 09/04/25 13:51 87 17 124/85 09/04/25 13:00 98.0 97 98.0 09/04/25 07:59 Room Air* 0 21 Intake/Output Intake and Output 09/04/25 07:00 Intake Total 2168 ml Output Total 4885 ml Balance -2717 ml Intake Oral 0 ml IV Total 2168 ml Output Urine Total 2950 ml Gastric Drainage Total 400 ml Drainage Total 860 ml Other 675 ml Exam GEN: Healthy appearing, well-developed, NAD. HEENT: NC/AT; MMM. NG tube inserted CV: RRR, no m/r/g. LUNGS: CTAB, no w/r/c. ABD: Soft, NT/ND, NBS, no masses or organomegaly. Large surgical incision with jose sutures EXT: skin Warm, well perfused. no rashes. No clubbing, cyanosis, or edema. NEURO: Ambulating with no limitations. No focal deficits. Medications Current Medications Medications Dose Ordered Sig/Radames Route Start Time Stop Time Status Last Admin Dose Admin Docusate Sodium 100 mg BIDPRN PRN PO 08/24/25 11:15 Acetaminophen 650 mg Q6HP PRN PO 08/24/25 11:15 08/25/25 16:06 650 MG Nitroglycerin 0.4 mg Q5MINP PRN SL 08/24/25 11:15 Amino Acids 0 ml @ 0 mls/hr PER PHARMACY IV 08/24/25 16:15 Diagnostic Test (Pha) 1 strip Q6HR 08/25/25 00:00 09/04/25 12:03 1 STRIP Insulin Human Regular FOLLOW SLIDING SCALE Q6HR SC 08/25/25 00:00 09/04/25 12:11 2 UNITS Dextrose 50 ml UD IV 08/24/25 22:00 Sodium Chloride 10 ml QSHIFT@10,22 IV 08/26/25 10:00 09/04/25 08:57 10 ML Vancomycin HCl 0 ml @ 0 mls/hr PER PHARMACY IV 08/26/25 13:45 Cancel Linezolid 300 ml @ 150 mls/hr Q12HR IV 08/27/25 11:00 09/04/25 12:04 150 MLS/HR Metronidazole 100 ml @ 100 mls/hr Q8HR IV 08/28/25 14:00 09/04/25 13:56 100 MLS/HR Lisinopril 20 mg DAILY PO 08/29/25 10:00 08/31/25 10:05 20 MG Ondansetron HCl 4 mg Q4HPRN PRN IV 09/01/25 11:00 09/04/25 14:04 4 MG Pantoprazole Sodium 40 mg DAILY IV 09/02/25 10:00 09/04/25 08:57 40 MG Hydromorphone HCl 0.25 mg Q3HPRN PRN IV 09/02/25 11:15 09/04/25 12:04 0.25 MG Hydralazine HCl 10 mg Q6HP PRN IV 09/02/25 14:30 Cefepime HCl 50 ml @ 12.5 mls/hr Q8HR IV 09/02/25 22:00 09/04/25 15:38 12.5 MLS/HR Sodium Chloride 1,000 ml @ 60 mls/hr [id number] IV 09/02/25 14:30 09/03/25 23:50 60 MLS/HR Fat Emulsion Intravenous 300 ml/Sodium Acetate 30 meq/Potassium Acetate 20 meq/ Potassium Phosphate 66 meq/ Magnesium Sulfate 10 meq/ Multivitamins 10 ml/Chromium/ Copper/Manganese/ Zinc 1 ml/Amino Acids/Dextrose 1,803.5 ml @ 75 mls/hr Q24H3M IV 09/03/25 22:00 09/04/25 21:59 09/03/25 21:46 75 MLS/HR Fat Emulsion Intravenous 300 ml/Sodium Acetate 30 meq/Potassium Acetate 20 meq/ Potassium Phosphate 44 meq/ Magnesium Sulfate 8 meq/ Multivitamins 10 ml/Chromium/ Copper/Manganese/ Zinc 1 ml/Amino Acids/Dextrose 1,798 ml @ 75 mls/hr [id number] IV 09/04/25 22:00 09/05/25 21:59 Laboratory Results Laboratory Tests 09/04/25 04:29 Chemistry Test 09/04/25 04:29 Albumin 3.2 g/dL (3.2-4.8) Calcium Level 8.7 mg/dL (8.7-10.4) Magnesium Level 2.3 mg/dL (1.6-2.6) Phosphorus Level 3.7 mg/dL (2.4-5.1) Total Protein 6.3 g/dL (5.7-8.2) LFT Test 09/04/25 04:29 Alanine Aminotransferase (ALT) 11 U/L (7-40) Alkaline Phosphatase 55 U/L (46-116) Aspartate Amino Transferase (AST) 19 U/L (13-40) Total Bilirubin 0.4 mg/dL (0.2-1.0) Urinalysis Test 08/24/25 21:20 Urine Color Dark-orange (Yellow) Urine Clarity Ex.turbid (Clear) Urine pH 6.5 (5.0-9.0) Urine Specific [place] 1.029 (1.001-1.035) Urine Protein 2+ (Negative) H Urine Ketones Trace (Negative) Urine Blood 3+ /uL (Negative) H Urine Nitrite Negative (Negative) Urine Bilirubin 1+ (Negative) Urine Urobilinogen 4 mg/dL (Negative) H Urine Leukocyte Esterase 3+ /uL (Negative) Urine RBC 68 /hpf (0 - 3) Urine Microscopic WBC 149 /HPF (0-3) H Urine Squamous Epithelial Cells None seen /hpf (<5) Urine Bacteria Many /hpf (None Seen) H Urine Mucus Many (None Seen) Urine Glucose Normal mg/dL (Normal) Microbiology Microbiology Date/Time Source Procedure Growth Status 08/24/25 09:03 Voided Urine Urine Culture - Final Pseudomonas aeruginosa Staphylococcus lugdunensis Enterococcus faecalis Complete 08/24/25 08:21 Blood Blood Culture - Final NO GROWTH AFTER 5 DAYS OF INCUBATION. Complete Labs and/or images reviewed: Labs reviewed by me, Image(s) reviewed by me Assessment/Plan Assessment/Plan Sloan Ibarra is a 69-year-old male with past medical history of kidney stones, hypertension, and hepatitis, who came to the hospital due to left flank pain, brown urine, frequent urination, and painful urination. Patient states he has a history of kidney stones, that he has been passing them at home, but the pain became too much so he came to the hospital. He states his urine has become brown, he can see sediment or stone in the toilet when he urinates, he has the urge to urinate but only a little comes out. 09/02: Patient here with left kidney stone with hydronephrosis status post ESWL Urology; also have diverticulosis with colovesicular fistula, had surgery yesterday now in ICU upgraded after surgery. White count going up but mild stable we will change antibiotics from Levaquin/Zyvox to cefepime/Zyvox. Continue close monitoring for platelets and neurological mental status. Making good urine, on LIS suctioned for surgery. Surgical scar healing well no exudates. We will continue management as prior surgical recommendations otherwise. Remains NPO on TPN. Fluids changed from D5 half-normal to normal saline only. Patient on low-level oxygen 2 L. no vasopressors. 09/03: Patient continues to remain off of any vasopressors, blood pressure stable no hypotension. Today is postop day 2 from ex lap. Patient has JORDAN drain with serosanguineous output, and has left nephrostomy straw-colored urine, urine Rm also with good output in straw-colored urine. We will deescalate care to tele as cleared by surgery. Continue broad-spectrum antibiotics. Surgical scar looking clean staple sutures no drainage from stable, abdomen stable nontender nondistended.. Continue present management, NG tube to continuous suction per surgery, okay to continue deescalation care to tele. 09/04: Patient continues to improve surgery following. On tele now. We will continue present management. Continue IV antibiotics. NG tube in diet management per surgical recommendations Diagnosis: Sepsis secondary to urinary tract infection Colovesical fistula surgical consult by Dr. Patterson appreciated, Chest post surgery 09/01/2025 Acute kidney injury, Left hydronephrosis status post nephrostomy tube placement by radiologist, Obstructing kidney stone, History of uro lift procedure by Urology Dr. Hanna two months ago Splenomegaly, Acute diverticulitis: Nutrition TPN Prostatomegaly, Hypertension, UTI due to Pseudomonas, staph lugdunesis,enterococcus faecalis: Plan: GI consult Dr Kasia lauren appreciated IV antibiotics cefepime/ S suction were for surgery NPO TPN 2-3L nasal cannula maintain SpO2 more than 90% urology consult by Dr. Hanna appreciated, planning for ESWL after stabilization tele Full code Plan discussed with: Patient Date of Service: Sep 04, 2025 Billing Provider: ANDRES LE MD Common Visit Codes: [id number] INP/OBS CARE(HIGH) ANDRES LE MD Sep 04, 2025 15:51
--- NOTE | 2025-09-04 17:21 | DVHPN2 ---
Progress Note Date Seen: Sep 04, 2025 Resident Creating Document: STEPHANY INGRAM RESIDENT Has the PT tested + for MRSA If YES, has PT been informed?: No (Getting PICC line for TPN) Medical Necessity Reason Pt with a Central, PICC or Fol: Yes The following are medically ne: PICC Line Subjective Review of Systems Patient seen and examined with the bedside Continues to be NG to LIS with greenish bile On TPN Denies abdominal pain Objective vital signs Vital Sign Date Time Temp Pulse Resp B/P (MAP) Pulse Ox O2 Delivery O2 Flow Rate FiO2 09/04/25 13:51 87 17 124/85 09/04/25 13:00 98.0 97 98.0 09/04/25 07:59 Room Air* 0 21 Total Intake and Output 09/03/25 09/03/25 09/04/25 15:00 23:00 07:00 Intake Total 657 ml 1361 ml 150 ml Output Total 2005 ml 2880 ml Balance 657 ml -644 ml -2730 ml medications Current Medications Medications Dose Ordered Sig/Radames Route Start Time Stop Time Status Last Admin Dose Admin Docusate Sodium 100 mg BIDPRN PRN PO 08/24/25 11:15 Acetaminophen 650 mg Q6HP PRN PO 08/24/25 11:15 08/25/25 16:06 650 MG Nitroglycerin 0.4 mg Q5MINP PRN SL 08/24/25 11:15 Amino Acids 0 ml @ 0 mls/hr PER PHARMACY IV 08/24/25 16:15 Diagnostic Test (Pha) 1 strip Q6HR 08/25/25 00:00 09/04/25 17:13 1 STRIP Insulin Human Regular FOLLOW SLIDING SCALE Q6HR SC 08/25/25 00:00 09/04/25 12:11 2 UNITS Dextrose 50 ml UD IV 08/24/25 22:00 Sodium Chloride 10 ml QSHIFT@10,22 IV 08/26/25 10:00 09/04/25 08:57 10 ML Vancomycin HCl 0 ml @ 0 mls/hr PER PHARMACY IV 08/26/25 13:45 Cancel Linezolid 300 ml @ 150 mls/hr Q12HR IV 08/27/25 11:00 09/04/25 12:04 150 MLS/HR Metronidazole 100 ml @ 100 mls/hr Q8HR IV 08/28/25 14:00 09/04/25 13:56 100 MLS/HR Lisinopril 20 mg DAILY PO 08/29/25 10:00 08/31/25 10:05 20 MG Pantoprazole Sodium 40 mg DAILY IV 09/02/25 10:00 09/04/25 08:57 40 MG Hydromorphone HCl 0.25 mg Q3HPRN PRN IV 09/02/25 11:15 09/04/25 12:04 0.25 MG Hydralazine HCl 10 mg Q6HP PRN IV 09/02/25 14:30 Cefepime HCl 50 ml @ 12.5 mls/hr Q8HR IV 09/02/25 22:00 09/04/25 15:38 12.5 MLS/HR Sodium Chloride 1,000 ml @ 60 mls/hr [id number] IV 09/02/25 14:30 09/03/25 23:50 60 MLS/HR Fat Emulsion Intravenous 300 ml/Sodium Acetate 30 meq/Potassium Acetate 20 meq/ Potassium Phosphate 66 meq/ Magnesium Sulfate 10 meq/ Multivitamins 10 ml/Chromium/ Copper/Manganese/ Zinc 1 ml/Amino Acids/Dextrose 1,803.5 ml @ 75 mls/hr Q24H3M IV 09/03/25 22:00 09/04/25 21:59 09/03/25 21:46 75 MLS/HR Fat Emulsion Intravenous 300 ml/Sodium Acetate 30 meq/Potassium Acetate 20 meq/ Potassium Phosphate 44 meq/ Magnesium Sulfate 8 meq/ Multivitamins 10 ml/Chromium/ Copper/Manganese/ Zinc 1 ml/Amino Acids/Dextrose 1,798 ml @ 75 mls/hr [id number] IV 09/04/25 22:00 09/05/25 21:59 Prochlorperazine Edisylate 10 mg TIDPRN PRN IV 09/04/25 16:30 Examination Gen - no pallor, no scleral icterus Skin - Patients skin is warm and dry. HEENT - normocephalic, atraumatic, dry mucous membranes. Neck - supple, no lymphadenopathy Pulmonary - B/L clear breath sounds cardiovascular - regular S1,S2 heard GI - soft abdomen with a adequate tenderness status post surgery. Bowel sounds very hypoactive Neurological - Patient is alert and oriented x4 and is following commands, no motor or sensory weakness laboratory and microbiology Laboratory Tests 09/04/25 04:29 Test 09/04/25 04:29 Range/Units Serum Glucose 110 H 74-106 mg/dL Microbiology Date/Time Source Procedure Growth Status 08/24/25 09:03 Voided Urine Urine Culture - Final Pseudomonas aeruginosa Staphylococcus lugdunensis Enterococcus faecalis Complete 08/24/25 08:21 Blood Blood Culture - Final NO GROWTH AFTER 5 DAYS OF INCUBATION. Complete Problem List/Assessment/Plan Problem List/Assessment/Plan Colovesicular fistula status post exploratory laparotomy Sigmoid diverticulosis UTI with Pseudomonas, Staph lugdunensis and Enterococcus faecalis Left hydronephrosis due to obstructive stone status post PCN Plan - status post surgery POD 2 - IV antibiotics - NPO with the NG to LIS - PUD prophylaxis with Protonix - diet to be advanced as per primary surgeon Plan discussed with Dr. Crabtree Plan discussed with: Patient Dietary Evaluation Review Comments: 1) Increase TPN rate to meet at least 75% estimated daily needs 2) Advance to cardiac diet when medically feasible 3) Follow-up with urology and gastroenterology 4) Continue to monitor I&O, labs, and skin integrity Expected Outcomes/Goals: 1) nutrition support to meet at least 75% estimated daily needs 2) labs to improve 3) diet to advance 4) f/u in 3-5 days STEPHANY INGRAM RESIDENT Sep 04, 2025 17:21
[2025-09-04] MEDS: PROCHLORPERAZINE EDISYLATE 5 MG/ML 2ML VIAL IV PRN (18:54)
[2025-09-04] MEDS: TPN PER PHARMACY IV NR (22:00)
[2025-09-05] VITALS (8 sets, daily range): BP systolic 106–143; BP diastolic 67–93; PULSE 93–102; RESP 17–19; TEMP 97.3–98.7; O2SAT 95–97
[2025-09-05 04:59] LABS: Hematocrit 37.0 % (41.0-53.0); Hemoglobin 12.8 g/dL (13.5-17.5); Mean Corpuscular Hemoglobin 29.8 pg (28.0-32.0); Mean Corpuscular Volume 86.5 fL (80.0-100.0); Nucleated Red Blood Cells % 0.0 %
[2025-09-05 05:07] LABS: Alanine Aminotransferase 18 U/L (7-40); Albumin 3.4 g/dL (3.2-4.8); Alkaline Phosphatase 66 U/L (46-116); Anion Gap 10 (5-15); BUN/Creatinine Ratio 19.8 (10.0-20.0); Bilirubin, Total 0.8 mg/dL (0.2-1.0); Blood Urea Nitrogen 16 mg/dL (9-23); Calcium 9.0 mg/dL (8.7-10.4); Carbon Dioxide 28 mmol/L (20-31); Chloride 100 mmol/L (98-107); Glucose 93 mg/dL (74-106); Magnesium 2.1 mg/dL (1.6-2.6); Potassium 4.4 mmol/L (3.5-5.1); Sodium 138 mmol/L (136-145); Total Protein 6.5 g/dL (5.7-8.2)
--- NOTE | 2025-09-05 09:53 | DVHPN2 ---
Reviewed: Care Plan, H&P, Labs, Medications, Previous Orders, Radiology Changes from previous H/P or p: No Changes General: Per HPI Eyes: No Pain, No Vision change, No Conjunctivae inflammation, No Eyelid inflammation, No Other, No Redness ENT: No Ear pain, No Ear discharge, No Nose pain, No Nose discharge, No Nose congestion, No Mouth pain, No Mouth swelling, No Throat pain, No Throat swelling, No Other Cardiovascular: No Chest Pain, No Palpitations, No Orthopnea, No Paroxysmal Noc. Dyspnea, No Edema, No Lt Headedness, No Other Respiratory: No Cough, No Dry, No Shortness of breath, No SOB with excertion, No Wheezing, No Hemoptysis, No Pleuritic Pain, No Sputum, No Other Gastrointestinal: No Nausea, No Vomiting, No Abdominal Pain, No Diarrhea, No Constipation, No Melena, No Hematochezia, No Other Genitourinary: Dysuria, Frequency; No Incontinence; Hematuria; No Retention, No Other Musculoskeletal: No other, No neck pain, No shoulder pain, No arm pain; back pain (left flank); No hand pain, No leg pain, No foot pain Skin: No Rash, No Lesions, No Jaundice, No Bruising, No Other Objective Vitals Vital Signs Date Time Temp Pulse Resp B/P (MAP) Pulse Ox O2 Delivery O2 Flow Rate FiO2 09/05/25 05:59 97 18 130/93 09/05/25 05:00 97.8 95 97.8 09/04/25 20:00 Room Air* 0 21 Intake/Output Intake and Output 09/05/25 07:00 Intake Total 2840 ml Output Total 2080 ml Balance 760 ml Intake Oral 0 ml IV Total 840 ml Other 2000 ml Output Urine Total 1460 ml Gastric Drainage Total 440 ml Drainage Total 180 ml # Bowel Movements 2 Exam GEN: Healthy appearing, well-developed, NAD. HEENT: NC/AT; MMM. NG tube inserted CV: RRR, no m/r/g. LUNGS: CTAB, no w/r/c. ABD: Soft, NT/ND, NBS, no masses or organomegaly. Large surgical incision with jose sutures EXT: skin Warm, well perfused. no rashes. No clubbing, cyanosis, or edema. NEURO: Ambulating with no limitations. No focal deficits. Medications Current Medications Medications Dose Ordered Sig/Radames Route Start Time Stop Time Status Last Admin Dose Admin Docusate Sodium 100 mg BIDPRN PRN PO 08/24/25 11:15 Acetaminophen 650 mg Q6HP PRN PO 08/24/25 11:15 08/25/25 16:06 650 MG Nitroglycerin 0.4 mg Q5MINP PRN SL 08/24/25 11:15 Amino Acids 0 ml @ 0 mls/hr PER PHARMACY IV 08/24/25 16:15 Diagnostic Test (Pha) 1 strip Q6HR 08/25/25 00:00 09/05/25 05:21 1 STRIP Insulin Human Regular FOLLOW SLIDING SCALE Q6HR SC 08/25/25 00:00 09/04/25 12:11 2 UNITS Dextrose 50 ml UD IV 08/24/25 22:00 Sodium Chloride 10 ml QSHIFT@10,22 IV 08/26/25 10:00 09/05/25 09:17 10 ML Vancomycin HCl 0 ml @ 0 mls/hr PER PHARMACY IV 08/26/25 13:45 Cancel Linezolid 300 ml @ 150 mls/hr Q12HR IV 08/27/25 11:00 09/04/25 21:20 150 MLS/HR Metronidazole 100 ml @ 100 mls/hr Q8HR IV 08/28/25 14:00 09/05/25 05:28 100 MLS/HR Lisinopril 20 mg DAILY PO 08/29/25 10:00 08/31/25 10:05 20 MG Pantoprazole Sodium 40 mg DAILY IV 09/02/25 10:00 09/05/25 09:14 40 MG Hydromorphone HCl 0.25 mg Q3HPRN PRN IV 09/02/25 11:15 09/05/25 05:29 0.25 MG Hydralazine HCl 10 mg Q6HP PRN IV 09/02/25 14:30 Cefepime HCl 50 ml @ 12.5 mls/hr Q8HR IV 09/02/25 22:00 09/05/25 06:00 12.5 MLS/HR Sodium Chloride 1,000 ml @ 60 mls/hr [id number] IV 09/02/25 14:30 09/03/25 23:50 60 MLS/HR Fat Emulsion Intravenous 300 ml/Sodium Acetate 30 meq/Potassium Acetate 20 meq/ Potassium Phosphate 44 meq/ Magnesium Sulfate 8 meq/ Multivitamins 10 ml/Chromium/ Copper/Manganese/ Zinc 1 ml/Amino Acids/Dextrose 1,798 ml @ 75 mls/hr [id number] IV 09/04/25 22:00 09/05/25 21:59 09/05/25 09:36 75 MLS/HR Prochlorperazine Edisylate 10 mg TIDPRN PRN IV 09/04/25 16:30 09/05/25 00:41 10 MG Fat Emulsion Intravenous 300 ml/Sodium Chloride 20 meq/ Sodium Acetate 30 meq/Potassium Acetate 10 meq/ Potassium Phosphate 22 meq/ Magnesium Sulfate 8 meq/ Multivitamins 10 ml/Chromium/ Copper/Manganese/ Zinc 1 ml/Amino Acids/Dextrose 1,793 ml @ 75 mls/hr [id number] IV 09/05/25 22:00 09/06/25 21:59 Laboratory Results Laboratory Tests 09/05/25 04:25 Chemistry Test 09/05/25 04:25 Albumin 3.4 g/dL (3.2-4.8) Calcium Level 9.0 mg/dL (8.7-10.4) Magnesium Level 2.1 mg/dL (1.6-2.6) Phosphorus Level 3.7 mg/dL (2.4-5.1) Total Protein 6.5 g/dL (5.7-8.2) LFT Test 09/05/25 04:25 Alanine Aminotransferase (ALT) 18 U/L (7-40) Alkaline Phosphatase 66 U/L (46-116) Aspartate Amino Transferase (AST) 27 U/L (13-40) Total Bilirubin 0.8 mg/dL (0.2-1.0) Urinalysis Test 08/24/25 21:20 Urine Color Dark-orange (Yellow) Urine Clarity Ex.turbid (Clear) Urine pH 6.5 (5.0-9.0) Urine Specific [place] 1.029 (1.001-1.035) Urine Protein 2+ (Negative) H Urine Ketones Trace (Negative) Urine Blood 3+ /uL (Negative) H Urine Nitrite Negative (Negative) Urine Bilirubin 1+ (Negative) Urine Urobilinogen 4 mg/dL (Negative) H Urine Leukocyte Esterase 3+ /uL (Negative) Urine RBC 68 /hpf (0 - 3) Urine Microscopic WBC 149 /HPF (0-3) H Urine Squamous Epithelial Cells None seen /hpf (<5) Urine Bacteria Many /hpf (None Seen) H Urine Mucus Many (None Seen) Urine Glucose Normal mg/dL (Normal) Microbiology Microbiology Date/Time Source Procedure Growth Status 08/24/25 09:03 Voided Urine Urine Culture - Final Pseudomonas aeruginosa Staphylococcus lugdunensis Enterococcus faecalis Complete 08/24/25 08:21 Blood Blood Culture - Final NO GROWTH AFTER 5 DAYS OF INCUBATION. Complete Labs and/or images reviewed: Labs reviewed by me, Image(s) reviewed by me Assessment/Plan Assessment/Plan Sloan Ibarra is a 69-year-old male with past medical history of kidney stones, hypertension, and hepatitis, who came to the hospital due to left flank pain, brown urine, frequent urination, and painful urination. Patient states he has a history of kidney stones, that he has been passing them at home, but the pain became too much so he came to the hospital. He states his urine has become brown, he can see sediment or stone in the toilet when he urinates, he has the urge to urinate but only a little comes out. 09/02: Patient here with left kidney stone with hydronephrosis status post ESWL Urology; also have diverticulosis with colovesicular fistula, had surgery yesterday now in ICU upgraded after surgery. White count going up but mild stable we will change antibiotics from Levaquin/Zyvox to cefepime/Zyvox. Continue close monitoring for platelets and neurological mental status. Making good urine, on LIS suctioned for surgery. Surgical scar healing well no exudates. We will continue management as prior surgical recommendations otherwise. Remains NPO on TPN. Fluids changed from D5 half-normal to normal saline only. Patient on low-level oxygen 2 L. no vasopressors. 09/03: Patient continues to remain off of any vasopressors, blood pressure stable no hypotension. Today is postop day 2 from ex lap. Patient has JORDAN drain with serosanguineous output, and has left nephrostomy straw-colored urine, urine Rm also with good output in straw-colored urine. We will deescalate care to tele as cleared by surgery. Continue broad-spectrum antibiotics. Surgical scar looking clean staple sutures no drainage from stable, abdomen stable nontender nondistended.. Continue present management, NG tube to continuous suction per surgery, okay to continue deescalation care to tele. 09/04: Patient continues to improve surgery following. On tele now. We will continue present management. Continue IV antibiotics. NG tube in diet management per surgical recommendations 09/05: has BS now. feeling good. hungry. has 2 BM this am. ng tube with minimal output. Surgery made aware, diet per surgery. Diagnosis: Sepsis secondary to urinary tract infection Colovesical fistula surgical consult by Dr. Patterson appreciated, Chest post surgery 09/01/2025 Acute kidney injury, Left hydronephrosis status post nephrostomy tube placement by radiologist, Obstructing kidney stone, History of uro lift procedure by Urology Dr. Hanna two months ago Splenomegaly, Acute diverticulitis: Nutrition TPN Prostatomegaly, Hypertension, UTI due to Pseudomonas, staph lugdunesis,enterococcus faecalis: Plan: GI consult Dr Kasia lauren appreciated IV antibiotics cefepime/ S suction were for surgery NPO TPN 2-3L nasal cannula maintain SpO2 more than 90% urology consult by Dr. Hanna appreciated, planning for ESWL after stabilization tele Full code Plan discussed with: Patient My Orders Orders - ANDRES LE MD Procedure Category Date Status Time Prochlorperazine Inj PHA 09/04/25 In Process (Compazine Inj) 16:30 Transfer Orders XFER 09/05/25 Transmitted 04:00 Date of Service: Sep 05, 2025 Billing Provider: ANDRES LE MD Common Visit Codes: [id number] INP/OBS CARE(HIGH) ANDRES LE MD Sep 05, 2025 09:53
--- NOTE | 2025-09-05 10:28 | DVHPN2 ---
Progress Note Date Seen: Sep 05, 2025 Has the PT tested + for MRSA If YES, has PT been informed?: No (Getting PICC line for TPN) Medical Necessity Reason Pt with a Central, PICC or Fol: Yes The following are medically ne: PICC Line Objective vital signs Vital Sign Date Time Temp Pulse Resp B/P (MAP) Pulse Ox O2 Delivery O2 Flow Rate FiO2 09/05/25 08:05 Room Air* 0 21 09/05/25 05:59 97 18 130/93 09/05/25 05:00 97.8 95 97.8 Total Intake and Output 09/04/25 09/04/25 09/05/25 15:00 23:00 07:00 Intake Total 440 ml 2400 ml Output Total 180 ml 710 ml 1190 ml Balance -180 ml -270 ml 1210 ml medications Current Medications Medications Dose Ordered Sig/Radames Route Start Time Stop Time Status Last Admin Dose Admin Docusate Sodium 100 mg BIDPRN PRN PO 08/24/25 11:15 Acetaminophen 650 mg Q6HP PRN PO 08/24/25 11:15 08/25/25 16:06 650 MG Nitroglycerin 0.4 mg Q5MINP PRN SL 08/24/25 11:15 Amino Acids 0 ml @ 0 mls/hr PER PHARMACY IV 08/24/25 16:15 Diagnostic Test (Pha) 1 strip Q6HR 08/25/25 00:00 09/05/25 05:21 1 STRIP Insulin Human Regular FOLLOW SLIDING SCALE Q6HR SC 08/25/25 00:00 09/04/25 12:11 2 UNITS Dextrose 50 ml UD IV 08/24/25 22:00 Sodium Chloride 10 ml QSHIFT@10,22 IV 08/26/25 10:00 09/05/25 09:17 10 ML Vancomycin HCl 0 ml @ 0 mls/hr PER PHARMACY IV 08/26/25 13:45 Cancel Linezolid 300 ml @ 150 mls/hr Q12HR IV 08/27/25 11:00 09/04/25 21:20 150 MLS/HR Metronidazole 100 ml @ 100 mls/hr Q8HR IV 08/28/25 14:00 09/05/25 05:28 100 MLS/HR Lisinopril 20 mg DAILY PO 08/29/25 10:00 08/31/25 10:05 20 MG Pantoprazole Sodium 40 mg DAILY IV 09/02/25 10:00 09/05/25 09:14 40 MG Hydromorphone HCl 0.25 mg Q3HPRN PRN IV 09/02/25 11:15 09/05/25 05:29 0.25 MG Hydralazine HCl 10 mg Q6HP PRN IV 09/02/25 14:30 Cefepime HCl 50 ml @ 12.5 mls/hr Q8HR IV 09/02/25 22:00 09/05/25 06:00 12.5 MLS/HR Sodium Chloride 1,000 ml @ 60 mls/hr [id number] IV 09/02/25 14:30 09/03/25 23:50 60 MLS/HR Fat Emulsion Intravenous 300 ml/Sodium Acetate 30 meq/Potassium Acetate 20 meq/ Potassium Phosphate 44 meq/ Magnesium Sulfate 8 meq/ Multivitamins 10 ml/Chromium/ Copper/Manganese/ Zinc 1 ml/Amino Acids/Dextrose 1,798 ml @ 75 mls/hr [id number] IV 09/04/25 22:00 09/05/25 21:59 09/05/25 09:36 75 MLS/HR Prochlorperazine Edisylate 10 mg TIDPRN PRN IV 09/04/25 16:30 09/05/25 00:41 10 MG Fat Emulsion Intravenous 300 ml/Sodium Chloride 20 meq/ Sodium Acetate 30 meq/Potassium Acetate 10 meq/ Potassium Phosphate 22 meq/ Magnesium Sulfate 8 meq/ Multivitamins 10 ml/Chromium/ Copper/Manganese/ Zinc 1 ml/Amino Acids/Dextrose 1,793 ml @ 75 mls/hr [id number] IV 09/05/25 22:00 09/06/25 21:59 laboratory and microbiology Laboratory Tests 09/05/25 04:25 Test 09/05/25 04:25 Range/Units Serum Glucose 93 74-106 mg/dL Problem List/Assessment/Plan Problem List/Assessment/Plan 08/26/25PATIENT HAS A SUGGESTION OF COLOVESICAL FISTULA ON IMAGING,HAS BEEN PASSING WHAT APPEARS TO BE STOOL IN HIS URINE, AWAITING CYSTOGRAM, EXPLAINED TO PATIENT IN GREAT DETAIL' 09/02/25 doing well wound clean and well approximated, abdomen appropriately tender, ROB drainage cleart and small in volume, operative findings explained, keep NPO,NGT, ok to leave ICU. 09/04/25 no flatus, no BM, wound clean and well approximated, abdomen soft, non tender and appropriately tender, rob drain serosanguineous. labs ok, ambulate frequently 09/05/25 TWO VERY SMALL BOWEL MOVEMENTS BUT NOT PASSING FLATUS, LEAVE NGT IN PLACE AND KEEP NPO TILL FLATUS, ABDOMEN SOFT NON DISTENDED APPROPRIATELY TENDER, DRAINAGE SEROUS (ROB DRAIN), MUST AMBULATE Q 4 HOURS Plan discussed with: Patient Dietary Evaluation Review Comments: 1) Increase TPN rate to meet at least 75% estimated daily needs 2) Advance to cardiac diet when medically feasible 3) Follow-up with urology and gastroenterology 4) Continue to monitor I&O, labs, and skin integrity Expected Outcomes/Goals: 1) nutrition support to meet at least 75% estimated daily needs 2) labs to improve 3) diet to advance 4) f/u in 3-5 days TRISTON BARNES MD Sep 05, 2025 10:28
--- NOTE | 2025-09-05 17:01 | DVHPN2 ---
Progress Note Date Seen: Sep 05, 2025 Resident Creating Document: STEPHANY INGRAM RESIDENT Has the PT tested + for MRSA If YES, has PT been informed?: No (Getting PICC line for TPN) Medical Necessity Reason Pt with a Central, PICC or Fol: Yes The following are medically ne: PICC Line Subjective Review of Systems Patient seen and examined with the bedside 2 small bowel movements reported yesterday No flatus past Continues to have NG to LIS Objective vital signs Vital Sign Date Time Temp Pulse Resp B/P (MAP) Pulse Ox O2 Delivery O2 Flow Rate FiO2 09/05/25 14:34 101 16 134/82 09/05/25 13:00 98.0 96 98.0 09/05/25 08:05 Room Air* 0 21 Total Intake and Output 09/04/25 09/04/25 09/05/25 15:00 23:00 07:00 Intake Total 440 ml 2400 ml Output Total 180 ml 710 ml 1190 ml Balance -180 ml -270 ml 1210 ml medications Current Medications Medications Dose Ordered Sig/Radames Route Start Time Stop Time Status Last Admin Dose Admin Docusate Sodium 100 mg BIDPRN PRN PO 08/24/25 11:15 Acetaminophen 650 mg Q6HP PRN PO 08/24/25 11:15 08/25/25 16:06 650 MG Nitroglycerin 0.4 mg Q5MINP PRN SL 08/24/25 11:15 Amino Acids 0 ml @ 0 mls/hr PER PHARMACY IV 08/24/25 16:15 Diagnostic Test (Pha) 1 strip Q6HR 08/25/25 00:00 09/05/25 11:08 1 STRIP Insulin Human Regular FOLLOW SLIDING SCALE Q6HR SC 08/25/25 00:00 09/05/25 12:34 2 UNITS Dextrose 50 ml UD IV 08/24/25 22:00 Sodium Chloride 10 ml QSHIFT@10,22 IV 08/26/25 10:00 09/05/25 09:17 10 ML Vancomycin HCl 0 ml @ 0 mls/hr PER PHARMACY IV 08/26/25 13:45 Cancel Linezolid 300 ml @ 150 mls/hr Q12HR IV 08/27/25 11:00 09/05/25 11:08 150 MLS/HR Metronidazole 100 ml @ 100 mls/hr Q8HR IV 08/28/25 14:00 09/05/25 14:22 100 MLS/HR Lisinopril 20 mg DAILY PO 08/29/25 10:00 08/31/25 10:05 20 MG Pantoprazole Sodium 40 mg DAILY IV 09/02/25 10:00 09/05/25 09:14 40 MG Hydromorphone HCl 0.25 mg Q3HPRN PRN IV 09/02/25 11:15 09/05/25 14:34 0.25 MG Hydralazine HCl 10 mg Q6HP PRN IV 09/02/25 14:30 Cefepime HCl 50 ml @ 12.5 mls/hr Q8HR IV 09/02/25 22:00 09/05/25 15:23 12.5 MLS/HR Sodium Chloride 1,000 ml @ 60 mls/hr [id number] IV 09/02/25 14:30 09/03/25 23:50 60 MLS/HR Fat Emulsion Intravenous 300 ml/Sodium Acetate 30 meq/Potassium Acetate 20 meq/ Potassium Phosphate 44 meq/ Magnesium Sulfate 8 meq/ Multivitamins 10 ml/Chromium/ Copper/Manganese/ Zinc 1 ml/Amino Acids/Dextrose 1,798 ml @ 75 mls/hr [id number] IV 09/04/25 22:00 09/05/25 21:59 09/05/25 09:36 75 MLS/HR Prochlorperazine Edisylate 10 mg TIDPRN PRN IV 09/04/25 16:30 09/05/25 00:41 10 MG Fat Emulsion Intravenous 300 ml/Sodium Chloride 20 meq/ Sodium Acetate 30 meq/Potassium Acetate 10 meq/ Potassium Phosphate 22 meq/ Magnesium Sulfate 8 meq/ Multivitamins 10 ml/Chromium/ Copper/Manganese/ Zinc 1 ml/Amino Acids/Dextrose 1,793 ml @ 75 mls/hr [id number] IV 09/05/25 22:00 09/06/25 21:59 Examination Gen - no pallor, no scleral icterus Skin - Patients skin is warm and dry. HEENT - normocephalic, atraumatic, dry mucous membranes. Neck - supple, no lymphadenopathy Pulmonary - B/L clear breath sounds cardiovascular - regular S1,S2 heard GI - soft abdomen with a adequate tenderness status post surgery. Bowel sounds very hypoactive Neurological - Patient is alert and oriented x4 and is following commands, no motor or sensory weakness laboratory and microbiology Laboratory Tests 09/05/25 04:25 Test 09/05/25 04:25 Range/Units Serum Glucose 93 74-106 mg/dL Microbiology Date/Time Source Procedure Growth Status 08/24/25 09:03 Voided Urine Urine Culture - Final Pseudomonas aeruginosa Staphylococcus lugdunensis Enterococcus faecalis Complete 08/24/25 08:21 Blood Blood Culture - Final NO GROWTH AFTER 5 DAYS OF INCUBATION. Complete Problem List/Assessment/Plan Problem List/Assessment/Plan Colovesicular fistula status post exploratory laparotomy Sigmoid diverticulosis UTI with Pseudomonas, Staph lugdunensis and Enterococcus faecalis Left hydronephrosis due to obstructive stone status post PCN Plan - status post surgery POD 4 - IV antibiotics - NPO with the NG to LIS - PUD prophylaxis with Protonix - diet to be advanced as per primary surgeon Plan discussed with Dr. Crabtree Plan discussed with: Patient, Other (DAVID Meeks) Dietary Evaluation Review Comments: 1) Increase TPN rate to meet at least 75% estimated daily needs 2) Advance to cardiac diet when medically feasible 3) Follow-up with urology and gastroenterology 4) Continue to monitor I&O, labs, and skin integrity Expected Outcomes/Goals: 1) nutrition support to meet at least 75% estimated daily needs 2) labs to improve 3) diet to advance 4) f/u in 3-5 days STEPHANY INGRAM RESIDENT Sep 05, 2025 17:01
[2025-09-05] MEDS ORDERED: TPN PER PHARMACY IV NR (22:00)
[2025-09-05] MEDS: AMINO ACID INFUSION IN D10W 1,000 ML IV NR (23:14)
[2025-09-06] VITALS (7 sets, daily range): BP systolic 126–140; BP diastolic 80–95; PULSE 89–96; RESP 16–18; TEMP 97.1–98.8; O2SAT 95–97
[2025-09-06] MEDS: CEFEPIME 2GM/50ML NS 50 ML IV SCH (01:22)
[2025-09-06 06:30] LABS: Hematocrit 36.5 % (41.0-53.0); Hemoglobin 12.5 g/dL (13.5-17.5); Mean Corpuscular Hemoglobin 29.7 pg (28.0-32.0); Mean Corpuscular Volume 86.9 fL (80.0-100.0); Nucleated Red Blood Cells % 0.0 %
[2025-09-06 06:59] LABS: Alanine Aminotransferase 23 U/L (7-40); Alkaline Phosphatase 67 U/L (46-116); Anion Gap 11 (5-15); BUN/Creatinine Ratio 23.8 (10.0-20.0); Blood Urea Nitrogen 19 mg/dL (9-23); Calcium 9.0 mg/dL (8.7-10.4); Carbon Dioxide 26 mmol/L (20-31); Chloride 100 mmol/L (98-107); Glucose 97 mg/dL (74-106); Magnesium 2.2 mg/dL (1.6-2.6); Potassium 4.3 mmol/L (3.5-5.1); Sodium 137 mmol/L (136-145); Total Protein 6.5 g/dL (5.7-8.2)
[2025-09-06 07:00] LABS: Albumin 3.4 g/dL (3.2-4.8)
[2025-09-06 07:01] LABS: Bilirubin, Total 0.7 mg/dL (0.2-1.0)
--- NOTE | 2025-09-06 10:10 | DVHPN2 ---
Reviewed: Care Plan, H&P, Labs, Medications, Previous Orders, Radiology Changes from previous H/P or p: No Changes General: Per HPI Eyes: No Pain, No Vision change, No Conjunctivae inflammation, No Eyelid inflammation, No Other, No Redness ENT: No Ear pain, No Ear discharge, No Nose pain, No Nose discharge, No Nose congestion, No Mouth pain, No Mouth swelling, No Throat pain, No Throat swelling, No Other Cardiovascular: No Chest Pain, No Palpitations, No Orthopnea, No Paroxysmal Noc. Dyspnea, No Edema, No Lt Headedness, No Other Respiratory: No Cough, No Dry, No Shortness of breath, No SOB with excertion, No Wheezing, No Hemoptysis, No Pleuritic Pain, No Sputum, No Other Gastrointestinal: No Nausea, No Vomiting, No Abdominal Pain, No Diarrhea, No Constipation, No Melena, No Hematochezia, No Other Genitourinary: Dysuria, Frequency; No Incontinence; Hematuria; No Retention, No Other Musculoskeletal: No other, No neck pain, No shoulder pain, No arm pain; back pain (left flank); No hand pain, No leg pain, No foot pain Skin: No Rash, No Lesions, No Jaundice, No Bruising, No Other Objective Vitals Vital Signs Date Time Temp Pulse Resp B/P (MAP) Pulse Ox O2 Delivery O2 Flow Rate FiO2 09/06/25 09:36 128/87 09/06/25 06:33 87 16 09/06/25 05:00 98.6 97 98.6 09/05/25 20:00 Room Air* 0 21 Intake/Output Intake and Output 09/06/25 07:00 Intake Total 1650 ml Output Total 1513 ml Balance 137 ml Intake Oral 0 ml IV Total 1650 ml Output Urine Total 1005 ml Gastric Drainage Total 50 ml Drainage Total 108 ml Other 350 ml Exam GEN: Healthy appearing, well-developed, NAD. HEENT: NC/AT; MMM. NG tube inserted CV: RRR, no m/r/g. LUNGS: CTAB, no w/r/c. ABD: Soft, NT/ND, NBS, no masses or organomegaly. Large surgical incision with jose sutures EXT: skin Warm, well perfused. no rashes. No clubbing, cyanosis, or edema. NEURO: Ambulating with no limitations. No focal deficits. Medications Current Medications Medications Dose Ordered Sig/Radames Route Start Time Stop Time Status Last Admin Dose Admin Docusate Sodium 100 mg BIDPRN PRN PO 08/24/25 11:15 Acetaminophen 650 mg Q6HP PRN PO 08/24/25 11:15 08/25/25 16:06 650 MG Nitroglycerin 0.4 mg Q5MINP PRN SL 08/24/25 11:15 Amino Acids 0 ml @ 0 mls/hr PER PHARMACY IV 08/24/25 16:15 Diagnostic Test (Pha) 1 strip Q6HR 08/25/25 00:00 09/06/25 06:00 1 STRIP Insulin Human Regular FOLLOW SLIDING SCALE Q6HR SC 08/25/25 00:00 09/05/25 12:34 2 UNITS Dextrose 50 ml UD IV 08/24/25 22:00 Sodium Chloride 10 ml QSHIFT@10,22 IV 08/26/25 10:00 09/05/25 21:04 10 ML Vancomycin HCl 0 ml @ 0 mls/hr PER PHARMACY IV 08/26/25 13:45 Cancel Linezolid 300 ml @ 150 mls/hr Q12HR IV 08/27/25 11:00 09/05/25 23:09 150 MLS/HR Metronidazole 100 ml @ 100 mls/hr Q8HR IV 08/28/25 14:00 09/06/25 05:46 100 MLS/HR Lisinopril 20 mg DAILY PO 08/29/25 10:00 08/31/25 10:05 20 MG Pantoprazole Sodium 40 mg DAILY IV 09/02/25 10:00 09/06/25 09:27 40 MG Hydromorphone HCl 0.25 mg Q3HPRN PRN IV 09/02/25 11:15 09/06/25 06:03 0.25 MG Hydralazine HCl 10 mg Q6HP PRN IV 09/02/25 14:30 Sodium Chloride 1,000 ml @ 60 mls/hr [id number] IV 09/02/25 14:30 09/03/25 23:50 60 MLS/HR Prochlorperazine Edisylate 10 mg TIDPRN PRN IV 09/04/25 16:30 09/05/25 00:41 10 MG Cefepime HCl 50 ml @ 12.5 mls/hr Q8H IV 09/06/25 00:00 09/06/25 07:53 12.5 MLS/HR Amino Acids/ Electrolytes/ Dextrose 1,000 ml @ 41 mls/hr ONCE IV 09/05/25 22:45 09/06/25 21:59 09/05/25 23:14 41 MLS/HR Fat Emulsion Intravenous 300 ml/Sodium Chloride 20 meq/ Sodium Acetate 30 meq/Sodium Phosphate 22 meq/ Potassium Chloride 10 meq/ Multivitamins 10 ml/Chromium/ Copper/Manganese/ Zinc 1 ml/Amino Acids/Dextrose/ Purified Water 1,891.5 ml @ 80 mls/hr [id number] IV 09/06/25 22:00 09/07/25 21:59 Laboratory Results Laboratory Tests 09/06/25 05:28 Chemistry Test 09/06/25 05:28 Albumin 3.4 g/dL (3.2-4.8) Calcium Level 9.0 mg/dL (8.7-10.4) Magnesium Level 2.2 mg/dL (1.6-2.6) Phosphorus Level 3.0 mg/dL (2.4-5.1) Total Protein 6.5 g/dL (5.7-8.2) LFT Test 09/06/25 05:28 Alanine Aminotransferase (ALT) 23 U/L (7-40) Alkaline Phosphatase 67 U/L (46-116) Aspartate Amino Transferase (AST) 28 U/L (13-40) Total Bilirubin 0.7 mg/dL (0.2-1.0) Urinalysis Test 08/24/25 21:20 Urine Color Dark-orange (Yellow) Urine Clarity Ex.turbid (Clear) Urine pH 6.5 (5.0-9.0) Urine Specific [place] 1.029 (1.001-1.035) Urine Protein 2+ (Negative) H Urine Ketones Trace (Negative) Urine Blood 3+ /uL (Negative) H Urine Nitrite Negative (Negative) Urine Bilirubin 1+ (Negative) Urine Urobilinogen 4 mg/dL (Negative) H Urine Leukocyte Esterase 3+ /uL (Negative) Urine RBC 68 /hpf (0 - 3) Urine Microscopic WBC 149 /HPF (0-3) H Urine Squamous Epithelial Cells None seen /hpf (<5) Urine Bacteria Many /hpf (None Seen) H Urine Mucus Many (None Seen) Urine Glucose Normal mg/dL (Normal) Microbiology Microbiology Date/Time Source Procedure Growth Status 08/24/25 09:03 Voided Urine Urine Culture - Final Pseudomonas aeruginosa Staphylococcus lugdunensis Enterococcus faecalis Complete 08/24/25 08:21 Blood Blood Culture - Final NO GROWTH AFTER 5 DAYS OF INCUBATION. Complete Labs and/or images reviewed: Labs reviewed by me, Image(s) reviewed by me Assessment/Plan Assessment/Plan Sloan Ibarra is a 69-year-old male with past medical history of kidney stones, hypertension, and hepatitis, who came to the hospital due to left flank pain, brown urine, frequent urination, and painful urination. Patient states he has a history of kidney stones, that he has been passing them at home, but the pain became too much so he came to the hospital. He states his urine has become brown, he can see sediment or stone in the toilet when he urinates, he has the urge to urinate but only a little comes out. 09/02: Patient here with left kidney stone with hydronephrosis status post ESWL Urology; also have diverticulosis with colovesicular fistula, had surgery yesterday now in ICU upgraded after surgery. White count going up but mild stable we will change antibiotics from Levaquin/Zyvox to cefepime/Zyvox. Continue close monitoring for platelets and neurological mental status. Making good urine, on LIS suctioned for surgery. Surgical scar healing well no exudates. We will continue management as prior surgical recommendations otherwise. Remains NPO on TPN. Fluids changed from D5 half-normal to normal saline only. Patient on low-level oxygen 2 L. no vasopressors. 09/03: Patient continues to remain off of any vasopressors, blood pressure stable no hypotension. Today is postop day 2 from ex lap. Patient has JORDAN drain with serosanguineous output, and has left nephrostomy straw-colored urine, urine Rm also with good output in straw-colored urine. We will deescalate care to tele as cleared by surgery. Continue broad-spectrum antibiotics. Surgical scar looking clean staple sutures no drainage from stable, abdomen stable nontender nondistended.. Continue present management, NG tube to continuous suction per surgery, okay to continue deescalation care to tele. 09/04: Patient continues to improve surgery following. On tele now. We will continue present management. Continue IV antibiotics. NG tube in diet management per surgical recommendations 09/05: has BS now. feeling good. hungry. has 2 BM this am. ng tube with minimal output. Surgery made aware, diet per surgery. 09/06: Bowel sounds are very hypoactive. Remains on suctioned low continuous. Very minimal fluid in NG tube canister about 100 cc. Surgery following. Keeping patient NPO. Rm is removed. Patient is ambulating. Requiring less pain control. Diagnosis: Sepsis secondary to urinary tract infection Colovesical fistula surgical consult by Dr. Patterson appreciated, Chest post surgery 09/01/2025 Acute kidney injury, Left hydronephrosis status post nephrostomy tube placement by radiologist, Obstructing kidney stone, History of uro lift procedure by Urology Dr. Hanna two months ago Splenomegaly, Acute diverticulitis: Nutrition TPN Prostatomegaly, Hypertension, UTI due to Pseudomonas, staph lugdunesis,enterococcus faecalis: Plan: GI consult Dr Kasia lauren appreciated IV antibiotics cefepime/ S suction were for surgery NPO TPN 2-3L nasal cannula maintain SpO2 more than 90% urology consult by Dr. Hanna appreciated, planning for ESWL after stabilization tele Full code Plan discussed with: Patient My Orders Orders - ANDRES LE MD Procedure Category Date Status Time Cefepime 2gm/50ml Ns PHA 09/06/25 In Process (Maxipime 2gm/50ml) 00:00 Amino Acid Infusion PHA 09/05/25 In Process In D10w (Clinimix 4. 22:45 Date of Service: Sep 06, 2025 Billing Provider: ANDRES LE MD Common Visit Codes: [id number] INP/OBS CARE(HIGH) ANDRES LE MD Sep 06, 2025 10:10
--- NOTE | 2025-09-06 12:43 | DVHPN2 ---
Progress Note Date Seen: Sep 06, 2025 Resident Creating Document: STEPHANY INGRAM RESIDENT Has the PT tested + for MRSA If YES, has PT been informed?: No (Getting PICC line for TPN) Medical Necessity Reason Pt with a Central, PICC or Fol: Yes The following are medically ne: PICC Line Subjective Review of Systems Not passing flatus No bowel movements NG to LIS with 100-150 mL suction per shift Objective vital signs Vital Sign Date Time Temp Pulse Resp B/P (MAP) Pulse Ox O2 Delivery O2 Flow Rate FiO2 09/06/25 11:26 89 16 128/87 09/06/25 08:00 Room Air* 0 21 09/06/25 05:00 98.6 97 98.6 Total Intake and Output 09/05/25 09/05/25 09/06/25 15:00 23:00 07:00 Intake Total 575 ml 625 ml 450 ml Output Total 830 ml 258 ml 425 ml Balance -255 ml 367 ml 25 ml medications Current Medications Medications Dose Ordered Sig/Radames Route Start Time Stop Time Status Last Admin Dose Admin Docusate Sodium 100 mg BIDPRN PRN PO 08/24/25 11:15 Acetaminophen 650 mg Q6HP PRN PO 08/24/25 11:15 08/25/25 16:06 650 MG Nitroglycerin 0.4 mg Q5MINP PRN SL 08/24/25 11:15 Amino Acids 0 ml @ 0 mls/hr PER PHARMACY IV 08/24/25 16:15 Diagnostic Test (Pha) 1 strip Q6HR 08/25/25 00:00 09/06/25 06:00 1 STRIP Insulin Human Regular FOLLOW SLIDING SCALE Q6HR SC 08/25/25 00:00 09/05/25 12:34 2 UNITS Dextrose 50 ml UD IV 08/24/25 22:00 Sodium Chloride 10 ml QSHIFT@10,22 IV 08/26/25 10:00 09/06/25 10:00 10 ML Vancomycin HCl 0 ml @ 0 mls/hr PER PHARMACY IV 08/26/25 13:45 Cancel Linezolid 300 ml @ 150 mls/hr Q12HR IV 08/27/25 11:00 09/06/25 11:09 150 MLS/HR Metronidazole 100 ml @ 100 mls/hr Q8HR IV 08/28/25 14:00 09/06/25 05:46 100 MLS/HR Lisinopril 20 mg DAILY PO 08/29/25 10:00 08/31/25 10:05 20 MG Pantoprazole Sodium 40 mg DAILY IV 09/02/25 10:00 09/06/25 09:27 40 MG Hydromorphone HCl 0.25 mg Q3HPRN PRN IV 09/02/25 11:15 09/06/25 11:26 0.25 MG Hydralazine HCl 10 mg Q6HP PRN IV 09/02/25 14:30 Sodium Chloride 1,000 ml @ 60 mls/hr [id number] IV 09/02/25 14:30 09/03/25 23:50 60 MLS/HR Prochlorperazine Edisylate 10 mg TIDPRN PRN IV 09/04/25 16:30 09/05/25 00:41 10 MG Cefepime HCl 50 ml @ 12.5 mls/hr Q8H IV 09/06/25 00:00 09/06/25 07:53 12.5 MLS/HR Amino Acids/ Electrolytes/ Dextrose 1,000 ml @ 41 mls/hr ONCE IV 09/05/25 22:45 09/06/25 21:59 09/05/25 23:14 41 MLS/HR Fat Emulsion Intravenous 300 ml/Sodium Chloride 20 meq/ Sodium Acetate 30 meq/Sodium Phosphate 22 meq/ Potassium Chloride 10 meq/ Multivitamins 10 ml/Chromium/ Copper/Manganese/ Zinc 1 ml/Amino Acids/Dextrose/ Purified Water 1,891.5 ml @ 80 mls/hr [id number] IV 09/06/25 22:00 09/07/25 21:59 Examination Gen - no pallor, no scleral icterus Skin - Patients skin is warm and dry. HEENT - normocephalic, atraumatic, dry mucous membranes. Neck - supple, no lymphadenopathy Pulmonary - B/L clear breath sounds cardiovascular - regular S1,S2 heard GI - soft abdomen with a adequate tenderness status post surgery. Bowel sounds very hypoactive Neurological - Patient is alert and oriented x4 and is following commands, no motor or sensory weakness Examination: LUNGS:Abnormal laboratory and microbiology Laboratory Tests 09/06/25 05:28 Test 09/06/25 05:28 Range/Units Serum Glucose 97 74-106 mg/dL Microbiology Date/Time Source Procedure Growth Status 08/24/25 09:03 Voided Urine Urine Culture - Final Pseudomonas aeruginosa Staphylococcus lugdunensis Enterococcus faecalis Complete 08/24/25 08:21 Blood Blood Culture - Final NO GROWTH AFTER 5 DAYS OF INCUBATION. Complete Problem List/Assessment/Plan Problem List/Assessment/Plan Colovesicular fistula status post exploratory laparotomy Sigmoid diverticulosis UTI with Pseudomonas, Staph lugdunensis and Enterococcus faecalis Left hydronephrosis due to obstructive stone status post PCN Plan - status post surgery POD 5 - IV antibiotics - NPO with the NG to LIS - PUD prophylaxis with Protonix - diet to be advanced as per primary surgeon Plan discussed with Dr. Crabtree Plan discussed with: Patient, Other (RN Kelsey) Dietary Evaluation Review Comments: 1) Increase TPN rate to meet at least 75% estimated daily needs 2) Advance to cardiac diet when medically feasible 3) Follow-up with urology and gastroenterology 4) Continue to monitor I&O, labs, and skin integrity Expected Outcomes/Goals: 1) nutrition support to meet at least 75% estimated daily needs 2) labs to improve 3) diet to advance 4) f/u in 3-5 days STEPHANY INGRAM RESIDENT Sep 06, 2025 12:42
--- NOTE | 2025-09-06 14:42 | DVHPN2 ---
Subjective Date Seen: Sep 06, 2025 Post op day Post op day: 5 Patient reports: Feels better (Patient says after recent DVT and patient is feeling better and stronger. Patient remain NPO pending surgery evaluation) General: Normal HNT: Normal Cardiovascular: Normal Respiratory: Normal Gastrointestinal: Other (hiccups) Genitourinary: Normal Musculoskeletal: Normal Neurological: Normal Objective Vitals Vital Sign Date Time Temp Pulse Resp B/P (MAP) Pulse Ox O2 Delivery O2 Flow Rate FiO2 09/06/25 11:26 89 16 128/87 09/06/25 08:00 Room Air* 0 21 09/06/25 05:00 98.6 97 98.6 Total Intake and Output 09/05/25 09/05/25 09/06/25 15:00 23:00 07:00 Intake Total 575 ml 625 ml 450 ml Output Total 830 ml 258 ml 425 ml Balance -255 ml 367 ml 25 ml Medications Current Medications Medications Dose Ordered Sig/Radames Route Start Time Stop Time Status Last Admin Dose Admin Docusate Sodium 100 mg BIDPRN PRN PO 08/24/25 11:15 Acetaminophen 650 mg Q6HP PRN PO 08/24/25 11:15 08/25/25 16:06 650 MG Nitroglycerin 0.4 mg Q5MINP PRN SL 08/24/25 11:15 Amino Acids 0 ml @ 0 mls/hr PER PHARMACY IV 08/24/25 16:15 Diagnostic Test (Pha) 1 strip Q6HR 08/25/25 00:00 09/06/25 12:00 1 STRIP Insulin Human Regular FOLLOW SLIDING SCALE Q6HR SC 08/25/25 00:00 09/05/25 12:34 2 UNITS Dextrose 50 ml UD IV 08/24/25 22:00 Sodium Chloride 10 ml QSHIFT@10,22 IV 08/26/25 10:00 09/06/25 10:00 10 ML Vancomycin HCl 0 ml @ 0 mls/hr PER PHARMACY IV 08/26/25 13:45 Cancel Linezolid 300 ml @ 150 mls/hr Q12HR IV 08/27/25 11:00 09/06/25 11:09 150 MLS/HR Metronidazole 100 ml @ 100 mls/hr Q8HR IV 08/28/25 14:00 09/06/25 05:46 100 MLS/HR Lisinopril 20 mg DAILY PO 08/29/25 10:00 08/31/25 10:05 20 MG Pantoprazole Sodium 40 mg DAILY IV 09/02/25 10:00 09/06/25 09:27 40 MG Hydromorphone HCl 0.25 mg Q3HPRN PRN IV 09/02/25 11:15 09/06/25 11:26 0.25 MG Hydralazine HCl 10 mg Q6HP PRN IV 09/02/25 14:30 Sodium Chloride 1,000 ml @ 60 mls/hr [id number] IV 09/02/25 14:30 09/03/25 23:50 60 MLS/HR Prochlorperazine Edisylate 10 mg TIDPRN PRN IV 09/04/25 16:30 09/05/25 00:41 10 MG Cefepime HCl 50 ml @ 12.5 mls/hr Q8H IV 09/06/25 00:00 09/06/25 07:53 12.5 MLS/HR Amino Acids/ Electrolytes/ Dextrose 1,000 ml @ 41 mls/hr ONCE IV 09/05/25 22:45 09/06/25 21:59 09/05/25 23:14 41 MLS/HR Fat Emulsion Intravenous 300 ml/Sodium Chloride 20 meq/ Sodium Acetate 30 meq/Sodium Phosphate 22 meq/ Potassium Chloride 10 meq/ Multivitamins 10 ml/Chromium/ Copper/Manganese/ Zinc 1 ml/Amino Acids/Dextrose/ Purified Water 1,891.5 ml @ 80 mls/hr [id number] IV 09/06/25 22:00 09/07/25 21:59 General: Normal, Well developed Head/Eyes: Normal ENT: Normal Neck: Normal, Supple Lungs: Normal, Normal inspection Cardiovascular: Normal, Regular rate and rhythm Abdominal: Normal, Soft Musculoskeletal: Normal Extremities: Normal Skin: Normal Labs and Microbiology Laboratory Tests 09/06/25 05:28 Test 09/06/25 05:28 Range/Units Serum Glucose 97 74-106 mg/dL Ass/Plan Labs and/or images reviewed: Labs reviewed by me, Image(s) reviewed by me Problem List Colovesicular fistula status post exploratory laparotomy Sigmoid diverticulosis UTI with Pseudomonas, Staph lugdunensis and Enterococcus faecalis Left hydronephrosis due to obstructive stone status post PCN Plan - status post surgery POD 5 - IV antibiotics - NPO with the NG to LIS - PUD prophylaxis with Protonix - diet to be advanced as per primary surgeon Plan discussed with Dr. Crabtree Assessment/Plan - Reports feeling "pretty good" post-operatively. Reports experiencing hiccups, which were also present prior to the procedure. The surgical wound is clean dry and jose are intact . Denies nausea. Reports no bowel activity yet but is able to use the toilet if needed. Reports feeling pretty good when ambulating. Abdomen is soft on examination. Surgical wound appears to be healing well, Slade drain serous fluid Plan: - The nasogastric tube setting was changed to low continuous suction from intermittent. patient to ambulate with physical therapy NPO 09/06/2025 Subjective: - Reports intermittent hiccups . The hiccups subsided for a period after surgery but have since returned. Reports also not passing gas - Reports having ambulated in the hallway twice. Plan: - patient to ambulate - Continue NPO - Continue nasogastric tube on low continuous suction. - Continue to encourage ambulation. - Will reassess tomorrow. Prognosis: Excellent Plan discussed with Dr. Patterson, patient Visit Coding Surgery Date of Service if different f: Sep 06, 2025 Billing Provider: TRISTON PATTERSON MD Surgery Visit Codes: [id number] INP/OBS CARE(HIGH) BRITTANEY ENRIQUEZ NP Sep 06, 2025 14:41
[2025-09-06] MEDS: TPN PER PHARMACY IV NR (21:43)
[2025-09-07] VITALS (8 sets, daily range): BP systolic 118–144; BP diastolic 77–91; PULSE 85–100; RESP 17–22; TEMP 98.6–98.9; O2SAT 95–97
[2025-09-07 07:33] LABS: Alanine Aminotransferase 21 U/L (7-40); Albumin 3.2 g/dL (3.2-4.8); Alkaline Phosphatase 65 U/L (46-116); Anion Gap 11 (5-15); BUN/Creatinine Ratio 22.0 (10.0-20.0); Blood Urea Nitrogen 18 mg/dL (9-23); Carbon Dioxide 25 mmol/L (20-31); Chloride 100 mmol/L (98-107); Magnesium 2.1 mg/dL (1.6-2.6); Potassium 3.8 mmol/L (3.5-5.1); Total Protein 6.3 g/dL (5.7-8.2)
[2025-09-07 07:34] LABS: Bilirubin, Total 0.6 mg/dL (0.2-1.0)
[2025-09-07 07:37] LABS: Calcium 8.5 mg/dL (8.7-10.4); Glucose 108 mg/dL (74-106); Sodium 136 mmol/L (136-145)
--- NOTE | 2025-09-07 08:30 | DVH ---
CHEST RADIOGRAPH Indication: check NG tube placement Technique: Single frontal view of the chest was obtained COMPARISON: XY CHEST PORTABLE on DOS: 08/24/25, XY CHEST TWO VIEWS ROUTINE on DOS: 08/20/25, XY CHEST TWO VIEWS ROUTINE on DOS: 05/08/25 FINDINGS: Lines and Tubes: Enteric catheter and right PICC in satisfactory position. Lungs: Mild congestion. Pleura: No effusion. No pneumothorax. Cardiomediastinal contours: Unremarkable Bones: Unremarkable IMPRESSION: Enteric catheter and right PICC in satisfactory position.
--- NOTE | 2025-09-07 11:39 | DVHPN2 ---
Reviewed: Care Plan, H&P, Labs, Medications, Previous Orders, Radiology Changes from previous H/P or p: No Changes General: Per HPI Eyes: No Pain, No Vision change, No Conjunctivae inflammation, No Eyelid inflammation, No Other, No Redness ENT: No Ear pain, No Ear discharge, No Nose pain, No Nose discharge, No Nose congestion, No Mouth pain, No Mouth swelling, No Throat pain, No Throat swelling, No Other Cardiovascular: No Chest Pain, No Palpitations, No Orthopnea, No Paroxysmal Noc. Dyspnea, No Edema, No Lt Headedness, No Other Respiratory: No Cough, No Dry, No Shortness of breath, No SOB with excertion, No Wheezing, No Hemoptysis, No Pleuritic Pain, No Sputum, No Other Gastrointestinal: No Nausea, No Vomiting, No Abdominal Pain, No Diarrhea, No Constipation, No Melena, No Hematochezia, No Other Genitourinary: Dysuria, Frequency; No Incontinence; Hematuria; No Retention, No Other Musculoskeletal: No other, No neck pain, No shoulder pain, No arm pain; back pain (left flank); No hand pain, No leg pain, No foot pain Skin: No Rash, No Lesions, No Jaundice, No Bruising, No Other Objective Vitals Vital Signs Date Time Temp Pulse Resp B/P (MAP) Pulse Ox O2 Delivery O2 Flow Rate FiO2 09/07/25 11:04 138/92 09/07/25 09:41 86 16 09/07/25 09:00 98.7 96 98.7 09/06/25 20:00 Room Air* 0 21 Intake/Output Intake and Output 09/07/25 07:00 Intake Total 450 ml Output Total 1088 ml Balance -638 ml Intake Oral 0 ml IV Total 450 ml Gastric Drainage Total 150 ml Drainage Total 608 ml Other 330 ml Exam GEN: Healthy appearing, well-developed, NAD. HEENT: NC/AT; MMM. NG tube inserted CV: RRR, no m/r/g. LUNGS: CTAB, no w/r/c. ABD: Soft, NT/ND, NBS, no masses or organomegaly. Large surgical incision with jose sutures EXT: skin Warm, well perfused. no rashes. No clubbing, cyanosis, or edema. NEURO: Ambulating with no limitations. No focal deficits. Medications Current Medications Medications Dose Ordered Sig/Radames Route Start Time Stop Time Status Last Admin Dose Admin Docusate Sodium 100 mg BIDPRN PRN PO 08/24/25 11:15 Acetaminophen 650 mg Q6HP PRN PO 08/24/25 11:15 08/25/25 16:06 650 MG Nitroglycerin 0.4 mg Q5MINP PRN SL 08/24/25 11:15 Amino Acids 0 ml @ 0 mls/hr PER PHARMACY IV 08/24/25 16:15 Diagnostic Test (Pha) 1 strip Q6HR 08/25/25 00:00 09/07/25 05:32 1 STRIP Insulin Human Regular FOLLOW SLIDING SCALE Q6HR SC 08/25/25 00:00 09/07/25 05:27 2 UNITS Dextrose 50 ml UD IV 08/24/25 22:00 Sodium Chloride 10 ml QSHIFT@10,22 IV 08/26/25 10:00 09/07/25 10:00 10 ML Vancomycin HCl 0 ml @ 0 mls/hr PER PHARMACY IV 08/26/25 13:45 Cancel Linezolid 300 ml @ 150 mls/hr Q12HR IV 08/27/25 11:00 09/07/25 11:05 150 MLS/HR Metronidazole 100 ml @ 100 mls/hr Q8HR IV 08/28/25 14:00 09/07/25 05:17 100 MLS/HR Lisinopril 20 mg DAILY PO 08/29/25 10:00 08/31/25 10:05 20 MG Pantoprazole Sodium 40 mg DAILY IV 09/02/25 10:00 09/07/25 11:04 40 MG Hydromorphone HCl 0.25 mg Q3HPRN PRN IV 09/02/25 11:15 09/07/25 09:11 0.25 MG Hydralazine HCl 10 mg Q6HP PRN IV 09/02/25 14:30 Sodium Chloride 1,000 ml @ 60 mls/hr [id number] IV 09/02/25 14:30 09/07/25 11:06 60 MLS/HR Prochlorperazine Edisylate 10 mg TIDPRN PRN IV 09/04/25 16:30 09/05/25 00:41 10 MG Cefepime HCl 50 ml @ 12.5 mls/hr Q8H IV 09/06/25 00:00 09/07/25 09:09 12.5 MLS/HR Fat Emulsion Intravenous 300 ml/Sodium Chloride 20 meq/ Sodium Acetate 30 meq/Sodium Phosphate 22 meq/ Potassium Chloride 10 meq/ Multivitamins 10 ml/Chromium/ Copper/Manganese/ Zinc 1 ml/Amino Acids/Dextrose/ Purified Water 1,891.5 ml @ 80 mls/hr [id number] IV 09/06/25 22:00 09/07/25 21:59 09/06/25 21:43 80 MLS/HR Fat Emulsion Intravenous 300 ml/Sodium Chloride 30 meq/ Sodium Acetate 40 meq/Sodium Phosphate 22 meq/ Potassium Chloride 10 meq/ Potassium Phosphate 22 meq/ Calcium Gluconate 4.65 meq/ Magnesium Sulfate 4 meq/ Multivitamins 10 ml/Chromium/ Copper/Manganese/ Zinc 1 ml/Am... 1,815 ml @ 76 mls/hr [id number] IV 09/07/25 22:00 09/08/25 21:59 Laboratory Results Laboratory Tests 09/06/25 05:28 09/07/25 06:10 Chemistry Test 09/07/25 06:10 Albumin 3.2 g/dL (3.2-4.8) Calcium Level 8.5 mg/dL (8.7-10.4) L Magnesium Level 2.1 mg/dL (1.6-2.6) Phosphorus Level 3.2 mg/dL (2.4-5.1) Total Protein 6.3 g/dL (5.7-8.2) LFT Test 09/07/25 06:10 Alanine Aminotransferase (ALT) 21 U/L (7-40) Alkaline Phosphatase 65 U/L (46-116) Aspartate Amino Transferase (AST) 27 U/L (13-40) Total Bilirubin 0.6 mg/dL (0.2-1.0) Urinalysis Test 08/24/25 21:20 Urine Color Dark-orange (Yellow) Urine Clarity Ex.turbid (Clear) Urine pH 6.5 (5.0-9.0) Urine Specific [place] 1.029 (1.001-1.035) Urine Protein 2+ (Negative) H Urine Ketones Trace (Negative) Urine Blood 3+ /uL (Negative) H Urine Nitrite Negative (Negative) Urine Bilirubin 1+ (Negative) Urine Urobilinogen 4 mg/dL (Negative) H Urine Leukocyte Esterase 3+ /uL (Negative) Urine RBC 68 /hpf (0 - 3) Urine Microscopic WBC 149 /HPF (0-3) H Urine Squamous Epithelial Cells None seen /hpf (<5) Urine Bacteria Many /hpf (None Seen) H Urine Mucus Many (None Seen) Urine Glucose Normal mg/dL (Normal) Microbiology Microbiology Date/Time Source Procedure Growth Status 08/24/25 09:03 Voided Urine Urine Culture - Final Pseudomonas aeruginosa Staphylococcus lugdunensis Enterococcus faecalis Complete 08/24/25 08:21 Blood Blood Culture - Final NO GROWTH AFTER 5 DAYS OF INCUBATION. Complete Labs and/or images reviewed: Labs reviewed by me, Image(s) reviewed by me Assessment/Plan Assessment/Plan Sloan Ibarra is a 69-year-old male with past medical history of kidney stones, hypertension, and hepatitis, who came to the hospital due to left flank pain, brown urine, frequent urination, and painful urination. Patient states he has a history of kidney stones, that he has been passing them at home, but the pain became too much so he came to the hospital. He states his urine has become brown, he can see sediment or stone in the toilet when he urinates, he has the urge to urinate but only a little comes out. 09/02: Patient here with left kidney stone with hydronephrosis status post ESWL Urology; also have diverticulosis with colovesicular fistula, had surgery yesterday now in ICU upgraded after surgery. White count going up but mild stable we will change antibiotics from Levaquin/Zyvox to cefepime/Zyvox. Continue close monitoring for platelets and neurological mental status. Making good urine, on LIS suctioned for surgery. Surgical scar healing well no exudates. We will continue management as prior surgical recommendations otherwise. Remains NPO on TPN. Fluids changed from D5 half-normal to normal saline only. Patient on low-level oxygen 2 L. no vasopressors. 09/03: Patient continues to remain off of any vasopressors, blood pressure stable no hypotension. Today is postop day 2 from ex lap. Patient has JORDAN drain with serosanguineous output, and has left nephrostomy straw-colored urine, urine Rm also with good output in straw-colored urine. We will deescalate care to tele as cleared by surgery. Continue broad-spectrum antibiotics. Surgical scar looking clean staple sutures no drainage from stable, abdomen stable nontender nondistended.. Continue present management, NG tube to continuous suction per surgery, okay to continue deescalation care to tele. 09/04: Patient continues to improve surgery following. On tele now. We will continue present management. Continue IV antibiotics. NG tube in diet management per surgical recommendations 09/05: has BS now. feeling good. hungry. has 2 BM this am. ng tube with minimal output. Surgery made aware, diet per surgery. 09/06: Bowel sounds are very hypoactive. Remains on suctioned low continuous. Very minimal fluid in NG tube canister about 100 cc. Surgery following. Keeping patient NPO. Rm is removed. Patient is ambulating. Requiring less pain control. 09/07: Hypoactive bowel sounds, remaining NPO by surgery. Minimal NG output, bowel sounds are hypoactive and almost absent. Surgery following. He is ambulating now, Rm remains out. Also minimal output in the JORDAN drain. Contacted surgery in want to keep him NPO. TPN is hanging at bedside. We will continue present management. Diagnosis: Sepsis secondary to urinary tract infection Colovesical fistula surgical consult by Dr. Patterson appreciated, Chest post surgery 09/01/2025 Acute kidney injury, Left hydronephrosis status post nephrostomy tube placement by radiologist, Obstructing kidney stone, History of uro lift procedure by Urology Dr. Hanna two months ago Splenomegaly, Acute diverticulitis: Nutrition TPN Prostatomegaly, Hypertension, UTI due to Pseudomonas, staph lugdunesis,enterococcus faecalis: Plan: GI consult Dr Kasia lauren appreciated IV antibiotics cefepime/ S suction were for surgery NPO TPN 2-3L nasal cannula maintain SpO2 more than 90% urology consult by Dr. Hanna appreciated, planning for ESWL after stabilization tele Full code Plan discussed with: Patient Date of Service: Sep 07, 2025 Billing Provider: ANDRES LE MD Common Visit Codes: [id number] INP/OBS CARE(HIGH) ANDRES LE MD Sep 07, 2025 11:39
[2025-09-07] MEDS ORDERED: GASTROGRAFIN 120 ML SOL ONE (11:55)
--- NOTE | 2025-09-07 13:58 | DVHPN2 ---
Progress Note - Dictate Date Seen: Sep 07, 2025 Has the PT tested + for MRSA If YES, has PT been informed?: No (Getting PICC line for TPN) Medical Necessity Reason Pt with a Central, PICC or Fol: Yes The following are medically ne: PICC Line Subjective Patient underwent sigmoid colectomy with primary anastomosis on 09/02/2025 underlying chronic diverticulitis with colovesicular fistula that was resected Patient is extubated on 2 L nasal cannula Patient has two recorded bowel movements on 09/05/2025 Currently he still has an NG-tube and is NPO Patient is ambulating and undergoing physical therapy Incision is healing well vital signs Vital Sign Date Time Temp Pulse Resp B/P (MAP) Pulse Ox O2 Delivery O2 Flow Rate FiO2 09/07/25 13:00 98.8 85 18 125/81 (96) 96 98.8 09/07/25 08:00 Room Air* 0 21 Total Intake and Output 09/06/25 09/06/25 09/07/25 15:00 23:00 07:00 Intake Total 350 ml 100 ml Output Total 333 ml 755 ml Balance 17 ml 100 ml -755 ml medications Current Medications Medications Dose Ordered Sig/Radames Route Start Time Stop Time Status Last Admin Dose Admin Docusate Sodium 100 mg BIDPRN PRN PO 08/24/25 11:15 Acetaminophen 650 mg Q6HP PRN PO 08/24/25 11:15 08/25/25 16:06 650 MG Nitroglycerin 0.4 mg Q5MINP PRN SL 08/24/25 11:15 Amino Acids 0 ml @ 0 mls/hr PER PHARMACY IV 08/24/25 16:15 Diagnostic Test (Pha) 1 strip Q6HR 08/25/25 00:00 09/07/25 12:00 1 STRIP Insulin Human Regular FOLLOW SLIDING SCALE Q6HR SC 08/25/25 00:00 09/07/25 05:27 2 UNITS Dextrose 50 ml UD IV 08/24/25 22:00 Sodium Chloride 10 ml QSHIFT@10,22 IV 08/26/25 10:00 09/07/25 10:00 10 ML Vancomycin HCl 0 ml @ 0 mls/hr PER PHARMACY IV 08/26/25 13:45 Cancel Linezolid 300 ml @ 150 mls/hr Q12HR IV 08/27/25 11:00 09/07/25 11:05 150 MLS/HR Metronidazole 100 ml @ 100 mls/hr Q8HR IV 08/28/25 14:00 09/07/25 05:17 100 MLS/HR Lisinopril 20 mg DAILY PO 08/29/25 10:00 08/31/25 10:05 20 MG Pantoprazole Sodium 40 mg DAILY IV 09/02/25 10:00 09/07/25 11:04 40 MG Hydromorphone HCl 0.25 mg Q3HPRN PRN IV 09/02/25 11:15 09/07/25 09:11 0.25 MG Hydralazine HCl 10 mg Q6HP PRN IV 09/02/25 14:30 Sodium Chloride 1,000 ml @ 60 mls/hr [id number] IV 09/02/25 14:30 09/07/25 11:06 60 MLS/HR Prochlorperazine Edisylate 10 mg TIDPRN PRN IV 09/04/25 16:30 09/05/25 00:41 10 MG Cefepime HCl 50 ml @ 12.5 mls/hr Q8H IV 09/06/25 00:00 09/07/25 09:09 12.5 MLS/HR Fat Emulsion Intravenous 300 ml/Sodium Chloride 20 meq/ Sodium Acetate 30 meq/Sodium Phosphate 22 meq/ Potassium Chloride 10 meq/ Multivitamins 10 ml/Chromium/ Copper/Manganese/ Zinc 1 ml/Amino Acids/Dextrose/ Purified Water 1,891.5 ml @ 80 mls/hr [id number] IV 09/06/25 22:00 09/07/25 21:59 09/06/25 21:43 80 MLS/HR Fat Emulsion Intravenous 300 ml/Sodium Chloride 30 meq/ Sodium Acetate 40 meq/Sodium Phosphate 22 meq/ Potassium Chloride 10 meq/ Potassium Phosphate 22 meq/ Calcium Gluconate 4.65 meq/ Magnesium Sulfate 4 meq/ Multivitamins 10 ml/Chromium/ Copper/Manganese/ Zinc 1 ml/Am... 1,815 ml @ 76 mls/hr [id number] IV 09/07/25 22:00 09/08/25 21:59 objective Gen - no pallor, no scleral icterus Skin - Patients skin is warm and dry. HEENT - normocephalic, atraumatic, dry mucous membranes. Neck - supple, no lymphadenopathy Pulmonary - B/L clear breath sounds cardiovascular - regular S1,S2 heard GI - soft abdomen with a adequate tenderness status post surgery. Bowel sounds very hypoactive wound, binder in place Neurological - Patient is alert and oriented x4 and is following commands, no motor or sensory weakness laboratory and microbiology Laboratory Tests 09/07/25 06:10 09/06/25 05:28 Test 09/07/25 06:10 Range/Units Serum Glucose 108 H 74-106 mg/dL Problems(with codes): (1) Abnormal finding on CT scan (2) Acute diverticulitis (3) Hydronephrosis concurrent with and due to calculi of kidney and ureter (4) Colovesical fistula (5) Leukocytosis (6) Diverticulitis (7) LLQ abdominal pain Prognosis Plan Consider clamping NG tube and starting him on ice chips Awaiting surgical a input and recommendations regarding the same Currently patient is on IV TPN and IV antibiotics Continue physical therapy Await final pathology report Dietary Evaluation Review Comments: 1) Increase TPN rate to meet at least 75% estimated daily needs 2) Advance to cardiac diet when medically feasible 3) Follow-up with urology and gastroenterology 4) Continue to monitor I&O, labs, and skin integrity Expected Outcomes/Goals: 1) nutrition support to meet at least 75% estimated daily needs 2) labs to improve 3) diet to advance 4) f/u in 3-5 days Plan discussed with: Other ( Jhajj) DEBBIE LINDER MD Sep 07, 2025 13:58
--- NOTE | 2025-09-07 15:04 | DVH ---
Procedure: XY SMALL BOWEL SERIES-W GASTROGRA Reason for study/Clinical History: R/O obstruction Comparison Study: None Technique: Single contrast small bowel series performed. FINDINGS/IMPRESSION: Initial brush cleaner view of the abdomen and pelvis appears demonstrates no acute process. Contrast is identified within the colon by 2 hours 25 minutes. This represents a normal small bowel transit time. Nephrostomy tube is in place on the left. Surgical drain noted in the pelvis. Skin closure jose in the pelvic midline. Surgical jose noted in the lower right abdomen level of the L5.
[2025-09-08 01:00] VITALS: BP 128/83; PULSE 88; RESP 18; TEMP 98.3; O2SAT 95
[2025-09-08 05:00] VITALS: BP 122/79; PULSE 93; RESP 18; TEMP 98.6; O2SAT 95
[2025-09-08 07:48] LABS: Alanine Aminotransferase 23 U/L (7-40); Alkaline Phosphatase 71 U/L (46-116); Anion Gap 10 (5-15); BUN/Creatinine Ratio 30.8 (10.0-20.0); Bilirubin, Total 0.6 mg/dL (0.2-1.0); Carbon Dioxide 27 mmol/L (20-31); Chloride 101 mmol/L (98-107); Magnesium 1.9 mg/dL (1.6-2.6); Potassium 3.8 mmol/L (3.5-5.1); Sodium 138 mmol/L (136-145); Triglycerides 54 mg/dL (< 150)
[2025-09-08 07:49] LABS: Albumin 2.9 g/dL (3.2-4.8); Blood Urea Nitrogen 24 mg/dL (9-23); Calcium 8.3 mg/dL (8.7-10.4); Glucose 107 mg/dL (74-106); Total Protein 5.6 g/dL (5.7-8.2)
[2025-09-08 08:54] VITALS: BP 124/80; PULSE 87; RESP 17; TEMP 97.9; O2SAT 95
--- NOTE | 2025-09-08 11:34 | DVHPN2 ---
Progress Note Date Seen: Sep 08, 2025 Has the PT tested + for MRSA If YES, has PT been informed?: No (Getting PICC line for TPN) Medical Necessity Reason Pt with a Central, PICC or Fol: Yes The following are medically ne: PICC Line Objective vital signs Vital Sign Date Time Temp Pulse Resp B/P (MAP) Pulse Ox O2 Delivery O2 Flow Rate FiO2 09/08/25 10:29 87 16 124/80 09/08/25 08:54 97.9 95 97.9 09/08/25 08:00 Room Air* 0 21 Total Intake and Output 09/07/25 09/07/25 09/08/25 15:00 23:00 07:00 Intake Total 350 ml 0 ml 100 ml Output Total 325 ml 883 ml Balance 350 ml -325 ml -783 ml medications Current Medications Medications Dose Ordered Sig/Radames Route Start Time Stop Time Status Last Admin Dose Admin Docusate Sodium 100 mg BIDPRN PRN PO 08/24/25 11:15 Acetaminophen 650 mg Q6HP PRN PO 08/24/25 11:15 08/25/25 16:06 650 MG Nitroglycerin 0.4 mg Q5MINP PRN SL 08/24/25 11:15 Amino Acids 0 ml @ 0 mls/hr PER PHARMACY IV 08/24/25 16:15 Diagnostic Test (Pha) 1 strip Q6HR 08/25/25 00:00 09/08/25 05:27 1 STRIP Insulin Human Regular FOLLOW SLIDING SCALE Q6HR SC 08/25/25 00:00 09/08/25 00:00 2 UNITS Dextrose 50 ml UD IV 08/24/25 22:00 Sodium Chloride 10 ml QSHIFT@10,22 IV 08/26/25 10:00 09/08/25 10:13 10 ML Vancomycin HCl 0 ml @ 0 mls/hr PER PHARMACY IV 08/26/25 13:45 Cancel Linezolid 300 ml @ 150 mls/hr Q12HR IV 08/27/25 11:00 09/08/25 10:28 150 MLS/HR Metronidazole 100 ml @ 100 mls/hr Q8HR IV 08/28/25 14:00 09/08/25 05:35 100 MLS/HR Lisinopril 20 mg DAILY PO 08/29/25 10:00 08/31/25 10:05 20 MG Pantoprazole Sodium 40 mg DAILY IV 09/02/25 10:00 09/08/25 10:28 40 MG Hydromorphone HCl 0.25 mg Q3HPRN PRN IV 09/02/25 11:15 09/08/25 10:29 0.25 MG Hydralazine HCl 10 mg Q6HP PRN IV 09/02/25 14:30 Sodium Chloride 1,000 ml @ 60 mls/hr [id number] IV 09/02/25 14:30 09/07/25 11:06 60 MLS/HR Prochlorperazine Edisylate 10 mg TIDPRN PRN IV 09/04/25 16:30 09/07/25 15:53 10 MG Cefepime HCl 50 ml @ 12.5 mls/hr Q8H IV 09/06/25 00:00 09/08/25 08:03 12.5 MLS/HR Fat Emulsion Intravenous 300 ml/Sodium Chloride 30 meq/ Sodium Acetate 40 meq/Sodium Phosphate 22 meq/ Potassium Chloride 10 meq/ Potassium Phosphate 22 meq/ Calcium Gluconate 4.65 meq/ Magnesium Sulfate 4 meq/ Multivitamins 10 ml/Chromium/ Copper/Manganese/ Zinc 1 ml/Am... 1,815 ml @ 76 mls/hr [id number] IV 09/07/25 22:00 09/08/25 21:59 09/07/25 21:10 76 MLS/HR Fat Emulsion Intravenous 350 ml/Sodium Chloride 30 meq/ Sodium Phosphate 40 meq/Potassium Chloride 30 meq/ Calcium Gluconate 2.3 meq/Magnesium Sulfate 8 meq/ Multivitamins 10 ml/Chromium/ Copper/Manganese/ Zinc 1 ml/Amino Acids/Dextrose/ Purified Water 1,850.4462 ml @ 77 mls/hr Q24H2M IV 09/08/25 22:00 09/09/25 21:59 laboratory and microbiology Laboratory Tests 09/08/25 05:14 09/06/25 05:28 Test 09/08/25 05:14 Range/Units Serum Glucose 107 H 74-106 mg/dL Problem List/Assessment/Plan Problem List/Assessment/Plan 08/26/25PATIENT HAS A SUGGESTION OF COLOVESICAL FISTULA ON IMAGING,HAS BEEN PASSING WHAT APPEARS TO BE STOOL IN HIS URINE, AWAITING CYSTOGRAM, EXPLAINED TO PATIENT IN GREAT DETAIL' 09/02/25 doing well wound clean and well approximated, abdomen appropriately tender, ROB drainage cleart and small in volume, operative findings explained, keep NPO,NGT, ok to leave ICU. 09/04/25 no flatus, no BM, wound clean and well approximated, abdomen soft, non tender and appropriately tender, rob drain serosanguineous. labs ok, ambulate frequently 09/05/25 TWO VERY SMALL BOWEL MOVEMENTS BUT NOT PASSING FLATUS, LEAVE NGT IN PLACE AND KEEP NPO TILL FLATUS, ABDOMEN SOFT NON DISTENDED APPROPRIATELY TENDER, DRAINAGE SEROUS (ROB DRAIN), MUST AMBULATE Q 4 HOURS 09/08/25 [email or web address] study shows no evidence of SB obstruction, he has had several bowel movements since the x ray, abdomen is soft and non distended, drainage minimal. will dc ngt and allow po intake Plan discussed with: Patient Dietary Evaluation Review Comments: 1) Increase TPN rate to meet at least 75% estimated daily needs 2) Advance to cardiac diet when medically feasible 3) Follow-up with urology and gastroenterology 4) Continue to monitor I&O, labs, and skin integrity Expected Outcomes/Goals: 1) nutrition support to meet at least 75% estimated daily needs 2) labs to improve 3) diet to advance 4) f/u in 3-5 days TRISTON BARNES MD Sep 08, 2025 11:34
[2025-09-08 13:00] VITALS: BP 127/81; PULSE 84; RESP 18; TEMP 97.5; O2SAT 95
--- NOTE | 2025-09-08 13:42 | DVHPN2 ---
Subjective in bed and NGT in place Reviewed: Care Plan, H&P, Labs, Medications, Previous Orders, Radiology Changes from previous H/P or p: No Changes General: Per HPI Eyes: No Pain, No Vision change, No Conjunctivae inflammation, No Eyelid inflammation, No Other, No Redness ENT: No Ear pain, No Ear discharge, No Nose pain, No Nose discharge, No Nose congestion, No Mouth pain, No Mouth swelling, No Throat pain, No Throat swelling, No Other Cardiovascular: No Chest Pain, No Palpitations, No Orthopnea, No Paroxysmal Noc. Dyspnea, No Edema, No Lt Headedness, No Other Respiratory: No Cough, No Dry, No Shortness of breath, No SOB with excertion, No Wheezing, No Hemoptysis, No Pleuritic Pain, No Sputum, No Other Gastrointestinal: No Nausea, No Vomiting, No Abdominal Pain, No Diarrhea, No Constipation, No Melena, No Hematochezia, No Other Genitourinary: Dysuria, Frequency; No Incontinence; Hematuria; No Retention, No Other Musculoskeletal: No other, No neck pain, No shoulder pain, No arm pain; back pain (left flank); No hand pain, No leg pain, No foot pain Skin: No Rash, No Lesions, No Jaundice, No Bruising, No Other Objective Vitals Vital Signs Date Time Temp Pulse Resp B/P (MAP) Pulse Ox O2 Delivery O2 Flow Rate FiO2 09/08/25 13:00 97.5 84 18 127/81 (96) 95 97.5 09/08/25 08:00 Room Air* 0 21 Intake/Output Intake and Output 09/08/25 07:00 Intake Total 450 ml Output Total 1208 ml Balance -758 ml Intake Oral 0 ml IV Total 450 ml Output Urine Total 900 ml Gastric Drainage Total 300 ml Drainage Total 8 ml General Appearance: Oriented X3 Lungs: Clear to auscultation Cardiovascular: Regular rate, Normal S1, Normal S2 Abdomen: Normal bowel sounds Medications Current Medications Medications Dose Ordered Sig/Radames Route Start Time Stop Time Status Last Admin Dose Admin Docusate Sodium 100 mg BIDPRN PRN PO 08/24/25 11:15 Acetaminophen 650 mg Q6HP PRN PO 08/24/25 11:15 08/25/25 16:06 650 MG Nitroglycerin 0.4 mg Q5MINP PRN SL 08/24/25 11:15 Amino Acids 0 ml @ 0 mls/hr PER PHARMACY IV 08/24/25 16:15 Diagnostic Test (Pha) 1 strip Q6HR 08/25/25 00:00 09/08/25 12:13 1 STRIP Insulin Human Regular FOLLOW SLIDING SCALE Q6HR SC 08/25/25 00:00 09/08/25 00:00 2 UNITS Dextrose 50 ml UD IV 08/24/25 22:00 Sodium Chloride 10 ml QSHIFT@10,22 IV 08/26/25 10:00 09/08/25 10:13 10 ML Vancomycin HCl 0 ml @ 0 mls/hr PER PHARMACY IV 08/26/25 13:45 Cancel Linezolid 300 ml @ 150 mls/hr Q12HR IV 08/27/25 11:00 09/08/25 10:28 150 MLS/HR Metronidazole 100 ml @ 100 mls/hr Q8HR IV 08/28/25 14:00 09/08/25 05:35 100 MLS/HR Lisinopril 20 mg DAILY PO 08/29/25 10:00 08/31/25 10:05 20 MG Pantoprazole Sodium 40 mg DAILY IV 09/02/25 10:00 09/08/25 10:28 40 MG Hydromorphone HCl 0.25 mg Q3HPRN PRN IV 09/02/25 11:15 09/08/25 10:29 0.25 MG Hydralazine HCl 10 mg Q6HP PRN IV 09/02/25 14:30 Sodium Chloride 1,000 ml @ 60 mls/hr [id number] IV 09/02/25 14:30 09/07/25 11:06 60 MLS/HR Prochlorperazine Edisylate 10 mg TIDPRN PRN IV 09/04/25 16:30 09/08/25 12:38 10 MG Cefepime HCl 50 ml @ 12.5 mls/hr Q8H IV 09/06/25 00:00 09/08/25 08:03 12.5 MLS/HR Fat Emulsion Intravenous 300 ml/Sodium Chloride 30 meq/ Sodium Acetate 40 meq/Sodium Phosphate 22 meq/ Potassium Chloride 10 meq/ Potassium Phosphate 22 meq/ Calcium Gluconate 4.65 meq/ Magnesium Sulfate 4 meq/ Multivitamins 10 ml/Chromium/ Copper/Manganese/ Zinc 1 ml/Am... 1,815 ml @ 76 mls/hr [id number] IV 09/07/25 22:00 09/08/25 21:59 09/07/25 21:10 76 MLS/HR Fat Emulsion Intravenous 350 ml/Sodium Chloride 30 meq/ Sodium Phosphate 40 meq/Potassium Chloride 30 meq/ Calcium Gluconate 2.3 meq/Magnesium Sulfate 8 meq/ Multivitamins 10 ml/Chromium/ Copper/Manganese/ Zinc 1 ml/Amino Acids/Dextrose/ Purified Water 1,850.4462 ml @ 77 mls/hr Q24H2M IV 09/08/25 22:00 09/09/25 21:59 Laboratory Results Laboratory Tests 09/06/25 05:28 09/08/25 05:14 Chemistry Test 09/08/25 05:14 Albumin 2.9 g/dL (3.2-4.8) L Calcium Level 8.3 mg/dL (8.7-10.4) L Magnesium Level 1.9 mg/dL (1.6-2.6) Phosphorus Level 3.1 mg/dL (2.4-5.1) Total Protein 5.6 g/dL (5.7-8.2) L Lipid panel Test 09/08/25 05:14 Triglycerides Level 54 mg/dL (< 150) LFT Test 09/08/25 05:14 Alanine Aminotransferase (ALT) 23 U/L (7-40) Alkaline Phosphatase 71 U/L (46-116) Aspartate Amino Transferase (AST) 28 U/L (13-40) Total Bilirubin 0.6 mg/dL (0.2-1.0) Urinalysis Test 08/24/25 21:20 Urine Color Dark-orange (Yellow) Urine Clarity Ex.turbid (Clear) Urine pH 6.5 (5.0-9.0) Urine Specific [place] 1.029 (1.001-1.035) Urine Protein 2+ (Negative) H Urine Ketones Trace (Negative) Urine Blood 3+ /uL (Negative) H Urine Nitrite Negative (Negative) Urine Bilirubin 1+ (Negative) Urine Urobilinogen 4 mg/dL (Negative) H Urine Leukocyte Esterase 3+ /uL (Negative) Urine RBC 68 /hpf (0 - 3) Urine Microscopic WBC 149 /HPF (0-3) H Urine Squamous Epithelial Cells None seen /hpf (<5) Urine Bacteria Many /hpf (None Seen) H Urine Mucus Many (None Seen) Urine Glucose Normal mg/dL (Normal) Microbiology Microbiology Date/Time Source Procedure Growth Status 08/24/25 09:03 Voided Urine Urine Culture - Final Pseudomonas aeruginosa Staphylococcus lugdunensis Enterococcus faecalis Complete 08/24/25 08:21 Blood Blood Culture - Final NO GROWTH AFTER 5 DAYS OF INCUBATION. Complete Assessment/Plan Assessment/Plan Sloan Ibarra is a 69-year-old male with past medical history of kidney stones, hypertension, and hepatitis, who came to the hospital due to left flank pain, brown urine, frequent urination, and painful urination. Patient states he has a history of kidney stones, that he has been passing them at home, but the pain became too much so he came to the hospital. He states his urine has become brown, he can see sediment or stone in the toilet when he urinates, he has the urge to urinate but only a little comes out. 09/02: Patient here with left kidney stone with hydronephrosis status post ESWL Urology; also have diverticulosis with colovesicular fistula, had surgery yesterday now in ICU upgraded after surgery. White count going up but mild stable we will change antibiotics from Levaquin/Zyvox to cefepime/Zyvox. Continue close monitoring for platelets and neurological mental status. Making good urine, on LIS suctioned for surgery. Surgical scar healing well no exudates. We will continue management as prior surgical recommendations otherwise. Remains NPO on TPN. Fluids changed from D5 half-normal to normal saline only. Patient on low-level oxygen 2 L. no vasopressors. 09/03: Patient continues to remain off of any vasopressors, blood pressure stable no hypotension. Today is postop day 2 from ex lap. Patient has JORDAN drain with serosanguineous output, and has left nephrostomy straw-colored urine, urine Rm also with good output in straw-colored urine. We will deescalate care to tele as cleared by surgery. Continue broad-spectrum antibiotics. Surgical scar looking clean staple sutures no drainage from stable, abdomen stable nontender nondistended.. Continue present management, NG tube to continuous suction per surgery, okay to continue deescalation care to tele. 09/04: Patient continues to improve surgery following. On tele now. We will continue present management. Continue IV antibiotics. NG tube in diet management per surgical recommendations 09/05: has BS now. feeling good. hungry. has 2 BM this am. ng tube with minimal output. Surgery made aware, diet per surgery. 09/06: Bowel sounds are very hypoactive. Remains on suctioned low continuous. Very minimal fluid in NG tube canister about 100 cc. Surgery following. Keeping patient NPO. Rm is removed. Patient is ambulating. Requiring less pain control. 09/07: Hypoactive bowel sounds, remaining NPO by surgery. Minimal NG output, bowel sounds are hypoactive and almost absent. Surgery following. He is ambulating now, Rm remains out. Also minimal output in the JORDAN drain. Contacted surgery in want to keep him NPO. TPN is hanging at bedside. We will continue present management. 09/08 passing stool Diagnosis: Sepsis secondary to urinary tract infection Colovesical fistula surgical consult by Dr. Patterson appreciated, Chest post surgery 09/01/2025 Acute kidney injury, Left hydronephrosis status post nephrostomy tube placement by radiologist, Obstructing kidney stone, History of uro lift procedure by Urology Dr. Hanna two months ago Splenomegaly, Acute diverticulitis: Nutrition TPN Prostatomegaly, Hypertension, UTI due to Pseudomonas, staph lugdunesis,enterococcus faecalis: Plan: GI consult Dr Kasia lauren appreciated IV antibiotics cefepime/ S suction were for surgery NPO TPN 2-3L nasal cannula maintain SpO2 more than 90% urology consult by Dr. Hanna appreciated, planning for ESWL after stabilization Plan discussed with: Patient Date of Service: Sep 08, 2025 Billing Provider: JIGNA TOWNSEND MD Common Visit Codes: [id number] INP/OBS CARE(HIGH) JIGNA TOWNSEND MD Sep 08, 2025 13:42
[2025-09-08 16:54] VITALS: BP 119/79; PULSE 86; RESP 16; TEMP 97.8; O2SAT 95
[2025-09-08 21:00] VITALS: BP 129/87; PULSE 88; RESP 18; TEMP 98.6; O2SAT 96
[2025-09-08] MEDS: TPN PER PHARMACY IV NR (22:21)
[2025-09-09] VITALS (7 sets, daily range): BP systolic 121–132; BP diastolic 75–92; PULSE 75–88; RESP 16–19; TEMP 97.9–98.5; O2SAT 96–97
--- NOTE | 2025-09-09 08:58 | MEDREC ---
[facility] Intervention Section I [facility] Intervention: Deescalate AB based on CS (PLEASE CONSIDER DE-ESCALATION / DISCONTINUATION ANTIBIOTIC IF CLINICALLY RELEVANT) ILA DARLING PHARMACIST Sep 09, 2025 08:58
--- NOTE | 2025-09-09 09:53 | DVHPN2 ---
Progress Note Date Seen: Sep 09, 2025 Has the PT tested + for MRSA If YES, has PT been informed?: No (Getting PICC line for TPN) Medical Necessity Reason Pt with a Central, PICC or Fol: Yes The following are medically ne: PICC Line Objective vital signs Vital Sign Date Time Temp Pulse Resp B/P (MAP) Pulse Ox O2 Delivery O2 Flow Rate FiO2 09/09/25 09:00 98.0 79 16 131/82 (98) 97 98.0 09/08/25 20:00 Room Air* 0 21 Total Intake and Output 09/08/25 09/08/25 09/09/25 15:00 23:00 07:00 Intake Total 100 ml 735 ml Output Total 525 ml 875 ml Balance -425 ml -140 ml medications Current Medications Medications Dose Ordered Sig/Radames Route Start Time Stop Time Status Last Admin Dose Admin Docusate Sodium 100 mg BIDPRN PRN PO 08/24/25 11:15 Acetaminophen 650 mg Q6HP PRN PO 08/24/25 11:15 08/25/25 16:06 650 MG Nitroglycerin 0.4 mg Q5MINP PRN SL 08/24/25 11:15 Amino Acids 0 ml @ 0 mls/hr PER PHARMACY IV 08/24/25 16:15 Diagnostic Test (Pha) 1 strip Q6HR 08/25/25 00:00 09/09/25 06:00 1 STRIP Insulin Human Regular FOLLOW SLIDING SCALE Q6HR SC 08/25/25 00:00 09/09/25 01:29 4 UNITS Dextrose 50 ml UD IV 08/24/25 22:00 Sodium Chloride 10 ml QSHIFT@10,22 IV 08/26/25 10:00 09/08/25 22:00 10 ML Vancomycin HCl 0 ml @ 0 mls/hr PER PHARMACY IV 08/26/25 13:45 Cancel Linezolid 300 ml @ 150 mls/hr Q12HR IV 08/27/25 11:00 09/08/25 23:47 150 MLS/HR Metronidazole 100 ml @ 100 mls/hr Q8HR IV 08/28/25 14:00 09/09/25 06:28 100 MLS/HR Lisinopril 20 mg DAILY PO 08/29/25 10:00 08/31/25 10:05 20 MG Pantoprazole Sodium 40 mg DAILY IV 09/02/25 10:00 09/08/25 10:28 40 MG Hydromorphone HCl 0.25 mg Q3HPRN PRN IV 09/02/25 11:15 09/09/25 06:53 0.25 MG Hydralazine HCl 10 mg Q6HP PRN IV 09/02/25 14:30 Sodium Chloride 1,000 ml @ 60 mls/hr [id number] IV 09/02/25 14:30 09/08/25 20:30 60 MLS/HR Prochlorperazine Edisylate 10 mg TIDPRN PRN IV 09/04/25 16:30 09/08/25 12:38 10 MG Cefepime HCl 50 ml @ 12.5 mls/hr Q8H IV 09/06/25 00:00 09/09/25 00:00 12.5 MLS/HR Fat Emulsion Intravenous 350 ml/Sodium Chloride 30 meq/ Sodium Phosphate 40 meq/Potassium Chloride 30 meq/ Calcium Gluconate 2.3 meq/Magnesium Sulfate 8 meq/ Multivitamins 10 ml/Chromium/ Copper/Manganese/ Zinc 1 ml/Amino Acids/Dextrose/ Purified Water 1,850.4462 ml @ 77 mls/hr Q24H2M IV 09/08/25 22:00 09/09/25 21:59 09/08/25 22:21 77 MLS/HR laboratory and microbiology Laboratory Tests 09/08/25 05:14 09/06/25 05:28 Test 09/08/25 05:14 Range/Units Serum Glucose 107 H 74-106 mg/dL Problem List/Assessment/Plan Problem List/Assessment/Plan 08/26/25PATIENT HAS A SUGGESTION OF COLOVESICAL FISTULA ON IMAGING,HAS BEEN PASSING WHAT APPEARS TO BE STOOL IN HIS URINE, AWAITING CYSTOGRAM, EXPLAINED TO PATIENT IN GREAT DETAIL' 09/02/25 doing well wound clean and well approximated, abdomen appropriately tender, ROB drainage cleart and small in volume, operative findings explained, keep NPO,NGT, ok to leave ICU. 09/04/25 no flatus, no BM, wound clean and well approximated, abdomen soft, non tender and appropriately tender, rob drain serosanguineous. labs ok, ambulate frequently 09/05/25 TWO VERY SMALL BOWEL MOVEMENTS BUT NOT PASSING FLATUS, LEAVE NGT IN PLACE AND KEEP NPO TILL FLATUS, ABDOMEN SOFT NON DISTENDED APPROPRIATELY TENDER, DRAINAGE SEROUS (ROB DRAIN), MUST AMBULATE Q 4 HOURS 09/08/25 [email or web address] study shows no evidence of SB obstruction, he has had several bowel movements since the x ray, abdomen is soft and non distended, drainage minimal. will dc ngt and allow po intake 09/09/25 DOING WELL, TOLERATING PO LIQUIDS, WANTS TO TRY ADVANCING DIET. WOUND CLEAN AND WELL APPROXIMATED, ABDOMEN NON TENDER, DRAINAGE MINIMAL AND CLEAR. OK TO DISCHARGE TOMORROW IF TOLERATING REG,DIET Plan discussed with: Patient Dietary Evaluation Review Comments: 1) Increase TPN rate to meet at least 75% estimated daily needs 2) Advance to cardiac diet when medically feasible 3) Follow-up with urology and gastroenterology 4) Continue to monitor I&O, labs, and skin integrity Expected Outcomes/Goals: 1) nutrition support to meet at least 75% estimated daily needs 2) labs to improve 3) diet to advance 4) f/u in 3-5 days TRISTON BARNES MD Sep 09, 2025 09:53
--- NOTE | 2025-09-09 13:27 | DVHPN2 ---
Subjective feeling better NGT removed Reviewed: Care Plan, H&P, Labs, Medications, Previous Orders, Radiology Changes from previous H/P or p: No Changes General: Per HPI Eyes: No Pain, No Vision change, No Conjunctivae inflammation, No Eyelid inflammation, No Other, No Redness ENT: No Ear pain, No Ear discharge, No Nose pain, No Nose discharge, No Nose congestion, No Mouth pain, No Mouth swelling, No Throat pain, No Throat swelling, No Other Cardiovascular: No Chest Pain, No Palpitations, No Orthopnea, No Paroxysmal Noc. Dyspnea, No Edema, No Lt Headedness, No Other Respiratory: No Cough, No Dry, No Shortness of breath, No SOB with excertion, No Wheezing, No Hemoptysis, No Pleuritic Pain, No Sputum, No Other Gastrointestinal: No Nausea, No Vomiting, No Abdominal Pain, No Diarrhea, No Constipation, No Melena, No Hematochezia, No Other Genitourinary: Dysuria, Frequency; No Incontinence; Hematuria; No Retention, No Other Musculoskeletal: No other, No neck pain, No shoulder pain, No arm pain; back pain (left flank); No hand pain, No leg pain, No foot pain Skin: No Rash, No Lesions, No Jaundice, No Bruising, No Other Objective Vitals Vital Signs Date Time Temp Pulse Resp B/P (MAP) Pulse Ox O2 Delivery O2 Flow Rate FiO2 09/09/25 13:00 98.0 75 18 121/75 (90) 96 98.0 09/08/25 20:00 Room Air* 0 21 Intake/Output Intake and Output 09/09/25 07:00 Intake Total 835 ml Output Total 1400 ml Balance -565 ml Intake Oral 735 ml IV Total 100 ml Output Urine Total 1300 ml Gastric Drainage Total 100 ml # Voids 2 # Bowel Movements 1 General Appearance: Oriented X3 Lungs: Clear to auscultation Cardiovascular: Regular rate, Normal S1, Normal S2 Abdomen: Normal bowel sounds Medications Current Medications Medications Dose Ordered Sig/Radames Route Start Time Stop Time Status Last Admin Dose Admin Docusate Sodium 100 mg BIDPRN PRN PO 08/24/25 11:15 Acetaminophen 650 mg Q6HP PRN PO 08/24/25 11:15 08/25/25 16:06 650 MG Nitroglycerin 0.4 mg Q5MINP PRN SL 08/24/25 11:15 Amino Acids 0 ml @ 0 mls/hr PER PHARMACY IV 08/24/25 16:15 Diagnostic Test (Pha) 1 strip Q6HR 08/25/25 00:00 09/09/25 12:00 1 STRIP Insulin Human Regular FOLLOW SLIDING SCALE Q6HR SC 08/25/25 00:00 09/09/25 01:29 4 UNITS Dextrose 50 ml UD IV 08/24/25 22:00 Sodium Chloride 10 ml QSHIFT@10,22 IV 08/26/25 10:00 09/09/25 10:00 10 ML Vancomycin HCl 0 ml @ 0 mls/hr PER PHARMACY IV 08/26/25 13:45 Cancel Linezolid 300 ml @ 150 mls/hr Q12HR IV 08/27/25 11:00 09/09/25 10:39 150 MLS/HR Metronidazole 100 ml @ 100 mls/hr Q8HR IV 08/28/25 14:00 09/09/25 06:28 100 MLS/HR Lisinopril 20 mg DAILY PO 08/29/25 10:00 09/09/25 12:55 20 MG Pantoprazole Sodium 40 mg DAILY IV 09/02/25 10:00 09/09/25 10:39 40 MG Hydromorphone HCl 0.25 mg Q3HPRN PRN IV 09/02/25 11:15 09/09/25 10:41 0.25 MG Hydralazine HCl 10 mg Q6HP PRN IV 09/02/25 14:30 Sodium Chloride 1,000 ml @ 60 mls/hr [id number] IV 09/02/25 14:30 09/08/25 20:30 60 MLS/HR Prochlorperazine Edisylate 10 mg TIDPRN PRN IV 09/04/25 16:30 09/08/25 12:38 10 MG Cefepime HCl 50 ml @ 12.5 mls/hr Q8H IV 09/06/25 00:00 09/09/25 08:00 12.5 MLS/HR Fat Emulsion Intravenous 350 ml/Sodium Chloride 30 meq/ Sodium Phosphate 40 meq/Potassium Chloride 30 meq/ Calcium Gluconate 2.3 meq/Magnesium Sulfate 8 meq/ Multivitamins 10 ml/Chromium/ Copper/Manganese/ Zinc 1 ml/Amino Acids/Dextrose/ Purified Water 1,850.4462 ml @ 77 mls/hr Q24H2M IV 09/08/25 22:00 09/09/25 21:59 09/08/25 22:21 77 MLS/HR Fat Emulsion Intravenous 350 ml/Sodium Chloride 30 meq/ Sodium Phosphate 40 meq/Potassium Chloride 30 meq/ Calcium Gluconate 2.3 meq/Magnesium Sulfate 8 meq/ Multivitamins 10 ml/Chromium/ Copper/Manganese/ Zinc 1 ml/Amino Acids/Dextrose/ Purified Water 1,850.4462 ml @ 77 mls/hr Q24H2M IV 09/09/25 22:00 09/10/25 21:59 Laboratory Results Laboratory Tests 09/06/25 05:28 09/08/25 05:14 Urinalysis Test 08/24/25 21:20 Urine Color Dark-orange (Yellow) Urine Clarity Ex.turbid (Clear) Urine pH 6.5 (5.0-9.0) Urine Specific [place] 1.029 (1.001-1.035) Urine Protein 2+ (Negative) H Urine Ketones Trace (Negative) Urine Blood 3+ /uL (Negative) H Urine Nitrite Negative (Negative) Urine Bilirubin 1+ (Negative) Urine Urobilinogen 4 mg/dL (Negative) H Urine Leukocyte Esterase 3+ /uL (Negative) Urine RBC 68 /hpf (0 - 3) Urine Microscopic WBC 149 /HPF (0-3) H Urine Squamous Epithelial Cells None seen /hpf (<5) Urine Bacteria Many /hpf (None Seen) H Urine Mucus Many (None Seen) Urine Glucose Normal mg/dL (Normal) Microbiology Microbiology Date/Time Source Procedure Growth Status 08/24/25 09:03 Voided Urine Urine Culture - Final Pseudomonas aeruginosa Staphylococcus lugdunensis Enterococcus faecalis Complete 08/24/25 08:21 Blood Blood Culture - Final NO GROWTH AFTER 5 DAYS OF INCUBATION. Complete Assessment/Plan Assessment/Plan Sloan Ibarra is a 69-year-old male with past medical history of kidney stones, hypertension, and hepatitis, who came to the hospital due to left flank pain, brown urine, frequent urination, and painful urination. Patient states he has a history of kidney stones, that he has been passing them at home, but the pain became too much so he came to the hospital. He states his urine has become brown, he can see sediment or stone in the toilet when he urinates, he has the urge to urinate but only a little comes out. 09/02: Patient here with left kidney stone with hydronephrosis status post ESWL Urology; also have diverticulosis with colovesicular fistula, had surgery yesterday now in ICU upgraded after surgery. White count going up but mild stable we will change antibiotics from Levaquin/Zyvox to cefepime/Zyvox. Continue close monitoring for platelets and neurological mental status. Making good urine, on LIS suctioned for surgery. Surgical scar healing well no exudates. We will continue management as prior surgical recommendations otherwise. Remains NPO on TPN. Fluids changed from D5 half-normal to normal saline only. Patient on low-level oxygen 2 L. no vasopressors. 09/03: Patient continues to remain off of any vasopressors, blood pressure stable no hypotension. Today is postop day 2 from ex lap. Patient has JORDAN drain with serosanguineous output, and has left nephrostomy straw-colored urine, urine Rm also with good output in straw-colored urine. We will deescalate care to tele as cleared by surgery. Continue broad-spectrum antibiotics. Surgical scar looking clean staple sutures no drainage from stable, abdomen stable nontender nondistended.. Continue present management, NG tube to continuous suction per surgery, okay to continue deescalation care to tele. 09/04: Patient continues to improve surgery following. On tele now. We will continue present management. Continue IV antibiotics. NG tube in diet management per surgical recommendations 09/05: has BS now. feeling good. hungry. has 2 BM this am. ng tube with minimal output. Surgery made aware, diet per surgery. 09/06: Bowel sounds are very hypoactive. Remains on suctioned low continuous. Very minimal fluid in NG tube canister about 100 cc. Surgery following. Keeping patient NPO. Rm is removed. Patient is ambulating. Requiring less pain control. 09/07: Hypoactive bowel sounds, remaining NPO by surgery. Minimal NG output, bowel sounds are hypoactive and almost absent. Surgery following. He is ambulating now, Rm remains out. Also minimal output in the JORDAN drain. Contacted surgery in want to keep him NPO. TPN is hanging at bedside. We will continue present management. 09/08 passing stool Diagnosis: Sepsis secondary to urinary tract infection Colovesical fistula surgical consult by Dr. Patterson appreciated, Chest post surgery 09/01/2025 Acute kidney injury, Left hydronephrosis status post nephrostomy tube placement by radiologist, Obstructing kidney stone, History of uro lift procedure by Urology Dr. Hanna two months ago Splenomegaly, Acute diverticulitis: Nutrition TPN Prostatomegaly, Hypertension, UTI due to Pseudomonas, staph lugdunesis,enterococcus faecalis: Plan: GI consult Dr Kasia lauren appreciated IV antibiotics cefepime/ S suction were for surgery NPO>full liquid TPN 2-3L nasal cannula maintain SpO2 more than 90% urology consult by Dr. Hanna appreciated, planning for ESWL after stabilization Plan discussed with: Patient Date of Service: Sep 09, 2025 Billing Provider: JIGNA TOWNSEND MD Common Visit Codes: [id number] INP/OBS CARE(HIGH) JIGNA TOWNSEND MD Sep 09, 2025 13:27
[2025-09-09 16:11] LABS: Alanine Aminotransferase 22 U/L (7-40); Albumin 3.2 g/dL (3.2-4.8); Alkaline Phosphatase 66 U/L (46-116); Anion Gap 9 (5-15); BUN/Creatinine Ratio 23.1 (10.0-20.0); Blood Urea Nitrogen 18 mg/dL (9-23); Carbon Dioxide 27 mmol/L (20-31); Chloride 102 mmol/L (98-107); Glucose 81 mg/dL (74-106); Magnesium 2.1 mg/dL (1.6-2.6); Sodium 138 mmol/L (136-145); Total Protein 6.3 g/dL (5.7-8.2)
[2025-09-09 16:12] LABS: Bilirubin, Total 0.6 mg/dL (0.2-1.0)
[2025-09-09 16:20] LABS: Calcium 8.7 mg/dL (8.7-10.4); Potassium 3.4 mmol/L (3.5-5.1)
[2025-09-09] MEDS: TPN PER PHARMACY IV NR (22:05)
[2025-09-10] VITALS (7 sets, daily range): BP systolic 102–141; BP diastolic 67–90; PULSE 75–84; RESP 16–19; TEMP 36.7; O2SAT 92–98
[2025-09-10 06:58] LABS: Hematocrit 34.6 % (41.0-53.0); Hemoglobin 11.8 g/dL (13.5-17.5); Mean Corpuscular Hemoglobin 30.3 pg (28.0-32.0); Mean Corpuscular Volume 88.8 fL (80.0-100.0); Nucleated Red Blood Cells % 0.1 %
[2025-09-10 07:17] LABS: Alanine Aminotransferase 26 U/L (7-40); Alkaline Phosphatase 68 U/L (46-116); Anion Gap 8 (5-15); BUN/Creatinine Ratio 24.4 (10.0-20.0); Blood Urea Nitrogen 20 mg/dL (9-23); Carbon Dioxide 26 mmol/L (20-31); Chloride 104 mmol/L (98-107); Glucose 103 mg/dL (74-106); Magnesium 2.1 mg/dL (1.6-2.6); Potassium 3.7 mmol/L (3.5-5.1); Sodium 138 mmol/L (136-145); Total Protein 6.1 g/dL (5.7-8.2)
[2025-09-10 07:18] LABS: Albumin 3.1 g/dL (3.2-4.8); Bilirubin, Total 0.5 mg/dL (0.2-1.0); Calcium 8.6 mg/dL (8.7-10.4)
--- NOTE | 2025-09-10 10:07 | DVHPN2 ---
Reviewed: Care Plan, H&P, Labs, Medications, Previous Orders, Radiology Changes from previous H/P or p: No Changes General: Per HPI Eyes: No Pain, No Vision change, No Conjunctivae inflammation, No Eyelid inflammation, No Other, No Redness ENT: No Ear pain, No Ear discharge, No Nose pain, No Nose discharge, No Nose congestion, No Mouth pain, No Mouth swelling, No Throat pain, No Throat swelling, No Other Cardiovascular: No Chest Pain, No Palpitations, No Orthopnea, No Paroxysmal Noc. Dyspnea, No Edema, No Lt Headedness, No Other Respiratory: No Cough, No Dry, No Shortness of breath, No SOB with excertion, No Wheezing, No Hemoptysis, No Pleuritic Pain, No Sputum, No Other Gastrointestinal: No Nausea, No Vomiting, No Abdominal Pain, No Diarrhea, No Constipation, No Melena, No Hematochezia, No Other Genitourinary: Dysuria, Frequency; No Incontinence; Hematuria; No Retention, No Other Musculoskeletal: No other, No neck pain, No shoulder pain, No arm pain; back pain (left flank); No hand pain, No leg pain, No foot pain Skin: No Rash, No Lesions, No Jaundice, No Bruising, No Other Objective Vitals Vital Signs Date Time Temp Pulse Resp B/P (MAP) Pulse Ox O2 Delivery O2 Flow Rate FiO2 09/10/25 08:48 98.0 75 18 128/89 (102) 98 98.0 09/09/25 20:00 Room Air* 0 21 Intake/Output Intake and Output 09/10/25 07:00 Intake Total 580 ml Output Total 895 ml Balance -315 ml Intake Oral 180 ml IV Total 400 ml Output Urine Total 895 ml Exam GEN: Healthy appearing, well-developed, NAD. HEENT: NC/AT; MMM. NG tube inserted CV: RRR, no m/r/g. LUNGS: CTAB, no w/r/c. ABD: Soft, NT/ND, NBS, no masses or organomegaly. Large surgical incision with jose sutures EXT: skin Warm, well perfused. no rashes. No clubbing, cyanosis, or edema. NEURO: Ambulating with no limitations. No focal deficits. General Appearance: Oriented X3 Lungs: Clear to auscultation Cardiovascular: Regular rate, Normal S1, Normal S2 Abdomen: Normal bowel sounds Medications Current Medications Medications Dose Ordered Sig/Radames Route Start Time Stop Time Status Last Admin Dose Admin Docusate Sodium 100 mg BIDPRN PRN PO 08/24/25 11:15 Acetaminophen 650 mg Q6HP PRN PO 08/24/25 11:15 08/25/25 16:06 650 MG Nitroglycerin 0.4 mg Q5MINP PRN SL 08/24/25 11:15 Amino Acids 0 ml @ 0 mls/hr PER PHARMACY IV 08/24/25 16:15 Diagnostic Test (Pha) 1 strip Q6HR 08/25/25 00:00 09/10/25 06:29 1 STRIP Insulin Human Regular FOLLOW SLIDING SCALE Q6HR SC 08/25/25 00:00 09/10/25 00:40 2 UNITS Dextrose 50 ml UD IV 08/24/25 22:00 Sodium Chloride 10 ml QSHIFT@10,22 IV 08/26/25 10:00 09/09/25 22:00 10 ML Vancomycin HCl 0 ml @ 0 mls/hr PER PHARMACY IV 08/26/25 13:45 Cancel Linezolid 300 ml @ 150 mls/hr Q12HR IV 08/27/25 11:00 09/09/25 22:53 150 MLS/HR Metronidazole 100 ml @ 100 mls/hr Q8HR IV 08/28/25 14:00 09/10/25 06:23 100 MLS/HR Lisinopril 20 mg DAILY PO 08/29/25 10:00 09/09/25 12:55 20 MG Pantoprazole Sodium 40 mg DAILY IV 09/02/25 10:00 09/09/25 10:39 40 MG Hydromorphone HCl 0.25 mg Q3HPRN PRN IV 09/02/25 11:15 09/10/25 06:40 0.25 MG Hydralazine HCl 10 mg Q6HP PRN IV 09/02/25 14:30 Sodium Chloride 1,000 ml @ 60 mls/hr [id number] IV 09/02/25 14:30 09/10/25 05:50 60 MLS/HR Prochlorperazine Edisylate 10 mg TIDPRN PRN IV 09/04/25 16:30 09/08/25 12:38 10 MG Cefepime HCl 50 ml @ 12.5 mls/hr Q8H IV 09/06/25 00:00 09/10/25 07:50 12.5 MLS/HR Fat Emulsion Intravenous 350 ml/Sodium Chloride 30 meq/ Sodium Phosphate 40 meq/Potassium Chloride 30 meq/ Calcium Gluconate 2.3 meq/Magnesium Sulfate 8 meq/ Multivitamins 10 ml/Chromium/ Copper/Manganese/ Zinc 1 ml/Amino Acids/Dextrose/ Purified Water 1,850.4462 ml @ 77 mls/hr Q24H2M IV 09/09/25 22:00 09/10/25 21:59 09/09/25 22:05 77 MLS/HR Laboratory Results Laboratory Tests 09/10/25 06:18 Chemistry Test 09/09/25 15:13 09/10/25 06:18 Albumin 3.2 g/dL (3.2-4.8) 3.1 g/dL (3.2-4.8) L Calcium Level 8.7 mg/dL (8.7-10.4) 8.6 mg/dL (8.7-10.4) L Magnesium Level 2.1 mg/dL (1.6-2.6) 2.1 mg/dL (1.6-2.6) Phosphorus Level 2.8 mg/dL (2.4-5.1) 3.0 mg/dL (2.4-5.1) Total Protein 6.3 g/dL (5.7-8.2) 6.1 g/dL (5.7-8.2) LFT Test 09/09/25 15:13 09/10/25 06:18 Alanine Aminotransferase (ALT) 22 U/L (7-40) 26 U/L (7-40) Alkaline Phosphatase 66 U/L (46-116) 68 U/L (46-116) Aspartate Amino Transferase (AST) 23 U/L (13-40) 26 U/L (13-40) Total Bilirubin 0.6 mg/dL (0.2-1.0) 0.5 mg/dL (0.2-1.0) Urinalysis Test 08/24/25 21:20 Urine Color Dark-orange (Yellow) Urine Clarity Ex.turbid (Clear) Urine pH 6.5 (5.0-9.0) Urine Specific [place] 1.029 (1.001-1.035) Urine Protein 2+ (Negative) H Urine Ketones Trace (Negative) Urine Blood 3+ /uL (Negative) H Urine Nitrite Negative (Negative) Urine Bilirubin 1+ (Negative) Urine Urobilinogen 4 mg/dL (Negative) H Urine Leukocyte Esterase 3+ /uL (Negative) Urine RBC 68 /hpf (0 - 3) Urine Microscopic WBC 149 /HPF (0-3) H Urine Squamous Epithelial Cells None seen /hpf (<5) Urine Bacteria Many /hpf (None Seen) H Urine Mucus Many (None Seen) Urine Glucose Normal mg/dL (Normal) Microbiology Microbiology Date/Time Source Procedure Growth Status 08/24/25 09:03 Voided Urine Urine Culture - Final Pseudomonas aeruginosa Staphylococcus lugdunensis Enterococcus faecalis Complete 08/24/25 08:21 Blood Blood Culture - Final NO GROWTH AFTER 5 DAYS OF INCUBATION. Complete Labs and/or images reviewed: Labs reviewed by me, Image(s) reviewed by me Assessment/Plan Assessment/Plan Sloan Ibarra is a 69-year-old male with past medical history of kidney stones, hypertension, and hepatitis, who came to the hospital due to left flank pain, brown urine, frequent urination, and painful urination. Patient states he has a history of kidney stones, that he has been passing them at home, but the pain became too much so he came to the hospital. He states his urine has become brown, he can see sediment or stone in the toilet when he urinates, he has the urge to urinate but only a little comes out. 09/02: Patient here with left kidney stone with hydronephrosis status post ESWL Urology; also have diverticulosis with colovesicular fistula, had surgery yesterday now in ICU upgraded after surgery. White count going up but mild stable we will change antibiotics from Levaquin/Zyvox to cefepime/Zyvox. Continue close monitoring for platelets and neurological mental status. Making good urine, on LIS suctioned for surgery. Surgical scar healing well no exudates. We will continue management as prior surgical recommendations otherwise. Remains NPO on TPN. Fluids changed from D5 half-normal to normal saline only. Patient on low-level oxygen 2 L. no vasopressors. 09/03: Patient continues to remain off of any vasopressors, blood pressure stable no hypotension. Today is postop day 2 from ex lap. Patient has JORDAN drain with serosanguineous output, and has left nephrostomy straw-colored urine, urine Rm also with good output in straw-colored urine. We will deescalate care to tele as cleared by surgery. Continue broad-spectrum antibiotics. Surgical scar looking clean staple sutures no drainage from stable, abdomen stable nontender nondistended.. Continue present management, NG tube to continuous suction per surgery, okay to continue deescalation care to tele. 09/04: Patient continues to improve surgery following. On tele now. We will continue present management. Continue IV antibiotics. NG tube in diet management per surgical recommendations 09/05: has BS now. feeling good. hungry. has 2 BM this am. ng tube with minimal output. Surgery made aware, diet per surgery. 09/06: Bowel sounds are very hypoactive. Remains on suctioned low continuous. Very minimal fluid in NG tube canister about 100 cc. Surgery following. Keeping patient NPO. Rm is removed. Patient is ambulating. Requiring less pain control. 09/07: Hypoactive bowel sounds, remaining NPO by surgery. Minimal NG output, bowel sounds are hypoactive and almost absent. Surgery following. He is ambulating now, Rm remains out. Also minimal output in the JORDAN drain. Contacted surgery in want to keep him NPO. TPN is hanging at bedside. We will continue present management. 09/10: Patient NG tube is out, he has been on clear liquid diet and tolerating well,. Having bowel movement. Bowel sounds normoactive. Surgery is advancing diet to solids cardiac. If tolerates well we will likely we will send home. Patient to go home with JORDAN drain and nephrostomy. Nephrostomy bag has good urine output. Diagnosis: Sepsis secondary to urinary tract infection Colovesical fistula surgical consult by Dr. Patterson appreciated, Chest post surgery 09/01/2025 Acute kidney injury, Left hydronephrosis status post nephrostomy tube placement by radiologist, Obstructing kidney stone, History of uro lift procedure by Urology Dr. Hanna two months ago Splenomegaly, Acute diverticulitis: Nutrition TPN Prostatomegaly, Hypertension, UTI due to Pseudomonas, staph lugdunesis,enterococcus faecalis: Plan: GI consult Dr Kasia lauren appreciated IV antibiotics cefepime/ S suction were for surgery NPO TPN 2-3L nasal cannula maintain SpO2 more than 90% urology consult by Dr. Hanna appreciated, planning for ESWL after stabilization tele Full code Plan discussed with: Patient Date of Service: Sep 10, 2025 Billing Provider: ANDRES LE MD Common Visit Codes: [id number] INP/OBS CARE(HIGH) ANDRES LE MD Sep 10, 2025 10:07
--- NOTE | 2025-09-10 10:42 | DVHPN2 ---
Subjective Date Seen: Sep 10, 2025 Post op day Post op day: 8 Patient reports: No new complaints, Feels better (Patient says after recent DVT and patient is feeling better and stronger. Patient remain NPO pending surgery evaluation) Nursing reports: No new complaints General: Normal HNT: Normal Cardiovascular: Normal Respiratory: Normal Gastrointestinal: Other (hiccups) Genitourinary: Normal Musculoskeletal: Normal Neurological: Normal Objective Vitals Vital Sign Date Time Temp Pulse Resp B/P (MAP) Pulse Ox O2 Delivery O2 Flow Rate FiO2 09/10/25 08:48 98.0 75 18 128/89 (102) 98 98.0 09/09/25 20:00 Room Air* 0 21 Total Intake and Output 09/09/25 09/09/25 09/10/25 15:00 23:00 07:00 Intake Total 280 ml 300 ml Output Total 575 ml 320 ml Balance -295 ml -20 ml Medications Current Medications Medications Dose Ordered Sig/Radames Route Start Time Stop Time Status Last Admin Dose Admin Docusate Sodium 100 mg BIDPRN PRN PO 08/24/25 11:15 Acetaminophen 650 mg Q6HP PRN PO 08/24/25 11:15 08/25/25 16:06 650 MG Nitroglycerin 0.4 mg Q5MINP PRN SL 08/24/25 11:15 Amino Acids 0 ml @ 0 mls/hr PER PHARMACY IV 08/24/25 16:15 Diagnostic Test (Pha) 1 strip Q6HR 08/25/25 00:00 09/10/25 06:29 1 STRIP Insulin Human Regular FOLLOW SLIDING SCALE Q6HR SC 08/25/25 00:00 09/10/25 00:40 2 UNITS Dextrose 50 ml UD IV 08/24/25 22:00 Sodium Chloride 10 ml QSHIFT@10,22 IV 08/26/25 10:00 09/09/25 22:00 10 ML Vancomycin HCl 0 ml @ 0 mls/hr PER PHARMACY IV 08/26/25 13:45 Cancel Linezolid 300 ml @ 150 mls/hr Q12HR IV 08/27/25 11:00 09/09/25 22:53 150 MLS/HR Metronidazole 100 ml @ 100 mls/hr Q8HR IV 08/28/25 14:00 09/10/25 06:23 100 MLS/HR Lisinopril 20 mg DAILY PO 08/29/25 10:00 09/09/25 12:55 20 MG Pantoprazole Sodium 40 mg DAILY IV 09/02/25 10:00 09/09/25 10:39 40 MG Hydromorphone HCl 0.25 mg Q3HPRN PRN IV 09/02/25 11:15 09/10/25 06:40 0.25 MG Hydralazine HCl 10 mg Q6HP PRN IV 09/02/25 14:30 Sodium Chloride 1,000 ml @ 60 mls/hr [id number] IV 09/02/25 14:30 09/10/25 05:50 60 MLS/HR Prochlorperazine Edisylate 10 mg TIDPRN PRN IV 09/04/25 16:30 09/08/25 12:38 10 MG Cefepime HCl 50 ml @ 12.5 mls/hr Q8H IV 09/06/25 00:00 09/10/25 07:50 12.5 MLS/HR Fat Emulsion Intravenous 350 ml/Sodium Chloride 30 meq/ Sodium Phosphate 40 meq/Potassium Chloride 30 meq/ Calcium Gluconate 2.3 meq/Magnesium Sulfate 8 meq/ Multivitamins 10 ml/Chromium/ Copper/Manganese/ Zinc 1 ml/Amino Acids/Dextrose/ Purified Water 1,850.4462 ml @ 77 mls/hr Q24H2M IV 09/09/25 22:00 09/10/25 21:59 09/09/25 22:05 77 MLS/HR Fat Emulsion Intravenous 350 ml/Sodium Chloride 30 meq/ Sodium Phosphate 40 meq/Potassium Chloride 30 meq/ Calcium Gluconate 2.3 meq/Magnesium Sulfate 8 meq/ Multivitamins 10 ml/Chromium/ Copper/Manganese/ Zinc 1 ml/Amino Acids/Dextrose/ Purified Water 1,850.4462 ml @ 77 mls/hr Q24H2M IV 09/10/25 22:00 09/11/25 21:59 General: Normal, Well developed Head/Eyes: Normal ENT: Normal Neck: Normal, Supple Lungs: Normal, Normal inspection Cardiovascular: Normal, Regular rate and rhythm Abdominal: Normal, Soft Musculoskeletal: Normal Extremities: Normal Skin: Normal Labs and Microbiology Laboratory Tests 09/10/25 06:18 Test 09/10/25 06:18 Range/Units Serum Glucose 103 74-106 mg/dL Ass/Plan Labs and/or images reviewed: Labs reviewed by me, Image(s) reviewed by me Problem List 08/26/25PATIENT HAS A SUGGESTION OF COLOVESICAL FISTULA ON IMAGING,HAS BEEN PASSING WHAT APPEARS TO BE STOOL IN HIS URINE, AWAITING CYSTOGRAM, EXPLAINED TO PATIENT IN GREAT DETAIL' 09/02/25 doing well wound clean and well approximated, abdomen appropriately tender, SLADE drainage cleart and small in volume, operative findings explained, keep NPO,NGT, ok to leave ICU. 09/04/25 no flatus, no BM, wound clean and well approximated, abdomen soft, non tender and appropriately tender, slade drain serosanguineous. labs ok, ambulate frequently 09/05/25 TWO VERY SMALL BOWEL MOVEMENTS BUT NOT PASSING FLATUS, LEAVE NGT IN PLACE AND KEEP NPO TILL FLATUS, ABDOMEN SOFT NON DISTENDED APPROPRIATELY TENDER, DRAINAGE SEROUS (SLADE DRAIN), MUST AMBULATE Q 4 HOURS 09/08/25 [email or web address] study shows no evidence of SB obstruction, he has had several bowel movements since the x ray, abdomen is soft and non distended, drainage minimal. will dc ngt and allow po intake 09/09/25 DOING WELL, TOLERATING PO LIQUIDS, WANTS TO TRY ADVANCING DIET. WOUND CLEAN AND WELL APPROXIMATED, ABDOMEN NON TENDER, DRAINAGE MINIMAL AND CLEAR. OK TO DISCHARGE TOMORROW IF TOLERATING REG,DIET Assessment/Plan - Reports feeling "pretty good" post-operatively. Reports experiencing hiccups, which were also present prior to the procedure. The surgical wound is clean dry and jose are intact . Denies nausea. Reports no bowel activity yet but is able to use the toilet if needed. Reports feeling pretty good when ambulating. Abdomen is soft on examination. Surgical wound appears to be healing well, Slade drain serous fluid Plan: - The nasogastric tube setting was changed to low continuous suction from intermittent. patient to ambulate with physical therapy NPO 09/06/2025 Subjective: - Reports intermittent hiccups . The hiccups subsided for a period after surgery but have since returned. Reports also not passing gas - Reports having ambulated in the hallway twice. Plan: - patient to ambulate - Continue NPO - Continue nasogastric tube on low continuous suction. - Continue to encourage ambulation. - Will reassess tomorrow. 09/10/25 no new complaints feeling well tolerating diet passing gas, bowel movements ok to discharge per surgery point of view patient to follow up in surgery clinic in two weeks Prognosis: Excellent Plan discussed with patient, Dr. Patterson Visit Coding Surgery Date of Service if different f: Sep 10, 2025 Billing Provider: TRISTON PATTERSON MD Surgery Visit Codes: [id number] INP/OBS CARE(HIGH) BRITTANEY ENRIQUEZ MARINE DIVER Sep 10, 2025 10:42
--- NOTE | 2025-09-10 14:28 | DVHPN2 ---
Progress Note - Dictate Date Seen: Sep 10, 2025 Has the PT tested + for MRSA If YES, has PT been informed?: No (Getting PICC line for TPN) Medical Necessity Reason Pt with a Central, PICC or Fol: Yes The following are medically ne: PICC Line Subjective Patient underwent sigmoid colectomy with primary anastomosis on 09/02/2025 underlying chronic diverticulitis with colovesicular fistula that was resected Awake alert on room air He is tolerating a diet There was no nausea or vomiting Patient has had two bowel movements Patient is ambulating and undergoing physical therapy Incision is healing well vital signs Vital Sign Date Time Temp Pulse Resp B/P (MAP) Pulse Ox O2 Delivery O2 Flow Rate FiO2 09/10/25 12:47 97.7 78 18 122/84 (97) 95 97.7 09/09/25 20:00 Room Air* 0 21 Total Intake and Output 09/09/25 09/09/25 09/10/25 15:00 23:00 07:00 Intake Total 280 ml 300 ml Output Total 575 ml 320 ml Balance -295 ml -20 ml medications Current Medications Medications Dose Ordered Sig/Radames Route Start Time Stop Time Status Last Admin Dose Admin Docusate Sodium 100 mg BIDPRN PRN PO 08/24/25 11:15 Acetaminophen 650 mg Q6HP PRN PO 08/24/25 11:15 08/25/25 16:06 650 MG Nitroglycerin 0.4 mg Q5MINP PRN SL 08/24/25 11:15 Amino Acids 0 ml @ 0 mls/hr PER PHARMACY IV 08/24/25 16:15 Diagnostic Test (Pha) 1 strip Q6HR 08/25/25 00:00 09/10/25 06:29 1 STRIP Insulin Human Regular FOLLOW SLIDING SCALE Q6HR SC 08/25/25 00:00 09/10/25 00:40 2 UNITS Dextrose 50 ml UD IV 08/24/25 22:00 Sodium Chloride 10 ml QSHIFT@10,22 IV 08/26/25 10:00 09/10/25 10:54 10 ML Vancomycin HCl 0 ml @ 0 mls/hr PER PHARMACY IV 08/26/25 13:45 Cancel Linezolid 300 ml @ 150 mls/hr Q12HR IV 08/27/25 11:00 09/10/25 10:53 150 MLS/HR Metronidazole 100 ml @ 100 mls/hr Q8HR IV 08/28/25 14:00 09/10/25 06:23 100 MLS/HR Lisinopril 20 mg DAILY PO 08/29/25 10:00 09/10/25 11:10 20 MG Pantoprazole Sodium 40 mg DAILY IV 09/02/25 10:00 09/10/25 11:06 40 MG Hydromorphone HCl 0.25 mg Q3HPRN PRN IV 09/02/25 11:15 09/10/25 11:08 0.25 MG Hydralazine HCl 10 mg Q6HP PRN IV 09/02/25 14:30 Sodium Chloride 1,000 ml @ 60 mls/hr [id number] IV 09/02/25 14:30 09/10/25 05:50 60 MLS/HR Prochlorperazine Edisylate 10 mg TIDPRN PRN IV 09/04/25 16:30 09/08/25 12:38 10 MG Cefepime HCl 50 ml @ 12.5 mls/hr Q8H IV 09/06/25 00:00 09/10/25 07:50 12.5 MLS/HR Fat Emulsion Intravenous 350 ml/Sodium Chloride 30 meq/ Sodium Phosphate 40 meq/Potassium Chloride 30 meq/ Calcium Gluconate 2.3 meq/Magnesium Sulfate 8 meq/ Multivitamins 10 ml/Chromium/ Copper/Manganese/ Zinc 1 ml/Amino Acids/Dextrose/ Purified Water 1,850.4462 ml @ 77 mls/hr Q24H2M IV 09/09/25 22:00 09/10/25 21:59 09/09/25 22:05 77 MLS/HR Fat Emulsion Intravenous 350 ml/Sodium Chloride 30 meq/ Sodium Phosphate 40 meq/Potassium Chloride 30 meq/ Calcium Gluconate 2.3 meq/Magnesium Sulfate 8 meq/ Multivitamins 10 ml/Chromium/ Copper/Manganese/ Zinc 1 ml/Amino Acids/Dextrose/ Purified Water 1,850.4462 ml @ 77 mls/hr Q24H2M IV 09/10/25 22:00 09/11/25 21:59 objective Gen - no pallor, no scleral icterus Skin - Patients skin is warm and dry. HEENT - normocephalic, atraumatic, dry mucous membranes. Neck - supple, no lymphadenopathy Pulmonary - B/L clear breath sounds cardiovascular - regular S1,S2 heard GI - soft abdomen with a adequate tenderness status post surgery. Bowel sounds very hypoactive wound, binder in place Neurological - Patient is alert and oriented x4 and is following commands, no motor or sensory weakness laboratory and microbiology Laboratory Tests 09/10/25 06:18 Test 09/10/25 06:18 Range/Units Serum Glucose 103 74-106 mg/dL Problems(with codes): (1) LLQ abdominal pain (2) Leukocytosis (3) Diverticulitis (4) Abnormal finding on CT scan (5) UTI (urinary tract infection) (6) Colovesical fistula Prognosis Plan Discharge planning is in progress Advance diet as tolerated Maintain on stool softeners Increase fluid and fiber intake Patient is scheduled for outpatient elective colonoscopy in 2025, he was encouraged to keep his appointment Dietary Evaluation Review Comments: 1) Increase TPN rate to meet at least 75% estimated daily needs 2) Advance to cardiac diet when medically feasible 3) Follow-up with urology and gastroenterology 4) Continue to monitor I&O, labs, and skin integrity Expected Outcomes/Goals: 1) nutrition support to meet at least 75% estimated daily needs 2) labs to improve 3) diet to advance 4) f/u in 3-5 days Plan discussed with: Patient DEBBIE LINDER MD Sep 10, 2025 14:28
[2025-09-10] MEDS ORDERED: LEVO500T91 PO (14:51)
[2025-09-10] MEDS ORDERED: LINE1TAB10 PO (14:51)
--- NOTE | 2025-09-10 14:53 | DVHDS2 ---
Discharge Summary Date of Admission Aug 24, 2025 at 11:01 Date of Discharge: Sep 10, 2025 Labs/Diagnostic Data: Laboratory Results Test 09/10/25 11:17 09/10/25 06:18 09/08/25 05:14 09/01/25 04:37 POC Glucose 91 mg/dl (70-106) White Blood Count 9.1 10^3/uL (4.4-10.8) Red Blood Count 3.89 10^6/uL (4.5-5.90) Hemoglobin 11.8 g/dL (13.5-17.5) Hematocrit 34.6 % (41.0-53.0) Mean Corpuscular Volume 88.8 fL (80.0-100.0) Mean Corpuscular Hemoglobin 30.3 pg (28.0-32.0) Mean Corpuscular Hemoglobin Concent 34.1 g/dL (32.0-36.0) Red Cell Distribution Width 14.3 % (11.8-14.3) Platelet Count 280 10^3/uL (140-450) Mean Platelet Volume 7.5 fL (6.9-10.8) Neutrophils (%) (Auto) 74.3 % (37.0-80.0) Lymphocytes (%) (Auto) 10.7 % (10.0-50.0) Monocytes (%) (Auto) 10.5 % (0.0-12.0) Eosinophils (%) (Auto) 3.5 % (0.0-7.0) Basophils (%) (Auto) 1.0 % (0.0-2.0) Neutrophils # (Auto) 6.7 10 ^3/uL (1.6-8.6) Lymphocytes # (Auto) 1.0 10 ^3/uL (0.4-5.4) Monocytes # (Auto) 1.0 10 ^3/uL (0-1.3) Eosinophils # (Auto) 0.3 10 ^3/uL (0-0.8) Basophils # (Auto) 0.1 10 ^3/uL (0-0.2) Nucleated Red Blood Cells 0.1 % Sodium Level 138 mmol/L (136-145) Potassium Level 3.7 mmol/L (3.5-5.1) Chloride Level 104 mmol/L (98-107) Carbon Dioxide Level 26 mmol/L (20-31) Anion Gap 8 (5-15) Blood Urea Nitrogen 20 mg/dL (9-23) Creatinine 0.82 mg/dL (0.700-1.30) Glomerular Filtration Rate Calc 95 mL/min (>90) BUN/Creatinine Ratio 24.4 (10.0-20.0) Serum Glucose 103 mg/dL (74-106) Calcium Level 8.6 mg/dL (8.7-10.4) Phosphorus Level 3.0 mg/dL (2.4-5.1) Magnesium Level 2.1 mg/dL (1.6-2.6) Total Bilirubin 0.5 mg/dL (0.2-1.0) Aspartate Amino Transferase (AST) 26 U/L (13-40) Alanine Aminotransferase (ALT) 26 U/L (7-40) Alkaline Phosphatase 68 U/L (46-116) Total Protein 6.1 g/dL (5.7-8.2) Albumin 3.1 g/dL (3.2-4.8) Triglycerides Level 54 mg/dL (< 150) Differential Total Cells Counted 100.0 (100) Neutrophils % (Manual) 57 (37.0-80.0) Band Neutrophils % (Manual) 3 Lymphocytes % (Manual) 25 (10.0-50.0) Monocytes % (Manual) 11 (0-12) Eosinophils % (Manual) 4 (0-7) Basophils % (Manual) 0 (0.0-2.0) Metamyelocytes % (manual) 0 Myelocytes % (Manual) 0 Promyelocytes % (Manual) 0 Blast Cells % (Manual) 0 Reactive Lymphocytes 0 Platelet Estimate [place] Large Platelets Few Macrocytosis Moderate Prothrombin Time 14.6 sec (9.3-11.8) Prothrombin Time INR 1.43 (0.9-1.15) Activated Partial Thromboplast Time 35.6 SEC (24.5-34.5) Test 08/24/25 21:20 08/24/25 11:03 08/24/25 09:03 08/24/25 07:27 Urine Color Dark-orange (Yellow) Urine Clarity Ex.turbid (Clear) Urine pH 6.5 (5.0-9.0) Urine Specific [place] 1.029 (1.001-1.035) Urine Protein 2+ (Negative) Urine Ketones Trace (Negative) Urine Blood 3+ /uL (Negative) Urine Nitrite Negative (Negative) Urine Bilirubin 1+ (Negative) Urine Urobilinogen 4 mg/dL (Negative) Urine Leukocyte Esterase 3+ /uL (Negative) Urine RBC 68 /hpf (0 - 3) Urine Microscopic WBC 149 /HPF (0-3) Urine Squamous Epithelial Cells None seen /hpf (<5) Urine Bacteria Many /hpf (None Seen) Urine Mucus Many (None Seen) Urine Glucose Normal mg/dL (Normal) Lactic Acid Level 1.4 mmol/L (0.4-2.0) Urine Opiates Screen Neg (NEGATIVE) Urine Fentanyl Screen Neg (NEGATIVE) Urine Barbiturates Screen Neg (NEGATIVE) Urine Phencyclidine Screen Neg (NEGATIVE) Urine Amphetamines Screen Neg (NEGATIVE) Urine Benzodiazepines Screen Neg (NEGATIVE) Urine Cocaine Screen Neg (NEGATIVE) Urine Cannabinoids Screen Pos (NEGATIVE) Smudge Cells 1 /100 WBC Other Laboratory Tests 09/10/25 06:18 Brief Hx & Hospital Course: 69-year-old male with past medical history of kidney stones, hypertension, and hepatitis, who came to the hospital due to left flank pain, brown urine, frequent urination, and painful urination. Patient states he has a history of kidney stones, that he has been passing them at home, but the pain became too much so he came to the hospital. He states his urine has become brown, he can see sediment or stone in the toilet when he urinates, he has the urge to urinate but only a little comes out. 09/02: Patient here with left kidney stone with hydronephrosis status post ESWL Urology; also have diverticulosis with colovesicular fistula, had surgery yesterday now in ICU upgraded after surgery. White count going up but mild stable we will change antibiotics from Levaquin/Zyvox to cefepime/Zyvox. Continue close monitoring for platelets and neurological mental status. Making good urine, on LIS suctioned for surgery. Surgical scar healing well no exudates. We will continue management as prior surgical recommendations otherwise. Remains NPO on TPN. Fluids changed from D5 half-normal to normal saline only. Patient on low-level oxygen 2 L. no vasopressors. 09/03: Patient continues to remain off of any vasopressors, blood pressure stable no hypotension. Today is postop day 2 from ex lap. Patient has JORDAN drain with serosanguineous output, and has left nephrostomy straw-colored urine, urine Rm also with good output in straw-colored urine. We will deescalate care to tele as cleared by surgery. Continue broad-spectrum antibiotics. Surgical scar looking clean staple sutures no drainage from stable, abdomen stable nontender nondistended.. Continue present management, NG tube to continuous suction per surgery, okay to continue deescalation care to tele. 09/04: Patient continues to improve surgery following. On tele now. We will continue present management. Continue IV antibiotics. NG tube in diet management per surgical recommendations 09/05: has BS now. feeling good. hungry. has 2 BM this am. ng tube with minimal output. Surgery made aware, diet per surgery. 09/06: Bowel sounds are very hypoactive. Remains on suctioned low continuous. Very minimal fluid in NG tube canister about 100 cc. Surgery following. Keeping patient NPO. Rm is removed. Patient is ambulating. Requiring less pain control. 09/07: Hypoactive bowel sounds, remaining NPO by surgery. Minimal NG output, bowel sounds are hypoactive and almost absent. Surgery following. He is ambulating now, Rm remains out. Also minimal output in the JORDAN drain. Contacted surgery in want to keep him NPO. TPN is hanging at bedside. We will continue present management. 09/10: Patient NG tube is out, he has been on clear liquid diet and tolerating well,. Having bowel movement. Bowel sounds normoactive. Surgery is advancing diet to solids cardiac. If tolerates well we will likely we will send home. Patient to go home with JORDAN drain and nephrostomy. Nephrostomy bag has good urine output. Diagnosis: Sepsis secondary to urinary tract infection Colovesical fistula , status post open laparotomy 09/01/2025 Acute kidney injury, Left hydronephrosis status post nephrostomy tube placement by radiologist, 08/24/2025 Obstructing kidney stone, History of uro lift procedure by Urology Dr. Hanna two months ago Splenomegaly, Acute diverticulitis: Nutrition TPN Prostatomegaly, Hypertension, UTI due to Pseudomonas, staph lugdunesis,enterococcus faecalis: Plan: -linezolid 600 mg twice daily for5 days -Take levofloxacin 500 mg daily for 5 days -continue soft mechanical or full liquid diet for1 week -One week follow up with surgery to remove JORDAN drain, keep abdominal binder on during ambulation -Continue nephrostomy tube, close follow up with Urology1 week -Follow up with PCP to review discharge -continue other home medications not mentioned above Condition at Discharge: Fair Final Diagnosis/Problems List Sepsis secondary to urinary tract infection Colovesical fistula , status post open laparotomy 09/01/2025 Acute kidney injury, Left hydronephrosis status post nephrostomy tube placement by radiologist, 08/24/2025 Obstructing kidney stone, History of uro lift procedure by Urology Dr. Hanna two months ago Splenomegaly, Acute diverticulitis: Nutrition TPN Prostatomegaly, Hypertension, UTI due to Pseudomonas, staph lugdunesis,enterococcus faecalis: Discharge Disposition: Home Discharge Instruct/Medications Scheduled Lisinopril (Lisinopril), 20 MG PO DAILY, (Reported) Miscellaneous Medications Methocarbamol (Methocarbamol), Unknown Dose PO, (Reported) Discharge Statement: "Patient was advised to return to the ER or call 911 if any headaches, dizziness, shortness of breath, chest pain, abdominal pain, bleeding, fevers, or worsening of medical condition. Patient was counseled about treatment plan, medications, possible side effects, patientverbalized understanding. All questions were answered to the best of my ability. This discharge took greater then 30 minutes in planning, reviewing documentation, counseling the patient, and discussing with other team members." ASSESSMENT ASSESSMENT Assessment Date of Service: Sep 10, 2025 Billing Provider: ANDRES LE MD Common Visit Codes: 91842-SUU/OBS DISCH DAY >30min ANDRES LE MD Sep 10, 2025 14:53
== END 2025-09-10 19:01 | disposition home or self-care (01) | DRG 853 ==
LOC: ER 06:53 → OVERFLOW 11:01 → TELE-CENTR 15:23 → CENTRAL 09-01 13:44 → ICU WEST 09-01 14:15 → TELE-WESTW 09-03 23:03 → WEST WING 09-07 00:49
PROVIDERS: ADMIT Student in an Organized Health Care Education/Training Program; ATTEND Student in an Organized Health Care Education/Training Program
PROC: 0T9430Z Drainage of Left Kidney Pelvis with Drainage Device, Percutaneous Approach (ICD-10-PCS; principal; 2025-08-24)
PROC: 02HV33Z Insertion of Infusion Device into Superior Vena Cava, Percutaneous Approach (ICD-10-PCS; 2025-08-26)
PROC: B548ZZA Ultrasonography of Superior Vena Cava, Guidance (ICD-10-PCS; 2025-08-26)
PROC: 0DTN0ZZ Resection of Sigmoid Colon, Open Approach (ICD-10-PCS; 2025-09-01)
PROC: 0D1E0ZP Bypass Large Intestine to Rectum, Open Approach (ICD-10-PCS; 2025-09-01)
DX: A41.52 Sepsis due to Pseudomonas (principal); N17.0 Acute kidney failure with tubular necrosis; N13.6 Pyonephrosis; K57.32 Diverticulitis of large intestine without perforation or abscess without bleeding; B95.2 Enterococcus as the cause of diseases classified elsewhere; I10 Essential (primary) hypertension; N32.1 Vesicointestinal fistula; N40.0 Benign prostatic hyperplasia without lower urinary tract symptoms; K57.30 Diverticulosis of large intestine without perforation or abscess without bleeding; R16.1 Splenomegaly, not elsewhere classified; Z79.899 Other long term (current) drug therapy; Z82.49 Family history of ischemic heart disease and other diseases of the circulatory system; Z86.718 Personal history of other venous thrombosis and embolism; Z87.442 Personal history of urinary calculi; Z93.6 Other artificial openings of urinary tract status
CPT/HCPCS: 36415; 36569; 50435; 71045; 74177; 74250; 74425; 74430; 76937; 76942; 80048; 80053; 80307; 81001; 82962; 83605; 83735; 84100; 84478; 85007; 85025; 85027; 85610; 85730; 86850; 86900; 86901; 87040; 87086; 87088; 87186; 96361; 96374; 96375; 99152; 99291; G0378; J0692; J1815; J1885; J1956; J2250; J2405; J2470; J2543; J3480; J3490; J7131; Q0161

== ENCOUNTER → 2025-08-24 | Day surgery (SDC) | payer MEDICAID ==
[2025-08-20 11:33] LABS: Hematocrit 43.5 % (41.0-53.0); Hemoglobin 14.9 g/dL (13.5-17.5); Mean Corpuscular Hemoglobin 30.0 pg (28.0-32.0); Mean Corpuscular Volume 87.4 fL (80.0-100.0); Nucleated Red Blood Cells % 0.0 %
[2025-08-20 11:43] LABS: Urine Protein, UAD 2+ (Negative); Urine WBC Clumps PRESENT /hpf (None Seen)
[2025-08-20 11:49] LABS: Alanine Aminotransferase 12 U/L (7-40); Albumin 4.4 g/dL (3.2-4.8); Alkaline Phosphatase 57 U/L (46-116); Anion Gap 10 (5-15); BUN/Creatinine Ratio 22.0 (10.0-20.0); Bilirubin, Total 0.6 mg/dL (0.2-1.0); Calcium 9.5 mg/dL (8.7-10.4); Carbon Dioxide 27 mmol/L (20-31); Chloride 104 mmol/L (98-107); Glucose 90 mg/dL (74-106); Potassium 4.3 mmol/L (3.5-5.1); Sodium 141 mmol/L (136-145); Total Protein 7.9 g/dL (5.7-8.2)
[2025-08-20 11:52] LABS: INR 1.06 (0.9-1.15); Partial Thromboplastin Time 30.0 SEC (24.5-34.5); Prothrombin Time 11.2 sec (9.3-11.8)
[2025-08-20 11:58] LABS: Blood Urea Nitrogen 24 mg/dL (9-23)
[~2025-08-24] VITALS: Ht 188 cm; Wt 81.6 kg
[~2025-08-24] MED LIST changes: -IBU600T PO; +LIDOCAINE 2%HCL (LOCAL ANESTH.) INJ 20ML MDV ONE; +METH-1181 PO; -OMEG1400 PO
--- NOTE | 2025-08-24 09:40 | DVH ---
Exam: CT CT AB PEL WO CON-NO ORAL OR IV History: Left flank pain. Comparison Study: Images from a prior CT scan of the abdomen pelvis dated 01/24/2025 are available fo r comparison. Technique: Multidetector spiral CT of the abdomen and pelvis was performed from lung bases to pubic s ymphysis. Imaging was performed without intravenous contrast. Coronal and sagittal multiplanar reform ats were obtained from the axial data set by the technologist. Radiation Dose : 1. Abdomen/Pelvis: CTDIvol 12.65 mGy, DLP 668.8 mGy*cm. Findings: Evaluation of vasculature and solid organs is limited due to lack of intravenous contrast use. Lung Bases: Lung bases are clear. Visualized portions of the heart and pericardium are unremarkable. Liver: The liver is normal in size. No focal lesions. Diffusely hypoattenuating liver parenchyma con sistent with hepatic steatosis. Gallbladder and Biliary Tree: The gallbladder is unremarkable. No intrahepatic or extrahepatic biliar y ductal dilatation. Spleen: The spleen is enlarged measuring 13.6 cm. Pancreas: The pancreas is grossly unremarkable. Adrenal Glands: Unremarkable. Kidneys: There is moderate left hydroureteronephrosis due to a 7 mm obstructive proximal left uretera l calculus. Additional bilateral nonobstructive renal calculi measuring up to 3 mm in the right kidne y and 5 mm in the left kidney. There are bilateral renal cysts. GI tract: There is a small hiatal hernia. No evidence of small bowel wall thickening or abnormal dila tation to suggest bowel obstruction. There is colonic diverticulosis. There is mucosal thickening in the sigmoid colon with fat stranding. The thickened sigmoid colon is inseparable from the urinary alena dder wall and there appears to be stool in the thickened urinary bladder mucosa. Normal caliber appen sheridan. Peritoneum/mesentery/retroperitoneum. No evidence of free intraperitoneal air. No ascites. No evidenc e of suspicious lymphadenopathy. Abdominal Wall: Unremarkable. Vasculature: The visualized abdominal aorta is normal in size and caliber. Evaluation of abdominal a nd pelvic vessels is limited due to lack of intravenous contrast. Urinary Bladder: Urinary bladder wall thickening and extensive fat stranding is noted. There is gas in the urinary bladder and possible stool, highly suspicious for colovesicular fistula. Pelvic Organs: Post procedural changes in the prostate. Prostate enlarged measuring 5.0 cm. Musculoskeletal: No aggressive focal bony lesions, acute fractures or dislocation. IMPRESSION: 1. Moderate left hydroureteronephrosis due to a 7 mm obstructive proximal left ureteral calculus. 2. Additional bilateral nonobstructive renal calculi measuring up to 3 mm in the right kidney and 5 m m in the left kidney. 3. Sigmoid colon diverticulitis with high suspicion for colovesical fistula and cystitis. CT with rec michael contrast may be obtained for confirmation. 4. Prostatomegaly. 5. Splenomegaly.
== END | disposition home or self-care (01) ==
LOC: SUR 06:22
PROVIDERS: ATTEND Urology
DX: N13.2 Hydronephrosis with renal and ureteral calculous obstruction (principal); Z53.8 Procedure and treatment not carried out for other reasons; N40.1 Benign prostatic hyperplasia with lower urinary tract symptoms; N13.8 Other obstructive and reflux uropathy; I10 Essential (primary) hypertension; N32.1 Vesicointestinal fistula; Z87.891 Personal history of nicotine dependence; Z82.49 Family history of ischemic heart disease and other diseases of the circulatory system; Z86.19 Personal history of other infectious and parasitic diseases
CPT/HCPCS: 36415; 74176; 80053; 81001; 85025; 85610; 85730; 87086; 87088; 87186; J1644